=== PATIENT | male | born 1950 | race African-American/Black ===

== ENCOUNTER 2018-08-22 11:28 | Inpatient (IN) ==
[2018-08-22] MEDS ORDERED: ZOFRAN IV PRN (14:59)
--- NOTE | 2018-08-22 15:43 | HISTORY AND PHYSICAL ---
PRIMARY CARE PHYSICIAN: Dr. Johnson. CHIEF COMPLAINT: Left foot swelling and increased shortness of breath despite home O2 at 3 L via nasal cannula. HISTORY OF PRESENTING ILLNESS: This is a 68-year-old male who presents as a direct admit from his primary care physician's office with complaints of increased swelling to his left foot to the point that he can no longer stand on the foot due to the swelling and pain he states and also shortness of breath despite his home O2 at 3 L via nasal cannula. He has a history of nonischemic cardiomyopathy, congestive heart failure, hypertension, hyperlipidemia, PE. His last echocardiogram on 01/13/2018 showed an ejection fraction of 25% with severely reduced systolic function. He is noted to have 1+ pitting edema to his lower extremities, so he is being admitted for further evaluation and treatment. PAST MEDICAL HISTORY: CHF, hypertension, hyperlipidemia, sleep apnea, pulmonary emboli, nonischemic cardiomyopathy. PAST SURGICAL HISTORY: AICD. FAMILY HISTORY: Reviewed and noncontributory. SOCIAL HISTORY: Currently lives with family. Denies any tobacco, alcohol, or illicit drug use. ALLERGIES: He has no known drug allergies. HOME MEDICATIONS: A current list will need to be obtained and we will restart as appropriate after review. We will place an order for nursing to update and confirm home medications. LABORATORY DATA: We are obtaining a 2-view chest x-ray, CBC, BMP, cardiac profile with troponin, and a 2-view chest x-ray now. We will review those results. We will also get a proBNP. REVIEW OF SYSTEMS: He denied any fever, chills, blurred vision, dizziness. Denied any chest pain, coughing. He was positive for shortness of breath. Positive for pain to his left lower extremity, worse when he puts pressure on it to try to walk, with swelling noted. He denied any abdominal pain, constipation, diarrhea, burning or hurting with urination. PHYSICAL EXAMINATION: VITAL SIGNS: On arrival he had a temperature of 97.6 degrees, pulse 50, respirations 24, blood pressure 116/74, saturating 99% on room air. GENERAL: This is a 68-year-old male who is lying in the bed and answers questions appropriately. HENT: Normocephalic, atraumatic. Normal ENT inspection. Oropharynx and nares are clear. EYES: Pupils are equal, round, reactive to light and accommodation. Extraocular movements are intact. NECK: Normal inspection. Normal range of motion. LUNGS: Clear to auscultation bilaterally with equal lung expansion and chest wall movement. HEART: Regular rate and rhythm. No murmurs, rubs, or gallops. ABDOMEN: Soft, nontender, nondistended. Bowel sounds are present x4 quadrants. MUSCULOSKELETAL: He has 5/5 strength x4 extremities. NEUROLOGICAL: The cranial nerves 2-12 appear grossly intact. ASSESSMENT: 1. Acute chronic obstructive pulmonary disease exacerbation. 2. Dyspnea. 3. Hypertension. 4. History of nonischemic cardiomyopathy. PLAN: He will be admitted to the medical unit at [place], placed on telemetry, healthy heart diet. We will check a CBC, BMP, CK profile, troponin, chest x-ray two-view now. Place on Lasix 40 mg IV q.12. Check an echocardiogram in the morning. We need to update and confirm home medications and restart as appropriate. Further orders after being seen by attending. Dictated by ANAMIKA Christianson for Kei Stanley MD cc: ANAMIKA Christianson MD Moses Awoniyi, MD I have seen and examined Mr Vázquez today, was at the bedside. I have reviewed his labs and imaging studies. Mr Vázquez presents with systolic Heart failure exacerbation. He has severe dilated non ischemic cardiomyopathy and follows up with Dr. Dillard. Will continue with iv diuretic therapy and restart his other home meds and consult cardiology. I agree with the above HPI. Plan has been discussed with the patient and his . GREG
--- NOTE | 2018-08-22 15:47 | Diag Imaging Result Doc PS360 ---
CHEST-2 VIEWS - 08/22/2018 INDICATION: CHF COMPARISON: 03/24/2018 FINDINGS: There is a biventricular pacemaker in good position. There is severe cardiomegaly and pulmonary vascular congestion. There are hazy central infiltrates bilaterally compatible with pulmonary edema. No significant pleural effusion. IMPRESSION: Severe cardiomegaly. Interstitial pulmonary edema. Electronically signed by Joseph Jonas 08/22/2018 3:45 PM
[2018-08-22] MEDS: LASIX IV SCH (16:20)
[2018-08-22 18:10] LABS: BASO# 0.01 X1000 (0.0-0.2); BASO% 0.1 % (0.0-0.8); EOS# 0.04 X1000 (0.0-0.7); EOS% 0.4 % (0.0-10.0); HEMATOCRIT 42.9 % (42.0-52.0); HEMOGLOBIN 13.8 g/dL (14.0-18.0); IMM GRAN# 0.02 X1000 (0.0-0.04); IMM GRAN% 0.2 % (0.0-0.5); LYMPH# 1.25 X1000 (1.2-3.4); LYMPH% 12.5 % (20.5-51.1); MCH 23.8 PG (27-31); MCHC 32.2 g/dL (33-37); MONO# 0.55 X1000 (0.11-0.59); MONO% 5.5 % (1.7-9.3); MPV 12.6 FL (7.4-10.4); NEUT% 81.3 % (42.2-75.2); PLT 151 X1000 (130-400); RDW 15.3 % (11.5-14.5); WBC 9.97 X1000 (4.8-10.8)
[2018-08-22 18:16] LABS: CALCIUM 9.5 mg/dL (8.8-10.2); CREATININE 1.2 mg/dL (0.7-1.2); POTASSIUM 3.7 mmol/L (3.5-5.1)
[2018-08-22 18:48] LABS: ANISOCYTOSIS OCCASIONAL; HYPOCHROM 1+; LYMPHS 22 % (21-51); MONO 3 % (1-9); POIKILOCYTOSIS OCCASIONAL; SEGS 75 % (42-75)
[2018-08-22 18:49] LABS: MICROCYTOSIS OCCASIONAL; OVALOCYTES OCCASIONAL; TARGET CELLS OCCASIONAL
[2018-08-22] MEDS: ENTRESTO 24 MG-26 MG TABLET PO SCH (22:22)
[2018-08-22] MEDS: ZOCOR PO SCH (22:22)
[2018-08-22] MEDS: XANAX PO SCH (22:22)
[2018-08-23] MEDS: LASIX IV SCH ×2 (04:44→16:49)
[2018-08-23] MEDS: PRILOSEC PO SCH (06:18)
[2018-08-23 07:20] LABS: BASO# 0.03 X1000 (0.0-0.2); BASO% 0.3 % (0.0-0.8); EOS# 0.09 X1000 (0.0-0.7); EOS% 0.9 % (0.0-10.0); HEMATOCRIT 42.7 % (42.0-52.0); HEMOGLOBIN 13.6 g/dL (14.0-18.0); IMM GRAN# 0.01 X1000 (0.0-0.04); IMM GRAN% 0.1 % (0.0-0.5); LYMPH# 1.88 X1000 (1.2-3.4); LYMPH% 19.8 % (20.5-51.1); MCH 23.6 PG (27-31); MCHC 31.9 g/dL (33-37); MONO# 1.15 X1000 (0.11-0.59); MONO% 12.1 % (1.7-9.3); MPV 12.9 FL (7.4-10.4); NEUT# 6.33 X1000 (1.4-6.5); NEUT% 66.8 % (42.2-75.2); PLT 167 X1000 (130-400); RBC 5.77 XMIL (4.7-6.1); RDW 15.2 % (11.5-14.5); WBC 9.49 X1000 (4.8-10.8)
[2018-08-23 08:04] LABS: CALCIUM 9.5 mg/dL (8.8-10.2); CREATININE 1.3 mg/dL (0.7-1.2); POTASSIUM 3.8 mmol/L (3.5-5.1)
--- NOTE | 2018-08-23 08:34 | PROGRESS NOTE ---
DATE: 08/23/2018 SUBJECTIVE: Patient denies having any acute complaints and feels better as compared to yesterday. He states that he is breathing better this morning. OBJECTIVE: Vital Signs: Temperature 97.7 degrees, pulse 51 per minute, respiratory rate 20 per minute, blood pressure 111/61, and pulse ox 97% on 2 L of oxygen via nasal cannula. General: Patient is alert and oriented x3. He does not appear to be in any acute distress. Cardiovascular: First and second heart sounds are audible without any murmurs or gallops. Respiratory: Bilateral lung air entry is moderately decreased, but there are no rales or rhonchi present on auscultation. Abdomen: Patient is morbidly obese. Abdomen is soft and nontender. Normal bowel sounds are present. Musculoskeletal: No deformities are present. There is minimal bilateral pedal edema. IMPRESSION: 1. Acute systolic congestive heart failure secondary to nonischemic cardiomyopathy. 2. Dyslipidemia. PLAN: I am going to continue with furosemide 40 mg IV q.12 hours since patient has responded well to diuretic therapy. We are going to get another set of cardiac enzymes to rule out acute myocardial ischemic event. I am also going to get labs including BMP and magnesium levels repeated in the morning. We will also repeat chest x-ray in the morning to document improvement of his pulmonary edema that was present at admission. Furthermore, we are going to continue with simvastatin 40 mg daily for his dyslipidemia. Further recommendation will be given as per hospital course. cc: Carolin Velarde MD
[2018-08-23 10:46] LABS: EOS 3 % (1-10); LYMPHS 19 % (21-51); MONO 13 % (1-9); SEGS 65 % (42-75)
[2018-08-23] MEDS: KLOR-CON PO SCH (10:56)
[2018-08-23] MEDS: ASPIRIN EC PO SCH (10:56)
[2018-08-23] MEDS: XARELTO PO SCH (10:56)
[2018-08-23] MEDS: VITAMIN B-12 PO SCH (10:57)
[2018-08-23] MEDS: LANOXIN PO SCH (11:00)
[2018-08-23] MEDS: ALDACTONE PO SCH (11:00)
[2018-08-23] MEDS: ENTRESTO 24 MG-26 MG TABLET PO SCH ×3 (11:00→21:02)
[2018-08-23 12:29] LABS: FERRITIN 151 ng/mL (30-400)
--- NOTE | 2018-08-23 14:37 | ECHO REPORT ---
ORDER DATE: 08/23/2018 ECHOCARDIOGRAPHIC MEASUREMENTS: 1. Interventricular septum 1.2. 2. Left ventricular posterior wall 1.1. 3. Diastolic diameter 7. 4. Left atrium 5.1. 5. Aorta 3.7. SUMMARY: 1. Dilated left ventricle with severely reduced systolic function. Estimated ejection fraction of 20% to 25%. There is severe global hypokinesis. There is diastolic dysfunction. 2. Aortic valve leaflets are trileaflet. 3. Mitral valve was normal. 4. Tricuspid valve was normal. 5. Pulmonic valve was normal. 6. There is no aortic stenosis. There is mild aortic regurgitation. 7. There is left atrial enlargement. 8. There is moderate eccentric mitral regurgitation. 9. There is moderate tricuspid regurgitation. Peak velocity across the tricuspid valve was 3.1 m/sec. 10. Pulmonary artery systolic pressure of 55 mmHg. 11. There is no aortic stenosis. There is mild aortic regurgitation. 12. Pacing leads are noted in the right chamber. 13. There is no pericardial effusion or obvious intracardiac mass or thrombus. cc: MD Sharon Junior CRNP
--- NOTE | 2018-08-23 20:16 | CONSULTATION ---
DATE OF CONSULTATION: 08/23/2018 IMPRESSION: 1. Acute on chronic systolic heart failure. 2. Left calf discomfort and asymmetric edema, more so on the left lower extremity. 3. Hypertension. 4. Hyperlipidemia. 5. History of pulmonary embolus in the past. 6. Obstructive sleep apnea. RECOMMENDATIONS: 1. Agree with diuresis with IV Lasix. 2. Check venous Doppler study, left lower extremity. HISTORY: This 68-year-old male with past history of severe nonischemic cardiomyopathy, hypertension, hyperlipidemia, remote pulmonary embolus, sleep apnea and previous implantable defibrillator was admitted with some increased shortness of breath as well as bilateral lower extremity swelling, more so in the distal left lower extremity. He also relates some left calf discomfort. He was found to have signs of congestive heart failure. He has been started on IV Lasix for diuresis and is clinically improving. There has been no chest pain. PAST MEDICAL HISTORY: 1. Severe nonischemic cardiomyopathy with left ventricular ejection fraction of 25%. 2. Hypertension. 3. Hyperlipidemia. 4. Obstructive sleep apnea. 5. Previous pulmonary embolus in the past. 6. Status post implantable defibrillator. ALLERGIES: He has no known drug allergies. MEDICATIONS PRIOR TO ADMISSION: As listed. SOCIAL HISTORY: He currently lives with family. He does not smoke or use alcohol. FAMILY HISTORY: Negative for premature coronary disease. REVIEW OF SYSTEMS: Pulmonary: Noteworthy for dyspnea but negative for cough. Gastrointestinal: Negative. Constitutional: Negative. Remainder of review of systems negative/noncontributory with 14 total systems reviewed. PHYSICAL EXAMINATION: General: This is an obese, older -Luxembourger male in no distress, on supplemental oxygen per nasal cannula. Vital signs: Blood pressure 100/50, heart rate 56, oxygen saturation 99% on nasal cannula oxygen. HEENT: Extraocular movements appear intact. Mucous membranes are moist. Neck: Supple without discernible jugular venous distention. There are no carotid bruits. Chest: Clear to auscultation bilaterally. Cardiac Exam: Reveals a regular rate and rhythm without appreciable murmur or gallop. Abdomen: Soft, nontender. Bowel sounds audible. Extremities: Demonstrate mild bilateral ankle edema, more so on the left lower extremity. There is some mild left calf tenderness to palpation. DIAGNOSTIC DATA: Echocardiography reports left ventricular ejection fraction is 20% to 25% in the setting of severe global hypokinesis. Moderate mitral regurgitation reported. Moderate tricuspid regurgitation also reported with estimated systolic PA pressure of 55 mmHg. LABORATORY DATA: Includes a white blood cell count of 9.49, hematocrit 42.7, hemoglobin 13.6, platelet count 167. Sodium 135, potassium 3.8, chloride 90, carbon dioxide 29, BUN 32, creatinine 1.3. Glucose 83. Initial troponin 0.02. Follow-up troponin 0.032. ProB natriuretic peptide level on admission 4957. cc: Abelardo Groves MD
[2018-08-23] MEDS: XANAX PO SCH (21:01)
[2018-08-23] MEDS: ZOCOR PO SCH (21:01)
[2018-08-24] MEDS: LASIX IV SCH ×2 (04:22→16:36)
[2018-08-24] MEDS: TYLENOL PO PRN (04:28)
[2018-08-24] MEDS: PRILOSEC PO SCH (06:12)
[2018-08-24 06:30] LABS: AGAP 13; BUN 38 mg/dL (8-22); CALCIUM 9.8 mg/dL (8.8-10.2); CHLORIDE 88 mmol/L (98-107); COSMO 282; CREATININE 1.4 mg/dL (0.7-1.2); ESTIMATED GFR > 60; GLUCOSE 143 mg/dL (70-104); POTASSIUM 3.7 mmol/L (3.5-5.1); SODIUM 135 mmol/L (136-145); TCO2 34 mmol/L (25-35)
--- NOTE | 2018-08-24 07:06 | Diag Imaging Result Doc PS360 ---
EXAM: CHEST-PORTABLE HISTORY: CHF Exacerbation TECHNIQUE: Portable chest single view COMPARISON: 04/27/2019 FINDINGS: The heart remains enlarged. Pulmonary edema persists. Poor inspiratory effort compared to the prior exam. Possible underlying pneumonia in the left lung base. There is a left-sided pacemaker. IMPRESSION: Mild interval worsening. Electronically signed by Tal Smith 08/24/2018 7:03 AM
[2018-08-24] MEDS: ALDACTONE PO SCH (09:52)
[2018-08-24] MEDS: ENTRESTO 24 MG-26 MG TABLET PO SCH ×3 (09:52→21:42)
[2018-08-24] MEDS: LANOXIN PO SCH (09:53)
[2018-08-24] MEDS: KLOR-CON PO SCH (09:54)
[2018-08-24] MEDS: XARELTO PO SCH (09:55)
[2018-08-24] MEDS: ASPIRIN EC PO SCH (09:55)
[2018-08-24] MEDS: VITAMIN B-12 PO SCH (09:56)
--- NOTE | 2018-08-24 11:45 | PROGRESS NOTE ---
DATE: 08/24/2018 SUBJECTIVE: Patient denies having any acute complaints this morning. OBJECTIVE: Vital Signs: Temperature 97.5 degrees, pulse 90 per minute, respiratory rate 20 per minute, blood pressure 94/49, and pulse oximetry 98% on 2 L of oxygen via nasal cannula. General: Patient is alert and oriented x3. He does not appear to be in any acute distress. Cardiovascular: First and second heart sounds are audible without any murmurs or gallops. Respiratory: Bilateral lung air entry is moderately decreased, but there are no rales or rhonchi present on auscultation. Gastroenterology: Patient is morbidly obese. Abdomen is soft and nontender. Normal bowel sounds are present. Musculoskeletal: No deformities are present. There is minimal bilateral pedal edema. DIAGNOSTIC DATA: Basic metabolic panel done this morning showed BUN of 38 and creatinine 1.4 with glucose levels at 143. IMPRESSION: 1. Acute on chronic systolic congestive heart failure secondary to nonischemic cardiomyopathy. 2. Dyslipidemia. PLAN: We are going to continue with IV furosemide, and also continue giving him his routine home medications along with thromboembolism prophylaxis with Xarelto. The patient has been having borderline blood pressure, and we will continue to monitor that. Cardiology are following the case with us as well. Further recommendations will be given as per hospital course. cc: Carolin Velarde MD
[2018-08-24] MEDS: XANAX PO SCH (21:42)
[2018-08-24] MEDS: ZOCOR PO SCH (21:42)
[2018-08-25] MEDS: LASIX IV SCH ×2 (02:14→18:28)
[2018-08-25] MEDS: PRILOSEC PO SCH (06:10)
--- NOTE | 2018-08-25 06:54 | EKG Report ---
Test Performed on : 08/25/2018 02:06:09 AM Test Reason : Frequent PVCs, run of v-tach Blood Pressure : / mmHG Vent. Rate : 103 BPM Atrial Rate : 103 BPM P-R Int : 152 ms QRS Dur : 166 ms QT Int : 416 ms P-R-T Axes : 049 -82 093 degrees QTc Int : 544 ms Sinus tachycardia. with premature atrial complexes. with aberrant conduction. Left atrial enlargement Left axis deviation Right bundle branch block Left ventricular hypertrophy with repolarization abnormality Inferior infarct (cited on or before 25-AUG-2018) Anterior infarct (cited on or before 25-AUG-2018) Abnormal ECG When compared with ECG of 25-AUG-2018 02:05, (Unconfirmed) Previous ECG has undetermined rhythm, needs review Right bundle branch block is now present Unconfirmed Result
[2018-08-25 07:13] LABS: BASO# 0.04 X1000 (0.0-0.2); BASO% 0.4 % (0.0-0.8); EOS# 0.12 X1000 (0.0-0.7); EOS% 1.2 % (0.0-10.0); IMM GRAN# 0.01 X1000 (0.0-0.04); IMM GRAN% 0.1 % (0.0-0.5); LYMPH# 1.73 X1000 (1.2-3.4); LYMPH% 17.3 % (20.5-51.1); MCH 24.1 PG (27-31); MCHC 31.8 g/dL (33-37); MCV 75.7 FL (81-99); MPV 12.6 FL (7.4-10.4); NEUT# 6.78 X1000 (1.4-6.5); PLT 193 X1000 (130-400); RBC 5.81 XMIL (4.7-6.1); RDW 15.3 % (11.5-14.5); WBC 9.98 X1000 (4.8-10.8)
[2018-08-25 07:42] LABS: ESTIMATED GFR > 60
[2018-08-25 07:48] LABS: AGAP 12; ALBUMIN 3.8 g/dL (3.5-5.0); ALKALINE PHOSPHATASE 68 U/L (32-122); BUN 39 mg/dL (8-22); CALCIUM 9.8 mg/dL (8.8-10.2); CHLORIDE 89 mmol/L (98-107); COSMO 282; CREATININE 1.2 mg/dL (0.7-1.2); GLUCOSE 109 mg/dL (70-104); GOT 18 U/L (10-34); GPT 15 U/L (10-44); MAGNESIUM 2.2 mg/dL (1.5-2.7); POTASSIUM 3.7 mmol/L (3.5-5.1); SODIUM 136 mmol/L (136-145); TCO2 35 mmol/L (25-35); TOTAL PROTEIN 7.1 g/dL (6.3-8.3)
[2018-08-25] MEDS: ASPIRIN EC PO SCH (08:56)
[2018-08-25] MEDS: VITAMIN B-12 PO SCH (08:56)
[2018-08-25] MEDS: KLOR-CON PO SCH (08:57)
[2018-08-25] MEDS: XARELTO PO SCH (08:57)
[2018-08-25] MEDS: ALDACTONE PO SCH (10:54)
[2018-08-25] MEDS: LANOXIN PO SCH (10:54)
[2018-08-25] MEDS: ENTRESTO 24 MG-26 MG TABLET PO SCH ×2 (10:54→22:16)
--- NOTE | 2018-08-25 11:25 | PROGRESS NOTE ---
DATE: 08/25/2018 SUBJECTIVE: The patient denies having any acute complaints this morning but feels weak. OBJECTIVE: Vital Signs: Temperature 98.5 degrees, pulse 60 per minute, respiratory rate 20 per minute, blood pressure 112/70, pulse oximetry 100% on 2 L of oxygen via nasal cannula. General: Patient is alert and oriented x3. He does not appear to be in any acute distress. Cardiovascular System: First and second heart sounds are audible without any murmurs or gallops. Respiratory System: Bilateral lung air entry is moderately decreased but there are no rales or rhonchi present on auscultation. Gastrointestinal System: Patient is morbidly obese. Abdomen is soft and nontender. Normal bowel sounds are present. Diagnostic Data: CBC is nondiagnostic. Comprehensive metabolic panel done this morning was also noted to be nondiagnostic. ECG done this morning showed sinus tachycardia with a ventricular rate of 103 beats per minute. That was read by the computer but I believe I can see the pacemaker activity and this seems to be a pacemaker rhythm. IMPRESSION: 1. Acute on chronic systolic congestive heart failure secondary to nonischemic cardiomyopathy, status post automatic implantable cardioverter defibrillator placement. 2. Dyslipidemia. PLAN: We are going to continue with IV furosemide along with other routine medications. He will also continue with Xarelto for thromboembolism prophylaxis. Cardiology is also following the case with us. I am going to order some physical therapy for him since the patient appears to be having generalized deconditioning. cc: Carolin Velarde MD
--- NOTE | 2018-08-25 14:11 | Diag Imaging Result Doc PS360 ---
EXAM: CT HEAD W/O CONTRAST - 08/25/2018 HISTORY: Left sided weakness TECHNIQUE: CT head without contrast COMPARISON: 08/02/2017 FINDINGS: There are mild atrophic changes. There are chronic microvascular ischemic changes. There is an old small infarct at the right parietal lobe, similar to prior. There is no indication of recent infarct, although acute infarcts may not be immediately visible. There is no evidence of intracranial hemorrhage, mass effect, midline shift, or hydrocephalus. There is no evidence of skull fracture. IMPRESSION: Chronic microvascular ischemic changes. 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 No visible acute intracranial abnormality. No hemorrhage or mass effect. This exam was performed using automated exposure control, adjustment of mA or kV according to patient size, and/or use of iterative reconstruction technique. Electronically signed by Dave Steiner 08/25/2018 2:08 PM
[2018-08-25] MEDS: XANAX PO SCH (22:16)
[2018-08-25] MEDS: ZOCOR PO SCH (22:17)
[2018-08-26] MEDS: LASIX IV SCH ×2 (04:13→20:01)
[2018-08-26] MEDS: PRILOSEC PO SCH ×2 (05:48→12:09)
[2018-08-26 07:36] LABS: BASO# 0.04 X1000 (0.0-0.2); BASO% 0.4 % (0.0-0.8); EOS# 0.09 X1000 (0.0-0.7); EOS% 0.9 % (0.0-10.0); HEMATOCRIT 43.1 % (42.0-52.0); HEMOGLOBIN 13.7 g/dL (14.0-18.0); IMM GRAN# 0.03 X1000 (0.0-0.04); IMM GRAN% 0.3 % (0.0-0.5); LYMPH# 1.75 X1000 (1.2-3.4); LYMPH% 17.4 % (20.5-51.1); MCH 24.1 PG (27-31); MCHC 31.8 g/dL (33-37); MCV 75.9 FL (81-99); MONO# 1.05 X1000 (0.11-0.59); MONO% 10.4 % (1.7-9.3); MPV 12.2 FL (7.4-10.4); NEUT# 7.12 X1000 (1.4-6.5); NEUT% 70.6 % (42.2-75.2); PLT 193 X1000 (130-400); RBC 5.68 XMIL (4.7-6.1); RDW 15.1 % (11.5-14.5); WBC 10.08 X1000 (4.8-10.8)
--- NOTE | 2018-08-26 07:43 | Diag Imaging Result Doc PS360 ---
EXAM: CHEST-PORTABLE HISTORY: CHF Exacerbation TECHNIQUE: Chest single view COMPARISON: 08/24/2018 FINDINGS: The lungs are well expanded. The heart is enlarged. There is a left-sided pacemaker. There is vascular distention. Atelectasis versus infiltrates in the left lung base with a small left pleural effusion. IMPRESSION: No improvement in the findings of congestive failure. Electronically signed by Tal Smith 08/26/2018 7:40 AM
[2018-08-26 08:09] LABS: ESTIMATED GFR > 60
[2018-08-26 08:15] LABS: AGAP 12; BUN 37 mg/dL (8-22); CALCIUM 9.7 mg/dL (8.8-10.2); CHLORIDE 89 mmol/L (98-107); COSMO 282; CREATININE 1.1 mg/dL (0.7-1.2); GLUCOSE 98 mg/dL (70-104); POTASSIUM 3.7 mmol/L (3.5-5.1); SODIUM 137 mmol/L (136-145); TCO2 37 mmol/L (25-35)
--- NOTE | 2018-08-26 09:00 | Extremity Venous Study ---
EXAM: Venous U/S Bilateral Legs HISTORY: rule out DVT, left calf pain swelling left ankle TECHNIQUE: Bilateral lower extremity venous Doppler ultrasound COMPARISON: None. FINDINGS: Right: There is good flow and compressibility of the veins of the right lower extremity. No thrombus. Left: There is good flow and compressibility of the veins of the left lower extremity. No thrombus. IMPRESSION: No evidence of deep venous thrombosis within either lower extremity. Electronically signed by Tal Smith 08/26/2018 8:58 AM
[2018-08-26] MEDS: XARELTO PO SCH (09:50)
[2018-08-26] MEDS: ALDACTONE PO SCH (09:50)
[2018-08-26] MEDS: ASPIRIN EC PO SCH (09:50)
[2018-08-26] MEDS: KLOR-CON PO SCH (09:50)
[2018-08-26] MEDS: ENTRESTO 24 MG-26 MG TABLET PO SCH ×2 (09:58→21:59)
[2018-08-26] MEDS: VITAMIN B-12 PO SCH (09:58)
[2018-08-26] MEDS: LANOXIN PO SCH (10:49)
[2018-08-26] MEDS: ZOCOR PO SCH (21:57)
[2018-08-26] MEDS: TYLENOL PO PRN (21:58)
[2018-08-26] MEDS: XANAX PO SCH (21:58)
--- NOTE | 2018-08-26 22:54 | PROGRESS NOTE ---
DATE: 08/26/2018 SUBJECTIVE: The patient notes he is feeling better. Still generally weak, fatigued. Still having some cough, congestion, shortness of breath. PHYSICAL EXAMINATION: Vital Signs: Temperature 97.8, pulse 108, respiratory rate 20, blood pressure 130/79. General: Patient is awake, alert, currently in no distress. Very pleasant to talk with. HEENT: Normocephalic. Neck: Supple. Cardiovascular: Regular rate. Chest: Decreased breath sounds bilaterally, but no current crackles, rhonchi, or wheezes. Abdomen: Soft, nondistended, obese. Extremities: Moves all extremities. He has 1+ edema. Skin: Warm, dry. No rashes. ASSESSMENT: 1. [id number] systolic congestive heart failure with nonischemic cardiomyopathy, status post automatic implantable cardioverter defibrillator. 2. Dyslipidemia. PLAN: We will continue patient in the hospital, continue IV Lasix today at 40 IV q.12. Will attempt to get out of bed. Further orders as needed. cc: Vazquez Alvarado MD
[2018-08-27] MEDS: LASIX IV SCH ×2 (04:00→16:51)
[2018-08-27] MEDS: PRILOSEC PO SCH (06:57)
[2018-08-27] MEDS: VITAMIN B-12 PO SCH (08:37)
[2018-08-27] MEDS: ASPIRIN EC PO SCH (08:38)
[2018-08-27] MEDS: KLOR-CON PO SCH (08:38)
[2018-08-27] MEDS: ENTRESTO 24 MG-26 MG TABLET PO SCH ×2 (08:38→23:40)
[2018-08-27] MEDS: XARELTO PO SCH (08:38)
[2018-08-27] MEDS: ALDACTONE PO SCH (08:38)
[2018-08-27] MEDS: LANOXIN PO SCH (09:32)
--- NOTE | 2018-08-27 23:25 | PROGRESS NOTE ---
DATE: 08/27/2018 SUBJECTIVE: Patient notes he still does not feel well, still having shortness of breath, still has not really been out of bed. Denies any fevers or chills. Denies any chest pain. OBJECTIVE/PHYSICAL EXAMINATION: Temperature 98.9, pulse 89, respiratory 20, BP 101/60.General: Patient is awake, alert. He is in no current respiratory distress. He is lying flatly in the bed. HEENT: Normocephalic. Neck: Supple. CARDIOVASCULAR: Regular rate. Chest: Clear. Abdomen: Soft, nontender. Extremities: Moves all extremities. Neurologic: No changes. ASSESSMENT: 1. Acute on chronic congestive heart failure, systolic. 2. Nonischemic cardiomyopathy. 3. Dyslipidemia. PLAN: He is currently on Lasix IV 40 mg q.12 hours. We will continue to follow. If this does not improve we will have to increase his Lasix. Further orders as needed. cc: Vazquez Alvarado MD
[2018-08-28] MEDS: XANAX PO SCH ×2 (00:05→23:07)
[2018-08-28] MEDS: ZOCOR PO SCH ×2 (00:05→23:08)
[2018-08-28] MEDS: ENTRESTO 24 MG-26 MG TABLET PO SCH ×3 (00:05→23:12)
[2018-08-28] MEDS: TYLENOL PO PRN ×3 (00:44→23:07)
[2018-08-28] MEDS: LASIX IV SCH ×2 (03:30→15:25)
[2018-08-28] MEDS: PRILOSEC PO SCH ×2 (06:42→06:50)
[2018-08-28 08:43] LABS: BASO# 0.03 X1000 (0.0-0.2); BASO% 0.4 % (0.0-0.8); EOS# 0.12 X1000 (0.0-0.7); EOS% 1.4 % (0.0-10.0); HEMOGLOBIN 13.3 g/dL (14.0-18.0); IMM GRAN# 0.02 X1000 (0.0-0.04); IMM GRAN% 0.2 % (0.0-0.5); LYMPH# 1.98 X1000 (1.2-3.4); LYMPH% 23.3 % (20.5-51.1); MCH 24.1 PG (27-31); MCHC 31.7 g/dL (33-37); MCV 76.1 FL (81-99); MONO# 0.87 X1000 (0.11-0.59); MONO% 10.3 % (1.7-9.3); MPV 11.8 FL (7.4-10.4); NEUT# 5.46 X1000 (1.4-6.5); NEUT% 64.4 % (42.2-75.2); PLT 231 X1000 (130-400); RBC 5.52 XMIL (4.7-6.1); RDW 14.9 % (11.5-14.5); WBC 8.48 X1000 (4.8-10.8)
[2018-08-28 08:57] LABS: ESTIMATED GFR > 60
[2018-08-28 09:02] LABS: AGAP 8; ALBUMIN 3.3 g/dL (3.5-5.0); ALKALINE PHOSPHATASE 56 U/L (32-122); BUN 33 mg/dL (8-22); CHLORIDE 90 mmol/L (98-107); COSMO 279; CREATININE 1.1 mg/dL (0.7-1.2); GLUCOSE 101 mg/dL (70-104); GOT 15 U/L (10-34); GPT 15 U/L (10-44); POTASSIUM 3.9 mmol/L (3.5-5.1); SODIUM 136 mmol/L (136-145); TCO2 39 mmol/L (25-35); TOTAL PROTEIN 6.4 g/dL (6.3-8.3)
[2018-08-28] MEDS: XARELTO PO SCH (09:21)
[2018-08-28] MEDS: LANOXIN PO SCH (09:21)
[2018-08-28] MEDS: KLOR-CON PO SCH (09:21)
[2018-08-28] MEDS: ASPIRIN EC PO SCH (09:22)
[2018-08-28] MEDS: ALDACTONE PO SCH (09:22)
[2018-08-28] MEDS: VITAMIN B-12 PO SCH (09:23)
[2018-08-28] MEDS: ULORIC PO SCH ×2 (09:33→10:33)
[2018-08-28 09:57] LABS: EOS 2 % (1-10); LYMPHS 25 % (21-51); MONO 8 % (1-9); SEGS 65 % (42-75)
--- NOTE | 2018-08-28 22:11 | PROGRESS NOTE ---
DATE: 08/28/2018 SUBJECTIVE: Patient notes that he is not feeling much better. Still having shortness of breath. He has not really been out of bed. Notes that he is having foot pain. Denies any real swelling. Does have a strong family history of gout. PHYSICAL EXAM: Vital Signs: Temperature 99, pulse 79, respiratory rate 20, BP 110/93. General: Patient is awake, very pleasant to talk with. He is in no current distress. HEENT: Normocephalic. Neck: Supple. CARDIOVASCULAR: Regular rate. Chest: Decreased breath sounds, but equal bilaterally. No crackles. No wheezing. Abdomen: Soft, obese, nondistended. Extremities: Moves all extremities. There are no focal changes. No edema. ASSESSMENT: 1. Acute on chronic congestive heart failure. 2. Nonischemic cardiomyopathy. 3. Status post automatic implantable cardioverter defibrillator. 4. Dyslipidemia. 5. Gout with uric acid at 12.7. PLAN: We will add Uloric for his gout. Patient is still mildly positive total I's and O's. We will increase his Lasix to 80 IV q.12. Blood pressures are stable. Labs are stable. Recheck in the a.m. Hopefully, he will continue to improve and be transferred to rehab soon. cc: Vazquez Alvarado MD
[2018-08-29] MEDS: LASIX IV SCH (04:30)
[2018-08-29] MEDS: PRILOSEC PO SCH (06:02)
[2018-08-29 06:40] LABS: HEMATOCRIT 43.1 % (42.0-52.0); HEMOGLOBIN 13.9 g/dL (14.0-18.0); MCH 24.6 PG (27-31); MCHC 32.3 g/dL (33-37); MCV 76.1 FL (81-99); MPV 11.2 FL (7.4-10.4); RBC 5.66 XMIL (4.7-6.1); RDW 15.1 % (11.5-14.5); WBC 7.21 X1000 (4.8-10.8)
[2018-08-29 06:46] LABS: AGAP 10; BUN 38 mg/dL (8-22); CHLORIDE 92 mmol/L (98-107); COSMO 284; CREATININE 1.1 mg/dL (0.7-1.2); ESTIMATED GFR > 60; GLUCOSE 149 mg/dL (70-104); POTASSIUM 3.9 mmol/L (3.5-5.1); SODIUM 136 mmol/L (136-145); TCO2 34 mmol/L (25-35)
[2018-08-29] MEDS: KLOR-CON PO SCH (08:47)
[2018-08-29] MEDS: LANOXIN PO SCH (08:47)
[2018-08-29] MEDS: ASPIRIN EC PO SCH (08:47)
[2018-08-29] MEDS: ALDACTONE PO SCH (08:47)
[2018-08-29] MEDS: LASIX PO SCH ×2 (08:47→20:23)
[2018-08-29] MEDS: ULORIC PO SCH (08:48)
[2018-08-29] MEDS: ENTRESTO 24 MG-26 MG TABLET PO SCH ×2 (08:48→20:23)
[2018-08-29] MEDS: TYLENOL PO PRN (08:48)
[2018-08-29] MEDS: VITAMIN B-12 PO SCH (08:48)
[2018-08-29] MEDS: XARELTO PO SCH (08:48)
[2018-08-29] MEDS: ZOCOR PO SCH (20:23)
[2018-08-29] MEDS: XANAX PO SCH (20:23)
--- NOTE | 2018-08-30 00:09 | PROGRESS NOTE ---
DATE: 08/29/2018 SUBJECTIVE: Patient notes that his scalp, right foot pain is still significant. He is, however, starting to walk a little bit better, is able to get back and forth to the restroom. Denies any chest pain. Denies palpitation. Denies any fevers. PHYSICAL EXAMINATION: Vital Signs: Temperature 98.3 degrees, pulse 95, respiratory 20, BP 105/78. General: Patient is awake, alert. He is currently in no respiratory distress. HEENT: Normocephalic. Neck: Supple. Cardiovascular: Regular rate. Chest: Clear, nonlabored. Abdomen: Soft, nondistended. Extremities: Moves all extremities. Neurologic: No changes. ASSESSMENT: 1. Acute on chronic systolic congestive heart failure. 2. Nonischemic cardiomyopathy. 3. Gout with uric acid at 12.7. 4. Dyslipidemia. PLAN: Overall, patient has improved. We will decrease his Lasix. Continue Uloric. Continue physical therapy. Hopefully home soon. cc: Vazquez Alvarado MD
[2018-08-30] MEDS: PRILOSEC PO SCH (06:05)
[2018-08-30 06:12] LABS: HEMATOCRIT 42.8 % (42.0-52.0); HEMOGLOBIN 13.6 g/dL (14.0-18.0); MCH 24.1 PG (27-31); MCHC 31.8 g/dL (33-37); MCV 75.9 FL (81-99); MPV 11.3 FL (7.4-10.4); RBC 5.64 XMIL (4.7-6.1); WBC 8.72 X1000 (4.8-10.8)
[2018-08-30 06:48] LABS: AGAP 10; BUN 32 mg/dL (8-22); CHLORIDE 91 mmol/L (98-107); COSMO 282; ESTIMATED GFR > 60; GLUCOSE 97 mg/dL (70-104); SODIUM 138 mmol/L (136-145); TCO2 36 mmol/L (25-35)
[2018-08-30 07:48] VITALS: BP 87/72
[2018-08-30] MEDS: LANOXIN PO SCH (09:38)
[2018-08-30] MEDS: XARELTO PO SCH (09:39)
[2018-08-30] MEDS: ALDACTONE PO SCH (09:39)
[2018-08-30] MEDS: VITAMIN B-12 PO SCH (09:40)
[2018-08-30] MEDS: KLOR-CON PO SCH (09:40)
[2018-08-30] MEDS: LASIX PO SCH (09:40)
[2018-08-30] MEDS: ULORIC PO SCH (09:41)
[2018-08-30] MEDS: ENTRESTO 24 MG-26 MG TABLET PO SCH (09:41)
[2018-08-30] MEDS: ASPIRIN EC PO SCH (09:50)
--- NOTE | 2018-08-31 16:25 | DISCHARGE SUMMARY ---
ADMISSION DATE: 08/22/2018 DISCHARGE DATE: 08/30/2018 DIAGNOSES: 1. Acute chronic obstructive pulmonary disease exacerbation. 2. Acute on chronic systolic congestive heart failure. 3. Nonischemic cardiomyopathy. 4. Gout with uric acid at 12.7. CONSULTATION: Dr. Abelardo Groves in Cardiology. DIAGNOSTICS: 1. Chest x-ray revealed severe cardiomegaly with interstitial pulmonary edema. 2. Echocardiogram revealed severely reduced systolic function with EF of 20 to 25 percent, global hypokinesis with diastolic dysfunction. There is no pericardial effusion or obvious intracardiac mass or thrombus. 3. CT of the head revealed chronic microvascular ischemic changes with old small infarct at the right parietal lobe. 4. Bilateral lower extremity Doppler reveals no evidence of DVT within either lower extremity. HOSPITAL COURSE: Mr. Vázquez presented to the hospital as direct admit with increased swelling and pain to his left foot to the point that he is unable to stand or walk, as well as shortness of breath despite his home O2 at 3 L. He was diuresed with IV Lasix. He slowly improved walking with a walker approximately 90 feet with minimal assistance. He and his opted not to have the patient go to inpatient rehab. The patient did agree to [facility] continuing services on discharge. He was noted to have a uric acid of 12.7, for which we restarted his Uloric. DISCHARGE VITAL SIGNS: Vital Signs: Blood pressure is 95/60 with a heart rate of 60, respirations are 20, temperature is 97.4 degrees with O2 saturations 100% on 2 L nasal cannula. Cardiovascular: Regular rate and rhythm. S1 and S2 are appreciated without any murmurs or gallops. Pulmonary: Breath sounds are decreased throughout. Chest rises and falls symmetric with respiration. Chest wall is nontender to palpation. Gastrointestinal: Abdomen is soft, nontender, nondistended with bowel sounds in all 4 quadrants. Neurologic: He is alert and oriented x3. DISCHARGE MEDICATIONS: 1. Zocor 40 mg p.o. at bedtime 2. Alprazolam 1 mg p.o. at bedtime. 3. Vitamin B 12 50 mcg p.o. daily. 4. Digoxin 125 mcg p.o. daily. 5. Metolazone 2.5 mg p.o. daily. 6. Entresto 24/26 1 p.o. b.i.d. 7. Spironolactone 25 mg p.o. daily. 8. 81 mg enteric-coated aspirin daily. 9. Uloric 40 mg p.o. daily. 10. Lasix 80 mg p.o. b.i.d. 11. Omeprazole 40 mg p.o. daily. 12. K-Tab 20 mEq p.o. daily. 13. Xarelto 20 mg p.o. daily. FOLLOW-UP: 1. He is to follow up his primary care physician, Dr. Jose F Johnson, in the next 1 to 2 weeks. He has been instructed to call the office on Sunday to schedule an appointment. 2. He has been instructed to call to be seen sooner or return to the ER for any syncope or dizziness, any increasing chest pain, shortness of breath, productive cough, temperature greater than 101.5, any nausea, vomiting, diarrhea, constipation, any black or bloody vomitus or stools, or for any questions or concerns that he may have. He is being discharged home in stable condition with family members. TIME SPENT: This is a greater than 30 minute discharge. Dictated by ANAMIKA Figueroa for Vazquez Alvarado MD This chart was documented by, ANAMIKA Figueroa and accurately reflects the services performed, treatment plan and medical decisions as attested by the providers signature Vazquez Alvarado MD. cc: ANAMIKA Figueroa MD
--- NOTE | 2018-08-31 19:01 | DISCHARGE SUMMARY ---
ADMISSION DATE: 08/22/2018 DISCHARGE DATE: 08/30/2018 DISCHARGE ADDENDUM: Patient seen and examined by myself. Full note dictated and discussed with nurse practitioner. Patient is much more alert, oriented. He is able to ambulate with minimal assistance. We did start him on Uloric for his gout as his uric acid was elevated at 12.7. We will discharge him home. He will follow up outpatient with his primary care. Please see full note. cc: Vazquez Alvarado MD
== END 2018-08-30 10:15 | disposition home health service (06) | DRG 292 ==
LOC: P.DIRADM → SUATTDRO 11:28 → OBSVTOIN 11:28 → P.MEDSURG 12:13
PROVIDERS: ATTEND Family Medicine
CPT/HCPCS: 36415; 70450; 71010; 71020; 71045; 71046; 80048; 80053; 80162; 82550; 82607; 82728; 82746; 83540; 83550; 83735; 83880; 84484; 84550; 85025; 85027; 93005; 93306; 93970; 94761; 97161; 97530; A9270; J1940

== ENCOUNTER 2018-11-21 11:12 | Inpatient (IN) ==
--- NOTE | 2018-11-21 13:42 | EKG Report ---
Test Performed on : 11/21/2018 1:09:36 PM Test Reason : chf Blood Pressure : / mmHG Vent. Rate : 097 BPM Atrial Rate : 097 BPM P-R Int : 182 ms QRS Dur : 128 ms QT Int : 396 ms P-R-T Axes : -12 -79 096 degrees QTc Int : 502 ms Normal sinus rhythm. with sinus arrhythmia. Left axis deviation Nonspecific intraventricular block Inferior infarct , age undetermined Anterolateral infarct , age undetermined Abnormal ECG When compared with ECG of 25-AUG-2018 02:06, Sinus rhythm. has replaced Electronic ventricular pacemaker Confirmed by Stef MCDUFFIE, Geovanny Carlisle ([id number]) on 11/22/2018 10:54:32 AM
--- NOTE | 2018-11-21 13:50 | CARDIOLOGY CONSULTATION ---
DATE: 11/21/2018 SUBJECTIVE: The patient was admitted from our office. I saw him in the office. Patient complains of increasing shortness of breath, pedal edema, abdominal distention, and is orthopneic. He denies chest pain. I recommended that he be admitted. Patient is going to be admitted to the hospital. He has a long history of chronic congestive heart failure and he is also taking anticoagulation medications. There is no bleeding diathesis. REVIEW OF SYSTEM: A 14-point review of systems was done. GI System: There is loss of appetite. No nausea, vomiting, or diarrhea. There is no history of hematemesis or melena. Central Nervous System: No focal weakness to suggest a CVA or TIA. Genitourinary System: There is no dysuria or hematuria. Respiratory System: There is no history of cough, expectoration, or hemoptysis. There is no history of fevers or chills. PAST MEDICAL HISTORY: 1. Nonischemic cardiomyopathy, severe LV dysfunction, ejection fraction of 15-20% in the past and last ejection fraction 20-25%. 2. Recurrent severe systolic heart failure. 3. History of pulmonary edema embolism in the past. 4. Anticoagulation therapy. 5. Home oxygen. 6. History of ventricular tachycardia,status post AICD placement in the past. Has a [employer] device implanted 11/05/2015. 7. Hypertension. 8. Chronic renal insufficiency. 9. Last ejection fraction by echocardiogram 08/23/2018, ejection fraction of 20-25%. HOME MEDICATIONS: Include torsemide 100 mg a day, simvastatin 40, spironolactone 25, Entresto 24/26 one tablet twice a day, Xarelto 15 mg once daily, potassium supplements, omeprazole 40, metolazone 2.5 every other day, digoxin 0.125 mg a day, aspirin 81 mg a day, Coreg 3.125 mg daily, allopurinol 100 mg a day. PHYSICAL EXAMINATION: Vital Signs: Blood pressure was 102/70. Jugular venous pressure was elevated. First and second heart sounds were heard. There is a faint systolic murmur. No S3 gallop. Respiratory System: Scattered bibasilar inspiratory crepitations. Abdomen was obese. Ascites was present. Examination of his extremities revealed pitting 3+ pedal edema bilaterally up to his knees. DIAGNOSTIC DATA: Electrocardiogram revealed a paced rhythm. ASSESSMENT: Mr. Vázquez is a 68-year-old, -[place] gentleman with a history of nonischemic cardiomyopathy, recurrent severe systolic heart failure. 1. Pulmonary embolism in the past. 2. Chronic renal insufficiency. 3. Status post automatic implantable cardioverter defibrillator placement. PLAN: Comes in with complaints of increasing shortness of breath. He is orthopneic. We will admit the patient. 1. We will get a chest x-ray, CBC, BMP, and his lab work with thyroid profile as well. 2. We will put him on Lasix 80 mg IV twice daily. We will check his renal function. [facility] had [facility] as well as at the [facility]. Concern was worsening renal function. We will consult nephrology if required. 3. For his LV dysfunction, he is on a combination of Entresto, Coreg, and digoxin. We will get a digoxin level checked in the morning and continue his medications at the present time. 4. Hyperlipidemia. Continue with simvastatin. 5. He has had a pulmonary embolism in the past. Has severe LV dysfunction. He is on Xarelto. We will check a CBC as well and continue with Xarelto. 6. Gastroesophageal reflux disease. Continue with omeprazole. Thank you for the consult. We will follow hospital course. cc: Andi Dillard MD
--- NOTE | 2018-11-21 13:52 | Diag Imaging Result Doc PS360 ---
EXAM: CHEST-PORTABLE INDICATION: chf TECHNIQUE: One view COMPARISON: 11/11/2018 FINDINGS: Inspiration is suboptimal. The central vasculature appears prominent suggesting pulmonary venous congestion. No well-defined consolidation is identified. The loculated effusion versus chronic pleural scarring at the left lung base is unchanged. There is stable cardiomegaly. IMPRESSION: Cardiomegaly and pulmonary venous congestion as described. Electronically signed by Chinmay Lott 11/21/2018 1:50 PM
[2018-11-21 14:40] LABS: BASO# 0.04 X1000 (0.0-0.2); BASO% 0.5 % (0.0-0.8); EOS# 0.05 X1000 (0.0-0.7); EOS% 0.6 % (0.0-10.0); HEMATOCRIT 37.7 % (42.0-52.0); HEMOGLOBIN 12.1 g/dL (14.0-18.0); IMM GRAN# 0.02 X1000 (0.0-0.04); IMM GRAN% 0.2 % (0.0-0.5); LYMPH# 1.63 X1000 (1.2-3.4); LYMPH% 18.7 % (20.5-51.1); MCH 24.5 PG (27-31); MCHC 32.1 g/dL (33-37); MCV 76.3 FL (81-99); MPV 11.9 FL (7.4-10.4); NEUT# 6.27 X1000 (1.4-6.5); PLT 193 X1000 (130-400); RBC 4.94 XMIL (4.7-6.1); RDW 19.2 % (11.5-14.5); WBC 8.71 X1000 (4.8-10.8)
[2018-11-21 15:01] LABS: INR 1.12; PROTIME 15.3 Seconds (11.0-16.0)
[2018-11-21 15:08] LABS: AGAP 13; ALB/GLOB RATIO 1.4; ALKALINE PHOSPHATASE 60 U/L (32-122); BUN 35 mg/dL (8-22); CALCIUM 9.8 mg/dL (8.8-10.2); CHLORIDE 99 mmol/L (98-107); CK PROFILE 75 U/L (24-204); COSMO 291; CREATININE 1.2 mg/dL (0.7-1.2); ESTIMATED GFR > 60; GLUCOSE 95 mg/dL (70-104); GOT 16 U/L (10-34); GPT 14 U/L (10-44); PHOSPHORUS 3.5 mg/dL (2.7-4.5); POTASSIUM 4.6 mmol/L (3.5-5.1); SODIUM 142 mmol/L (136-145); TCO2 30 mmol/L (25-35); TOTAL BILIRUBIN 0.75 mg/dL (0.20-1.00); TOTAL PROTEIN 6.9 g/dL (6.3-8.3)
[2018-11-21 15:27] LABS: FREE T4 1.15 ng/dL (0.93-1.70); TSH 2.51 uIUmL (0.27-4.20)
--- NOTE | 2018-11-21 16:31 | HISTORY AND PHYSICAL ---
SHOT GRINDER OPERATOR: Dr. Andi Dillard. PRIMARY CARE PHYSICIAN: Dr. Jose F Johnson. CHIEF COMPLAINT: Swelling and dyspnea. HISTORY OF PRESENT ILLNESS: Mr. Vázquez is a 68-year-old -[place] male well known to our service with nonischemic cardiomyopathy, congestive heart failure, morbid obesity and others who presents directly from Dr. Dillard's office with multiple days of lower extremity edema, orthopnea, dyspnea, abdominal distention. He reports being compliant with his medications. He denies excessive H2O or salt intake. He denies any chest pain; however, he does have 2+ pitting edema bilaterally, and he is fairly dyspneic. He was directly admitted to the 4th floor at which time we ordered stat labs. They have come back showing a microcytic anemia and proBNP of 10,965, otherwise unremarkable. We have started IV diuresis and will admit him for further treatment and evaluation. PAST MEDICAL HISTORY: 1. Nonischemic cardiomyopathy. 2. Systolic heart failure, EF 20-25%. 3. History of pulmonary embolism on anticoagulation therapy. 4. History of ventricular tachycardia, status post AICD. 5. CKD, exact stage unknown. 6. Hypertension. 7. Morbid obesity. 8. Gout. 9. Hyperlipidemia. 10.Anxiety. 11.EUGENE. SURGICAL HISTORY: He has had a pacemaker AICD placement. SOCIAL HISTORY: He lives with his family. He denies tobacco, alcohol or drug use. REVIEW OF SYSTEMS: a 14-point review of systems was obtained and found to be negative with the exception of the HPI. ALLERGIES: No known drug allergies. HOME MEDICATIONS: To be compiled by the nursing staff and will update appropriately. PHYSICAL EXAMINATION: VITAL SIGNS: Blood pressure 128/84; heart rate 75; respiratory rate 20; O2 sat 95% on room air; temperature 97.9. GENERAL: This is a morbidly obese -[place] male lying in the hospital bed in no acute distress. NEUROLOGICAL: He is awake, alert, and oriented. Follows commands without focal deficits. HEENT: Head is atraumatic and normocephalic. His pupils are equal, round and reactive to light. Oral mucosa is moist. Trachea is midline. CHEST: Decreased with bibasilar crackles. CARDIOVASCULAR: Regular rate and rhythm. S1 and S2 are noted. A 1/6 systolic murmur noted. GASTROINTESTINAL: Soft, obese but nontender. Bowel sounds are hypoactive. EXTREMITIES: 2+ pitting edema bilaterally. Pulses diminished but palpable at 1+. DIAGNOSTIC DATA: Chest x-ray shows pulmonary edema and cardiomegaly. EKG ventricular paced rhythm. WBC 8.71, hemoglobin 12.1, hematocrit 37.7, platelet count 193,000, INR 1.12. Chemistry reviewed and only abnormalities include BUN of 35, proBNP of 10,965, digoxin level 0.8. ASSESSMENT AND PLAN: 1. Acute on chronic systolic heart failure: Will start the patient on Lasix b.i.d. intravenously per Dr. Dillard's recommendation. Will trend cardiac enzymes and also continue his home medications. Will follow strict I Os and daily weights. Will also follow telemetry. 2. Hypertension: Continue home meds once reconciled. 3. Microcytic anemia. Will make sure that he has iron studies updated and will treat appropriately. 4. History of DVT and PE: Continue Xarelto. 5. Morbid obesity: Will continue to encourage weight loss via diet and exercise. 6. DVT prophylaxis with home Xarelto. Further recommendations to follow. Dictated by ANAMIKA Llanos for Kei Stanley MD cc: ANAMIKA Llanos MD I have seen and examined Mr Vázquez today. Mr Vázquez comes directly from Dr Dillard's office due to fluid overload from systolic heart failure. He is on oral diuretics yet he is symptomatic. He will be admitted for inpatient CHF management. I have reviewed his labs and imagine studies. I agree with the above HPI and the plan reflects my opinion discussed with the [employer] SALES REPRESENTATIVE. GREG
[2018-11-21] MEDS: COREG PO SCH (17:17)
[2018-11-21] MEDS: LASIX IV SCH (17:17)
[2018-11-21] MEDS ORDERED: ENTRESTO 24 MG-26 MG TABLET PO SCH (21:00)
[2018-11-22] MEDS: LASIX IV SCH ×2 (03:13→16:44)
[2018-11-22 07:07] LABS: HEMATOCRIT 37.5 % (42.0-52.0); MCH 24.8 PG (27-31); MCV 77.6 FL (81-99); MPV 12.4 FL (7.4-10.4); RBC 4.83 XMIL (4.7-6.1); RDW 19.3 % (11.5-14.5); WBC 8.51 X1000 (4.8-10.8)
[2018-11-22 07:28] LABS: AGAP 9; BUN 30 mg/dL (8-22); CALCIUM 9.4 mg/dL (8.8-10.2); CHLORIDE 96 mmol/L (98-107); COSMO 285; CREATININE 1.2 mg/dL (0.7-1.2); ESTIMATED GFR > 60; GLUCOSE 116 mg/dL (70-104); MAGNESIUM 1.9 mg/dL (1.5-2.7); POTASSIUM 3.9 mmol/L (3.5-5.1); SODIUM 139 mmol/L (136-145); TCO2 34 mmol/L (25-35)
[2018-11-22] MEDS: LANOXIN PO SCH (08:58)
[2018-11-22] MEDS: XARELTO PO SCH (08:58)
[2018-11-22] MEDS: COREG PO SCH (08:58)
[2018-11-22] MEDS: ASPIRIN EC PO SCH (08:58)
[2018-11-22] MEDS ORDERED: ENTRESTO 24 MG-26 MG TABLET PO SCH (09:00)
[2018-11-22] MEDS ORDERED: ZAROXOLYN PO SCH (12:00)
[2018-11-22] MEDS: ALDACTONE PO SCH (12:45)
--- NOTE | 2018-11-22 14:00 | PROGRESS NOTE ---
DATE: 11/22/2018 SUBJECTIVE: This morning Mr. Vázquez refers to be feeling a little better. He said his shortness of breath is getting better, and his swelling is also going down. OBJECTIVE: Vital Signs: Blood pressure is 100/73, pulse of 88, respiration is 17, temperature is 97.6 degrees. The patient was saturating 99% on 2 L. General: Mr. Vázquez is a 68-year-old gentleman, he is in bed. No seemingly distress. HEENT: Mucosa is pink and moist. Anicteric. Acyanotic. Neck: Supple. There is positive JVD. Chest: Air entry is bilaterally reduced. There is still crackles in the posterior lung alonso. Cardiovascular: Regular rate and rhythm. Abdomen: Soft, distended. Extremities: About 2+ pedal edema. AUTOMATIC PROFILE SHAPER OPERATOR: The patient is awake, alert and oriented. LABORATORY DATA: CBC is reviewed. There is microcytosis. Chemistry reviewed is unremarkable. The patient's I's and O's, urine output was 3700. He is currently a negative balance of 2230. IMAGING: No imaging studies done today. ASSESSMENT: 1. Acute on chronic systolic heart failure. 2. Severe nonischemic dilated cardiomyopathy. 3. Status post automatic implantable cardioverter-defibrillator. 4. Hypertension, controlled. 5. History of deep venous thrombosis and pulmonary embolisms in the past. The patient is on Xarelto. 6. Morbid obesity. 7. Microcytosis with normal iron studies. PLAN: For now we are going to continue with the current IV diuretic therapy. We will also start the patient back on his home medications. Cardiology is on board. We will follow up with further recommendations from them. cc: Kei Stanley MD
[2018-11-22] MEDS: XANAX PO SCH (22:12)
[2018-11-22] MEDS: ENTRESTO 24 MG-26 MG TABLET PO SCH (22:12)
[2018-11-22] MEDS: ZOCOR PO SCH (22:12)
[2018-11-23] MEDS: LASIX IV SCH (04:54)
[2018-11-23] MEDS: PRILOSEC PO SCH (06:39)
[2018-11-23 06:55] LABS: HEMATOCRIT 38.7 % (42.0-52.0); HEMOGLOBIN 12.4 g/dL (14.0-18.0); MCH 24.6 PG (27-31); MCV 76.8 FL (81-99); MPV 12.3 FL (7.4-10.4); RBC 5.04 XMIL (4.7-6.1); WBC 9.12 X1000 (4.8-10.8)
[2018-11-23 07:19] LABS: AGAP 10; BUN 30 mg/dL (8-22); CALCIUM 9.4 mg/dL (8.8-10.2); CHLORIDE 96 mmol/L (98-107); COSMO 287; CREATININE 1.4 mg/dL (0.7-1.2); ESTIMATED GFR > 60; GLUCOSE 98 mg/dL (70-104); POTASSIUM 3.9 mmol/L (3.5-5.1); SODIUM 141 mmol/L (136-145); TCO2 35 mmol/L (25-35)
--- NOTE | 2018-11-23 08:53 | Diag Imaging Result Doc PS360 ---
EXAM: CHEST-2 VIEWS 11/23/2018 HISTORY: dyspnea, chf TECHNIQUE: PA and lateral chest COMMENT: There is cardiomegaly. The lungs are better expanded than on the previous study of 11/21/2018. Otherwise considering differences in technique there has been no significant change. IMPRESSION: Cardiomegaly. Electronically signed by Doyle Miner 11/23/2018 8:51 AM
[2018-11-23] MEDS: ASPIRIN EC PO SCH (09:39)
[2018-11-23] MEDS: ULORIC PO SCH (09:39)
[2018-11-23] MEDS: ENTRESTO 24 MG-26 MG TABLET PO SCH ×2 (09:39→20:23)
[2018-11-23] MEDS: XARELTO PO SCH (09:39)
[2018-11-23] MEDS: LANOXIN PO SCH (09:40)
[2018-11-23] MEDS: COREG PO SCH (09:40)
[2018-11-23] MEDS: ALDACTONE PO SCH (09:40)
--- NOTE | 2018-11-23 18:52 | PROGRESS NOTE ---
DATE: 11/23/2018 SUBJECTIVE: This morning Mr. Vázquez refers to be doing a lot better. He said he had an episode yesterday where he came out of his room, walked to the nursing station, sat up in a chair, but did not really know why he did it, he seems to have been confused. Nurses attended to him, put him in his bed and he felt better. This morning, he was sitting up in a chair. He was eating his breakfast. was at the bedside at the time of the encounter. OBJECTIVELY: Vitals: Blood pressure is 83/55, pulse is 72, respirations 22, temperature 97.8. General: Mr. Vázquez is a 68-year-old, gentleman. He was sitting up in a chair. No distress. Mucosa is pink and moist. Anicteric. Acyanotic. Neck: Supple. Still positive JVD. Chest: Air entry is bilaterally reduced. A few crackles posteriorly. Cardiovascular: Regular rate and rhythm. There is a pacemaker generator pocket on the left anterior chest wall. GI: Abdomen soft, distended. Extremities: About 1+ pedal edema. CHIEF RISK OFFICER: Patient is awake, alert and oriented. LABORATORY DATA: WBC is 9.12, hemoglobin is 12.4, platelet count of 198. Chemistry is also reviewed. Creatinine went up to 1.4. Pro-B is down to 4939. The patient I's and O's, urine output is 2725. He is currently a total negative balance of 4165. The patient's current weight is 289. Admission weight is 295. This is a net 6 pounds weight loss during this hospital course. ASSESSMENT: 1. Acute on chronic systolic heart failure secondary to severe non ischemic dilated cardiomyopathy with ejection fraction of 20%. We will continue with home medication. Patient is also on diuretic therapy. We have discontinued the IV diuresis and put him back on p.o. because of bump in his creatinine and the fact that his blood pressures have been on the lower end. 2. Status post AICD. 3. Hypertension is controlled. The patient is currently actually on the lower end of borderline low normal blood pressures, so will keep an eye on this and adjust his medications accordingly. 4. Microcytic anemia secondary to chronic disease. Iron studies normal. 5. Morbid obesity. 6. History of deep vein thrombosis and pulmonary embolism. Patient is on Xarelto anticoagulation. So this morning, Mr. Vázquez refers to be doing fairly better. Creatinine bumped up slightly to 1.4, so we are going to back off a little bit on the diuretic therapy. He does not look overly congested as before. We will repeat his numbers and trend his blood pressure today. cc: Kei Stanley MD
[2018-11-23] MEDS: ZOCOR PO SCH (20:23)
[2018-11-23] MEDS: XANAX PO SCH (20:25)
[2018-11-24] MEDS: PRILOSEC PO SCH (06:03)
[2018-11-24 06:17] LABS: HEMATOCRIT 40.5 % (42.0-52.0); HEMOGLOBIN 12.7 g/dL (14.0-18.0); MCH 24.8 PG (27-31); MCHC 31.4 g/dL (33-37); MCV 78.9 FL (81-99); MPV 12.1 FL (7.4-10.4); RBC 5.13 XMIL (4.7-6.1); RDW 19.7 % (11.5-14.5); WBC 9.42 X1000 (4.8-10.8)
[2018-11-24 06:51] LABS: AGAP 12; BUN 29 mg/dL (8-22); CHLORIDE 97 mmol/L (98-107); COSMO 289; CREATININE 1.2 mg/dL (0.7-1.2); ESTIMATED GFR > 60; GLUCOSE 95 mg/dL (70-104); MAGNESIUM 2.2 mg/dL (1.5-2.7); POTASSIUM 4.3 mmol/L (3.5-5.1); SODIUM 142 mmol/L (136-145); TCO2 33 mmol/L (25-35)
--- NOTE | 2018-11-24 08:06 | CARDIOLOGY PROGRESS NOTE ---
DATE: 11/24/2018 SUBJECTIVE: Mr. Vázquez was asleep when I walked in the room. He woke up readily. He has no complaints. PHYSICAL EXAMINATION: Vitals: Afebrile. Heart rate 80, blood pressure 95/68. Generally: No acute distress. Chest: Exam sounds relatively clear. No increased work of breathing. Cardiovascular: He sounds to be in a regular rate and rhythm. I do not hear any obvious murmurs in him. Extremities: He has trace bilateral lower extremity edema and warm and well perfused lower extremities. INPUT AND OUTPUT: Negative over the course of the hospitalization with a net negative output of 4.2 L. PERTINENT DATA: Sodium 141, potassium 3.9, BUN 30, creatinine 1.4, which is slightly up from yesterday. His proBNP is down to 4039 from 10,000 on presentation. ASSESSMENT: Mr. Vázquez is a 68-year-old black male with a history of a nonischemic cardiomyopathy. PLAN: He has diuresed significantly. Hospital service has already transitioned him over to oral Lasix, which I agree with. I would continue him on current medications, including Entresto, 3 day a week metolazone and Coreg. cc: Chay Avendaño MD
[2018-11-24] MEDS: LANOXIN PO SCH (09:25)
[2018-11-24] MEDS: ENTRESTO 24 MG-26 MG TABLET PO SCH ×2 (09:25→20:47)
[2018-11-24] MEDS: ULORIC PO SCH (09:25)
[2018-11-24] MEDS: ALDACTONE PO SCH (09:26)
[2018-11-24] MEDS: COREG PO SCH (09:26)
[2018-11-24] MEDS: LASIX LIQUID PO SCH (09:26)
[2018-11-24] MEDS: ASPIRIN EC PO SCH (09:26)
[2018-11-24] MEDS: XARELTO PO SCH (09:26)
--- NOTE | 2018-11-24 15:21 | PROGRESS NOTE ---
DATE: 11/24/2018 This morning Mr. Vázquez refers to be doing fairly the same, no new complaints. He is however seen slightly tachypneic. OBJECTIVE: Vitals: Blood pressure is 99/64, pulse of 67, respiration is 16, temperature 98 degrees, patient is saturating 94% on room air, goes up to about 100 on nasal cannula. General: Mr. Vázquez is a 68-year-old obese gentleman BMI of 39.9 he is in bed. He seems to be mildly tachypneic but he said he is feeling fine. Chest: Good air entry bilateral. There are still a few crackles in the posterior lung alonso. Cardiovascular: Regular rate and rhythm. No murmurs, no rubs, no gallops. There is a pacemaker generator pocket on the left anterior chest wall. Abdomen: Soft, distended but nontender. Extremities: About trace pedal edema. SUPERINTENDENT GREENS: Patient is awake, alert and oriented. LABORATORY DATA: Hemoglobin is 12.9, platelet count of 206,000. Chemistry is also reviewed creatinine is down to 1.2. CURRENT MEDICATIONS: Have all been reviewed. ASSESSMENT: 1. Acute on chronic systolic heart failure. 2. Severe nonischemic dilated cardiomyopathy with ejection fraction of 20%. 3. Status post automated implantable cardioverter defibrillator. 4. Hypertension. 5. Microcytic anemia due to anemia of chronic disease. 6. Obesity. 7. History of deep vein thrombosis and pulmonary embolism on Xarelto anticoagulation. 8. Morbid obesity with body mass index of 39.9. In general I think Mr. Vázquez is doing fairly okay, he continues to be diuresing well. He is currently negative balance of 4600. We are going to continue with the current management and wait for further Cardiology recommendations. cc: Kei Stanley MD [facility]
[2018-11-24] MEDS: XANAX PO SCH (20:46)
[2018-11-24] MEDS: ZOCOR PO SCH (20:47)
[2018-11-25] MEDS: PRILOSEC PO SCH (06:47)
[2018-11-25] MEDS: ALDACTONE PO SCH (10:41)
[2018-11-25] MEDS: XARELTO PO SCH (10:42)
[2018-11-25] MEDS: LASIX LIQUID PO SCH (10:42)
[2018-11-25] MEDS: ASPIRIN EC PO SCH (10:42)
[2018-11-25] MEDS: ULORIC PO SCH (10:42)
[2018-11-25] MEDS: ENTRESTO 24 MG-26 MG TABLET PO SCH ×2 (10:42→20:29)
[2018-11-25] MEDS: LANOXIN PO SCH (10:43)
[2018-11-25] MEDS: COREG PO SCH (10:43)
--- NOTE | 2018-11-25 12:12 | PROGRESS NOTE ---
DATE: 11/25/2018 SUBJECTIVE: This morning, Mr. Vázquez refers to be feeling slightly better but just talking, he gets extremely winded. OBJECTIVE: Vital Signs: Blood pressure is 118/75, pulse is 45 documented but when I listened, it was about 62, respiratory rate is 18, temperature is 97.7 degrees, the patient was saturating 97%. General Examination: Mr. Vázquez is a 68-year-old, gentleman. He was sitting at the edge of the bed. He seems to be in mild respiratory distress. HEENT: Mucosa is pink and moist. Anicteric. Acyanotic. Neck: Supple. There is positive JVD. Chest: Air entry is bilaterally reduced. There are crackles in both posterior lung alonso. Cardiovascular: Regular rate and rhythm. No murmurs, no rubs, no gallops. There is a pacemaker generator pocket on the left anterior chest wall. GI: Abdomen is soft and distended but nontender. Bowel sounds present. Extremities: About 1+ pedal edema. COMMUNICATIONS ENGINEER: The patient is awake, alert, and oriented. Is and Os: Urine output was 11,100. The patient has a total negative balance of -4819. Laboratory Studies show a BUN of 19 and creatinine is 1.2. No imaging studies today. Medications have all been reviewed. ASSESSMENT: 1. Acute on chronic systolic heart failure on presentation. 2. Severe nonischemic dilated cardiomyopathy with ejection fraction of 20%. 3. Status post automatic implantable cardioverter defibrillator. 4. Hypertension, improved. 5. Microcytic anemia, presumably due to anemia of chronic disease. We will repeat the iron studies to see his iron reserve. If ferritin and the iron parameters are low, I think it would be reasonable to transfuse him iron. 6. Obesity. 7. History of multiple deep venous thromboses and pulmonary embolism. Patient is on Xarelto anticoagulation. PLAN: In general, Mr. Vázquez seems to be doing fairly okay. However, he is remarkably short of breath and it looks like it is worse this morning. Just sitting up and talking, he is winded. I have changed his p.o. Lasix to IV to enhance more diuresis and get most of the fluid off. We will re-evaluate him tomorrow and make a decision if he can be discharged. The patient is also being seen by cardiology and we will follow up with their further recommendations. cc: Kei Stanley MD
[2018-11-25] MEDS: LASIX IV SCH ×2 (12:35→20:28)
[2018-11-25 12:57] LABS: IRON SATURATION 18 %; TIBC 318 ug/dL; TOTAL IRON 57 ug/dL (53-167); UNBOUND IRON 261 ug/dL (112-346)
--- NOTE | 2018-11-25 13:26 | EKG Report ---
Test Performed on : 11/25/2018 12:32:12 PM Test Reason : bradycardia. r/o AV blocks Blood Pressure : / mmHG Vent. Rate : 075 BPM Atrial Rate : 075 BPM P-R Int : 190 ms QRS Dur : 136 ms QT Int : 440 ms P-R-T Axes : 055 -80 101 degrees QTc Int : 491 ms Sinus rhythm. with blocked premature atrial complexes. with occasional atrial-paced complexes and pre mature supraventricular complexes. and with occasional premature ventricular complexes. Possible Left atrial enlargement Left axis deviation Nonspecific intraventricular block Inferior infarct (cited on or before 25-AUG-2018) Anterolateral infarct (cited on or before 25-AUG-2018) Abnormal ECG When compared with ECG of 21-NOV-2018 13:09, Electronic atrial pacemaker has replaced Sinus rhythm. Confirmed by Stef MCDUFFIE, Geovanny Carlisle ([id number]) on 11/26/2018 9:18:51 AM
[2018-11-25] MEDS ORDERED: VENOFER 200 MG in NS 100 ML IV SCH (13:45)
[2018-11-25] MEDS: ZOCOR PO SCH (20:29)
[2018-11-26] MEDS: XANAX PO SCH (02:03)
[2018-11-26] MEDS: PRILOSEC PO SCH (06:11)
[2018-11-26 06:35] LABS: BASO# 0.04 X1000 (0.0-0.2); BASO% 0.5 % (0.0-0.8); EOS# 0.12 X1000 (0.0-0.7); EOS% 1.5 % (0.0-10.0); HEMATOCRIT 38.2 % (42.0-52.0); HEMOGLOBIN 12.1 g/dL (14.0-18.0); IMM GRAN# 0.02 X1000 (0.0-0.04); IMM GRAN% 0.3 % (0.0-0.5); LYMPH# 2.03 X1000 (1.2-3.4); LYMPH% 25.5 % (20.5-51.1); MCH 24.6 PG (27-31); MCHC 31.7 g/dL (33-37); MCV 77.8 FL (81-99); MONO# 0.64 X1000 (0.11-0.59); MPV 12.4 FL (7.4-10.4); NEUT# 5.12 X1000 (1.4-6.5); NEUT% 64.2 % (42.2-75.2); PLT 204 X1000 (130-400); RBC 4.91 XMIL (4.7-6.1); RDW 18.9 % (11.5-14.5); WBC 7.97 X1000 (4.8-10.8)
[2018-11-26 07:08] LABS: AGAP 11; ALBUMIN 3.4 g/dL (3.5-5.0); ALKALINE PHOSPHATASE 55 U/L (32-122); BUN 35 mg/dL (8-22); CALCIUM 9.1 mg/dL (8.8-10.2); CHLORIDE 97 mmol/L (98-107); COSMO 289; CREATININE 1.4 mg/dL (0.7-1.2); ESTIMATED GFR > 60; GLUCOSE 98 mg/dL (70-104); GOT 14 U/L (10-34); GPT 13 U/L (10-44); POTASSIUM 4.4 mmol/L (3.5-5.1); SODIUM 141 mmol/L (136-145); TCO2 33 mmol/L (25-35); TOTAL BILIRUBIN 0.62 mg/dL (0.20-1.00); TOTAL PROTEIN 6.9 g/dL (6.3-8.3)
[2018-11-26] MEDS: XARELTO PO SCH (08:47)
[2018-11-26] MEDS: LANOXIN PO SCH (08:47)
[2018-11-26] MEDS: ULORIC PO SCH (08:47)
[2018-11-26] MEDS: ENTRESTO 24 MG-26 MG TABLET PO SCH ×2 (08:47→21:14)
[2018-11-26] MEDS: ALDACTONE PO SCH (08:47)
[2018-11-26] MEDS: ASPIRIN EC PO SCH (08:47)
[2018-11-26] MEDS: VENOFER 200 MG in NS 150 ML IV SCH (08:48)
[2018-11-26] MEDS: LASIX IV SCH ×2 (08:49→21:14)
--- NOTE | 2018-11-26 09:39 | Diag Imaging Result Doc PS360 ---
CHEST-2 VIEWS - 11/26/2018 INDICATION: hypoxia COMPARISON: 11/23/2018 FINDINGS: Stable biventricular pacemaker. Stable significant cardiomegaly and pulmonary vascular congestion. No infiltrates or edema. No pneumothorax or pleural effusion. IMPRESSION: Cardiomegaly and pulmonary vascular congestion. No change from prior. Electronically signed by Joseph Jonas 11/26/2018 9:37 AM
--- NOTE | 2018-11-26 09:59 | PROGRESS NOTE ---
DATE: 11/26/2018 SUBJECTIVE: Mr. Vázquez was sleeping, and did not arouse during the exam. He appears to be breathing comfortably. He remains afebrile. Pulse was 90, respirations 26, and blood pressure had been ranging between 90 and 115/68 to 83. OBJECTIVE: Pupils I did not examine. He was sleeping. CVP less than 6 cm on the neck.Lungs: Clear anterolateral. Cardiovascular: Regular rhythm and rate without murmur or S3. Abdomen: Soft. He had trace pitting edema at the ankles. ASSESSMENT AND PLAN: 1. Acute on chronic systolic heart failure on presentation. 2. Severe nonischemic dilated cardiomyopathy with ejection fraction of 20%. 3. Status post automatic implantable cardiac defibrillator. 4. Hypertension. 5. Microcytic anemia, presumed due to anemia of chronic disease, and he did get some iron studies and he got some IV iron. 6. Obesity. 7. History of multiple deep venous thrombosis and pulmonary embolism so is on Xarelto. He seems to be improving. He was short of breath yesterday, and this seems to be better today. Sleeping soundly. We changed his p.o. Lasix to IV to enhance the diuresis so hopefully we are heading in the right direction. cc: Rick Price MD
[2018-11-26] MEDS: COREG PO SCH (11:11)
[2018-11-26] MEDS: ZOCOR PO SCH (21:14)
[2018-11-27 06:28] LABS: BASO# 0.03 X1000 (0.0-0.2); BASO% 0.3 % (0.0-0.8); EOS# 0.08 X1000 (0.0-0.7); EOS% 0.9 % (0.0-10.0); HEMATOCRIT 37.1 % (42.0-52.0); HEMOGLOBIN 11.8 g/dL (14.0-18.0); IMM GRAN# 0.02 X1000 (0.0-0.04); IMM GRAN% 0.2 % (0.0-0.5); LYMPH# 1.44 X1000 (1.2-3.4); LYMPH% 15.6 % (20.5-51.1); MCH 24.7 PG (27-31); MCHC 31.8 g/dL (33-37); MCV 77.6 FL (81-99); MONO# 0.92 X1000 (0.11-0.59); MONO% 9.9 % (1.7-9.3); MPV 12.6 FL (7.4-10.4); NEUT# 6.77 X1000 (1.4-6.5); NEUT% 73.1 % (42.2-75.2); PLT 188 X1000 (130-400); RBC 4.78 XMIL (4.7-6.1); RDW 18.7 % (11.5-14.5); WBC 9.26 X1000 (4.8-10.8)
[2018-11-27] MEDS: PRILOSEC PO SCH (06:31)
[2018-11-27] MEDS: XANAX PO SCH ×2 (06:32→22:46)
[2018-11-27 07:03] LABS: AGAP 8; BUN 29 mg/dL (8-22); CHLORIDE 96 mmol/L (98-107); COSMO 283; CREATININE 1.3 mg/dL (0.7-1.2); ESTIMATED GFR > 60; GLUCOSE 91 mg/dL (70-104); MAGNESIUM 2.1 mg/dL (1.5-2.7); POTASSIUM 3.9 mmol/L (3.5-5.1); SODIUM 139 mmol/L (136-145); TCO2 35 mmol/L (25-35)
[2018-11-27] MEDS: LASIX IV SCH ×2 (08:54→22:49)
[2018-11-27] MEDS: ULORIC PO SCH (08:54)
[2018-11-27] MEDS: VENOFER 200 MG in NS 150 ML IV SCH (08:54)
[2018-11-27] MEDS: XARELTO PO SCH (08:55)
[2018-11-27] MEDS: ASPIRIN EC PO SCH (08:55)
[2018-11-27] MEDS: ALDACTONE PO SCH (08:55)
[2018-11-27] MEDS: ENTRESTO 24 MG-26 MG TABLET PO SCH ×2 (08:55→22:46)
[2018-11-27] MEDS: LANOXIN PO SCH (08:55)
[2018-11-27] MEDS: COREG PO SCH (08:56)
--- NOTE | 2018-11-27 10:14 | PROGRESS NOTE ---
DATE: 11/27/2018 SUBJECTIVE: Mr. Vázquez was admitted on 11/21/2018. He has a history of nonischemic cardiomyopathy, systolic heart failure with ejection fraction between 20% and 25%, history of pulmonary embolism on anticoagulation therapy, history of ventricular tachycardia status post AICD placement, history of chronic kidney disease, hypertension, morbid obesity, gout, hyperlipidemia, anxiety, and obstructive sleep apnea. He was pretty sleepy this morning. He talked about maybe trying to want to go home in the morning. He wants to go home with home health and get outpatient physical therapy. OBJECTIVE: Vital Signs: He is afebrile, temperature is 98.3 degrees, pulse 80, respirations 20, blood pressure 95/64. Urine output was 2800 mL. HEENT: Pupils are equal and round. Lungs: Clear in all lung alonso. Cardiovascular: Regular rhythm and rate without murmur or S2. LABORATORY DATA: Today, hematocrit 37, hemoglobin 11. Electrolytes: Sodium 139, potassium 3.9, chloride 96, BUN 29, creatinine 1.3. ProBNP was 4594. ASSESSMENT AND PLAN: 1. Acute on chronic systolic heart failure. Seems to be a little better as far as compensation. 2. Severe nonischemic dilated cardiomyopathy, ejection fraction about 20%. 3. Status post automatic implantable cardiac defibrillator. Aware. 4. Hypertension. 5. Microcytic anemia, presumed to be anemia of chronic disease. He did get some intravenous iron. 6. Obesity. 7. History of multiple deep venous thromboses and pulmonary embolisms. He is on Xarelto. cc: Rick Price MD
[2018-11-27] MEDS: ZOCOR PO SCH (22:46)
[2018-11-28] MEDS: PRILOSEC PO SCH (06:19)
[2018-11-28] MEDS: COREG PO SCH (09:35)
[2018-11-28] MEDS: XARELTO PO SCH (09:35)
[2018-11-28] MEDS: ULORIC PO SCH (09:35)
[2018-11-28] MEDS: ALDACTONE PO SCH (09:35)
[2018-11-28] MEDS: ENTRESTO 24 MG-26 MG TABLET PO SCH ×2 (09:35→22:36)
[2018-11-28] MEDS: ASPIRIN EC PO SCH (09:36)
[2018-11-28] MEDS: LANOXIN PO SCH ×3 (09:36→09:57)
[2018-11-28] MEDS: VENOFER 200 MG in NS 150 ML IV SCH (09:38)
[2018-11-28] MEDS: LASIX IV SCH ×2 (09:43→22:36)
[2018-11-28] MEDS ORDERED: ULORIC PO SCH (14:00)
[2018-11-28] MEDS ORDERED: COLBENEMID PO SCH (14:00)
--- NOTE | 2018-11-28 14:01 | PROGRESS NOTE ---
DATE: 11/28/2018 SUBJECTIVE: Mr. Vázquez is sitting up. He does feel like he is breathing a little better. He is having trouble with his left leg and he thinks he has gout in his ankle. OBJECTIVE: Temperature 98.6 degrees, pulse 98 respirations 22, blood pressure 110/70. HEENT: Pupils are equal and round. Lungs: Clear in all lung alonso. Cardiovascular: Regular rhythm and rate without murmur or S3. Abdomen: Soft. Skin: Warm and dry. Genitourinary: Urine output is 2200 mL. ASSESSMENT AND PLAN: 1. Acute on chronic systolic heart failure. He has improved with diuresis, better compensation. Hopefully, can go home tomorrow. 2. Severe nonischemic dilated cardiomyopathy, ejection fraction 20%. 3. Status post automatic implantable cardiac defibrillator. Aware. 4. Hypertension. 5. Microcytic anemia, anemia of chronic disease. 6. Obesity. 7. Multiple events of deep venous thrombosis, pulmonary embolism. 8. Gouty arthritis. We will put him back on some allopurinol and give I will him some colchicine to see if it will help. cc: Rick Price MD
[2018-11-28] MEDS ORDERED: COLCRYS PO ONE (21:00)
[2018-11-28] MEDS: ZOCOR PO SCH (22:36)
[2018-11-28] MEDS: XANAX PO SCH (22:36)
[2018-11-29] MEDS: PRILOSEC PO SCH (06:55)
[2018-11-29] MEDS: ASPIRIN EC PO SCH (09:32)
[2018-11-29] MEDS: XARELTO PO SCH (09:32)
[2018-11-29] MEDS: ALDACTONE PO SCH (09:32)
[2018-11-29] MEDS: ULORIC PO SCH (09:32)
[2018-11-29] MEDS: COREG PO SCH (09:38)
[2018-11-29] MEDS: LASIX IV SCH ×2 (09:40→22:22)
[2018-11-29] MEDS: LANOXIN PO SCH (09:40)
--- NOTE | 2018-11-29 10:53 | Diag Imaging Result Doc PS360 ---
EXAM: CHEST-2 VIEWS 11/29/2018 HISTORY: dyspnea TECHNIQUE: PA and lateral chest COMMENT: There is cardiomegaly. There is apparent atelectasis in the lingula. Overall the appearance of the chest has not changed significantly since the previous study of 11/26/2018. IMPRESSION: Cardiomegaly. Left upper lobe atelectasis. Electronically signed by Doyle Miner 11/29/2018 10:50 AM
[2018-11-29] MEDS: ENTRESTO 24 MG-26 MG TABLET PO SCH ×2 (10:56→22:21)
[2018-11-29] MEDS: COLBENEMID PO SCH ×2 (11:12→22:21)
--- NOTE | 2018-11-29 14:13 | PROGRESS NOTE ---
DATE: 11/29/2018 SUBJECTIVE: Mr. Vázquez is breathing better. His left foot does feel better. Round O like he had some gouty arthralgia in that left foot and he feels like he is improving. I think the plan is to look at a CT scan, and just see how much pulmonary venous hypertension is improved. He has not had any chest pain. He is eating pretty well, ambulating better with his foot feeling better. OBJECTIVE: Temperature 98.4 degrees, pulse 55, respirations 26, blood pressure 89/63. Pupils are equal and round. Lungs are clear in all lung alonso. Cardiovascular exam regular rhythm and rate without murmur or S3. Abdomen is soft. Skin is warm and dry. Urine output was 2300 mL. Chest x-ray from today with left upper lobe atelectasis appreciated. ASSESSMENT AND PLAN: 1. Acute on chronic systolic heart failure which is improved with diuresis better compensation. Hopefully, he can go home in the morning. 2. Severe nonischemic dilated cardiomyopathy, ejection fraction 20%. 3. Status post automatic implantable cardiac defibrillator. Aware. 4. Hypertension. 5. Microcytic anemia of chronic disease. Blood count has been stable. 6. Obesity. 7. Multiple events of deep venous thrombosis and pulmonary embolism. 8. Gouty arthritis. We will put him back on his allopurinol and colchicine. Hopefully, he can be discharged tomorrow. LABORATORY DATA: Review of his lab from the , creatinine is down to 1.3. Sodium 139, potassium 3.9, and BUN 29. We will check electrolytes again tomorrow including magnesium. Hematocrit and hemoglobin are stable. He does have a microcytic picture, and might benefit from iron. cc: Rick Price MD
[2018-11-29] MEDS: ZOCOR PO SCH (22:21)
[2018-11-29] MEDS: XANAX PO SCH (22:22)
[2018-11-30] MEDS: PRILOSEC PO SCH (06:24)
[2018-11-30 07:37] LABS: AGAP 10; BUN 25 mg/dL (8-22); CALCIUM 9.8 mg/dL (8.8-10.2); CHLORIDE 93 mmol/L (98-107); COSMO 278; CREATININE 1.2 mg/dL (0.7-1.2); ESTIMATED GFR > 60; GLUCOSE 89 mg/dL (70-104); MAGNESIUM 1.9 mg/dL (1.5-2.7); POTASSIUM 4.3 mmol/L (3.5-5.1); SODIUM 137 mmol/L (136-145); TCO2 34 mmol/L (25-35)
[2018-11-30] MEDS ORDERED: DEMADEX PO SCH (09:00)
[2018-11-30] MEDS: COLBENEMID PO SCH (09:46)
--- NOTE | 2018-11-30 09:46 | DISCHARGE SUMMARY ---
ADMISSION DATE: 11/21/2018 DISCHARGE DATE: 11/30/2018 PRIMARY CARE PHYSICIAN: Dr. Jose F Johnson. HOGSHEAD HAND: Dr. Dillard. HISTORY OF PRESENT ILLNESS: This is a 68-year-old male, well known to our service with nonischemic cardiomyopathy, congestive heart failure, morbid obesity, presented from Dr. Dillard's office with a several day history of lower extremity edema, orthopnea, dyspnea, abdominal distention. Reports being compliant with his medication. He denies excessive water or salt intake. He denies any chest pain. However, has noted his legs are swelling, he has greater than 2+ pitting edema bilaterally and increased dyspnea at rest and exertion. So, admitted up on the 4th floor once again. PAST MEDICAL HISTORY: 1. Nonischemic cardiomyopathy. 2. Congestive heart failure with decreased ejection fraction, ejection fraction 20 to 25 percent. 3. History of pulmonary embolism and anticoagulation therapy. 4. History of ventricular tachycardia status post AICD. 5. Chronic kidney disease, exact stage unknown. 6. Hypertension. 7. Morbid obesity. 8. Gout. 9. Hyperlipidemia. 10. Anxiety. 11. Obstructive sleep apnea. 12. The patient has a pacemaker and AICD combination. ADMISSION DIAGNOSES: 1. Acute on chronic systolic heart failure. The patient was given IV Lasix and followed his cardiac enzymes, adjusted medication for his afterload. 2. Hypertension. Medicines were adjusted, trying to maximize his afterload and his preload to help with compensation. 3. Microcytic anemia, aware. Blood counts remain stable. 4. History of deep venous thrombosis and pulmonary embolus, so continues Xarelto. 5. Morbid obesity. 6. Continue his deep venous thrombosis prophylaxis. HOSPITAL COURSE: His chest x-ray on arrival, cardiomegaly, pulmonary venous congestion, pulmonary venous hypertension. Chest x-ray repeated on 11/23/2018, cardiomegaly, not much change. Continued to diurese and felt like he was making slow improvement. He complained of pain in his left foot, felt like his gout was coming back, so I put him back on colchicine and some allopurinol. His chest x-ray on 11/29/2018 had some left upper lobe atelectasis. Overall, pulmonary venous hypertension had improved. The patient felt better, wanted to go home. DISCHARGE MEDICATIONS: 1. Xanax 1 mg at bedtime. 2. Aspirin 81 mg daily. 3. Coreg 3.125 mg daily. 4. Lanoxin 125 mcg daily. 5. Uloric 40 mg daily. 6. Zaroxolyn 2.5 mg every 3 days. 7. Prilosec 40 mg a day. 8. 9. Colchicine was given to him twice a day to help with his gout and left foot pain. 10. Xarelto 20 mg a day. 11. Entresto 24-26 one b.i.d. 12. Zocor 40 mg at bedtime. 13. Spironolactone 25 mg a day. 14. Torsemide he is taking p.o. 100 mg daily. FOLLOWUP: 1. He will follow up with Dr. Dillard in a couple weeks. 2. Follow up with Dr. Jose F Johnson as well in the next 4 weeks. DISPOSITION: I think he has oxygen already at home, so we will discharge him home. cc: Rick Price MD MTDD
[2018-11-30 09:47] VITALS: BP 110/80
[2018-11-30] MEDS: LANOXIN PO SCH (09:47)
[2018-11-30] MEDS: COREG PO SCH (09:48)
[2018-11-30] MEDS: XARELTO PO SCH (09:48)
[2018-11-30] MEDS: ULORIC PO SCH (09:48)
[2018-11-30] MEDS: ENTRESTO 24 MG-26 MG TABLET PO SCH (09:48)
[2018-11-30] MEDS: ASPIRIN EC PO SCH (09:48)
[2018-11-30] MEDS: ALDACTONE PO SCH (09:48)
== END 2018-11-30 12:57 | disposition home or self-care (01) | DRG 291 ==
LOC: DIRADM 11:12 → SUATTDRO 11:12 → 4N 11:31
PROVIDERS: ATTEND Emergency Medicine
CPT/HCPCS: 71010; 71020; 71045; 71046; 80048; 80053; 80162; 82550; 82728; 82948; 83540; 83550; 83735; 83880; 84100; 84439; 84443; 84484; 85025; 85027; 85610; 93005; 93010; 94761; 97162; 97530; A9270; J1756; J1940; XXXXX

== ENCOUNTER 2019-02-14 07:37 | Inpatient (IN) ==
[2019-02-14] MEDS ORDERED: ASPIRIN PO ONE (07:38)
[2019-02-14] MEDS ORDERED: LASIX IV ONE (07:43)
[2019-02-14] MEDS ORDERED: NITROGLYCERIN TOP ONE (07:43)
--- NOTE | 2019-02-14 07:44 | PROVIDER DOCUMENTATION ---
HPI-Cardiac General - General Chief Complaint: Shortness of Breath Stated Complaint: CP-HEART PT Time Seen by Provider: 02/14/19 07:40 Source: patient, family Allergies/Adverse Reactions: Patient Allergies Allergy/AdvReac Type Severity Reaction Status Date / Time No Known Allergies Allergy Verified 02/14/19 08:12 Home Medications: Home Medication List Medication Instructions Recorded Confirmed Last Taken Type SIMVAstatin [Zocor] 40 mg PO QHS 01/11/15 11/21/18 11/20/18 History Potassium Chloride [K-Tab ER] 20 meq PO DAILY #30 tablet.er 01/12/15 11/21/18 11/21/18 Rx Digoxin 125 mcg PO DAILY 03/24/16 11/21/18 11/21/18 History Spironolactone 25 mg PO DAILY 03/24/16 11/21/18 11/21/18 History Aspirin [Cuming Aspirin EC] 81 mg PO DAILY #30 tablet. 03/27/16 11/21/18 11/21/18 Rx Rivaroxaban [Xarelto] 20 mg PO DAILY #30 tablet 03/27/16 11/21/18 11/21/18 Rx Omeprazole 40 mg PO DAILY #90 capsule. 08/04/17 11/21/18 11/21/18 Rx Alprazolam 1 mg PO HS 08/22/18 11/21/18 11/20/18 History Metolazone 2.5 mg PO .3DAYS A WK 08/22/18 11/21/18 11/20/18 History Sacubitril/Valsartan [Entresto 24 0.5 tab PO BID 08/22/18 11/22/18 11/21/18 His tory mg-26 mg Tablet] Acetaminophen [Tylenol] 650 mg PO Q6H PRN PRN tablet 08/30/18 11/21/18 11/21/18 Rx Febuxostat [Uloric] 40 mg PO DAILY #30 tab 08/30/18 11/21/18 11/21/18 Rx Carvedilol [Coreg] 3.125 mg PO DAILY 30 Days #30 tab 11/30/18 Unknown Rx Torsemide [Demadex] 100 mg PO DAILY 30 Days #30 tab 11/30/18 Unknown Rx - History of Present Illness-Cardiac Nature of Presenting Problem: CHEST TIGHTNESS AND SOB ALL NIGHT. NO CHANGE WITH EXERTION . HAS NOTED INCREASE LE EDEMA. NO FEVER. DENIES PRODUCTIVE COUGH. NO VOMITING Location: reports: substernal Quality of Pain: reports: tightness Severity in ED: moderate Onset/Duration: last night Timing: still present Context/Activities at Onset: reports: none Modifying Factors: improves with: nothing Nitro Today/Relief: reports: no nitro taken today Associated Symptoms: reports: edema. denies: fever/chills Review of Systems - Adult - REVIEW OF SYSTEMS - ADULT Constitutional: reports: no symptoms reported Cardiovascular: reports: see HPI Respiratory: denies: hemoptysis, wheezing Gastrointestinal: reports: no symptoms reported Neurological: reports: no symptoms reported All Other Systems: Reviewed and Negative Past History - Adult - PAST MEDICAL HISTORY-ADULT Review of Records: reports: Nursing Assessment Review, Medications Reviewed, Social history reviewed & non-contributory. Major Childhood Illnesses: reports: denies history Cardiovascular: reports: CAD, CHF, HTN, hyperlipidemia, MA, pacemaker, other Respiratory: reports: sleep apnea Gastrointestinal: reports: denies history Obstetrical/Gynecological: reports: denies history Genitourinary: reports: denies history Musculoskeletal: reports: denies history Neurological: reports: denies history Psychiatric: reports: denies history Endocrine/Immune: reports: denies history Other Conditions: reports: denies history - PRIOR SURGERIES/PROCEDURES Surgical/Procedure History: reports: none, pacemaker - IMMUNIZATION STATUS Childhood Immunizations: See Nurse Assessment Flu Vaccine: See Nurse Assessment - FAMILY HISTORY Family History: reviewed, not pertinent - SOCIAL HISTORY Substance Use: denies Physical Exam-General - PHYSICAL EXAM-ADULT Initial Vital Signs Reviewed: Yes - CONSTITUTIONAL General Appearance: alert - EYES Eyes: PERRL/EOMI - HEAD, EARS, NOSE, MOUTH & THROAT HENMT: normocephalic/atraumatic, moist mucous membranes, normal ENT inspection - NECK Neck: non-tender, full range of motion, supple - RESPIRATORY Respiratory: chest non-tender, no accessory muscle use, decreased breath sounds (BASES) - CARDIOVASCULAR Cardiovascular: normal peripheral pulses, regular rate, rhythm, no murmur, other (2+ BILAT LE EDEMA) - GASTROINTESTINAL (ABDOMEN) Abdominal Exam: normal bowel sounds, non tender, soft - MUSCULOSKELETAL Extremity: pedal edema (2+ BILAT). negative: calf tenderness - SKIN Integumentary: normal turgor, warm/dry - NEUROLOGIC Neurologic: no motor/sensory deficits - PSYCHIATRIC Psych/Mental Status: normal mood/affect, oriented x 3 Progress - PLAN OF CARE/RESULTS Progress/Plan/Lab Results: Vital Signs - 8 hr 02/14/19 07:41 Temperature 97.6 F Pulse Rate 86 Respiratory Rate 26 H Blood Pressure 113/69 O2 Sat by Pulse Oximetry 92 L Laboratory Results - last 24 hr 02/14/19 02/14/19 02/14/19 08:00 08:00 08:00 WBC 7.87 RBC 4.93 Hgb 12.1 L Hct 38.3 L MCV 77.7 L MCH 24.5 L MCHC 31.6 L RDW Std Deviation 16.8 H Plt Count 221 MPV 11.6 H Immature Gran % (Auto) 0.0 Neut % (Auto) 75.4 H Lymph % (Auto) 16.6 L Wise % (Auto) 6.2 Eos % (Auto) 1.4 Baso % (Auto) 0.4 Immature Gran # (Auto) 0.00 Neut # (Auto) 5.93 Lymph # (Auto) 1.31 Wise # (Auto) 0.49 Eos # (Auto) 0.11 Baso # (Auto) 0.03 PT INR PTT (Actin FS) Sodium 138 Potassium 4.4 Chloride 96 L Carbon Dioxide 30 Anion Gap 12 BUN 33 H Creatinine 1.6 H Estimated GFR/1.73 m2 52 BUN/Creatinine Ratio 21 Glucose 116 H Calculated Osmolality 284 Calcium 9.5 Total Bilirubin 0.54 AST 22 ALT 14 Alkaline Phosphatase 58 Creatine Kinase 73 Troponin T Unv-C-Cakgoilglfd Pept 7584 H Total Protein 6.7 Albumin 3.9 Globulin 2.8 Albumin/Globulin Ratio 1.4 Urine Source Urine Color Urine Turbidity Urine pH Ur Specific [place] Urine Protein Ur Glucose (Stick) Ur Ketones (Stick) Urine Blood Urine Nitrite Urine Bilirubin Urobilinogen Dipstick Urine Leukocytes Urine WBC (Auto) Urine RBC (Auto) U Epithel Cells (Auto) Urine Bacteria (Auto) Digoxin 0.6 L 02/14/19 02/14/19 02/14/19 08:00 08:00 08:20 WBC RBC Hgb Hct MCV MCH MCHC RDW Std Deviation Plt Count MPV Immature Gran % (Auto) Neut % (Auto) Lymph % (Auto) Wise % (Auto) Eos % (Auto) Baso % (Auto) Immature Gran # (Auto) Neut # (Auto) Lymph # (Auto) Wise # (Auto) Eos # (Auto) Baso # (Auto) PT 32.2 H INR 3.02 PTT (Actin FS) 42.9 H Sodium Potassium Chloride Carbon Dioxide Anion Gap BUN Creatinine Estimated GFR/1.73 m2 BUN/Creatinine Ratio Glucose Calculated Osmolality Calcium Total Bilirubin AST ALT Alkaline Phosphatase Creatine Kinase Troponin T < 0.010 Jjh-[id number]-Jinoucnipnp Pept Total Protein Albumin Globulin Albumin/Globulin Ratio Urine Source CLEAN CATCH Urine Color YELLOW Urine Turbidity CLEAR Urine pH 5.5 Ur Specific [place] 1.011 Urine Protein 50 A Ur Glucose (Stick) NEGATIVE Ur Ketones (Stick) NEGATIVE Urine Blood SMALL A Urine Nitrite NEGATIVE Urine Bilirubin NEGATIVE Urobilinogen Dipstick NORMAL Urine Leukocytes NEGATIVE Urine WBC (Auto) <10 Urine RBC (Auto) <10 U Epithel Cells (Auto) <10 Urine Bacteria (Auto) NEGATIVE Digoxin Orders Category Date Time Status Cardiac Monitoring DIRECTED Care 02/14/19 07:39 Active Oxygen Therapy- ED Nursing DIRECTED Care 02/14/19 07:39 Active Saline Loc NOW Care 02/14/19 07:39 Active CHEST-1 VIEW [RAD] Stat Exams 02/14/19 07:39 Completed CBC WITH ELECTRONIC DIFF [HEME] Stat Lab 02/14/19 08:00 Completed CK PROFILE [SP CHEM] Stat Lab 02/14/19 08:00 Completed COMPREHENSIVE METABOLIC PANEL [CHEM] Stat Lab 02/14/19 08:00 Completed DIGOXIN [TDM] Stat Lab 02/14/19 08:00 Completed PRO B-NATRIURETIC PEPTIDE Stat Lab 02/14/19 08:00 Completed PROTIME WITH INR [COAG] Stat Lab 02/14/19 08:00 Completed PTT [COAG] Stat Lab 02/14/19 08:00 Completed TROPONIN T Stat Lab 02/14/19 08:00 Completed UA NIMS W/REFLEX CULT [URINALYSIS] Stat Lab 02/14/19 08:20 Completed Aspirin Med 02/14/19 07:38 Discontinued 325 mg PO NOW ONE Furosemide [Lasix] Med 02/14/19 07:43 Discontinued 60 mg IV NOW ONE Nitroglycerin Med 02/14/19 07:43 Discontinued 1 inch TOP NOW ONE CP/SOB/Palp >45 yrs of Age Stat Oth 02/14/19 07:38 Ordered EKG [EKG] Stat Ther 02/14/19 07:39 Draft Result Diagrams: 02/14/19 08:00 02/14/19 08:00 - REASSESSMENT Reassessment #1 Time Reassessed: 09:01 Status: improving (SYMPTOMS IMPROVING. NO CHEST PAIN. SPEAKING IN FULL SENTENCES) - EKG 1 Time of EKG reading by physician:: 08:17 EKG Read and Signed by:: Franco Hinds Rate: 91 Rhythm: PACED [place]: left QRS: NSIVCD MT Interval: normal ST Wave: non-specific ST changes - XRAY 1 XRAY Study: Chest Impression: See EMR Report ( EXAM: CHEST-1 VIEW HISTORY: SOB TECHNIQUE: Chest single view COMPARISON: 12/04/2018 FINDINGS: Poor inspiratory effort. The heart remains enlarged. There is pulmonary edema. No change in the left pacemaker. There may be a small left pleural effusion. IMPRESSION: Cardiomegaly with pulmonary edema Electronically signed by Tal Smith 02/14/2019 8:14 AM 02/14/19813 Interpreting Physician: Tal Smith MD Dictated Date/Time: 02/14/19813 cc: Franco Hinds MD; Jose F Johnson MD) Departure - Departure Date of Disposition Decision: 02/14/19 Time of Disposition Decision: 09:01 DIAGNOSIS: CHF (congestive heart failure) Qualifiers: Heart failure type: unspecified Heart failure chronicity: acute on chronic Qualified Code(s): I50.9 - Heart failure, unspecified Disposition: ADMITTED INPATIENT 09 Certified Medical Emergency: Emergent Condition: Fair Referrals and Follow-Ups: Jose F Johnson MD [Primary Care Provider] - - Critical Care Note This patient required my direct & personal management of CC.: No Attestation - Physician/ DAMIEN Attestation Patient care was provided by Advanced Practice Provider:: No The physician spent face to face time with patient:: Yes Advanced Practice Provider documentation review:: Supervising physician onsite and consulted in the evaluation and care of this patient. The physician did have a face to face encounter with the patient.
--- NOTE | 2019-02-14 07:47 | EKG Report ---
Test Performed on : 02/14/2019 07:42:41 AM Test Reason : CP Blood Pressure : / mmHG Vent. Rate : 091 BPM Atrial Rate : 091 BPM P-R Int : 144 ms QRS Dur : 176 ms QT Int : 474 ms P-R-T Axes : 052 -82 089 degrees QTc Int : 583 ms Sinus rhythm. with frequent and consecutive premature ventricular complexes. Possible Left atrial enlargement Left axis deviation Nonspecific intraventricular block Abnormal ECG When compared with ECG of 25-NOV-2018 12:32, Significant changes have occurred Unconfirmed Result
--- NOTE | 2019-02-14 08:17 | Diag Imaging Result Doc PS360 ---
EXAM: CHEST-1 VIEW HISTORY: SOB TECHNIQUE: Chest single view COMPARISON: 12/04/2018 FINDINGS: Poor inspiratory effort. The heart remains enlarged. There is pulmonary edema. No change in the left pacemaker. There may be a small left pleural effusion. IMPRESSION: Cardiomegaly with pulmonary edema Electronically signed by Tal Smith 02/14/2019 8:14 AM
[2019-02-14 08:22] LABS: BASO# 0.03 X1000 (0.0-0.2); BASO% 0.4 % (0.0-0.8); EOS# 0.11 X1000 (0.0-0.7); EOS% 1.4 % (0.0-10.0); HEMATOCRIT 38.3 % (42.0-52.0); HEMOGLOBIN 12.1 g/dL (14.0-18.0); LYMPH# 1.31 X1000 (1.2-3.4); LYMPH% 16.6 % (20.5-51.1); MCH 24.5 PG (27-31); MCHC 31.6 g/dL (33-37); MCV 77.7 FL (81-99); MONO# 0.49 X1000 (0.11-0.59); MONO% 6.2 % (1.7-9.3); MPV 11.6 FL (7.4-10.4); NEUT# 5.93 X1000 (1.4-6.5); NEUT% 75.4 % (42.2-75.2); PLT 221 X1000 (130-400); RBC 4.93 XMIL (4.7-6.1); RDW 16.8 % (11.5-14.5); WBC 7.87 X1000 (4.8-10.8)
[2019-02-14 08:27] LABS: INR 3.02; PROTIME 32.2 Seconds (11.0-16.0); PTT 42.9 Seconds (22.3-41.8)
[2019-02-14 08:39] LABS: URINE SOURCE CLEAN CATCH
[2019-02-14 08:45] LABS: ALB/GLOB RATIO 1.4; ALBUMIN 3.9 g/dL (3.5-5.0); CALCIUM 9.5 mg/dL (8.8-10.2); CREATININE 1.6 mg/dL (0.7-1.2); DIGOXIN 0.6 ng/mL (0.9-2.0); POTASSIUM 4.4 mmol/L (3.5-5.1); TOTAL BILIRUBIN 0.54 mg/dL (0.20-1.00); TOTAL PROTEIN 6.7 g/dL (6.3-8.3)
[2019-02-14 08:47] LABS: BILIRUBIN URINE NEGATIVE (NEGATIVE); BLOOD URINE SMALL (NEGATIVE); COLOR YELLOW; GLUCOSE URINE NEGATIVE (NEGATIVE); KETONE URINE NEGATIVE (NEGATIVE); LEUKOCYTES URINE NEGATIVE (NEGATIVE); NITRITE URINE NEGATIVE (NEGATIVE); PH URINE 5.5; PROTEIN URINE 50 mg/dL (NEGATIVE); SP GRAVITY URINE 1.011; TURBIDITY URINE CLEAR (CLEAR); UROBILINOGEN URINE NORMAL (NORMAL)
[2019-02-14 08:48] LABS: UR EPITHELIAL CELLS <10 /HPF (<10); URINE BACTERIA NEGATIVE /HPF; URINE RBC <10 /HPF (<10); URINE WBC <10 /HPF (<10)
[2019-02-14 10:57] LABS: BLOOD TYPE ARTERIAL; SAMPLE BLOOD
[2019-02-14 10:58] LABS: ALLEN TEST YES; HCO3-(ACT) 31.9 mmoll (20.0-26.0); O2(CT) 17.1 mL/dL (15.0-23.0); O2HB 96.3 % (95.0-99.0); PO2(98.6) 109 mmHg (60-100); SAO2 99.1 % (95.0-100.0); THB 12.5 g/dL (11.5-17.4); pH(98.6) 7.36 (7.35-7.45)
[2019-02-14 11:00] LABS: MODALITY CANNULA; PCO2(98.6) 65 mmHg (35-45)
[2019-02-14] MEDS ORDERED: DUONEB (A & A) INH PRN (11:24)
[2019-02-14] MEDS ORDERED: LEVOPHED 8 MG in D5 1/2 NS 250 ML IV SCH (11:45)
[2019-02-14] MEDS ORDERED: MILRINONE IV ONE (13:42)
--- NOTE | 2019-02-14 13:50 | HISTORY AND PHYSICAL ---
CHIEF COMPLAINT: Shortness of breath, lower extremity edema and abdominal distention. HISTORY OF PRESENT ILLNESS: This is a 69-year-old gentleman with a history of nonischemic cardiomyopathy, severe LV dysfunction, systolic heart failure, history of ventricular tachycardia status post automated implantable cardioverter-defibrillator placement and chronic renal insufficiency. He presents to the emergency room with family members complaining of shortness of breath that has been increasing over the last 24 hours as well as increasing abdominal distention and lower extremity edema. The patient was in [facility] just discharged last week. Family member stated that they he diuresed "a lot of liters" and was feeling better when he was discharged. She does state he is taking his medications as prescribed and he has stayed on a diet with low salt. At the time of my exam the patient was lethargic with respirations that were 10 to 12 and a systolic blood pressure of 84. The patient would rouse to his name being called and mumble a few words. Blood gases were obtained. He was found to have a pCO2 of 65 and a PO2 of 109. BiPAP was ordered. PAST MEDICAL HISTORY: 1. Nonischemic cardiomyopathy. 2. History of systolic heart failure with ejection fraction of 20 to 25 percent. 3. History of pulmonary embolism on anticoagulation therapy. 4. History of ventricular tachycardia status post automated implantable cardioverter defibrillator placement. 5. Chronic kidney disease. 6. Hypertension. 7. Morbid obesity. 8. Gout. 9. Hyperlipidemia. 10. Anxiety. 11. Obstructive sleep apnea. He does have a CPAP. PAST SURGICAL HISTORY: 1. Pacemaker. 2. AICD placement. SOCIAL HISTORY: He lives with family members. Denies alcohol, tobacco, or illicit drug use. ALLERGIES: No known drug allergies. HOME MEDICATIONS: A list will be obtained by the nursing staff and once verified we will review and restart as appropriate. REVIEW OF SYSTEMS: The patient is not able to discuss at this time. PHYSICAL EXAMINATION: GENERAL: This is a 69-year-old gentleman who is lying in the hospital bed. HEENT: Head is normocephalic, atraumatic. Mucous membranes are moist. NECK: Supple with trachea midline. CARDIOVASCULAR: Regular rate and rhythm. S1 and S2 are appreciated are noted. He does have 1 1- 2/6 systolic murmur. He has bilateral lower extremity edema from just above the knees down. PULMONARY: Breath sounds with bibasilar crackles with some scattered expiratory wheezing. Chest rises and falls symmetric with respiration. GASTROINTESTINAL: Abdomen is distended, soft with bowel sounds in all 4 quadrants. SKIN: Warm and dry. NEUROLOGIC: He is lethargic. LABS: WBC is 7.8 with hemoglobin 12.1, hematocrit 38.3, platelets of 221,000. Sodium is 138, potassium 4.4, BUN 33, creatinine 1.6 with a glucose of 116. Troponin is negative. Urinalysis is essentially negative. Digoxin level 0.6. ABGs pH is 7.36 with pCO2 65, PO2 109, and bicarb of 31.9. Chest x-ray revealed cardiomegaly with pulmonary edema. ASSESSMENT AND PLAN: 1. Acute hypercapnic respiratory failure. We will place patient on BiPAP. He will be admitted to ICU. We will monitor. 2. Nonischemic cardiomyopathy with an ejection fraction of 20 to 25 percent he has. 3. Systolic congestive heart failure, acute on chronic. We will continue with 40 mg of Lasix IV b.i.d. We will consult Cardiology. Strict I Os with daily weights. 4. Hypotension. The patient's systolic pressure stayed 88 to 92. We will monitor. We will order Levophed. 5. History of deep venous thrombosis and pulmonary embolism. We will continue Xarelto. 6. Obstructive sleep apnea. At present, he will be on will use BiPAP. We have asked the family to bring his machine in so once he is off BiPAP, he can use this at night. 7. History of ventricular tachycardia status post automated implantable cardioverter defibrillator placement. 8. Gastrointestinal prophylaxis proton pump inhibitor. 9. This was discussed with Dr. Amado. 10. Further treatments pending hospital course. Dictated by ANAMIKA Figueroa for Max Chacon MD Addendum: Patine seen and examined by myself. Agree with ANAMIKA note. It reflects my assessment and plan. Patient is being admitted to hospital for congestive heart failure secondary to severe non ischemic cardiomyopathy. Will admit him to ICU, start Lasix, check an echo and consult Cardiology. Will monitor patient closely. cc: ANAMIKA Figueroa MD [facility]
[2019-02-14] MEDS ORDERED: LANOXIN IV ONE (14:28)
[2019-02-14] MEDS: PRIMACOR 20 MG/D5W 100 ML 20 MG/100 ML IVPB IV SCH ×2 (14:46→20:04)
[2019-02-14] MEDS: TOPROL XL PO SCH (14:46)
--- NOTE | 2019-02-14 16:08 | CONSULTATION ---
DATE OF CONSULTATION: 02/14/2019 IMPRESSION: 1. Acute on chronic systolic heart failure. 2. Hypercapnic respiratory failure probably related to obstructive sleep apnea. 3. Severe nonischemic cardiomyopathy with left ventricular ejection fraction of 20% to 25%. 4. Probable cardiorenal syndrome with creatinine elevated to 1.6 from baseline of 1.2. 5. Previous pulmonary embolism. The patient continues on anticoagulation. 6. Status post implantable defibrillator. 7. Hypertension. 8. Morbid obesity. 9. Hyperlipidemia. 10. Obstructive sleep apnea. The patient has CPAP but does not consistently utilize it due to poor tolerance. RECOMMENDATIONS: 1. Diurese with intravenous Lasix. 2. Utilize CPAP as tolerated. 3. Initiate Primacor for ionotropic support. HISTORY: This 69-year-old male with past history of severe nonischemic cardiomyopathy, chronic systolic heart failure, multiple admissions for congestive heart failure, ventricular arrhythmias, previous implantable defibrillator, hypertension, obesity, hyperlipidemia, and obstructive sleep apnea was admitted for further management of congestive heart failure after he presented to the emergency room with several days of progressive shortness of breath. The patient was just recently hospitalized in [facility] a week or so ago. He was diuresed vigorously for congestive heart failure. Over the last few days, he relates he started having more shortness of breath. He reports marked exertional shortness of breath. He has had some orthopnea as well. He was found to have evidence of acute systolic heart failure as well as hypercapnia. He has history of sleep apnea but has limited tolerance of CPAP. PAST MEDICAL HISTORY: 1. Severe nonischemic cardiomyopathy with a left ventricular ejection fraction of 20% to 25%. 2. Chronic systolic heart failure. 3. Status post implantable defibrillator for ventricular arrhythmias. 4. Previous pulmonary embolism. The patient continues on long-term anticoagulation. 5. Hypertension. 6. Morbid obesity. 7. Gout. 8. Hyperlipidemia. 9. Obstructive sleep apnea. PAST SURGICAL HISTORY: Includes, pacemaker implant and defibrillator implant. SOCIAL HISTORY: He lives with family members. He does not use alcohol or smoke. He reports compliance with dietary sodium restriction and almost never eats out at restaurants. FAMILY HISTORY: Negative for premature coronary disease. REVIEW OF SYSTEMS: Pulmonary: Noteworthy for exertional dyspnea. There has been no cough. Gastrointestinal: Noteworthy for variable appetite. Gastrointestinal review of systems otherwise negative. Constitutional: Noteworthy for modest recent weight gain. Remainder of Review of Systems negative/noncontributory. A total of 14 systems reviewed. PHYSICAL EXAMINATION: General: This is an overweight older male in no distress, on supplemental oxygen per nasal cannula. Vital signs: Blood pressure 97/67, heart rate 80, oxygen saturation 99% on nasal cannula oxygen at 3 L per minute. HEENT: Extraocular muscles appear intact. Mucous membranes are moist. Neck: Supple. Jugular venous distention is demonstrated, suggesting some elevation of central venous pressure. Chest: Auscultation of chest reveals some diminished breath sounds at the bases bilaterally. Cardiac: Reveals a regular rate and rhythm without appreciable murmur or gallop. Abdomen: Soft. Bowel sounds are normal. Extremities: Demonstrate mild edema in pretibial area bilaterally. Neurologic: Reveals him to be alert and fully oriented. Speech is fluent. He moves all four extremities equally well. Skin: Warm and dry. Psychiatric: Reveals mood to be appropriate. DIAGNOSTIC DATA: 12 lead EKG demonstrates sinus rhythm with occasional premature ventricular complex; atrial sensed ventricular paced rhythm and left atrial abnormality. LABORATORY DATA: Includes a white blood cell count of 7.87, hematocrit 38.3, hemoglobin 12.1, platelet count 221,000. Arterial blood gas: pH 7.36, pCO2 65, pO2 109, on nasal cannula oxygen at 3 L per minute. Sodium 138, potassium 4.4, chloride 96, carbon dioxide 30, BUN 33, creatinine 1.6. Glucose 116. CPK 73. Troponin T less than 0.01. ProBNP level 7584. Digoxin level 0.6. IMAGING: Chest x-ray demonstrates prominent cardiomegaly and pulmonary edema. cc: Abelardo Groves MD
[2019-02-14] MEDS: LASIX IV SCH (20:04)
[2019-02-14] MEDS: ENTRESTO 24 MG-26 MG TABLET PO SCH (21:01)
[2019-02-14 22:44] LABS: URINE SOURCE CATH
[2019-02-14 22:45] LABS: BILIRUBIN URINE NEGATIVE (NEGATIVE); BLOOD URINE NEGATIVE (NEGATIVE); COLOR YELLOW; GLUCOSE URINE NEGATIVE (NEGATIVE); KETONE URINE NEGATIVE (NEGATIVE); LEUKOCYTES URINE NEGATIVE (NEGATIVE); NITRITE URINE NEGATIVE (NEGATIVE); PH URINE 5.5; PROTEIN URINE NEGATIVE (NEGATIVE); SP GRAVITY URINE 1.011; TURBIDITY URINE CLEAR (CLEAR); UROBILINOGEN URINE NORMAL (NORMAL)
[2019-02-14 23:11] LABS: URINE RBC <10 /HPF (<10); URINE WBC <10 /HPF (<10)
[2019-02-14 23:12] LABS: UR EPITHELIAL CELLS <10 /HPF (<10); URINE BACTERIA NEGATIVE /HPF
[2019-02-15] MEDS: PRIMACOR 20 MG/D5W 100 ML 20 MG/100 ML IVPB IV SCH ×4 (03:58→23:34)
[2019-02-15 06:44] LABS: BASO# 0.02 X1000 (0.0-0.2); BASO% 0.2 % (0.0-0.8); EOS# 0.11 X1000 (0.0-0.7); EOS% 1.3 % (0.0-10.0); HEMATOCRIT 37.7 % (42.0-52.0); HEMOGLOBIN 11.9 g/dL (14.0-18.0); IMM GRAN# 0.02 X1000 (0.0-0.04); IMM GRAN% 0.2 % (0.0-0.5); LYMPH# 1.02 X1000 (1.2-3.4); LYMPH% 11.7 % (20.5-51.1); MCH 24.6 PG (27-31); MCHC 31.6 g/dL (33-37); MCV 78.1 FL (81-99); MONO# 0.59 X1000 (0.11-0.59); MONO% 6.8 % (1.7-9.3); MPV 12.5 FL (7.4-10.4); NEUT# 6.95 X1000 (1.4-6.5); NEUT% 79.8 % (42.2-75.2); PLT 203 X1000 (130-400); RBC 4.83 XMIL (4.7-6.1); RDW 16.6 % (11.5-14.5); WBC 8.71 X1000 (4.8-10.8)
[2019-02-15 07:14] LABS: CALCIUM 9.4 mg/dL (8.8-10.2); CREATININE 1.5 mg/dL (0.7-1.2); POTASSIUM 3.7 mmol/L (3.5-5.1)
[2019-02-15] MEDS: LASIX IV SCH ×2 (08:18→20:06)
[2019-02-15] MEDS: LANOXIN IV SCH (08:19)
[2019-02-15] MEDS: TOPROL XL PO SCH (08:22)
[2019-02-15] MEDS: ENTRESTO 24 MG-26 MG TABLET PO SCH ×2 (08:23→20:08)
[2019-02-15] MEDS ORDERED: VITAMIN E PO SCH (09:00)
[2019-02-15] MEDS ORDERED: MULTI-VITAMIN PO SCH (09:00)
[2019-02-15] MEDS: ASPIRIN EC PO SCH (09:33)
[2019-02-15] MEDS: ALDACTONE PO SCH (09:34)
[2019-02-15] MEDS: ZYLOPRIM PO SCH (09:34)
[2019-02-15] MEDS: KLOR-CON PO SCH ×2 (09:34→20:07)
[2019-02-15] MEDS: PRILOSEC PO SCH (09:34)
--- NOTE | 2019-02-15 09:49 | PROGRESS NOTE ---
DATE: 02/15/2019 SUBJECTIVE: Patient reports breathing better. His blood pressure has been stable in the last 12 hours. Denies any chest pain or shortness of breath. OBJECTIVE: VITAL SIGNS: Temperature 98.2 degrees, heart rate 96, respiratory rate 28, blood pressure 104/47, O2 saturation 93% on 3 liters nasal cannula. GENERAL: This is a chronically ill- appearing 69-year-old -[place] male in no acute distress. HEENT: Head is normocephalic, atraumatic. Mucous membranes moist. NECK: Supple. JVD noted. No thyromegaly. No lymphadenopathy. CARDIOVASCULAR: S1, S2 heard. No murmurs, gallops, rubs. Regular rate and rhythm. RESPIRATORY: Diminished breath sounds globally mostly noted in both bases. Minimal crackles noted as well. Patient not using any accessory muscles and no work of breathing. ABDOMEN: Soft. Nontender to palpation. Bowel sounds present. No organomegaly. EXTREMITIES: Mild edema on both lower extremities mostly in pretibial area. Peripheral pulses present. NEUROLOGICAL: Patient alert and oriented x3. Moves 4 extremities. LABORATORY DATA: White cell count 8.71, hemoglobin 8.9, hematocrit 37.7, platelets 203,000. BMP reveals creatinine 1.5, glucose 115, BUN 31. ASSESSMENT AND PLAN: 1. Acute on chronic systolic heart failure. Patient has been started on Lasix. Also, he has been start on Primacor as per Cardiology recommendations. Clinically, this patient is not complaining of any shortness of breath any more. At this point, we will continue with recommendations from Cardiology. 2. Nonischemic cardiomyopathy with an ejection fraction of 25%. We have an ordered an echocardiogram yesterday but it has not resulted yet. We will adjust medical treatment according to results of that exam. 3. Acute hypercapnic respiratory failure. Patient has been placed on BiPAP yesterday now. He has required 3 liters of oxygen by nasal cannula. He is not complaining of shortness of breath at rest. We will continue to monitor. 4. Hypotension. Blood pressure is much better. We ordered Levophed just in case blood pressure drops to 70 or below but we did not start it. We will continue to monitor this patient during in the intensive care unit. 5. History of DVT and PE. Patient has been restarted on Xarelto. Patient advised to continue using that CPAP mask here in the hospital at night. 6. History of ventricular tachycardia status post AICD, aware. 7. GI prophylaxis with Protonix. 8. Disposition: We will continue with Lasix and Primacor in the intensive care unit and we will move this patient once he is more stable. cc: Max Chacon MD MTDD
--- NOTE | 2019-02-15 09:57 | ECHO REPORT ---
ORDER DATE: 02/14/2019 INTERPRETING PHYSICIAN: Barry Jeff MD INDICATION: CHF. M-MODE MEASUREMENTS: Left ventricle end diastole: 8.4 cm. Left ventricle end systole: 8.0 cm. Posterior wall: 1.2 cm. Interventricular septum: 1.2 cm. Left atrium: 3.5 cm. Aortic diameter : 3.3 cm. SUMMARY OF 2-DIMENSIONAL IMAGIN. The left ventricular chamber is markedly dilated. Left ventricular systolic function is globally impaired estimated at 15% to 20%. The impairment is global. 2. A pacemaker lead appears to be within the right-sided chamber. 3. The mitral valve shows a mild degree of regurgitation. 4. Pulse wave Doppler of mitral inflow shows a pseudonormal pattern with a tall E wave and a short A wave. 5. Tissue Doppler of mitral annulus, septal and lateral, is less than 5 cm indicating impaired left ventricular relaxation. 6. The E/e' ratio is elevated and the deceleration time of the A wave is short indicating significant diastolic dysfunction. 7. The right-sided chambers are significantly dilated. 8. The pulmonary pressure is on the order of 42 mmHg. 9. The aortic valve is grossly unremarkable. 10.The pulmonic valve also is grossly unremarkable. 11.There is no pericardial effusion. 12.No masses or thrombi. 13.The inferior vena cava is markedly dilated. This study is consistent with decompensated dilated cardiomyopathy. Clinical correlation is recommended. cc: MD Abelardo Ricketts MD
--- NOTE | 2019-02-15 13:44 | CARDIOLOGY PROGRESS NOTE ---
DATE: 02/15/2019 CHIEF COMPLAINT: Shortness of breath and swelling. SUBJECTIVE: Mr. Vázquez had a better night last night. He has slept with a CPAP machine. He is making good urine. He is not in any pain. He seems to be in good spirits. OBJECTIVE: Blood pressure is 90/49, temperature 98 degrees, pulse 85, respirations vary from 20 to 30. He is on a Primacor drip. Telemetry shows at times frequent ventricular bigeminy. HEENT unremarkable. Chest: Slightly diminished breath sounds at bases. Heart sounds are regular and rhythmic with extrasystole. Abdomen is obese. Extremities showed trace edema. Neurologic: Follows commands. Moves all 4 extremities. DIAGNOSTIC DATA: Hemoglobin is 11.9, hematocrit 37.7. Sodium is 142, potassium 3.7, BUN is 31, creatinine 1.5. IMPRESSION: 1. The patient presented with decompensated systolic and diastolic heart failure. This is acute on chronic. 2. Nonischemic dilated cardiomyopathy, low ejection fraction. 3. Status post ICD. 4. History of hypertension. 5. Morbid obesity. 6. Obstructive sleep apnea syndrome. 7. Chronic kidney disease. RECOMMENDATIONS: At this time, we will continue with supportive therapy. The patient in general is in very serious condition. Prognosis is not very good. We will continue to follow. cc: Barry Jeff MD
[2019-02-15] MEDS: XARELTO PO SCH (20:07)
[2019-02-15] MEDS: ZOCOR PO SCH (20:07)
[2019-02-16] MEDS: PRIMACOR 20 MG/D5W 100 ML 20 MG/100 ML IVPB IV SCH ×3 (06:19→19:09)
[2019-02-16] MEDS: PRILOSEC PO SCH (06:19)
[2019-02-16] MEDS: TOPROL XL PO SCH (08:02)
[2019-02-16] MEDS: THERA M PLUS PO SCH (08:03)
[2019-02-16] MEDS: KLOR-CON PO SCH ×2 (08:03→20:46)
[2019-02-16] MEDS: ALDACTONE PO SCH (08:03)
[2019-02-16] MEDS: ENTRESTO 24 MG-26 MG TABLET PO SCH ×2 (08:03→20:46)
[2019-02-16] MEDS: ZYLOPRIM PO SCH (08:04)
[2019-02-16] MEDS: ASPIRIN EC PO SCH (08:04)
[2019-02-16] MEDS: LANOXIN IV SCH (08:05)
[2019-02-16] MEDS: LASIX IV SCH ×2 (08:05→19:08)
--- NOTE | 2019-02-16 08:30 | PROGRESS NOTE ---
DATE: 02/16/2019 SUBJECTIVE: The patient reports breathing definitely better in comparing with the last couple days. A little bit less edema in both lower extremities, according to him. OBJECTIVE: Vital Signs: Temperature 97.3 degrees, heart rate 101, respiratory rate 23, blood pressure 109/83, O2 saturation 98% on 3 L nasal cannula. General: This is a chronically ill- appearing and obese, 69-year-old, male, lying in bed in no acute distress. HEENT: Head is normocephalic, atraumatic. Mucous membranes moist. Neck: JVD noted. No thyromegaly. No lymphadenopathy. Cardiovascular: S1, S2 heard. No murmurs, gallops, or rubs. Regular rate and rhythm. Respiratory: Diminished breath sounds globally, and minimal crackles in both pulmonary bases. The patient is not using any accessory muscles or having work of breathing. Abdomen: Soft. Nontender to palpation. Bowel sounds present. No organomegaly. Extremities: Mild edema in both lower extremities, mostly in the pretibial area. Peripheral pulses present. Neurological: The patient is alert and oriented x3. Moves all 4 extremities. LABORATORY DATA: No labs from today. ASSESSMENT AND PLAN: 1. Acute on chronic systolic congestive heart failure. The patient continues to be on Lasix 40 mg intravenously every 12 hours. Also, he has been started on Primacor drip as per Cardiology recommendations. He is having good urine output. He is not complaining of any shortness of breath, so at this point, Cardiology recommends to continue with current treatment. 2. Nonischemic cardiomyopathy. We have ordered an echocardiogram, which basically showed an ejection fraction very low of 15% to 20%. The patient has automatic implantable cardioverter- defibrillator placed. Will continue to monitor. 3. Acute hypercapnic respiratory failure, most likely related to sleep apnea. The patient has not been compliant with using his continuous positive airway pressure machine. Last night, he used it all night long. He said that he feels much better. Will continue with the same management. 4. Hypotension, resolved. 5. History of deep venous thrombosis and pulmonary embolism. The patient continues to be on Xarelto. 6. History of ventricular tachycardia, status post automatic implantable cardioverter- defibrillator. Aware. 7. Gastrointestinal prophylaxis with Protonix. 8. Disposition. At this point, will continue with the current medications. We are following the lead from Cardiology. cc: Max Chacon MD
--- NOTE | 2019-02-16 11:04 | CARDIOLOGY PROGRESS NOTE ---
DATE: 02/16/2019 CHIEF COMPLAINT: Swelling, shortness of breath. SUBJECTIVE: Mr. Vázquez is somewhat sleepy. He is in no pain. His telemetry shows episodes of ventricular bigeminy. Otherwise, no definite serious arrhythmia. OBJECTIVE: Blood pressure is 122/52, temperature 97.3, pulse 90, respirations 28. The patient is awake, alert. Again, somewhat sleepy. HEENT is unremarkable. Chest: Diminished breath sounds at the bases. Heart sounds are regular and rhythmic with intermittent extrasystole. Abdomen: Obese. Extremities showed trace edema. Neurologic: Follows commands. DIAGNOSTIC DATA: Blood work from yesterday shows sodium 142, potassium 3.7, BUN is 31, creatinine 1.5. His most recent chest x-ray was from admission on 02/14/2019 that showed cardiomegaly with pulmonary edema. IMPRESSION: 1. The patient has decompensated congestive heart failure, both systolic and diastolic, functional class 3 to 4 [place] [employer]. 2. Dilated nonischemic cardiomyopathy. 3. History of hypertension. 4. Morbid obesity. 5. Chronic kidney disease. 6. Obstructive sleep apnea syndrome. 7. History of ICD. 8. Ventricular bigeminy. RECOMMENDATIONS: At this time, we will continue present course of therapy as recommended by Dr. Groves. We will see how he does over the course of the next few days. His prognosis is really quite guarded. Clinical correlation is recommended. cc: Barry Jeff MD
[2019-02-16] MEDS: ZOCOR PO SCH (20:46)
[2019-02-16] MEDS: XARELTO PO SCH (20:46)
[2019-02-17] MEDS: PRIMACOR 20 MG/D5W 100 ML 20 MG/100 ML IVPB IV SCH ×4 (03:23→23:44)
[2019-02-17] MEDS: PRILOSEC PO SCH (06:15)
[2019-02-17 06:36] LABS: HEMOGLOBIN 11.6 g/dL (14.0-18.0); MCH 24.7 PG (27-31); MCHC 31.4 g/dL (33-37); MCV 78.9 FL (81-99); MPV 11.8 FL (7.4-10.4); RBC 4.69 XMIL (4.7-6.1); RDW 16.5 % (11.5-14.5); WBC 8.39 X1000 (4.8-10.8)
[2019-02-17 06:38] LABS: AGAP 8; BUN 18 mg/dL (8-22); CALCIUM 9.5 mg/dL (8.8-10.2); CHLORIDE 96 mmol/L (98-107); COSMO 279; ESTIMATED GFR > 60; GLUCOSE 99 mg/dL (70-104); POTASSIUM 3.7 mmol/L (3.5-5.1); SODIUM 139 mmol/L (136-145); TCO2 35 mmol/L (25-35)
--- NOTE | 2019-02-17 07:15 | PROGRESS NOTE ---
DATE: 02/17/2019 SUBJECTIVE: The patient reports breathing better. Denies any fever, chills, or chest pain. OBJECTIVE: Vital Signs: Temperature 97.7 degrees, heart rate 88, respiratory rate 12, blood pressure 112/90, O2 saturation 98% on 3 L nasal cannula. General Examination: This is a chronically ill-appearing and obese, 69-year-old, male, lying in bed, in no acute distress. Currently using his CPAP mask. HEENT: Head is normocephalic and atraumatic. Mucous membranes moist. Neck: JVD is still noted but no thyromegaly or lymphadenopathy noted. Cardiovascular Examination: S1 and S2 heard. No murmurs, gallops, or rubs. Regular rate and rhythm. Respiratory Examination: Diminished breath sounds globally. Minimal crackles in both pulmonary bases. Patient is not using any accessory muscles or having work of breathing. Abdomen: Soft. Nontender to palpation. Bowel sounds present. No organomegaly. Extremities: Mild edema in both lower extremities, mostly in the pretibial area, a little better in comparing with admission. Peripheral pulses present in both legs. Neurological Examination: The patient is alert and oriented x3. Moves 4 extremities. Laboratory Data: Ins and outs indicate 2500 mL of urine in the last 24 hours. Hemoglobin is 11.6, hematocrit 37.0, and platelets 194,000. Normal BMP with renal function back to normal. ASSESSMENT AND PLAN: 1. Acute on chronic congestive systolic heart failure. Patient continues to be on Lasix 40 mg intravenous every 12 hours and is having good urine output. He is not complaining of any shortness of breath at this point. The patient is also on a Primacor drip as per cardiology recommendations. At this point, we will continue with the current management directed by patient care provider. 2. Severe nonischemic cardiomyopathy. Last echocardiogram showed a low ejection fraction of 15 to 20 percent. The patient also has an automatic implantable cardioverter defibrillator. The patient is having some episodes of ventricular tachycardia versus bigeminy. At this point, we will continue to monitor. 3. Hypotension, resolved. 4. History of deep venous thrombosis and pulmonary embolism. Patient continues to be on Xarelto. 5. Acute hypercapnic respiratory failure, most likely related to sleep apnea. The patient is using his CPAP here in the hospital. He used it last night all night long. 6. Gastrointestinal prophylaxis with Protonix. 7. Disposition. At this point, we will continue to monitor this patient closely in the intensive care unit, following the lead from cardiology. We are going to also add a fluid restriction of 2 L to his current treatment. cc: Max Chacon MD
[2019-02-17] MEDS: LASIX IV SCH ×2 (08:12→20:08)
[2019-02-17] MEDS: LANOXIN IV SCH (08:13)
[2019-02-17] MEDS: ENTRESTO 24 MG-26 MG TABLET PO SCH ×2 (08:16→20:08)
[2019-02-17] MEDS: ASPIRIN EC PO SCH (08:16)
[2019-02-17] MEDS: TOPROL XL PO SCH (08:17)
[2019-02-17] MEDS: THERA M PLUS PO SCH (08:17)
[2019-02-17] MEDS: ZYLOPRIM PO SCH (08:17)
[2019-02-17] MEDS: ALDACTONE PO SCH (08:17)
[2019-02-17] MEDS: KLOR-CON PO SCH ×2 (08:18→20:08)
[2019-02-17] MEDS: ZOCOR PO SCH (20:08)
[2019-02-17] MEDS: XARELTO PO SCH (20:08)
[2019-02-18 06:08] LABS: HEMATOCRIT 37.6 % (42.0-52.0); HEMOGLOBIN 11.8 g/dL (14.0-18.0); MCH 24.7 PG (27-31); MCHC 31.4 g/dL (33-37); MCV 78.7 FL (81-99); MPV 11.7 FL (7.4-10.4); RBC 4.78 XMIL (4.7-6.1); RDW 16.5 % (11.5-14.5); WBC 8.68 X1000 (4.8-10.8)
[2019-02-18] MEDS: PRIMACOR 20 MG/D5W 100 ML 20 MG/100 ML IVPB IV SCH ×3 (06:21→18:46)
[2019-02-18] MEDS: PRILOSEC PO SCH (06:21)
[2019-02-18 06:22] LABS: AGAP 7; BUN 18 mg/dL (8-22); CALCIUM 9.8 mg/dL (8.8-10.2); CHLORIDE 94 mmol/L (98-107); COSMO 276; CREATININE 0.8 mg/dL (0.7-1.2); ESTIMATED GFR > 60; GLUCOSE 103 mg/dL (70-104); POTASSIUM 4.2 mmol/L (3.5-5.1); SODIUM 137 mmol/L (136-145); TCO2 36 mmol/L (25-35)
[2019-02-18] MEDS: LASIX IV SCH ×2 (08:13→20:03)
[2019-02-18] MEDS: ENTRESTO 24 MG-26 MG TABLET PO SCH ×2 (08:13→20:03)
[2019-02-18] MEDS: ASPIRIN EC PO SCH (08:13)
[2019-02-18] MEDS: ZYLOPRIM PO SCH (08:13)
[2019-02-18] MEDS: LANOXIN IV SCH (08:13)
[2019-02-18] MEDS: THERA M PLUS PO SCH (08:14)
[2019-02-18] MEDS: KLOR-CON PO SCH ×2 (08:14→20:03)
[2019-02-18] MEDS: TOPROL XL PO SCH (08:14)
[2019-02-18] MEDS: ALDACTONE PO SCH (08:14)
--- NOTE | 2019-02-18 09:29 | PROGRESS NOTE ---
DATE: 02/18/2019 SUBJECTIVE: The patient reports feeling fine. Denies any fever, chills, or shortness of breath. As per nursing staff, he continues to have good urine output. OBJECTIVE: Vital Signs: Temperature 98.6, heart rate 92, respiratory rate 12, blood pressure 132/60, O2 saturation 95% on 3 L. General: This is a chronically ill-appearing and obese, 69- year-old, male, lying in bed in no acute distress. HEENT: Head is normocephalic, atraumatic. Neck: No JVD noted. No carotid bruits. No lymphadenopathy. No thyromegaly. Cardiovascular: S1, S2 heard. No murmurs, gallops, or rubs. Regular rate and rhythm. Respiratory: Diminished breath sounds globally with minimal crackles still present in both pulmonary bases. The patient is not using any accessory muscles or having work of breathing. Abdomen: Soft, nontender to palpation. Bowel sounds present. No organomegaly. Extremities: Mild edema in both lower extremities, mostly in the pretibial area. Definitely improved in comparing with admission. Peripheral pulses present in both legs. Neurological: Patient alert and oriented x3. Moves all 4 extremities. LABORATORY DATA: White cell count 8.68, hemoglobin 11.8, hematocrit 37.7, platelets 192,000. Normal BMP. ASSESSMENT AND PLAN: 1. Acute on chronic congestive systolic heart failure. The patient is on Lasix 40 mg intravenously every 12 hours. So far, his urine output over the last 24 hours has been 1.3 liters. The patient is also on Primacor drip as per Cardiology recommendations. Will see for how long Cardiology is planning to keep that medication going. 2. Nonischemic cardiomyopathy. Last ejection fraction documented on an echocardiogram done a few days ago was 15% to 20%. The patient also has automatic implantable cardioverter- defibrillator. No heart rhythm abnormalities noted as per nursing staff overnight. Will continue to monitor. 3. Hypotension, resolved. 4. History of deep venous thrombosis and pulmonary embolism. The patient will continue taking Xarelto. 5. Acute hypercapnic respiratory failure, most likely related to sleep apnea. The patient has not been compliant with his continuous positive airway pressure at home, but here in the hospital, he uses it every single night. At this point, will continue with the same management. 6. Gastrointestinal prophylaxis with Protonix. 7. Disposition. At this point, we are following the lead from Cardiology. Will see for how long he is going to stay in the hospital in the intensive care unit with Primacor. cc: Max Chacon MD
--- NOTE | 2019-02-18 10:37 | Diag Imaging Result Doc PS360 ---
EXAM: CHEST-PORTABLE 02/18/2019 HISTORY: chf TECHNIQUE: AP portable at 1023 COMMENT: There is cardiomegaly. There is increased pulmonary vascularity. The pulmonary edema which was evident on the previous study of 02/14/2019 and appears to have improved. The lungs are also somewhat better expanded. The possibility of atelectasis or pneumonia in the left lower lobe, which is not completely included on the image, cannot be excluded. IMPRESSION: Improved pulmonary edema. Atelectasis versus pneumonia left lower lobe. Electronically signed by Doyle Miner 02/18/2019 10:35 AM
[2019-02-18] MEDS: ZOCOR PO SCH (20:02)
[2019-02-18] MEDS: XARELTO PO SCH (20:03)
[2019-02-19] MEDS: PRIMACOR 20 MG/D5W 100 ML 20 MG/100 ML IVPB IV SCH ×4 (02:00→23:21)
[2019-02-19] MEDS: PRILOSEC PO SCH (06:07)
--- NOTE | 2019-02-19 07:10 | EKG Report ---
Test Performed on : 02/19/2019 06:47:38 AM Test Reason : dyspnea, chf Blood Pressure : / mmHG Vent. Rate : 096 BPM Atrial Rate : 096 BPM P-R Int : 164 ms QRS Dur : 148 ms QT Int : 452 ms P-R-T Axes : 067 -84 089 degrees QTc Int : 571 ms Sinus rhythm. with occasional premature ventricular complexes. and fusion complexes Ventricular pre-excitation, WPW pattern type A Abnormal ECG When compared with ECG of 14-FEB-2019 07:42, (Unconfirmed) fusion complexes are now present [id number] is now present Confirmed by Humberto Juarez MD ([id number]) on 02/20/2019 12:59:11 PM
[2019-02-19 07:40] LABS: HEMOGLOBIN 12.4 g/dL (14.0-18.0); MCH 24.4 PG (27-31); MCV 76.8 FL (81-99); RBC 5.08 XMIL (4.7-6.1); WBC 8.58 X1000 (4.8-10.8)
[2019-02-19 07:41] LABS: MCHC 31.8 g/dL (33-37); MPV 10.9 FL (7.4-10.4); RDW 16.4 % (11.5-14.5)
[2019-02-19 07:58] LABS: AGAP 9; BUN 19 mg/dL (8-22); CALCIUM 9.8 mg/dL (8.8-10.2); CHLORIDE 91 mmol/L (98-107); COSMO 274; CREATININE 0.9 mg/dL (0.7-1.2); ESTIMATED GFR > 60; GLUCOSE 101 mg/dL (70-104); POTASSIUM 4.3 mmol/L (3.5-5.1); SODIUM 136 mmol/L (136-145); TCO2 36 mmol/L (25-35)
--- NOTE | 2019-02-19 09:14 | PROGRESS NOTE ---
DATE: 02/19/2019 SUBJECTIVE: Patient reports feeling fine. So far, he has made 4.2 L of urine today. As per nursing staff, the patient reports feeling okay. No acute issues noted. OBJECTIVE: Vital Signs: Temperature 98.0 degrees, heart rate 85, respiratory rate 22, blood pressure 108/66, O2 saturation 97% on CPAP mask. General Examination: This is a chronically ill- appearing and obese, 69-year-old, male, lying in bed, in no acute distress. HEENT: Head is normocephalic and atraumatic. Neck: No JVD noted. No carotid bruits. No lymphadenopathy. No thyromegaly. Cardiovascular Examination: S1 and S2 heard. No murmurs, gallops, or rubs. Regular rate and rhythm. Respiratory Examination: Diminished breath sounds globally. There are almost no crackles noted in both pulmonary bases. The patient is not using any accessory muscles or having work of breathing. Abdomen: Soft, nontender to palpation. Bowel sounds present. No organomegaly. Extremities: Mild edema in the lower extremities, mostly in the pretibial area but definitely much better in comparing with admission. Peripheral pulses present in both legs. Neurological Examination: The patient is alert and oriented x3. Moves 4 extremities. Laboratory Data: Reviewed. CBC is within normal limits. BMP revealed normal renal function, normal potassium. ASSESSMENT AND PLAN: 1. Acute on chronic systolic congestive heart failure. The patient has been on Lasix since admission; in this case, 40 mg intravenous every 12 hours. So far, during the last 24 hours, the patient has made 13 L of urine. The patient is on a Primacor drip as per cardiology recommendation. I think we will hear from them today. I think we can stop a Primacor drip today and send him to a regular floor with intravenous Lasix. 2. Severe nonischemic cardiomyopathy. Last echocardiogram done here revealed an ejection fracture of 15-20%. The patient also has an automatic implantable cardioverter defibrillator. Apparently, there are not heart rhythm abnormalities noted. At this point, we will continue to monitor. 3. Hypotension, resolved. 4. History of deep venous thrombosis and pulmonary embolism. We will continue with Xarelto. 5. Acute hypercapnic respiratory failure, most likely related to sleep apnea. Patient is using his CPAP machine here. 6. Gastrointestinal prophylaxis with Protonix. 7. Disposition. I think, at this point, we will see what cardiology has to say and will follow recommendations. cc: Max Chacon MD MTDD
[2019-02-19] MEDS: ALDACTONE PO SCH (09:28)
[2019-02-19] MEDS: TOPROL XL PO SCH (09:28)
[2019-02-19] MEDS: KLOR-CON PO SCH ×2 (09:28→21:37)
[2019-02-19] MEDS: THERA M PLUS PO SCH (09:28)
[2019-02-19] MEDS: LANOXIN IV SCH (09:29)
[2019-02-19] MEDS: ZYLOPRIM PO SCH (09:29)
[2019-02-19] MEDS: ASPIRIN EC PO SCH (09:29)
[2019-02-19] MEDS: LASIX IV SCH ×2 (09:30→21:37)
[2019-02-19] MEDS: ENTRESTO 24 MG-26 MG TABLET PO SCH ×2 (09:31→21:36)
[2019-02-19 10:21] LABS: INR 2.24; PROTIME 25.3 Seconds (11.0-16.0)
[2019-02-19] MEDS: XARELTO PO SCH (21:36)
[2019-02-19] MEDS: ZOCOR PO SCH (21:37)
[2019-02-20] MEDS: PRILOSEC PO SCH (07:04)
[2019-02-20] MEDS: PRIMACOR 20 MG/D5W 100 ML 20 MG/100 ML IVPB IV SCH (07:04)
[2019-02-20 07:23] LABS: AGAP 8; BUN 23 mg/dL (8-22); CHLORIDE 91 mmol/L (98-107); GLUCOSE 93 mg/dL (70-104); POTASSIUM 4.4 mmol/L (3.5-5.1); SODIUM 133 mmol/L (136-145); TCO2 34 mmol/L (25-35)
[2019-02-20 07:24] LABS: CALCIUM 9.9 mg/dL (8.8-10.2); COSMO 270; CREATININE 1.1 mg/dL (0.7-1.2); ESTIMATED GFR > 60; MAGNESIUM 2.1 mg/dL (1.5-2.7)
[2019-02-20] MEDS: LASIX IV SCH (10:14)
[2019-02-20] MEDS: TOPROL XL PO SCH (10:14)
[2019-02-20] MEDS: KLOR-CON PO SCH ×2 (10:14→20:38)
[2019-02-20] MEDS: LANOXIN IV SCH (10:14)
[2019-02-20] MEDS: THERA M PLUS PO SCH (10:15)
[2019-02-20] MEDS: ENTRESTO 24 MG-26 MG TABLET PO SCH ×2 (10:15→20:38)
[2019-02-20] MEDS: ALDACTONE PO SCH (10:15)
[2019-02-20] MEDS: ZYLOPRIM PO SCH (10:15)
[2019-02-20] MEDS: ASPIRIN EC PO SCH (10:15)
--- NOTE | 2019-02-20 10:36 | PROGRESS NOTE ---
DATE: 02/20/2019 SUBJECTIVE: Patient reports feeling fine. Continues to make good amount of urine. The last 24 hours he made 4 L. No acute issues noted as per nursing staff overnight. OBJECTIVE: Vital Signs: Temperature 98.5 degrees, heart rate 103, respiratory rate 14, blood pressure 109/71, O2 saturation 98% on 4 L nasal cannula. PHYSICAL EXAMINATION: General: This is a chronically ill-appearing, 69-year-old male, lying in bed, in no acute distress. HEENT: Head is normocephalic, atraumatic. Neck: No JVD noted. No carotid bruits. No lymphadenopathy. No thyromegaly. Cardiovascular: S1, S2 heard. No murmurs, gallops, or rubs. Regular rate and rhythm. Respiratory: Diminished breath sounds globally. Minimal crackles noted in both pulmonary bases. Patient not using any accessory muscles or having work of breathing. Abdomen: Soft, nontender to palpation. Bowel sounds present. No organomegaly. Extremities: Very minimal edema in both lower extremities mostly the pretibial area but definitely much better in comparing with admission. Peripheral pulses present in both legs. Neurological: Patient is alert and oriented x3. Moves 4 extremities. LABORATORY DATA: Reviewed. ASSESSMENT AND PLAN: 1. Acute on chronic systolic congestive heart failure. We will continue with Lasix 40 mg IV q.12 hours. Since admission patient has been started on Primacor drip as per cardiology recommendations. I don't know for how long they are planning to continue with this medication. In any case, so far he has made 21 L of urine according to what nursing staff has charted. At this point, we will continue with the same management. 2. Severe nonischemic cardiomyopathy. Last ejection fraction that we documented was 15 to 20 percent in an echo from this hospitalization. Also, patient has automatic implantable cardioverter-defibrillator. No heart rhythm abnormalities noted as per telemetry team. At this point we will continue to monitor. 3. Hypotension resolved. 4. History of deep venous thrombosis and pulmonary embolism. We will continue with Xarelto. 5. Acute hypercapnic respiratory failure secondary to sleep apnea. We will continue encouraging patient to use his CPAP machine here. He was not being compliant using at home. 6. Gastrointestinal prophylaxis with Protonix. DISPOSITION: At this point we will see for how long this patient will be on Primacor and then we can switch to oral medication and let this patient go. In the meantime, we will consult physical therapy because the patient has been almost all his hospitalization in this case, 6 days on the bed, so physical therapy occupational therapy will be consulted. cc: Max Chacon MD
[2019-02-20] MEDS ORDERED: TOPROL XL PO ONE (13:46)
--- NOTE | 2019-02-20 14:11 | PROGRESS NOTE ---
DATE: 02/20/2019 SUBJECTIVE: Patient continues without chest discomfort or dyspnea, on supplemental oxygen per nasal cannula. OBJECTIVE: Blood pressure 137/78 heart rate, 105 and regular, with ECG monitor showing sinus rhythm, oxygen saturation 99%. HEENT Examination: Mucous membranes are moist. Neck: Supple. Jugular distention is difficult to discern. Chest: Clear to auscultation bilaterally. Cardiac Examination: Reveals a regular rate and rhythm without appreciable murmur or gallop. There is no evidence of peripheral edema. Laboratory Data: Includes a sodium of 133, potassium 4.4, chloride 91, carbon dioxide 24, BUN 23, creatinine 1.1, glucose 93. Recent echocardiography indicates left ventricular ejection fraction of approximately 15 to 20 percent with severe left ventricular enlargement. IMPRESSION: 1. Acute on chronic systolic heart failure. 2. Severe nonischemic cardiomyopathy with left ventricular ejection fraction of 15 to 20 percent. 3. Recent cardiorenal syndrome, improved with diuresis. 4. History of previous pulmonary embolism. Patient continues on anticoagulation. 5. Status post implantable defibrillator. 6. Hypertension. 7. Morbid obesity. 8. Hyperlipidemia. 9. Obstructive sleep apnea. RECOMMENDATIONS: 1. Congestive heart failure appears to improve with diuresis. We will discontinue milrinone and stop intravenous Lasix. 2. Start oral torsemide 100 mg daily tomorrow. 3. Increase metoprolol succinate as tolerated to 25 mg p.o. daily. cc: Abelardo Groves MD
[2019-02-20] MEDS: XARELTO PO SCH (20:38)
[2019-02-20] MEDS: ZOCOR PO SCH (20:38)
[2019-02-21] MEDS: PRILOSEC PO SCH (06:00)
[2019-02-21] MEDS: TOPROL XL PO SCH (08:37)
[2019-02-21] MEDS: ALDACTONE PO SCH (08:37)
[2019-02-21] MEDS: DEMADEX PO SCH (08:37)
[2019-02-21] MEDS: KLOR-CON PO SCH ×2 (08:37→20:30)
[2019-02-21] MEDS: ZYLOPRIM PO SCH (08:38)
[2019-02-21] MEDS: ASPIRIN EC PO SCH (08:38)
[2019-02-21] MEDS: ENTRESTO 24 MG-26 MG TABLET PO SCH ×2 (08:38→20:30)
[2019-02-21] MEDS: LANOXIN IV SCH (08:38)
[2019-02-21] MEDS: THERA M PLUS PO SCH (08:38)
[2019-02-21 09:01] LABS: AGAP 9; BUN 22 mg/dL (8-22); CALCIUM 9.9 mg/dL (8.8-10.2); CHLORIDE 97 mmol/L (98-107); COSMO 281; ESTIMATED GFR > 60; GLUCOSE 137 mg/dL (70-104); POTASSIUM 4.5 mmol/L (3.5-5.1); SODIUM 138 mmol/L (136-145); TCO2 32 mmol/L (25-35)
--- NOTE | 2019-02-21 10:13 | PROGRESS NOTE ---
DATE: 02/21/2019 SUBJECTIVE: Patient reports feeling fine. Denies any fever, chills, or chest pain. The last 24 hours he has made so far 3 L of urine and he has moved so far since admission 24.5 L of urine. OBJECTIVE: Vital Signs: Temperature 98 degrees, heart rate 100, respiratory rate 18, blood pressure 132/93, O2 saturation 100% 2 L. General: This is a chronically ill-appearing, 69-year- old male, lying in bed, in no acute distress. Cardiovascular: S1, S2 heard. No murmurs, gallops, or rubs. Regular rate and rhythm. Respiratory: Clear bilaterally to auscultation. No work of breathing or using accessory muscles. Abdomen: Soft. Nontender to palpation. Bowel sounds present. No organomegaly. Extremities: No clubbing, cyanosis, or edema. Peripheral pulses present in both legs. Neurological: Patient is alert and oriented x3. Moves 4 extremities. LABORATORY DATA: Reviewed. ASSESSMENT AND PLAN: 1. Acute on chronic systolic congestive heart failure. The patient has been on Lasix 40 mg IV q.12 hours and Primacor drip for almost a week. Cardiology has decided to stop both medications. Start this patient on torsemide 100 mg p.o. daily and increase the dose of metoprolol to 25 mg p.o. daily. I think at this point, patient is getting better. As we mentioned before, so far, we have moved 24 L of urine during this period of time. At this point, we will continue with current medication. 2. Severe nonischemic cardiomyopathy with ejection fraction of 15 to 20 percent. Aware. We will continue to monitor. The patient also has automatic implantable cardioverter-defibrillator. No heart rhythm abnormalities noted as per telemetry team. 3. Hypotension. Resolved. 4. History of deep venous thrombosis and pulmonary embolism. We will continue with Xarelto. 5. Acute hypercapnic respiratory failure secondary to sleep apnea. We will continue encouraging the patient to use CPAP machine here. He has been using it here in the hospital but apparently he has not at home. 6. Gastrointestinal prophylaxis with Protonix. 7. Physical deconditioning. Patient has become very weak because he has been on the bed all this whole weak. Physical Therapy has been consulted. I have talked with the patient about going home with home health or rehab facility and even though he is reluctant to go to rehab, he said if he needs to go, he will. cc: Max Chacon MD
--- NOTE | 2019-02-21 15:39 | PROGRESS NOTE ---
DATE: 02/21/2019 SUBJECTIVE: Patient continues without shortness of breath or chest discomfort. OBJECTIVE: Vital Signs: Blood pressure 116/71, heart rate 106, oxygen saturation 100%. There is no significant jugular venous distention. Chest: Clear to auscultation. Cardiac: Exam reveals a regular rate and rhythm without appreciable murmur or gallop. There is no evidence of peripheral edema. LABORATORY DATA: Includes a sodium 138, potassium 4.5, chloride 97, carbon dioxide 32, BUN 22 and creatinine 1.0. Glucose 137. IMPRESSION: 1. Acute on chronic systolic heart failure improving with diuresis. 2. Severe nonischemic cardiomyopathy with left ventricular ejection fraction of 15 to 20 percent. 3. Recent cardiorenal syndrome, improved. 4. Previous pulmonary embolism. Patient continues on anticoagulation. 5. Status post implantable defibrillator. 6. Hypertension. 7. Obesity. 8. Hyperlipidemia. 9. Obstructive sleep apnea. RECOMMENDATIONS: 1. Continue current cardiovascular regimen unchanged. 2. Mobilize patient. He may be sufficiently improved for discharge in the next 24 hours. cc: Abelardo Groves MD
[2019-02-21] MEDS: ZOCOR PO SCH (20:30)
[2019-02-21] MEDS: XARELTO PO SCH (20:30)
[2019-02-22] MEDS: PRILOSEC PO SCH ×2 (05:48→08:18)
[2019-02-22 07:24] LABS: AGAP 9; BUN 31 mg/dL (8-22); CALCIUM 9.4 mg/dL (8.8-10.2); CHLORIDE 92 mmol/L (98-107); COSMO 283; CREATININE 1.2 mg/dL (0.7-1.2); ESTIMATED GFR > 60; GLUCOSE 115 mg/dL (70-104); POTASSIUM 4.2 mmol/L (3.5-5.1); SODIUM 138 mmol/L (136-145); TCO2 37 mmol/L (25-35)
[2019-02-22] MEDS: THERA M PLUS PO SCH (08:19)
[2019-02-22] MEDS: KLOR-CON PO SCH ×2 (08:19→20:28)
[2019-02-22] MEDS: DEMADEX PO SCH (08:19)
[2019-02-22] MEDS: ENTRESTO 24 MG-26 MG TABLET PO SCH ×2 (08:19→20:28)
[2019-02-22] MEDS: ALDACTONE PO SCH (08:19)
[2019-02-22] MEDS: ASPIRIN EC PO SCH (08:19)
[2019-02-22] MEDS: TOPROL XL PO SCH (08:19)
[2019-02-22] MEDS: LANOXIN IV SCH (08:19)
[2019-02-22] MEDS: ZYLOPRIM PO SCH (08:19)
--- NOTE | 2019-02-22 09:36 | PROGRESS NOTE ---
DATE: 02/22/2019 SUBJECTIVE: Patient reports feeling fine, no shortness of breath. He reports working with physical therapy and he is sat in the chair for 3 hours, not really feeling dizzy. OBJECTIVE: Vital Signs: Temperature 97.7 degrees, heart rate 79, respiratory rate 18, blood pressure 107/73, O2 saturation 100% 2 L nasal cannula. General: This is a chronically ill- appearing, 69-year-old male, lying in bed, in no acute distress. Cardiovascular: S1, S2 heard. No murmurs, gallops, or rubs. Regular rate and rhythm. Respiratory: Clear bilaterally to auscultation. No work of breathing or using accessory muscles. Abdomen: Soft, nontender to palpation. Bowel sounds present. No organomegaly. Extremities: No clubbing, cyanosis, or edema. Peripheral pulses present in both legs. Neurological: Patient alert and oriented x3. Moves 4 extremities. LABORATORY DATA: Reviewed. ASSESSMENT AND PLAN: 1. Acute on chronic systolic congestive heart failure. Patient now is not on any IV medications for that condition. He is on torsemide 100 mg 1 tablet p.o. daily. Metoprolol 25 mg p.o. daily as well. Blood pressure is under control and all the time greater than 100. So far, he has moved 24 L of urine during next his whole hospitalization. Cardiology is also following this patient. We will follow recommendations. 2. Severe nonischemic cardiomyopathy with ejection fraction of 15 to 20 percent. Aware. We will continue with current medications. It is important to remark that this patient has AICD as well. 3. Hypotension, resolved. 4. History of deep venous thrombosis and pulmonary embolism. We will continue with Xarelto. 5. Acute hypercapnic respiratory failure secondary to sleep apnea, systolic congestive heart failure. Patient requiring 2 L of oxygen at this point. The patient is using his CPAP machine here at night. We will continue to monitor. 6. Gastrointestinal prophylaxis with Protonix. 7. Physical deconditioning. The has patient started working with Physical Therapy. I have not seen any reports. We will like to know if this patient will be able to go back home or he will need to go to rehab facility. We will talk with Physical Therapy team and we will go from there. In the meantime, we will plan to keep this patient at least until next Sunday. cc: Max Chacon MD
--- NOTE | 2019-02-22 15:33 | PROGRESS NOTE ---
DATE: 02/22/2019 SUBJECTIVE: Patient denies shortness of breath on supplemental oxygen per nasal cannula. OBJECTIVE: Vital Signs: Blood pressure 127/65, heart rate 87, oxygen saturation 99% on nasal cannula oxygen. Mild jugular distention is suggested. Chest: Clear to auscultation. Cardiac: Reveals a regular rate and rhythm without appreciable murmur or gallop. Extremities are without edema. LABORATORY DATA: Includes a sodium 138, potassium 4.2, chloride 92, carbon dioxide 37, BUN 31, creatinine 1.2, glucose 115. IMPRESSION: 1. Acute on chronic systolic heart failure improved with diuresis. 2. Severe nonischemic cardiomyopathy with left ventricular ejection fraction 15 to 20 percent. 3. Recent cardiorenal syndrome improved with diuresis. 4. Previous pulmonary embolism. Patient continues on anticoagulation with Xarelto. 5. Status post implantable defibrillator. 6. Hypertension. 7. Obesity. 8. Hyperlipidemia. 9. Obstructive sleep apnea. RECOMMENDATIONS: 1. Given labs evidence suggesting emerging prerenal azotemia, will adjust torsemide to 60 mg p.o. daily. 2. Change beta-ricardo to Coreg 6.25 mg p.o. b.i.d. 3. Continue to mobilize the patient. If he maintains clinical improvement it would be reasonable for him to be discharged tomorrow or Sunday. cc: Abelardo Groves MD
[2019-02-22] MEDS: ZOCOR PO SCH (20:28)
[2019-02-22] MEDS: XARELTO PO SCH (20:28)
[2019-02-22] MEDS: COREG PO SCH (20:28)
[2019-02-23] MEDS: PRILOSEC PO SCH (06:15)
[2019-02-23 07:28] LABS: AGAP 7; BUN 40 mg/dL (8-22); CALCIUM 9.6 mg/dL (8.8-10.2); CHLORIDE 90 mmol/L (98-107); COSMO 278; CREATININE 1.4 mg/dL (0.7-1.2); ESTIMATED GFR > 60; GLUCOSE 102 mg/dL (70-104); POTASSIUM 4.6 mmol/L (3.5-5.1); SODIUM 134 mmol/L (136-145); TCO2 37 mmol/L (25-35)
[2019-02-23] MEDS: COREG PO SCH ×2 (09:00→20:46)
[2019-02-23] MEDS: ASPIRIN EC PO SCH (09:00)
[2019-02-23] MEDS: ALDACTONE PO SCH (09:00)
[2019-02-23] MEDS: THERA M PLUS PO SCH (09:00)
[2019-02-23] MEDS ORDERED: DEMADEX PO SCH (09:00)
[2019-02-23] MEDS: ZYLOPRIM PO SCH (09:00)
[2019-02-23] MEDS: LANOXIN IV SCH (09:01)
[2019-02-23] MEDS: ENTRESTO 24 MG-26 MG TABLET PO SCH ×2 (09:01→20:46)
[2019-02-23] MEDS: KLOR-CON PO SCH ×2 (09:01→20:46)
--- NOTE | 2019-02-23 09:48 | PROGRESS NOTE ---
DATE: 02/23/2019 SUBJECTIVE: The patient reports feeling okay. No shortness of breath. Not feeling dizzy. He was walking with Physical Therapy just requiring a walker. No other issues noted. OBJECTIVE: Vital Signs: Temperature 97.8 degrees, heart rate 75, respiratory rate 18, blood pressure 94/88, O2 saturation 100% on 2 L nasal cannula. General: This is a chronically ill- appearing, 69-year-old male, lying in bed, in no acute distress. Cardiovascular: S1, S2 heard. No murmurs, gallops, or rubs. Regular rate and rhythm. Respiratory: Clear bilaterally to auscultation. No work of breathing or using accessory muscles. Abdomen: Soft, nontender to palpation. Bowel sounds present. No organomegaly. Extremities: No clubbing, cyanosis, or edema. Peripheral pulses present in both legs. Neurological: Patient is alert and oriented x3. Moves all 4 extremities. LABORATORY DATA: Reviewed. ASSESSMENT AND PLAN: 1. Acute on chronic systolic congestive heart failure. The patient has been on torsemide 100 mg 1 tablet p.o. daily. Because of his worsening kidney function, Cardiology has adjusted the doses to 60 mg p.o. daily. Also, patient is on metoprolol 25 mg p.o. daily. At this point, I think we will continue to monitor blood pressure carefully, but we will continue with the same medication. 2. Severe nonischemic cardiomyopathy with ejection fraction of 15-20%. Aware. Will continue with current medications. 3. Hypotension. He has relatively low blood pressure secondary to medications and also his severe nonischemic cardiomyopathy. At this point, I think we will continue to monitor blood pressure closely, but we will continue with current medications now. 4. History of deep venous thrombosis and pulmonary embolism. We will continue with Xarelto. 5. Acute hypercapnic respiratory failure secondary to sleep apnea. The patient continues to require 2 L of oxygen by nasal cannula. We will continue with CPAP machine at night. 6. Gastrointestinal prophylaxis with Protonix. 7. Physical deconditioning. We will continue with physical therapy. The patient most likely will need home health. cc: Max Chacon MD [facility]
[2019-02-23] MEDS ORDERED: NS 500 ML IV ONE (15:39)
--- NOTE | 2019-02-23 16:15 | PROGRESS NOTE ---
DATE: 02/23/2019 SUBJECTIVE: Patient denies shortness of breath or chest discomfort. He has felt somewhat weak, particularly when he gets up. OBJECTIVE: Vital signs: Blood pressure 109/69, heart rate 94, oxygen saturation 99%. Neck: There is no significant jugular distention. Chest: Clear to auscultation. Cardiac Exam: Reveals a regular rate and rhythm without appreciable murmur or gallop. There is no evidence of peripheral edema. LABORATORY DATA: Includes sodium 134, potassium 4.6, chloride 90, carbon dioxide 37, BUN 40, creatinine 1.4, glucose 102. CONCLUSION: 1. Acute on chronic systolic heart failure, improved with diuresis. Actually patient appears to manifest some evidence of prerenal azotemia due to excessive diuresis. 2. Severe nonischemic cardiomyopathy. Left ventricular ejection fraction of 15 to 20 percent. 3. Recent cardiorenal syndrome, improved with diuresis. 4. Previous pulmonary embolism. Patient continues on anticoagulation with Xarelto. 5. Status post implantable defibrillator. 6. Hypertension. 7. Obesity. 8. Hyperlipidemia. 9. Obstructive sleep apnea. RECOMMENDATIONS: 1. Give gentle fluid bolus. 2. Reduce torsemide to 50 mg daily. cc: Abelardo Groves MD
[2019-02-23] MEDS: XARELTO PO SCH (20:46)
[2019-02-23] MEDS: ZOCOR PO SCH (20:46)
[2019-02-24] MEDS: PRILOSEC PO SCH (06:08)
[2019-02-24 07:48] VITALS: BP 133/115
[2019-02-24 07:52] LABS: AGAP 11; ALBUMIN 3.4 g/dL (3.5-5.0); BUN 40 mg/dL (8-22); CALCIUM 9.8 mg/dL (8.8-10.2); CHLORIDE 91 mmol/L (98-107); COSMO 285; CREATININE 1.1 mg/dL (0.7-1.2); ESTIMATED GFR > 60; GLUCOSE 118 mg/dL (70-104); PHOSPHORUS 3.9 mg/dL (2.7-4.5); POTASSIUM 4.3 mmol/L (3.5-5.1); SODIUM 137 mmol/L (136-145); TCO2 35 mmol/L (25-35)
[2019-02-24] MEDS: ENTRESTO 24 MG-26 MG TABLET PO SCH (08:30)
[2019-02-24] MEDS: ASPIRIN EC PO SCH (08:30)
[2019-02-24] MEDS: COREG PO SCH (08:30)
[2019-02-24] MEDS: ZYLOPRIM PO SCH (08:30)
[2019-02-24] MEDS: ALDACTONE PO SCH (08:30)
[2019-02-24] MEDS: THERA M PLUS PO SCH (08:30)
[2019-02-24] MEDS: KLOR-CON PO SCH (08:31)
[2019-02-24] MEDS: LANOXIN IV SCH (08:31)
--- NOTE | 2019-02-24 08:59 | Diag Imaging Result Doc PS360 ---
EXAM: CHEST-2 VIEWS 02/24/2019 HISTORY: pulmonary edema TECHNIQUE: PA and lateral chest COMMENT: There is cardiomegaly. There is increased pulmonary vascularity. The left lower lobe is somewhat obscured on the PA view. There is no apparent pleural fluid. Compared to the previous portable AP chest of 02/18/2019 there has been no appreciable change. IMPRESSION: Cardiomegaly. Electronically signed by Doyle Miner 02/24/2019 8:57 AM
[2019-02-24] MEDS ORDERED: DEMADEX PO SCH (09:00)
--- NOTE | 2019-02-24 15:12 | DISCHARGE SUMMARY ---
ADMISSION DATE: 02/14/2019 DISCHARGE DATE: 02/24/2019 ADMISSION DIAGNOSES: 1. Acute hypercapnic respiratory failure. 2. Nonischemic cardiomyopathy with ejection fraction of 20 to 25 percent. 3. Systolic congestive heart failure acute on chronic. 4. Hypotension. 5. History of deep venous thrombosis and pulmonary embolism. 6. Obstructive sleep apnea on BiPAP. 7. History of ventricular tachycardia status post AICD. DISCHARGE DIAGNOSES: 1. Acute on chronic systolic congestive heart failure on torsemide, metoprolol. 2. Severe nonischemic cardiomyopathy with ejection fraction of 15 to 25 percent. 3. Hypotension. 4. History of deep venous thrombosis and pulmonary embolism on Xarelto. 5. Acute hypercapnic respiratory failure secondary to sleep apnea, will be on CPAP machine at night along with 2 L of oxygen. 6. Physical deconditioning. Work with physical therapy. Will need Home Health. 7. Significant diastolic dysfunction and pulmonary artery hypertension with systolic of 42 mm of Hg. CONSULTATIONS: Dr. Groves. SURGERIES AND PROCEDURES: None. HOSPITAL COURSE: Mr. Dandy Vázquez is a 69-year-old male with a history of nonischemic cardiomyopathy with severe LV dysfunction, systolic heart failure, ventricular tachycardia history with AICD and chronic kidney disease. He presented to the emergency department with family members complaining of shortness of breath, had been increasing for the 24 hours prior to presentation along with increase in abdominal distention, lower extremity edema. Apparently he was recently discharged from [facility] the week prior to being admitted here and apparently he had been diuresed several liters and was feeling better when he was discharged. He admits to being consistently accurate taking his medications and being on a low-sodium diet. The patient was lethargic with slow respiratory rate. Systolic pressure of 84 with some respiratory acidosis requiring BiPAP. He was transferred to the ICU. Cardiology was consulted. He was given Lasix for fluid volume overload. He was ordered Levophed for his hypotension. Continued on Xarelto for his history of DVT and PE. Echocardiogram revealed that he had a 15 to 20 percent ejection fraction and he has significant diastolic dysfunction and pulmonary artery hypertension with a systolic of 42 mmHg. He also has pulmonary hypertension. Cardiology recommended diuresis, continuing CPAP and wanted to initiate Primacor or milrinone for inotropics support. So, he was on milrinone and Levophed drip. It was felt that his prognosis was not very good per cardiology's notes but he did continue to improve enough to be able to go home with maintenance medications and physical therapy with home health. He will also go home CPAP and oxygen. X-ray on the showed improved pulmonary edema but it also showed atelectasis versus pneumonia in left lower lobe but was never required to be initiated on antibiotic therapy, never had any microbiology cultures obtained. He stabilized out now is going to be discharged home. Orthostatic vital signs were obtained which were not very abnormal. There is report of a heart rate of 181 but it is have been an accident. He remained stable. DISCHARGE VITAL SIGNS: Temperature 98.1 degrees, heart rate 89, respiratory rate 21, blood pressure 133/115 also had a 131/68 and 103/59. 98 to 100 percent on 3 L nasal cannula. LABORATORY DATA: Most recent we have INR of 2.24, that was on the . Today: Sodium 138, potassium 4.5, BUN 22, creatinine is 1.0, glucose 137, calcium 9.9. PERTINENT IMAGIN/9 chest x-ray: Cardiomegaly and pulmonary edema. 02/18 chest x-ray: Improved pulmonary edema. Atelectasis versus pneumonia. Left lower lobe. 02/24 chest x-ray: Just showed cardiomegaly. On 02/14/2019 echocardiogram ejection fraction 15 to 20 percent. Severe diastolic dysfunction with some pulmonary hypertension. Systolic pressure of 42 mmHg. EKG on the : Sinus rhythm with PVCs. Rate 91, QTc was very high at 583. Another EKG on the sinus rhythm with PVCs. Rate 96, and continues to have an elevated QTc of 571, but it could be that this was a paced rhythm. These are paced rhythm on the EKGs. DISCHARGE MEDICATIONS: 1. Zocor 40 mg p.o. nightly. 2. Allopurinol 200 mg p.o. daily. 3. Coreg 3.125 mg p.o. twice daily. 4. Digoxin 125 mg mcg p.o. daily. 5. Entresto 24-26 mg tablet p.o. twice a day. 6. Potassium chloride 20 mEq p.o. twice daily. 7. Multivitamin 1 tablet p.o. daily. 8. Spironolactone 25 mg p.o. daily. 9. Vitamin E 100 units p.o. daily. 10. Xarelto 15 mg p.o. nightly. 11. Torsemide 50 mg p.o. daily. 12. Omeprazole 40 mg p.o. daily. 13. Aspirin enteric-coated 81 mg p.o. daily. ACTIVITY: As tolerated with physical therapy at home. DIET: Heart healthy. Fluid restriction of 2000 mL a day. PHYSICIAN FOLLOWUP: Physician follow up with Dr. Johnson and Dr. Elizondo. DISCHARGE INSTRUCTIONS: Weigh yourself daily. With fluid build up please contact physician. Shortness of breath, severely worsening edema or any signs of dizziness or passing out please contact your physician or return to the emergency room for further care. DISCHARGE DISPOSITION: Home with home health. Dictated by ANAMIKA Richardson for Max Chacon MD Addendum: Patient seen and examined by myself. Agree with ANAMIKA note. It reflects my assessment and plan. Patient is being discharged in stable condition to rehab facility. cc: ANAMIKA Richardson MD [facility]
== END 2019-02-24 10:43 | disposition home health service (06) | DRG 291 ==
LOC: ED 07:37 → ICU 11:44 → 2N 02-19 15:12
PROVIDERS: ATTEND Internal Medicine

== ENCOUNTER 2019-03-07 15:32 | Inpatient (IN) ==
--- NOTE | 2019-03-07 16:04 | PROVIDER DOCUMENTATION ---
HPI-General Adult - General Chief Complaint: Eye Complaint Stated Complaint: RIGHT EYE COMPLAINT AND SWELLING Time Seen by Provider: 03/07/19 15:40 Source: patient, family Allergies/Adverse Reactions: Patient Allergies Allergy/AdvReac Type Severity Reaction Status Date / Time No Known Allergies Allergy Verified 02/14/19 08:12 Home Medications: Home Medication List Medication Instructions Recorded Confirmed Last Taken Type SIMVAstatin [Zocor] 40 mg PO QHS 01/11/15 02/14/19 11/20/18 History Digoxin 125 mcg PO DAILY 03/24/16 02/14/19 11/21/18 History Spironolactone 25 mg PO DAILY 03/24/16 02/14/19 11/21/18 History Aspirin [[place] Aspirin EC] 81 mg PO DAILY #30 tablet. 03/27/16 02/14/19 11/21/18 Rx Omeprazole 40 mg PO DAILY #90 capsule. 08/04/17 02/14/19 11/21/18 Rx Allopurinol 2 tab PO DAILY 02/14/19 02/14/19 Unknown History Carvedilol [Coreg] 3.125 mg PO BID 02/14/19 02/14/19 Unknown History Multivitamin [Multi-Vitamin Daily] 1 tab PO DAILY 02/14/19 02/14/19 Unknown History Potassium Chloride [K-Tab ER] 20 meq PO BID 02/14/19 02/14/19 Unknown History Rivaroxaban [Xarelto] 15 mg PO QPM 02/14/19 02/14/19 Unknown History Sacubitril/Valsartan [Entresto 24 0.5 tab PO BID 02/14/19 02/14/19 Unknown History mg-26 mg Tablet] Spironolactone 25 mg PO DAILY 02/14/19 02/14/19 Unknown History Vitamin E 100 intl.units PO DAILY 02/14/19 02/14/19 Unknown History Sacubitril/Valsartan [Entresto 24 1 tab PO BID #60 tab 02/24/19 Unknown Rx mg-26 mg Tablet] Torsemide [Demadex] 0.5 tab PO DAILY #90 tab 02/24/19 Unknown Rx Brimonidine 0.15% Ophth Soln 1 drp BOTH EYES BID 10 Days #1 03/07/19 Unknown Rx [Alphagan P 0.15% Ophth Soln] bottle Dorzolamide/Timolol Ophth Soln 1 drp BOTH EYES BID 10 Days #1 03/07/19 Unknown Rx [Cosopt Ophth Soln] bottle - History of Present Illness -Gen Adult Nature of Presenting Problems: 69yo male with PMH of CHF and COPD presents with CC of right eye issue and increase leg swelling and shortness of breath. The patient reports that over the last 2 days he has noted redness and intermitent pain in his right eye and the front of his ear. The patient also reports increased swelling in his legs and progressively worsening shortness of breath. The patient reports that he is on 3L at home and is followed by a ballistician. Location of Pain/Injury: reports: other (eye) Pain Radiation: reports: other (ear) Onset/Duration: reports: 2 days ago Timing: reports: still present Modifying Factors: improves with: movement Associated Symptoms: reports: shortness of breath, swelling/mass in abdomen, other (Lower extremity swelling) Review of Systems - Adult - REVIEW OF SYSTEMS - ADULT Constitutional: denies: fever Eyes: reports: blurred vision, eye pain. denies: discharge, decreased vision Ears, Nose, Mouth & Throat: reports: ear pain Cardiovascular: reports: edema. denies: chest pain Respiratory: reports: shortness of breath Gastrointestinal: reports: other (abdominal swelling) Genitourinary: denies: dysuria Musculoskeletal: denies: back pain Past History - Adult - PAST MEDICAL HISTORY-ADULT Review of Records: reports: Old Records Reviewed Major Childhood Illnesses: reports: denies history Cardiovascular: reports: CAD, CHF, HTN, hyperlipidemia, LA, pacemaker, other Respiratory: reports: COPD, sleep apnea Gastrointestinal: reports: denies history Obstetrical/Gynecological: reports: denies history Genitourinary: reports: denies history Musculoskeletal: reports: denies history Neurological: reports: denies history Psychiatric: reports: denies history Endocrine/Immune: reports: denies history. denies: Diabetes Other Conditions: reports: denies history - PRIOR SURGERIES/PROCEDURES Surgical/Procedure History: reports: pacemaker - IMMUNIZATION STATUS Childhood Immunizations: See Nurse Assessment Flu Vaccine: See Nurse Assessment - FAMILY HISTORY Family History: reviewed, not pertinent - SOCIAL HISTORY Smoking: denies Substance Use: none/never Alcohol Use Frequency: never Physical Exam-General - CONSTITUTIONAL General Appearance: appears well, alert - EYES Eyes: PERRL/EOMI, other (mild pain with right eye movement, no photophobia, conjuctivitus without purulence noted in the right eye.). negative: photophobia - HEAD, EARS, NOSE, MOUTH & THROAT HENMT: normocephalic/atraumatic, moist mucous membranes, other (Right TM with out erythema or exudate, good cone of light noted) - RESPIRATORY Respiratory: crackles, other (increased work of breathing, bilateral crackles noted.) - CARDIOVASCULAR Cardiovascular: regular rate, rhythm, other (2+ LE edema noted bilaterally) - GASTROINTESTINAL (ABDOMEN) Abdominal Exam: distended - SKIN Integumentary: normal color - NEUROLOGIC Neurologic: grossly normal - PSYCHIATRIC Psych/Mental Status: normal mood/affect Progress - PLAN OF CARE/RESULTS Progress/Plan/Lab Results: Vital Signs - 8 hr 03/07/19 15:34 03/07/19 15:41 03/07/19 15:42 Temperature 97.3 F L Pulse Rate 84 90 Respiratory Rate 18 20 Blood Pressure 101/71 109/71 O2 Sat by Pulse Oximetry 95 95 03/07/19 15:45 Temperature Pulse Rate Respiratory Rate Blood Pressure O2 Sat by Pulse Oximetry 96 Orders Category Date Time Status cxr [CHEST-2 VIEWS] [RAD] Stat Exams 03/07/19 16:00 Ordered CBC WITH ELECTRONIC DIFF [HEME] Stat Lab 03/07/19 16:00 Uncollected COMPREHENSIVE METABOLIC PANEL [CHEM] Stat Lab 03/07/19 16:00 Uncollected PRO B-NATRIURETIC PEPTIDE Stat Lab 03/07/19 16:00 Uncollected 69 male with PMH of CHF and COPD presents with right eye pain and redness and increase abdominal and LE swelling DDx eye: viral conjunctivitis, glaucoma, hemorrhage, abrasion DDx swelling and dypsnea: CHFE, COPDE, PE, URI - Will check eye pressure as well as labs CBC, CMP, troponin, BNP Result Diagrams: 03/07/19 16:32 03/07/19 16:32 - REASSESSMENT Reassessment #1 Status: unchanged (Evaluated patient eyes with tonometer and noted 38 pressure in left (unaffected eye) and 44 in right (effected eye). Hx not consistent with acute glaucoma. Will call [facility] for further treatement recomendations reguarding the eye.) Reassessment #2 Status: improving (Eye pain improved. Pressures improved (18-Left and 22-right). Discussed with [facility] and will d/c home on cosopt and brimonidine 1 drop each eye BID, with follow up with optho in [place] on Sunday. Patient reports that his breathing feels improved after lasix dose. He will follow up with PCP early next week.) Reassessment #3 Status: unchanged (Blood pressure remain 90s systolic. Patient reports he is usually in the 100s. Given low BP after 1 dose of lasix will plan for admission. Discussed case with the hospitalist who will accept the patient.) Procedures - EYE PROCEDURES Alcaine Drops Administered: Yes Eye Exam: Ocular Tonometry, Other (Evaluated patient eyes with tonometer and noted 38 pressure in left (unaffected eye) and 44 in right (effected eye). Hx not consistent with acute glaucoma. Will call [facility] for further treatement recomendations reguarding the eye. This was recomendation from Dr. Traci Forbes at [facility] [place]) Antibiotic Oinment/Drops Admininstered: Both Eyes - ADDITIONAL PROCEDURES Additional Procedure: OTHER (Tonometry repeated approximatly 1 hour post eye drops and diamox, showing improvement with unaffected eye (left) at 18 and affected eye (right) at 22. Procedure done with Dr. Ryan) Departure - Departure Date of Disposition Decision: 03/07/19 Time of Disposition Decision: 21:00 DIAGNOSIS: CHF (congestive heart failure) Qualifiers: Heart failure type: unspecified Heart failure chronicity: unspecified Qualified Code(s): I50.9 - Heart failure, unspecified Intraocular pressure increase Qualifiers: Laterality: right Qualified Code(s): H40.051 - Ocular hypertension, right eye Disposition: ADMITTED INPATIENT 09 Certified Medical Emergency: Emergent Condition: Good Additional Freetext Instructions: Please follow up with opthomology on Sunday of next week (March 11, 2019) Please follow up with PCP in 1-3 days Please return to the ED for any worsening symptoms. ED Follow Up Instructions: You have been treated by a care provider in the Emergency Department. These instructions are being provided to you so you can have an understanding of how to care for yourself upon discharge. Upon discharge from the Emergency D epartment, you are responsible for making arrangements for follow-up care by a physician of your choice. Take all prescribed medications as directed. Return to the Emergency Department immediately for any new or worsening symptoms. You may call the Physician Referral phone number at [phone] to obtain a list of Physicians who are taking new patients. Prescriptions: Brimonidine 0.15% Ophth Soln [Alphagan P 0.15% Ophth Soln] 1 drp BOTH EYES BID 10 Days #1 bottle Dorzolamide/Timolol Ophth Soln [Cosopt Ophth Soln] 1 drp BOTH EYES BID 10 Days #1 bottle Referrals and Follow-Ups: Jose F Johnson MD [Primary Care Provider] - [facility] [Outside] - Call for Appoint. 1-2days (Please call the [place] [facility] office for an appointment on Sunday next week. ) Discharge Education: Glaucoma, [place], Living With Heart Failure - Critical Care Note This patient required my direct & personal management of CC.: No Attestation - Physician/ DAMIEN Attestation Patient care was provided by Advanced Practice Provider:: No The physician spent face to face time with patient:: Yes Advanced Practice Provider documentation review:: Supervising physician onsite and consulted in the evaluation and care of this patient. The physician did have a face to face encounter with the patient.
[2019-03-07] MEDS ORDERED: ALCAINE 0.5% OPHTH SOLN RIGHT EYE ONE (16:06)
[2019-03-07 16:44] LABS: BASO# 0.02 X1000 (0.0-0.2); BASO% 0.2 % (0.0-0.8); EOS% 1.2 % (0.0-10.0); HEMATOCRIT 37.8 % (42.0-52.0); HEMOGLOBIN 12.2 g/dL (14.0-18.0); IMM GRAN# 0.02 X1000 (0.0-0.04); IMM GRAN% 0.2 % (0.0-0.5); LYMPH# 1.93 X1000 (1.2-3.4); LYMPH% 23.6 % (20.5-51.1); MCH 24.3 PG (27-31); MCHC 32.3 g/dL (33-37); MCV 75.1 FL (81-99); MONO# 0.55 X1000 (0.11-0.59); MONO% 6.7 % (1.7-9.3); MPV 12.2 FL (7.4-10.4); NEUT# 5.57 X1000 (1.4-6.5); NEUT% 68.1 % (42.2-75.2); PLT 207 X1000 (130-400); RBC 5.03 XMIL (4.7-6.1); RDW 16.7 % (11.5-14.5); WBC 8.19 X1000 (4.8-10.8)
[2019-03-07 17:09] LABS: ALB/GLOB RATIO 1.3; ALBUMIN 3.9 g/dL (3.5-5.0); CALCIUM 9.8 mg/dL (8.8-10.2); CREATININE 1.5 mg/dL (0.7-1.2); POTASSIUM 4.3 mmol/L (3.5-5.1); TOTAL BILIRUBIN 0.54 mg/dL (0.20-1.00); TOTAL PROTEIN 6.8 g/dL (6.3-8.3)
[2019-03-07] MEDS ORDERED: DIAMOX PO ONE (17:14)
[2019-03-07] MEDS ORDERED: ALPHAGAN P 0.15% OPHTH SOLN BOTH EYES ONE (17:23)
[2019-03-07] MEDS ORDERED: LASIX IV ONE (17:25)
[2019-03-07] MEDS ORDERED: COSOPT OPHTH SOLN BOTH EYES STA (17:27)
--- NOTE | 2019-03-07 17:27 | Diag Imaging Result Doc PS360 ---
EXAM: CHEST-2 VIEWS INDICATION: shortness of breath TECHNIQUE: 2 views COMPARISON: 02/24/2019 FINDINGS: The central vasculature is prominent similar to the previous study suggesting pulmonary venous congestion. The lungs are grossly clear, otherwise. There is no discrete pleural fluid collection or pneumothorax. There is stable marked cardiomegaly. The pacemaker is in stable position. IMPRESSION: Stable cardiomegaly and suggestion of pulmonary venous congestion. Electronically signed by Chinmay Lott 03/07/2019 5:25 PM
[2019-03-07 21:24] LABS: URINE SOURCE CLEAN CATCH
[2019-03-07 21:27] LABS: BILIRUBIN URINE NEGATIVE (NEGATIVE); BLOOD URINE NEGATIVE (NEGATIVE); COLOR YELLOW; GLUCOSE URINE NEGATIVE (NEGATIVE); KETONE URINE NEGATIVE (NEGATIVE); LEUKOCYTES URINE NEGATIVE (NEGATIVE); NITRITE URINE NEGATIVE (NEGATIVE); PH URINE 6.5; PROTEIN URINE TRACE mg/dL (NEGATIVE); TURBIDITY URINE CLEAR (CLEAR); UROBILINOGEN URINE NORMAL (NORMAL)
[2019-03-07 21:28] LABS: UR EPITHELIAL CELLS <10 /HPF (<10); URINE BACTERIA NEGATIVE /HPF; URINE RBC <10 /HPF (<10); URINE WBC <10 /HPF (<10)
[2019-03-07] MEDS ORDERED: ZOFRAN IV PRN (22:19)
--- NOTE | 2019-03-07 22:39 | HISTORY AND PHYSICAL ---
PRIMARY CARE PHYSICIAN: Jose F Gonzalez CHIEF COMPLAINT: Right eye pain and edema and shortness of breath and lower extremity edema. HISTORY OF PRESENTING ILLNESS: This is a 69-year-old male with a history of chronic heart failure, pulmonary embolism, hypertension and obstructive sleep apnea who presented to the emergency department complaining of right eye pain for the past several days. He was also having shortness of breath, edema over the eye, and also lower extremity edema. He was evaluated in the emergency department. His case was discussed with the eye clinic, who recommended the patient be put on Alphagan, and the patient was about to be sent home; however he was having worsening shortness of breath. He was given IV Lasix, and he became hypotensive. Due to his presenting symptoms, he will require admission for further management. At the time of my examination, the patient stated he felt better. He denied any fever, chills, chest pain or hemoptysis, but complained of shortness of breath, eye pain and not feeling well. PAST MEDICAL HISTORY: Includes chronic systolic heart failure, pulmonary embolism, hypertension, obesity, gout, obstructive sleep apnea on CPAP. PAST SURGICAL HISTORY: ICD and pacemaker placement. ALLERGIES: No known drug allergies. CURRENT MEDICATIONS: Allopurinol 100 mg 2 tabs p.o. daily, aspirin 81 mg p.o. daily, carvedilol 3.125 mg p.o. b.i.d., digoxin 125 mcg p.o. daily omeprazole 40 mg p.o. daily, Xarelto 50 mg p.o. every evening, Entresto 24/ one-half tablet p.o. b.i.d., simvastatin 40 mg p.o. at bedtime, spironolactone 25 mg p.o. daily, Demadex 100 mg one-half tablet p.o. daily. SOCIAL HISTORY: No history of smoking, alcohol or illicit drug use. FAMILY HISTORY: No history of coronary disease. REVIEW OF SYSTEMS: Fourteen-point review of systems is as in HPI. Other systems negative. PHYSICAL EXAMINATION: GENERAL: Cooperative, friendly male. He is resting more comfortably now. VITAL SIGNS: Temperature 97.3 degrees, pulse 84, respirations 18, blood pressure 101/71. Repeat was 94/72. HEENT: Atraumatic, normocephalic. Right eye: There is some edema and erythema. NECK: No masses. CHEST: Bibasilar rales. CARDIOVASCULAR: Regular rate and rhythm. ABDOMEN: Soft. Positive bowel sounds. EXTREMITIES: With +1 edema. NEUROLOGIC: He is awake, alert, oriented x3. : No bladder distention. SKIN: Warm. LABORATORIES AND STUDIES: WBCs 8.19, hemoglobin 12.2, hematocrit 37.8, platelets 207,000. ProBNP is 8215. Sodium 138, potassium 4.3, chloride 98. CO2 is 28, BUN is 34, creatinine is 1.5 glucose is 110. Chest x-ray shows pulmonary vascular congestion. ASSESSMENT: 69-year-old male with a history of chronic congestive heart failure, systolic dysfunction, pulmonary embolism, hypertension, gout and sleep apnea who presented to emergency department with a several-day history of having right eye pain. The patient was also having shortness of breath and lower extremity edema. He was evaluated in the emergency department. The case was discussed with the eye clinic, who recommended the patient be started on Alphagan drops, and the patient was about to be sent home; however, he became more short of breath. He was given IV Lasix, and his shortness of breath improved; however, he became somewhat hypotensive. Due to his presenting symptoms, he will require admission for further management. 1. Acute on chronic congestive heart failure, systolic dysfunction. 2. Elevated intraocular pressure, right eye. 3. Pulmonary embolism on anticoagulation. 4. Hypotension 5. Obstructive sleep apnea. PLAN: 1. We will admit patient to medical floor with telemetry. 2. Continue with gentle diuresis with Lasix. 3. We will consult wheel fitter. 4. We will continue patient's Alphagan eyedrops. 5. Restart his anticoagulation and other home medications. 6. We will monitor blood pressure closely and will consider pressors if he becomes more hypotensive. 7. We will obtain a CPAP machine for patient. 8. Patient is on Xarelto, and this will suffice for DVT prophylaxis. 9. We will continue to follow and reassess and make further recommendations based on patient's clinical course. cc: José Miguel Fox MD MTDD
[2019-03-08] MEDS: LASIX IV SCH ×2 (05:26→17:01)
[2019-03-08 07:25] LABS: BASO# 0.03 X1000 (0.0-0.2); BASO% 0.4 % (0.0-0.8); EOS# 0.11 X1000 (0.0-0.7); EOS% 1.6 % (0.0-10.0); HEMATOCRIT 38.6 % (42.0-52.0); HEMOGLOBIN 12.2 g/dL (14.0-18.0); LYMPH# 1.92 X1000 (1.2-3.4); LYMPH% 28.4 % (20.5-51.1); MCHC 31.6 g/dL (33-37); MCV 75.8 FL (81-99); MONO# 0.59 X1000 (0.11-0.59); MONO% 8.7 % (1.7-9.3); MPV 11.5 FL (7.4-10.4); NEUT% 60.9 % (42.2-75.2); PLT 194 X1000 (130-400); RBC 5.09 XMIL (4.7-6.1); RDW 16.8 % (11.5-14.5); WBC 6.75 X1000 (4.8-10.8)
[2019-03-08 07:40] LABS: CALCIUM 9.4 mg/dL (8.8-10.2); CREATININE 1.6 mg/dL (0.7-1.2); POTASSIUM 4.4 mmol/L (3.5-5.1)
--- NOTE | 2019-03-08 11:57 | PROGRESS NOTE ---
DATE: 03/08/2019 SUBJECTIVE: This morning Mr. Vázquez refers to be doing a little better. According to him, the red eye is getting less painful. I understand Mr. Vázquez was seen yesterday in the ER because of this right eye pain. The ER consulted an eye clinic and indication was given to start the patient on Alphagan eyedrops, which were started, and he felt a little better. He was going to be sent home, but then he became more short of breath, so he was admitted for congestive heart failure exacerbation. This morning he continues to be slightly short of breath, but feeling a little better. OBJECTIVE: Vital signs: Blood pressure 93/77, pulse of 70, respiration is 18, temperature 97.5 degrees. The patient is saturating 100% on 3 L. General: On general exam, Mr. Vázquez is a 69- year-old gentleman. He is in bed in no distress. HEENT: Mucosa is pink and moist. Anicteric. Acyanotic. Neck: Supple. Positive JVD. Chest: Air entry is bilaterally reduced. There are crackles in the posterior lung alonso. Cardiovascular: Irregularly irregular, but rate controlled. Abdomen: Soft, distended, but nontender. Extremities: About 1+ pedal edema. RN SANE: Patient is awake, alert, and oriented. LABORATORY DATA: CBC has been reviewed. There is microcytosis with borderline anemia. Pro-B is up to 8250; it was 2000 the last time before he got discharged from the hospital. X-RAYS: A chest x-ray showed stable cardiomegaly and pulmonary venous congestion. ASSESSMENT: 1. Right eye pain with some redness, concerning for glaucoma. The patient was started on Alphagan eyedrops. He was feeling better. We are going to continue with this and let him follow up with eye clinic. 2. Acute on chronic congestive heart failure. We will restart the patient's home medications. He was also started on intravenous Lasix. 3. Recurrent acute kidney injury, most likely due to cardiorenal syndrome. We are going to continue addressing the underlying heart problem. 4. Morbid obesity with obesity hypoventilation syndrome and obstructive sleep apnea. 5. History of pulmonary embolism on anticoagulation. 6. History of severe nonischemic cardiomyopathy with ejection fraction of about 20 to 25 percent. 7. Status post implantable defibrillator. cc: Kei Stanley MD
[2019-03-08] MEDS: ERYTHROMYCIN OPH OINTMENT OPH SCH ×3 (13:05→20:13)
--- NOTE | 2019-03-08 13:42 | CARDIOLOGY CONSULTATION ---
DATE: 03/08/2019 CHIEF COMPLAINT ON PRESENTATION: Apparently right eye pain, as well shortness of breath. HISTORY OF PRESENT ILLNESS: Mr. Vázquez is a 69-year-old black male with a history of heart failure, well known to the Cardiology Service. He presented with apparently eye issues and was seen in the emergency department to discuss with the eye clinic, who recommended the patient be put on Alphagan. The patient was noted to have more shortness of breath. He was ultimately given some IV Lasix and subsequently admitted. The patient denies any orthopnea at home. He reports compliance with his medications. However, he has had a repetitive issue with compliance. He has no chest pain complaints. PAST MEDICAL HISTORY: 1. Significant for a nonischemic cardiomyopathy with previous ejection fractions in the 20 to 25 percent range. 2. History of ICD implant for ventricular arrhythmias. 3. History of pulmonary embolism. 4. Hypertension. 5. Morbid obesity. 6. Gout. 7. Hyperlipidemia. 8. Obstructive sleep apnea. 9. Long history of noncompliance with medical therapy. SOCIAL HISTORY: No history of smoking or alcohol recently. FAMILY HISTORY: No early history of coronary disease. REVIEW OF SYSTEMS: A 10 system review of systems is negative, except for those mentioned in the HPI. PHYSICAL EXAM: Vital Signs: Afebrile, heart rate 88, blood pressure 106/91. His I's and O's have limited data; as of now generally no acute distress. HEENT: Oropharynx is moist. Poor dentition. Eye examination is pink conjunctivae, white sclerae. Neck: Examination shows no obvious thyromegaly or thyroid tenderness. Cardiovascular: He sounds to be in a regular rate and rhythm. He has no obvious murmurs. He has 1+ bilateral lower extremity edema. Warm and well- perfused extremities. He has an elevated JVP. Chest: Exam has mild basilar rales. No increased work of breathing. Abdomen: Soft, nontender, nondistended. No obvious organomegaly. Skin: Exam is warm and dry throughout without any rashes. Neurological: He is moving all extremities well. He has no lateralizing deficits. PERTINENT DATA: His chest x-ray shows suggestion of stable cardiomegaly and pulmonary venous congestion. His white count is 6.7, his hematocrit is 38, platelet count is 194. Sodium 139, potassium 4.4, BUN 36, creatinine 1.6. His proBNP yesterday was 8250 with a negative troponin. ASSESSMENT: Mr. Vázquez is a 69-year-old gentleman, who presented with eye pain and shortness of breath. PLAN: We will defer management of his ocular issues to the primary team. There was some discussion with an internet architect, and the patient was placed on Alphagan. It does not appear that it is presently on his list of medications. I would agree with continued diuresis. The patient's blood pressures seem to be well controlled. He has a long history of noncompliance and has had many visits to the hospital most recently. He was apparently discharged on the , had multiple visits in November, October, September, August and July. He has had infectious issues, which he has not followed up for in the past as well. It would be reasonable to consider this patient for some sort of palliative approach as well considering his compliance issues and frequent hospitalizations. cc: Chay Avendaño MD
[2019-03-08] MEDS: COREG PO SCH (20:07)
[2019-03-08] MEDS: XARELTO PO SCH (20:07)
[2019-03-08] MEDS: KLOR-CON PO SCH (20:07)
[2019-03-08] MEDS: COMBIGAN OPHTH SOLN BOTH EYES SCH (20:07)
[2019-03-08] MEDS: ENTRESTO 24 MG-26 MG TABLET PO SCH (20:07)
[2019-03-08] MEDS ORDERED: ZOCOR PO SCH (21:00)
[2019-03-09] MEDS: LASIX IV SCH ×3 (05:35→17:00)
[2019-03-09] MEDS: PRILOSEC PO SCH ×2 (05:35→06:01)
[2019-03-09 08:00] LABS: CALCIUM 9.6 mg/dL (8.8-10.2); CREATININE 1.5 mg/dL (0.7-1.2); MAGNESIUM 2.1 mg/dL (1.5-2.7); POTASSIUM 4.5 mmol/L (3.5-5.1)
[2019-03-09] MEDS: ERYTHROMYCIN OPH OINTMENT OPH SCH ×4 (08:04→20:42)
[2019-03-09] MEDS: ENTRESTO 24 MG-26 MG TABLET PO SCH ×2 (08:05→20:43)
[2019-03-09] MEDS: COREG PO SCH ×2 (08:05→20:42)
[2019-03-09] MEDS: KLOR-CON PO SCH ×2 (08:05→20:43)
[2019-03-09] MEDS: COMBIGAN OPHTH SOLN BOTH EYES SCH ×2 (08:05→20:42)
[2019-03-09] MEDS: ALDACTONE PO SCH (08:05)
[2019-03-09] MEDS ORDERED: LANOXIN PO SCH (09:00)
--- NOTE | 2019-03-09 11:29 | PROGRESS NOTE ---
DATE: 03/09/2019 SUBJECTIVE: This morning, Mr. Vázquez refers to be doing a lot better. He said the right eye pain is getting better. Early on this morning, I understand Mr. Vázquez went into ventricular tachycardia that sustained for more than 30 seconds, but it has gone back to normal. Currently, his pacemaker is in charge of every single beat. OBJECTIVE: Vital signs: Blood pressure is 100/76, pulse of 85, respirations 17, temperature 97.3 degrees. General: Mr. Vázquez is a 69-year-old gentleman. He is in bed, no distress. HEENT: Mucosa is pink and moist. Anicteric. Acyanotic. The right eye continues to be minimally erythematous on the sclera. Neck: Supple. Lungs: Still has some crackles in the posterior lung alonso. Cardiovascular: Regular rate. No murmurs. Abdomen: Soft. Extremities: Trace pedal edema. SECURITY INTERN: The patient is awake, alert, and oriented. LABORATORY DATA: Chemistry is reviewed. Creatinine is 1.5, which is the same as yesterday. ProBNP is down to 6958. The patient's urine output was about 1425. No imaging studies for this morning. CURRENT MEDICATIONS: Have all been reviewed. ASSESSMENT: 1. Acute right eye pain with some redness concerning for glaucoma. The patient is currently on Alphagan eyedrops. This was recommendation from an crew lead per the ER documentation. He seems to be doing a lot better. 2. Acute on chronic congestive heart failure. The patient's home medications have been restarted. He is making adequate urine output. His ProBNP is trending down. He is on IV diuretic therapy. 3. Recurrent acute kidney injury, most likely due to cardiorenal syndrome. 4. Nonsustained ventricular tachycardia. The patient's magnesium is fine. He is status post AICD and pacemaker. I think he probably will benefit from amiodarone as long-term treatment. We will, however, defer that recommendation to Cardiology. 5. History of pulmonary embolism. The patient is on Xarelto anticoagulation. 6. Severe nonischemic dilated cardiomyopathy with ejection fraction of 20% to 25% noted. PLAN: In general, I think Mr. Vázquez is fairly stable, continues to be diuresing well, and the eye pain is getting better controlled. We are still pending Cardiology final recommendations. Hopefully, Mr. Vázquez can be discharged either today or tomorrow. cc: Kei Stanley MD
--- NOTE | 2019-03-09 14:58 | CARDIOLOGY PROGRESS NOTE ---
DATE: 03/09/2019 SUBJECTIVE: Mr. Vázquez gas not had any complaints overnight. He is not having any chest pain. No palpitations. OBJECTIVE: Vital signs: The patient is afebrile. His heart rates are in the mid 80s, blood pressure 106/78. His I's and O's have been negative over the course of the hospitalization on the order of around 500 mL. General: He is in no acute distress. Cardiovascular: He sounds to be in a regular rate and rhythm. He has no obvious murmurs. He has minimal bilateral lower extremity edema with warm and well-perfused extremities. Chest: Clear bilaterally. He has no increased work of breathing. Abdomen: His abdomen is soft, nontender. PERTINENT DATA: Sodium is 137, potassium 4.5, BUN is 36, creatinine is 1.5 which is stable. Magnesium level is 2.1. ProBNP is 6958 which is down from 8250. ASSESSMENT: Mr. Vázquez is a 69-year-old gentleman with a history of congestive heart failure and nonischemic cardiomyopathy. PLAN: We will place him on amiodarone. He is having some fairly long runs of nonsustained ventricular tachycardia during the hospitalization. His electrolytes look okay. We will continue him on the current medication regimen with the exception of discontinuing the digoxin. I will continue to try to diurese the patient. cc: Chay Avendaño MD
[2019-03-09] MEDS: LIPITOR PO SCH (20:42)
[2019-03-09] MEDS: XARELTO PO SCH (20:42)
[2019-03-09] MEDS: CORDARONE PO SCH (20:43)
--- NOTE | 2019-03-10 02:05 | EKG Report ---
Test Performed on : 03/09/2019 7:45:13 PM Test Reason : Rhythm Change Blood Pressure : / mmHG Vent. Rate : 082 BPM Atrial Rate : 082 BPM P-R Int : 000 ms QRS Dur : 144 ms QT Int : 444 ms P-R-T Axes : 059 -76 102 degrees QTc Int : 518 ms Suspect unspecified pacemaker failure Ventricular-paced rhythm Abnormal ECG When compared with ECG of 19-FEB-2019 06:47, Electronic ventricular pacemaker has replaced Sinus rhythm. Last QRS has superimposed pacemaker spike, consider failure to sense Confirmed by Indira MCDUFFIE, Jay Rios ([id number]) on 03/12/2019 8:09:20 AM
[2019-03-10] MEDS: LASIX IV SCH ×2 (05:16→12:28)
[2019-03-10] MEDS: PRILOSEC PO SCH ×2 (05:16→06:16)
[2019-03-10 07:16] LABS: BASO# 0.02 X1000 (0.0-0.2); BASO% 0.3 % (0.0-0.8); EOS# 0.13 X1000 (0.0-0.7); EOS% 1.8 % (0.0-10.0); HEMATOCRIT 36.8 % (42.0-52.0); HEMOGLOBIN 11.9 g/dL (14.0-18.0); IMM GRAN# 0.02 X1000 (0.0-0.04); IMM GRAN% 0.3 % (0.0-0.5); LYMPH# 1.32 X1000 (1.2-3.4); LYMPH% 18.6 % (20.5-51.1); MCH 24.7 PG (27-31); MCHC 32.3 g/dL (33-37); MCV 76.3 FL (81-99); MONO# 0.72 X1000 (0.11-0.59); MONO% 10.2 % (1.7-9.3); MPV 12.2 FL (7.4-10.4); NEUT# 4.88 X1000 (1.4-6.5); NEUT% 68.8 % (42.2-75.2); PLT 175 X1000 (130-400); RBC 4.82 XMIL (4.7-6.1); RDW 16.7 % (11.5-14.5); WBC 7.09 X1000 (4.8-10.8)
[2019-03-10 07:47] LABS: ALBUMIN 3.7 g/dL (3.5-5.0); CALCIUM 9.3 mg/dL (8.8-10.2); CREATININE 1.5 mg/dL (0.7-1.2); MAGNESIUM 2.2 mg/dL (1.5-2.7); PHOSPHORUS 4.1 mg/dL (2.7-4.5); POTASSIUM 4.4 mmol/L (3.5-5.1)
[2019-03-10] MEDS: CORDARONE PO SCH ×2 (08:25→21:00)
[2019-03-10] MEDS: KLOR-CON PO SCH ×2 (08:25→21:00)
[2019-03-10] MEDS: COREG PO SCH ×2 (08:25→21:00)
[2019-03-10] MEDS: ENTRESTO 24 MG-26 MG TABLET PO SCH ×2 (08:25→21:00)
[2019-03-10] MEDS: ALDACTONE PO SCH (08:25)
[2019-03-10] MEDS: ASPIRIN EC PO SCH (08:25)
[2019-03-10] MEDS: ERYTHROMYCIN OPH OINTMENT OPH SCH ×4 (08:26→21:00)
[2019-03-10] MEDS: COMBIGAN OPHTH SOLN BOTH EYES SCH ×2 (08:26→21:00)
[2019-03-10] MEDS: ZAROXOLYN PO SCH (12:28)
--- NOTE | 2019-03-10 12:32 | PROGRESS NOTE ---
DATE: 03/10/2019 SUBJECTIVE: This morning Mr. Vázquez refers to be doing a little better, but he is still having some shortness of breath. OBJECTIVE: Vital Signs: Blood pressure 98/71, pulse of 62, respirations 20, and temperature 97.8 degrees. The patient is saturating 100% on nasal cannula. His I's and O's, urine output was about 2200. He has negative balance of 18:45 in the morning. Unfortunately we do not see a lot of weight changes. General: Mr. Vázquez is a 69-year-old gentleman. He is in bed, and seems slightly tachypneic. Chest: Air entry is bilaterally reduced and some crackles posteriorly. Cardiovascular: Regular rate and rhythm. No murmurs. Abdomen: Soft. Extremities: About 1+ pedal edema. SPINE NURSE: Patient is awake, alert, and oriented. LABORATORY DATA: Reviewed. CBC is unremarkable except for microcytic anemia. Chemistry is reviewed. Creatinine is 1.5. ASSESSMENT: 1. Acute right eye pain with redness concerning for glaucoma. Patient is currently on eyedrops that was recommended by an director enterprise systems through the ER consultation. He refers to be feeling a lot better. 2. Acute on chronic congestive heart failure. We will continue with the IV diuretic therapy. The patient is having a little bit more tachypnea this morning. He seems to be more fluid overloaded than yesterday so we will up titrate his IV diuretic therapy. 3. Acute kidney injury presumably cardiorenal. We will continue addressing the underlying cardiac disease. 4. Nonsustained ventricular tachycardia. Patient has been started on amiodarone. He has AICD and pacemaker. 5. History of pulmonary embolism. Patient is on Xarelto. 6. Severe nonischemic dilated cardiomyopathy with ejection fraction of 20% to 25% noted. 7. Questionable medication noncompliance. In general, I think Mr. Vázquez is fairly stable. He has not had any more of the ventricular tachycardia ventricular anymore. This morning he however seems slightly more fluid overloaded than yesterday so we are going to up titrate his diuretic therapy. cc: Kei Stanley MD [facility]
--- NOTE | 2019-03-10 12:56 | CARDIOLOGY PROGRESS NOTE ---
DATE: 03/10/2019 SUBJECTIVE: Mr. Vázquez reports his edema continues to improve. He continues to have decent urine output per him. The patient's I's and O's are negative over the course of the hospitalization. His total output is -1 0.4 L with 4 voids not measured. PHYSICAL EXAMINATION: Vital Signs: Afebrile. Heart rate 76. Blood pressure 95/70. Most systolics appear to be in the 90s. General: No acute distress. Cardiovascular: He sounds to be in a regular rate and rhythm. He has no murmurs. He has no S3. His JVP continues to be elevated. No lower extremity edema. Chest: Exam sounds relatively clear. No increased work of breathing. Abdomen: Soft, nontender. PERTINENT DATA: His white count is 7, hematocrit 24. His BUN and creatinine are 34 and 1.5 with a potassium of 4.4. His magnesium level is 2.2. ASSESSMENT: Mr. Vázquez is a 69-year-old male with a history of nonischemic cardiomyopathy. PLAN: Aldactone was added yesterday, which I agree with. I would continue him on the Entresto, Coreg and IV Lasix. I will recheck laboratories in the morning. May consider escalating his Aldactone to b.i.d. dosing. cc: Chay Avendaño MD
[2019-03-10] MEDS: LIPITOR PO SCH (21:00)
[2019-03-10] MEDS: XARELTO PO SCH (21:00)
[2019-03-11] MEDS: LASIX IV SCH ×2 (00:14→13:15)
[2019-03-11] MEDS: PRILOSEC PO SCH (06:16)
--- NOTE | 2019-03-11 07:12 | Diag Imaging Result Doc PS360 ---
EXAM: CHEST-PORTABLE 03/11/2019 HISTORY: dyspnea TECHNIQUE: AP portable at 0558 COMMENT: There is cardiomegaly and increased pulmonary vascularity. There is obscuration of the left lower lobe. This is slightly worse than on 03/07/2019. The chest is somewhat underexposed and the inspiration is less optimal than on the previous study. IMPRESSION: Questionable atelectasis or pneumonia left lower lobe. Cardiomegaly and increased pulmonary vascularity. Electronically signed by Doyle Miner 03/11/2019 7:10 AM
[2019-03-11 07:44] LABS: CALCIUM 9.5 mg/dL (8.8-10.2); CREATININE 1.5 mg/dL (0.7-1.2); MAGNESIUM 2.2 mg/dL (1.5-2.7); POTASSIUM 4.1 mmol/L (3.5-5.1)
[2019-03-11] MEDS: ALDACTONE PO SCH (08:54)
[2019-03-11] MEDS: KLOR-CON PO SCH (08:54)
[2019-03-11] MEDS: ZAROXOLYN PO SCH (08:54)
[2019-03-11] MEDS: COREG PO SCH (08:54)
[2019-03-11] MEDS: ENTRESTO 24 MG-26 MG TABLET PO SCH (08:54)
[2019-03-11] MEDS: CORDARONE PO SCH (08:54)
[2019-03-11] MEDS: ASPIRIN EC PO SCH (08:54)
[2019-03-11] MEDS: ERYTHROMYCIN OPH OINTMENT OPH SCH ×2 (08:55→13:15)
[2019-03-11] MEDS: COMBIGAN OPHTH SOLN BOTH EYES SCH (08:55)
[2019-03-11] MEDS ORDERED: SAMSCA PO ONE (10:40)
[2019-03-11 11:58] VITALS: BP 94/65
--- NOTE | 2019-03-11 14:19 | CARDIOLOGY PROGRESS NOTE ---
DATE: 03/11/2019 SUBJECTIVE: Mr. Vázquez reports he feels better today. He has no complaints. His breathing has improved. He also notes eye discomfort and vision is improved since admission. PHYSICAL: He is afebrile. His heart rate is 60, blood pressure 94/65. His I's and O's have been a total negative of 3.4 L with 4 voids not measured.General: He is in no acute distress. Cardiovascular: He sounds to be in a regular rate and rhythm. He has no murmurs, no S3. He has no lower extremity edema. His chest is clear bilaterally. No increased work of breathing. His abdomen is soft, nontender. PERTINENT DATA: Lab ramey, his sodium is 134, potassium 4.1, BUN 38, creatinine is 1.5 which is stable. His proBNP is 3322 which is reduced by more than half of his baseline. ASSESSMENT: Mr. Vázquez is a 69-year-old gentleman with a nonischemic cardiomyopathy. PLAN: His medications have been advanced. Per review of his home medications, it does not seem like he was getting his carvedilol filled. We have ensured that is in place. He continues on spironolactone, Entresto as well as torsemide. I believe a significant reason for his admissions are his high sodium intake and I have discussed this with him at length and the strict avoidance of fast food. He has an appointment set up in the near future with Dr. Dillard as an outpatient. This has been arranged for April 15 at 11:30 a.m. cc: Chay Avendaño MD
--- NOTE | 2019-03-11 20:08 | DISCHARGE SUMMARY ---
ADMISSION DATE: 03/07/2019 DISCHARGE DATE: 03/11/2019 DISPOSITION: Home. FOLLOWUP: 1. Dr. Johnson. 2. Dr. Dillard. 3. Eye clinic at [facility]. CONSULTATION DURING THIS ADMISSION: Cardiology was consulted. Patient was seen by Dr. Chay Avendaño. A phone consult was placed with Ophthalmology in [facility] through the ER. INVASIVE PROCEDURES DONE DURING THIS ADMISSION: None. IMAGING STUDIES OF SIGNIFICANCE: A chest x-ray did show stable cardiomegaly and suggestion of pulmonary venous congestion. A repeat x-ray did show questionable atelectasis or left lower lobe pneumonia. ADMISSION DIAGNOSES: 1. Acute on chronic congestive heart failure. 2. Elevated intra-ocular pressure. 3. Pulmonary embolism on anticoagulation. 4. Hypotension. 5. Obstructive sleep apnea. DIAGNOSES AT THE TIME OF DISCHARGE: 1. Acute right eye pain with redness concerning for glaucoma, improved. 2. Acute on chronic congestive heart failure. 3. Severe nonischemic dilated cardiomyopathy with ejection fraction of 20% to 25%. 4. Acute kidney injury, presumably cardiorenal. 5. Nonsustained ventricular tachycardia during the hospital course. 6. History of pulmonary embolism on Xarelto anticoagulation. 7. Status post automatic implantable cardioverter defibrillator/pacemaker. 8. Question medication compliance. DISCHARGE MEDICATIONS: 1. Spironolactone 25 mg p.o. daily. 2. Aspirin 81 mg p.o. daily. 3. Omeprazole 40 mg p.o. daily. 4. Entresto 24/ one tablet b.i.d. 5. Rivaroxaban 50 mg p.o. daily. 6. Allopurinol. 7. Carvedilol 3.125 b.i.d. 8. Dorzolamide and timolol eye drops. 9. Atorvastatin 40 mg p.o. at bedtime. 10. Amiodarone 40 mg p.o. daily. 11. Metolazone 5 mg p.o. daily. PRESENTING COMPLAINT: Right eye pain and some shortness of breath. HISTORY OF PRESENT COMPLAINT: Mr. Vzáquez is a 69-year-old gentleman who is known to have severe nonischemic dilated cardiomyopathy status post AICD and pacemaker who follows up with Dr. Dillard. He has been very questionably compliant with his salt intake at home. He came to the emergency department because of right eye pain which was thought to be increased intra-ocular pressure. There was a direct consultation in the ER with an street contractor in [facility]. Some eye drops were recommended, and the patient was actually ready for discharge. However, he also complained of shortness of breath, so he was admitted for congestive heart failure. During the hospital course Mr. Vázquez was started on IV diuretic therapy. He continues to diurese very adequately. He was -3470 negative balance by the time he was discharged. He was also seen during the hospital course by Cardiology who made some changes to his medications. Mr. Vázquez's pro B dropped from 8350 on admission to 3325, more than half, by the time he was discharged. During the hospital course Mr. Vázquez was found to have a nonsustained ventricular tachycardia and he was started also on amiodarone. He seems to be tolerating this. He is going to follow up with Dr. Dillard on outpatient basis. Mr. Vázquez has been advised on very low salt intake and compliance with medications and dietary. At the time of discharge he was fairly asymptomatic. His vital signs showed blood pressure was 94/65, pulse of 60, respirations 20, temperature 97.7 degrees, and the patient was saturating 100% on 3 L. He is on home 2 oxygen. His labs have all been reviewed today. His physical exam is positive for just mild and inspiratory crackles in the posterior lung alonso, but no JVD. Pedal edema is for most part resolved. We think Mr. Vázquez is in stable condition for discharge. His right eye redness has also significantly improved. He is going to be discharged to follow up with Dr. Johnson and with Dr. Dillard. All the discharge instructions have been discussed with Mr. Vázquez and he voiced understanding. cc: MD Andi Bhat MD Moses Awoniyi, MD MTDD
[2019-03-12] MEDS ORDERED: CORDARONE PO SCH (09:00)
== END 2019-03-11 15:11 | disposition home health service (06) | DRG 292 ==
LOC: ED 15:32 → SUATTDRO 21:51 → 2N 21:51
PROVIDERS: ATTEND Internal Medicine

== ENCOUNTER 2019-05-05 15:48 | Inpatient (IN) ==
--- NOTE | 2019-05-05 16:30 | PROVIDER DOCUMENTATION ---
HPI-General Adult - General Chief Complaint: Abdominal Pain Stated Complaint: STOMACH PAIN, HOT, Time Seen by Provider: 05/05/19 16:27 Source: patient, family Allergies/Adverse Reactions: Patient Allergies Allergy/AdvReac Type Severity Reaction Status Date / Time No Known Allergies Allergy Verified 04/30/19 10:03 Home Medications: Home Medication List Medication Instructions Recorded Confirmed Last Taken Type Spironolactone 25 mg PO DAILY 03/24/16 05/05/19 05/05/19 History Aspirin [Schley Aspirin EC] 81 mg PO DAILY #30 tablet. 03/27/16 05/05/19 05/05/19 Rx Omeprazole 40 mg PO DAILY #90 capsule. 08/04/17 05/05/19 05/05/19 Rx Allopurinol 1 tab PO DAILY 02/14/19 05/05/19 05/05/19 History Multivitamin [Multi-Vitamin Daily] 1 tab PO DAILY 02/14/19 05/05/19 05/05/19 History Rivaroxaban [Xarelto] 15 mg PO QPM 02/14/19 05/05/19 05/05/19 History Carvedilol [Coreg] 1 tab PO DAILY 04/30/19 05/05/19 05/05/19 History Digoxin [Digox] 1 tab PO DAILY 04/30/19 05/05/19 05/05/19 History Potassium Chloride [Klor-Con M20] 2 tab PO BID 04/30/19 05/05/19 05/05/19 History Sacubitril/Valsartan [Entresto 24 1 tab PO BID 04/30/19 05/05/19 05/05/19 History mg-26 mg Tablet] Torsemide [Demadex] 10 mg PO DAILY 04/30/19 05/05/19 05/05/19 History Vitamin E 1 cap PO DAILY 04/30/19 05/05/19 05/05/19 History - History of Present Illness -Gen Adult Nature of Presenting Problems: This is a 69yo male who presents with CC of abdominal pain. The patient reports that he has been having stomach pain and cough with sweats starting sunday. The patient reports that the pain is on both sides of his abdomen. He reports that he has been coughing and having some shortness of breath. He denies nausea or vomiting. He does reports some swelling of his abdomen. Location of Pain/Injury: reports: abdomen Pain Radiation: reports: other (bilateral accross abdomen) Onset/Duration: reports: 2 days ago Timing: reports: still present Review of Systems - Adult - REVIEW OF SYSTEMS - ADULT Constitutional: denies: fever Eyes: reports: no symptoms reported. denies: eye pain Ears, Nose, Mouth & Throat: reports: no symptoms reported. denies: throat pain Cardiovascular: reports: no symptoms reported. denies: chest pain Respiratory: reports: cough, shortness of breath Gastrointestinal: reports: abdominal pain, other (abdominal swelling) Genitourinary: reports: no symptoms reported Musculoskeletal: reports: no symptoms reported Integumentary: reports: no symptoms reported Neurological: reports: no symptoms reported Psychiatric: reports: no symptoms reported Endocrine: reports: no symptoms reported Hematologic/Lymphatic: reports: no symptoms reported, other (no bleeding) Past History - Adult - PAST MEDICAL HISTORY-ADULT Review of Records: reports: Old Records Reviewed Major Childhood Illnesses: reports: denies history Cardiovascular: reports: CAD, CHF, HTN, hyperlipidemia, [place], pacemaker, other Respiratory: reports: COPD, sleep apnea Gastrointestinal: reports: denies history Obstetrical/Gynecological: reports: denies history Genitourinary: reports: denies history Musculoskeletal: reports: denies history Neurological: reports: denies history Psychiatric: reports: denies history Endocrine/Immune: reports: denies history. denies: Diabetes Other Conditions: reports: denies history - PRIOR SURGERIES/PROCEDURES Surgical/Procedure History: reports: pacemaker - IMMUNIZATION STATUS Childhood Immunizations: See Nurse Assessment Flu Vaccine: See Nurse Assessment - FAMILY HISTORY Family History: reviewed, not pertinent Physical Exam-General - PHYSICAL EXAM-ADULT Initial Vital Signs Reviewed: Yes - CONSTITUTIONAL General Appearance: alert, no apparent distress - EYES Eyes: negative: conjuctival exudate - HEAD, EARS, NOSE, MOUTH & THROAT HENMT: normocephalic/atraumatic, moist mucous membranes - NECK Neck: other (no JVD noted) - RESPIRATORY Respiratory: decreased breath sounds, rales (RLL) - CARDIOVASCULAR Cardiovascular: regular rate, rhythm, no edema, no JVD - GASTROINTESTINAL (ABDOMEN) Abdominal Exam: distended, tenderness (Diffuse) - MUSCULOSKELETAL Extremity: non-tender - SKIN Integumentary: normal color, warm/dry - NEUROLOGIC Neurologic: grossly normal - PSYCHIATRIC Psych/Mental Status: normal mood/affect, normal thought content, normal thought process (LE) Progress - PLAN OF CARE/RESULTS Progress/Plan/Lab Results: Vital Signs - 8 hr 05/05/19 15:55 Temperature 97.5 F L Pulse Rate 93 H Respiratory Rate 18 Blood Pressure 97/68 O2 Sat by Pulse Oximetry 96 Orders Category Date Time Status Saline Loc DIRECTED Care 05/05/19 16:29 Ordered NPO Diet 05/05/19 16:29 Ordered AMYLASE [CHEM] Stat Lab 05/05/19 16:29 Uncollected CBC WITH ELECTRONIC DIFF [HEME] Stat Lab 05/05/19 16:29 Uncollected COMPREHENSIVE METABOLIC PANEL [CHEM] Stat Lab 05/05/19 16:29 Uncollected CRP HIGH SENSITIVITY Stat Lab 05/05/19 16:29 Ordered LACTATE, PLASMA [CHEM] Stat Lab 05/05/19 16:29 Uncollected LIPASE [CHEM] Stat Lab 05/05/19 16:29 Uncollected SED RATE [HEME] Stat Lab 05/05/19 16:29 Uncollected URINALYSIS W/POSS RFLX CULT [URINALYSIS] Stat Lab 05/05/19 16:29 Uncollected Result Diagrams: 05/05/19 16:45 05/05/19 16:45 - REASSESSMENT Reassessment #1 Status: other (Given elevated BNP, complaints of dypsnea, noted hypotension, and congestion on xray will admit with patient for CHFE. Patient discussed with the hospitalist team who have accepted the patient.) Departure - Departure Date of Disposition Decision: 05/05/19 Time of Disposition Decision: 19:59 DIAGNOSIS: Shortness of breath Dyspnea Qualifiers: Dyspnea type: unspecified Qualified Code(s): R06.00 - Dyspnea, unspecified CHF (congestive heart failure) Qualifiers: Heart failure type: other Qualified Code(s): I50.9 - Heart failure, unspecified Disposition: ADMITTED INPATIENT 09 Certified Medical Emergency: Emergent Condition: Fair Referrals and Follow-Ups: Jose F Johnson MD [Primary Care Provider] - - Critical Care Note This patient required my direct & personal management of CC.: No Attestation - Physician/ DAMIEN Attestation Patient care was provided by Advanced Practice Provider:: No The physician spent face to face time with patient:: Yes Advanced Practice Provider documentation review:: Supervising physician onsite and consulted in the evaluation and care of this patient. The physician did have a face to face encounter with the patient.
[2019-05-05 17:37] LABS: BASO# 0.03 X1000 (0.0-0.2); BASO% 0.4 % (0.0-0.8); EOS# 0.02 X1000 (0.0-0.7); EOS% 0.2 % (0.0-10.0); HEMATOCRIT 36.9 % (42.0-52.0); HEMOGLOBIN 11.8 g/dL (14.0-18.0); LYMPH# 1.59 X1000 (1.2-3.4); LYMPH% 18.7 % (20.5-51.1); MCH 23.7 PG (27-31); MCV 74.1 FL (81-99); MONO# 1.27 X1000 (0.11-0.59); MONO% 14.9 % (1.7-9.3); MPV 11.9 FL (7.4-10.4); NEUT# 5.59 X1000 (1.4-6.5); NEUT% 65.8 % (42.2-75.2); PLT 150 X1000 (130-400); RBC 4.98 XMIL (4.7-6.1); RDW 17.5 % (11.5-14.5)
[2019-05-05 17:43] LABS: ALB/GLOB RATIO 1.1; ALBUMIN 4.1 g/dL (3.5-5.0); CALCIUM 8.5 mg/dL (8.8-10.2); CREATININE 2.4 mg/dL (0.7-1.2); POTASSIUM 4.4 mmol/L (3.5-5.1); TOTAL BILIRUBIN 0.6 mg/dL (0.20-1.00); TOTAL PROTEIN 7.7 g/dL (6.3-8.3)
[2019-05-05] MEDS ORDERED: ZOFRAN IV ONE (17:57)
[2019-05-05] MEDS ORDERED: MORPHINE IV ONE (17:57)
--- NOTE | 2019-05-05 18:43 | Diag Imaging Result Doc PS360 ---
EXAM: CT ABDOMEN/PELVIS W/O CONTRAST INDICATION: Abdominal pain and nausea and vomiting TECHNIQUE: This exam was performed using automated exposure control, adjustment of mA or kV according to patient size, and/or use of iterative reconstruction technique. COMPARISON: None. FINDINGS: There is prominent cardiomegaly. There is subsegmental atelectasis and air trapping at the lung bases. The spleen has a lobulated contour, likely congenital or due to an old trauma. The spleen is not enlarged. There is a small cystic appearing focus at the periphery of the left hepatic lobe. The liver is grossly unremarkable, otherwise. The gallbladder, pancreas, and adrenal glands are grossly unremarkable. There are several low dense renal lesions bilaterally that are slightly higher density than that of simple fluid. These probably represent cysts containing blood products or proteinaceous debris but are technically nonspecific on unenhanced CT. Consider nonemergent follow-up with IV contrast enhanced CT or ultrasound. The kidneys are unremarkable, otherwise. There is no evidence of hydronephrosis. The urinary bladder is largely nondistended and is grossly unremarkable. There is no evidence of appendicitis. No focal bowel wall thickening or bowel obstruction is identified. There are a few small bowel air-fluid levels without significant distention. Consider mild ileus, possibly from mild enteritis. No focal inflammatory changes, free abdominal gas, or free fluid is appreciated. There is no evidence of acute osseous abnormality. IMPRESSION: 1.A few small bowel air-fluid levels without significant distention. Consider mild ileus, possibly related to enteritis. No bowel wall thickening is appreciated, however. 2.Multiple low dense renal lesions that probably represent blood or protein filled cysts. Please see above discussion. 3.Cardiomegaly. 4.No definite acute pathology by unenhanced CT. Electronically signed by Chinmya Lott 05/05/2019 6:41 PM
[2019-05-05 18:45] LABS: SED RATE 24 mm/hr (0-15)
--- NOTE | 2019-05-05 18:48 | EKG Report ---
Test Performed on : 05/05/2019 3:55:08 PM Test Reason : nausea and vomiting and abdominal pain Blood Pressure : / mmHG Vent. Rate : 094 BPM Atrial Rate : 094 BPM P-R Int : 146 ms QRS Dur : 186 ms QT Int : 478 ms P-R-T Axes : 056 -87 089 degrees QTc Int : 597 ms Normal sinus rhythm. Possible Left atrial enlargement Left axis deviation Right bundle branch block Possible Lateral infarct , age undetermined Abnormal ECG When compared with ECG of 09-MAR-2019 19:45, Sinus rhythm. has replaced Electronic ventricular pacemaker Unconfirmed Result
--- NOTE | 2019-05-05 18:50 | Diag Imaging Result Doc PS360 ---
EXAM: CHEST-2 VIEWS INDICATION: shortness of breath and cough TECHNIQUE: 2 views COMPARISON: 03/11/2019 FINDINGS: There is stable cardiomegaly. The central vasculature is prominent suggesting pulmonary venous congestion. There is subsegmental atelectasis at the left lung base. There is no discrete pleural fluid collection or pneumothorax. IMPRESSION: Cardiomegaly and suggestion of pulmonary venous congestion. Electronically signed by Chinmay Lott 05/05/2019 6:48 PM
[2019-05-05 19:17] LABS: URINE SOURCE CLEAN CATCH
[2019-05-05 19:22] LABS: BILIRUBIN URINE NEGATIVE (NEGATIVE); BLOOD URINE TRACE (NEGATIVE); COLOR YELLOW; GLUCOSE URINE NEGATIVE (NEGATIVE); KETONE URINE NEGATIVE (NEGATIVE); LEUKOCYTES URINE NEGATIVE (NEGATIVE); NITRITE URINE NEGATIVE (NEGATIVE); PROTEIN URINE TRACE mg/dL (NEGATIVE); TURBIDITY URINE CLEAR (CLEAR); UROBILINOGEN URINE NORMAL (NORMAL)
[2019-05-05 19:36] LABS: UR EPITHELIAL CELLS <10 /HPF (<10); URINE BACTERIA NEGATIVE /HPF; URINE RBC <10 /HPF (<10); URINE WBC <10 /HPF (<10)
[2019-05-06] MEDS ORDERED: ZOFRAN IV PRN (00:51)
[2019-05-06] MEDS ORDERED: LASIX IV SCH (05:00)
--- NOTE | 2019-05-06 05:44 | HISTORY AND PHYSICAL ---
PRIMARY CARE PHYSICIAN: Dr. Johnson. CHIEF COMPLAINT: Shortness of breath and abdominal pain x3 days. HISTORY OF PRESENTING ILLNESS: A 69-year-old male with a history of hypertension, CHF, systolic dysfunction, hyperlipidemia and COPD on home oxygen, sleep apnea, and pulmonary embolism who had presented to emergency department with 3 days history of having worsening shortness of breath. The patient states he was having difficulty breathing despite being on home O2. He states that during this time he was also having some abdominal distention and cramping. He states that he has been constipated for several days. However, he did have a bowel movement somewhat small yesterday. The patient was evaluated in the emergency department where I suspect he was in heart failure. Due to his presenting symptoms, he will require admission for further management. At the time of my examination, he denied any headache, fever, chills, or hemoptysis, but complained of weight gain, shortness of breath and abdominal discomfort. PAST MEDICAL HISTORY: Includes hypertension, CHF, systolic dysfunction, hyperlipidemia, COPD on home oxygen, sleep apnea, and pulmonary embolism. PAST SURGICAL HISTORY: ICD pacemaker. ALLERGIES: No known drug allergies. CURRENT MEDICATIONS: 1. Allopurinol 100 mg p.o. daily. 2. Aspirin 81 mg p.o. daily. 3. Carvedilol 3.125 mg p.o. daily. 4. Digoxin 125 mcg p.o. daily. 5. Omeprazole 40 mg p.o. daily. 6. Xarelto 50 mg p.o. every evening. 7. Spironolactone 25 mg p.o. daily. 8. Torsemide 10 mg p.o. daily. SOCIAL HISTORY: No history of smoking, alcohol or illicit drug use. FAMILY HISTORY: No history of coronary disease. REVIEW OF SYSTEMS: Fourteen point review of system as listed in HPI. Other systems negative. PHYSICAL EXAMINATION: GENERAL: Cooperative friendly male. He is resting more comfortably now. VITAL SIGNS: Temperature 97.5 degrees, pulse 92, respiration 18, and blood pressure 97/68. HEENT: Atraumatic, normocephalic. Extraocular movements intact. PERRLA. NECK: No masses. CHEST: Bibasilar rales. CARDIOVASCULAR: Regular rate and rhythm. ABDOMEN: Soft. Some mild tenderness. EXTREMITIES: No edema. EXTREMITIES: Trace edema. NEUROLOGIC: He is awake, alert, and oriented x3. : No bladder distention. SKIN: Warm. LABORATORIES AND STUDIES: WBCs 8.50, hemoglobin 11.8, hematocrit 36.9 and platelets 150,000. Sodium 135, potassium 4.4, chloride 93, CO2 27, BUN is 29, and creatinine is 2.4. [place] [address]. Troponin 0.018. Chest x-ray shows cardiomegaly and suggestion of pulmonary vascular congestion. CT of the abdomen and pelvis shows mild ileus related to possible enteritis. ASSESSMENT: This is a 69-year-old male with a history of hypertension, CHF, COPD, sleep apnea, and pulmonary embolism who had presented to emergency department with 3 days history of progressive worsening shortness of breath. He was evaluated in the emergency department. He is found to be in heart failure. He will require admission for further management. 1. Acute congestive heart failure exacerbation and systolic dysfunction. 2. Abdominal pain. Possible mild ileus and constipation. 3. Hypertension. 4. History of PE. 5. Chronic obstructive pulmonary disease. PLAN: 1. We will admit patient to medical floor with telemetry. 2. We will continue with gentle diuresis with Lasix. 3. Consult Cardiology. 4. We will keep patient on clear liquid diet and advance as tolerated. 5. We will give him adequate bowel regimen. 6. Monitor blood pressure closely and resume antihypertensive agents. 7. We will continue patient on his anticoagulation. 8. This will also suffice for DVT prophylaxis. 9. We will continue to follow and reassess. Make further recommendations based on patient's clinical course. cc: José Miguel Fox MD MTDD
[2019-05-06 06:23] LABS: CALCIUM 9.2 mg/dL (8.8-10.2); CREATININE 2.8 mg/dL (0.7-1.2); POTASSIUM 4.8 mmol/L (3.5-5.1)
[2019-05-06 06:44] LABS: BASO# 0.03 X1000 (0.0-0.2); BASO% 0.4 % (0.0-0.8); EOS# 0.04 X1000 (0.0-0.7); EOS% 0.5 % (0.0-10.0); HEMATOCRIT 36.2 % (42.0-52.0); HEMOGLOBIN 11.6 g/dL (14.0-18.0); IMM GRAN# 0.03 X1000 (0.0-0.04); IMM GRAN% 0.4 % (0.0-0.5); LYMPH# 2.49 X1000 (1.2-3.4); MCV 74.9 FL (81-99); MONO# 1.03 X1000 (0.11-0.59); MONO% 12.4 % (1.7-9.3); MPV 11.2 FL (7.4-10.4); NEUT# 4.69 X1000 (1.4-6.5); NEUT% 56.3 % (42.2-75.2); PLT 153 X1000 (130-400); RBC 4.83 XMIL (4.7-6.1); RDW 17.6 % (11.5-14.5); WBC 8.31 X1000 (4.8-10.8)
[2019-05-06 07:09] LABS: BANDS 2 % (0-1); LYMPHS 16 % (21-51); MONO 8 % (1-9); SEGS 74 % (42-75)
[2019-05-06 07:10] LABS: ANISOCYTOSIS 1+; HYPOCHROM 1+; MICROCYTOSIS 1+; POIKILOCYTOSIS 1+
[2019-05-06 08:54] LABS: UR CREAT RANDOM 66.3 mg/dL (14-26); UR PROT RANDOM 9.3 mg/dL
[2019-05-06] MEDS ORDERED: ENTRESTO 24 MG-26 MG TABLET PO SCH (09:00)
[2019-05-06] MEDS ORDERED: LANOXIN PO SCH (09:00)
[2019-05-06] MEDS: VITAMIN E PO SCH (09:14)
[2019-05-06] MEDS: ASPIRIN EC PO SCH (09:14)
[2019-05-06] MEDS: ALDACTONE PO SCH (09:15)
[2019-05-06] MEDS: CENTRUM SILVER PO SCH (09:15)
[2019-05-06] MEDS: PRILOSEC PO SCH (09:16)
[2019-05-06] MEDS: ZYLOPRIM PO SCH (09:17)
[2019-05-06] MEDS ORDERED: LASIX IV ONE (10:21)
[2019-05-06] MEDS ORDERED: DOBUTAMINE 250 MG/D5W 250 MG/250 ML IV.SOLN IV SCH (11:15)
[2019-05-06] MEDS ORDERED: DOPAMINE 400 MG/D5W 400 MG/500 ML IV.SOLN IV SCH (11:15)
[2019-05-06] MEDS ORDERED: NS 250 ML ONE (11:28)
[2019-05-06 11:55] LABS: URINE SOURCE CATH
[2019-05-06 12:01] LABS: BILIRUBIN URINE NEGATIVE (NEGATIVE); BLOOD URINE SMALL (NEGATIVE); COLOR YELLOW; GLUCOSE URINE NEGATIVE (NEGATIVE); KETONE URINE NEGATIVE (NEGATIVE); LEUKOCYTES URINE NEGATIVE (NEGATIVE); NITRITE URINE NEGATIVE (NEGATIVE); PH URINE 5.5; PROTEIN URINE NEGATIVE (NEGATIVE); TURBIDITY URINE CLEAR (CLEAR); UR EPITHELIAL CELLS <10 /HPF (<10); URINE BACTERIA NEGATIVE /HPF; URINE RBC <10 /HPF (<10); URINE WBC <10 /HPF (<10); UROBILINOGEN URINE NORMAL (NORMAL)
[2019-05-06 12:04] LABS: INR 2.23; PROTIME 25.2 Seconds (11.0-16.0)
--- NOTE | 2019-05-06 12:22 | CARDIOLOGY CONSULTATION ---
DATE: 05/06/2019 REQUESTING PHYSICIAN: This is a consultation requested by the hospitalist service. REASON FOR CONSULTATION: Dyspnea, abdomen swelling, weight gain. HISTORY: Mr. Vázquez is a 69-year-old, black gentleman who is known to our service. He presented to the emergency room on May 05 complaining of increasing dyspnea, worsening dyspnea, as well as abdominal swelling for at least 3 days with weight gain. The patient said that he may have gained about 5 to 7 pounds and he decided to come to the ER because he was feeling more short of breath. His initial testing showed cardiomegaly with suggestion of pulmonary venous congestion. His CT of the abdomen shows a few small bowel air-fluid levels without significant distention, possible mild ileus, multiple low-dense renal lesions that may represent blood or protein-filled cysts, cardiomegaly. Blood work showed a proBNP of 24,703. Troponin checked twice, 0.015 and 0.018. Admitted for further evaluation. PAST HISTORY: 1. Dilated nonischemic cardiomyopathy. 2. O prior diagnosis of coronary heart disease. 3. History of pulmonary embolism. 4. History of ventricular tachycardia. 5. COPD. 6. Hypertension. 7. Hyperlipidemia. 8. Chronic kidney disease. 9. Anemia. 10. Morbidly obese. 11. Obstructive sleep apnea. SURGICAL HISTORY: Positive for AICD implantation, prophylactic. SOCIAL HISTORY: He is , disabled, lives at home. He has been a smoker in the past. He has quit. He is on home oxygen. Not a drinker. FAMILY HISTORY: Sister had coronary heart disease. ALLERGIES: Negative. HOME MEDICATIONS: Included the following: Allopurinol 1 tablet daily, aspirin 81 daily, carvedilol 1 tablet daily, digoxin 1 tablet daily, multivitamin 1 tablet daily, omeprazole 40 mg daily, potassium chloride 2 tablets twice a day, Xarelto 50 mg at bedtime, Entresto 24/ twice a day, spironolactone 25 daily, torsemide 10 mg daily, vitamin E daily. REVIEW OF SYSTEMS: He is generally short of breath all the time, with swelling, abdominal distention. He has had documented ascites before. His current CT shows, on the other hand, no significant ascites. PHYSICAL EXAMINATION: Vital Signs: Blood pressure is 78/52, pulse is 78, respirations 16, temperature is 97.3 degrees. Awake, alert, in no distress. HEENT: Some jugular venous distention. Chest: Breath sounds appear to be equal, symmetrical. I do not hear rales. Heart sounds are distant, regular, question of gallop. Abdomen: Obese, distended. I cannot feel any hepatomegaly. Extremities showed trace edema. Pulses diminished. Neurological: Exam nonfocal. Moves 4 extremities. BLOOD WORK: BUN is 37, creatinine 2.8, sodium 132, potassium 4.8, chloride 90, carbon dioxide 26. Hemoglobin 11.6, hematocrit 36.2. IMPRESSION: 1. Patient who presents with decompensated systolic heart failure, acute on chronic. This is a case of dilated cardiomyopathy, ejection fraction 15 to 20 percent. 2. History of pulmonary embolism. 3. History of chronic kidney disease. 4. Obese. 5. History of sleep apnea. RECOMMENDATIONS: At this time, because of his low blood pressure, I am going to put him on dobutamine plus dopamine low doses just to try to improve his cardiac output. We will see how things go. The patient, unfortunately, has carried this condition for many years and he may be approaching the end of the line. We will see how he responds to this combination of pressors. We will keep him on Lasix at a dose of 100 mg twice a day for the time being to ensure adequate diuresis. cc: Barry Jeff MD
--- NOTE | 2019-05-06 13:29 | NEPHROLOGY CONSULTATION ---
DATE: 05/06/2019 Chief complaint: I couldnt breath and felt dizzy like I was going to pass out. HPI: Mr. Vázquez is a 69-year-old black male with a past medical history of hypertension, systolic heart failure, COPD requiring home oxygen, sleep apnea, and hyperlipidemia. He voices having shortness of breath, hot flashes with diaphoresis, and abdominal cramps with constipation for the past three days. He has not been able to eat and has only tolerated sips of water since Sunday. He does report one small stool Sunday. He has been propping himself up at night to sleep and increasing his home oxygen. Yesterday his shortness of breath had gotten worse and he started feeling like he was going to pass out so he came in to the ED. He has received Lasix IV, Spironolactone, and morphine. He voices his shortness of breath being better but not resolved. He still has abdominal cramping in all 4 quadrants that is dull and achy. We were consulted for suspected acute kidney injury because his Creatinine has risen from 2.4 to 2.8. His Creatinine in February was 1.1 this year. Past medical history: hypertension, systolic heart failure followed by Dr. Dillard, hyperlipidemia, COPD on home oxygen, sleep apnea, pulmonary embolism. Past surgical history: ICD pacemaker. Social history: retired, patient lives at home with his . He denies any tobacco, alcohol, or illicit drug use. Family history: positive for gout and hypertension. Allergies: no known drug allergies Home medications: allopurinol, aspirin, Coreg, digoxin, omeprazole, Xarelto, Spironolactone, torsemide, vitamin E, potassium chloride, multivitamin, Entresto. Review of systems: neurological: denies any altered mental status or confusion. Eyes: denies blurriness, dryness, or change in visual acuity. ENT: denies tinnitus or change in hearing. Integumentary: denies color change, rash or itch. Respiratory: admits to shortness of breath and orthopnea. Admits to non- productive cough. Cardiovascular: denies palpitations or chest pain. GI: admits to nausea and decreased appetite but no vomiting. Admits to abdominal distention. : denies any color change amount or odor in urine. Endocrine: denies excessive thirst or hunger. Musculoskeletal: denies any new extremity pain or weakness. Labs: WBC 8.31, hemoglobin 11.6, hematocrit 36.2, platelet count 153, SR 24, D dimer <0.27, sodium 132, potassium 4.8, chloride 90, carbon dioxide 26, anion gap 16, BUN 37, creatinine 2.8, calcium 9.2, pro BNP 59762, plasma lactate 1.9. Intake 0, output 200 Urine studies: trace protein, trace blood, osmolality 312, random creatinine 66.3, random total protein 9.3, random sodium 47, random urea nitrogen 321. Imaging: chest X-ray: cardiomegaly and suggestion of pulmonary venous congestion, subsegmental atelectasis at the left lung base. CT abdomen and pelvis without contrast impression: a few small bowel air/fluid levels without significant distention, consider mild ileus, possibly related to enteritis. No bowel wall thickening is appreciated. Multiple low density renal lesions that probably represent blood or protein filled cyst. Cardiomegaly. Physical Exam: vitals. Temperature 97.3, pulse 78, respirations 16, blood pressure 78/52, 02 sat 99% on 3 L nasal cannula. General: Obese male lying in bed in no acute distress HEENT: Normocephalic, atraumatic. Trachea midline. Pupils equal and reactive to light. Skin: warm, dry and intact. Neck: Supple, 10 cm JVD with HJR. Cardiovascular: S1, S2. With mechanical heart tones, no murmurs or gallops. Respiratory: lungs clear anteriorly with diminished lung sounds to the left base posteriorly. Abdomen: soft, obese, mild tenderness, non distended : non-inspected Extremities: trace edema to bilateral hips Neurological: alert and oriented to person, place, and time. Assessment and plan: Acute kidney injury. Suggestive prerenal azotemia from systolic dysfunction, hypotension, Entresto. Fractional excretion of urea score 36.64%. We will stop the Entresto. Agree with dobutamine and dopamine. Continue lasix for now. No further imaging required. Anemia. Hgb stable. Electrolytes and acid base balance. stable. cc: MD GREG Arshad
[2019-05-06] MEDS ORDERED: MISC. PHARMACY COMMUNICATION SCH (13:30)
[2019-05-06] MEDS: COREG PO SCH (13:33)
[2019-05-06] MEDS: DOBUTAMINE 250 MG/D5W 250 MG/250 ML IV.SOLN IV SCH ×2 (13:45→20:35)
--- NOTE | 2019-05-06 20:40 | PROGRESS NOTE ---
DATE: 05/06/2019 SUBJECTIVE: The patient states that he feels a lot better today. He states that his abdomen is less distended than it was on admission. OBJECTIVE: Vital Signs: Temperature 98.2, blood pressure 112/72, heart rate 91, respirations 24, O2 saturation 100% on 3 L nasal cannula. Intake 600, output 3 L. General: This is a morbidly obese male lying in bed in no acute distress. Head: Normocephalic, atraumatic. Heart: S1, S2 normal. Tachycardic. Lungs: Equal air entry bilaterally. No wheezing. No rales. Abdomen: Positive bowel sounds. Soft. Distended. Extremities: No edema, no cyanosis, no calf tenderness. Neurologic: The patient is alert and oriented x4. LABS: White blood cell count 8.3, hemoglobin 11, hematocrit 36, platelets 153. INR 2.2. Sodium 132, potassium 4.8, chloride 90, CO2 26, BUN 37, creatinine 2.0, glucose 105. ASSESSMENT AND PLAN: 1. Acute on chronic systolic congestive heart failure exacerbation. The patient has been started on dopamine and dobutamine drips by the ingot caster plus high-dose diuretic therapy. Will monitor the patient's response closely. 2. Chronic hypoxemic respiratory failure. Continue with supplemental oxygen and treatment of the patient's heart failure. 3. Acute kidney injury on chronic kidney disease, multifactorial. We will monitor the patient's response closely. Nephrology is following. 4. History of pulmonary embolism. The patient is on Xarelto. 5. Dilated nonischemic cardiomyopathy status post AICD. Aware. 6. Ileus. We will start the patient on laxative therapy. 7. Anemia. Will check iron studies. 8. Chronic obstructive pulmonary disease. Continue with supplemental oxygen. 9. Morbid obesity. Aware. 10. Sleep apnea. Aware. cc: Agatha Jean Baptiste MD [facility]
[2019-05-06] MEDS: LASIX IV SCH (20:42)
[2019-05-06] MEDS: COLACE PO SCH (20:43)
[2019-05-06] MEDS ORDERED: XARELTO PO SCH (21:00)
[2019-05-07] MEDS: DOPAMINE 400 MG/D5W 400 MG/500 ML IV.SOLN IV SCH ×2 (03:12→11:51)
[2019-05-07] MEDS: DOBUTAMINE 250 MG/D5W 250 MG/250 ML IV.SOLN IV SCH ×3 (03:20→16:56)
[2019-05-07 05:42] LABS: HEMATOCRIT 34.1 % (42.0-52.0); HEMOGLOBIN 11.1 g/dL (14.0-18.0); MCH 24.5 PG (27-31); MCHC 32.6 g/dL (33-37); MCV 75.3 FL (81-99); MPV 10.9 FL (7.4-10.4); RBC 4.53 XMIL (4.7-6.1); RDW 17.9 % (11.5-14.5); WBC 6.68 X1000 (4.8-10.8)
[2019-05-07 05:59] LABS: HEMOGLOBIN A1C 6.3 % (4.8-6.0)
[2019-05-07 06:17] LABS: RETIC% 1.96 % (0.8-2.1); RETIC-HE 27.5 PG (28.2-36.6)
[2019-05-07] MEDS: HUMULIN R SUBQ SCH ×4 (06:28→20:54)
[2019-05-07 06:40] LABS: FERRITIN 264 ng/mL (30-400)
[2019-05-07 06:44] LABS: ALBUMIN 3.5 g/dL (3.5-5.0); CALCIUM 8.1 mg/dL (8.8-10.2); CREATININE 2.4 mg/dL (0.7-1.2); PHOSPHORUS 4.3 mg/dL (2.7-4.5); POTASSIUM 3.8 mmol/L (3.5-5.1)
[2019-05-07 06:52] LABS: IRON SATURATION 20 %; TIBC 256 ug/dL; TOTAL IRON 51 ug/dL (53-167); UNBOUND IRON 205 ug/dL (112-346)
--- NOTE | 2019-05-07 07:37 | Diag Imaging Result Doc PS360 ---
EXAM: CHEST-1 VIEW HISTORY: pulmonary edema TECHNIQUE: Single view COMPARISON: 05/05/2019 FINDINGS: The heart remains enlarged and there is persistence of the pulmonary edema. Moderate-sized left pleural effusion with basilar atelectasis. There is a left-sided pacemaker. IMPRESSION: No interval improvement. Electronically signed by Tal Smith 05/07/2019 7:34 AM
[2019-05-07] MEDS: ALDACTONE PO SCH (08:40)
[2019-05-07] MEDS: COREG PO SCH (08:40)
[2019-05-07] MEDS: ZYLOPRIM PO SCH (08:40)
[2019-05-07] MEDS: PRILOSEC PO SCH (08:40)
[2019-05-07] MEDS: COLACE PO SCH ×2 (08:40→21:10)
[2019-05-07] MEDS: ASPIRIN EC PO SCH (08:40)
[2019-05-07] MEDS: CENTRUM SILVER PO SCH (08:40)
[2019-05-07] MEDS: MIRALAX PO SCH (08:40)
[2019-05-07] MEDS: VITAMIN E PO SCH (08:41)
--- NOTE | 2019-05-07 09:31 | NEPHROLOGY PROGRESS NOTE ---
DATE: 05/07/2019 Subjective: pt lying in bed watching television, Mary Ann any uremic complaints. Voices only having exertional shortness of breath rather than at rest. Objective: vitals. Temperature 98.1, pulse 88, respirations 22, blood pressure 103/68, 02 sat 99% on 3 L nasal cannula. General: Obese male lying in bed in no acute distress HEENT: Normocephalic, atraumatic. Trachea midline. Pupils equal and reactive to light. Skin: warm, dry and intact. Neck: Supple, 6 cm JVD with hepatojugular reflux Cardiovascular: S1, S2. With mechanical heart tones, no murmurs or gallops. Respiratory: lungs clear anteriorly with diminished lung sounds to the left base posteriorly. Abdomen: soft, obese, mild tenderness, non distended : non-inspected, Corcoran in place Extremities: trace edema to bilateral hips Neurological: alert and oriented to person, place, and time Labs: WBC 6.68, RBC 4.53, hemoglobin 11.1, hematocrit 34.1, platelet count 138, sodium 131, potassium 3.8, chloride 90, carbon dioxide 31, anion gap 10, BUN 36, creatinine 2.4, hemoglobin A-1C 6.3, calcium 8.1, intake 1181, output 4425. Impression: Acute kidney injury likely cardiorenal. He has responded well to diuretics with a 4L output. Dobutamine and dopamine maintaining systolic blood pressure above 100. Creatinine slightly improved at 2.4. Continue current treatment. Anemia. Hgb stable. Electrolytes and acid base balance. stable. cc: Camilo Chopra MD [facility]
[2019-05-07 09:45] LABS: INR 1.54; PROTIME 18.8 Seconds (11.0-16.0)
[2019-05-07] MEDS: LASIX IV SCH ×2 (10:23→21:10)
--- NOTE | 2019-05-07 11:28 | Diag Imaging Result Doc PS360 ---
EXAM: CHEST-PORTABLE HISTORY: PICC line placement confirmation TECHNIQUE: Single view COMPARISON: 05/07/2019 FINDINGS: Cardiomegaly and pulmonary edema remain. There is a [id number] sized left pleural effusion. No change in the left pacemaker. There is no right-sided PICC line. The tip overlies the mid to distal superior vena cava. IMPRESSION: No interval improvement. Right-sided PICC line in good position. Electronically signed by Tal Smith 05/07/2019 11:26 AM
--- NOTE | 2019-05-07 16:11 | PROGRESS NOTE ---
DATE: 05/07/2019 SUBJECTIVE: The patient is resting comfortably in bed. He has no complaints. He is currently on dopamine and dobutamine drips. OBJECTIVE: Vital Signs: Temperature 98.6 degrees, blood pressure 144/77, heart rate 77, respirations 18, O2 saturation 97% on 3 L nasal cannula. Intake 1.1 L. Output 4.4 L. General: This is a morbidly obese male lying in bed in no acute distress. Heart: S1, S2 normal. Regular rate and rhythm. Lungs: Equal air entry bilaterally. No wheezing. No rales. Abdomen: Positive bowel sounds. Soft. Extremities: No edema no cyanosis no calf tenderness. Neurologic: The patient is alert and oriented x4. LABS: White blood cell count 6.6, hemoglobin 11, hematocrit 34, platelets 138,000. Sodium 131, potassium 3.8, chloride 90, CO2 31, BUN 36, creatinine 2.4, glucose 103. Hemoglobin A1c 6.3. DIAGNOSTIC DATA: Chest x-ray shows a small to moderate size left pleural effusion. Pulmonary edema is present. ASSESSMENT AND PLAN: 1. Acute on chronic systolic congestive heart failure exacerbation. Continue on dopamine and dobutamine drips as directed by the alley tender. The patient appears to be responding well to the treatment regimen. He remains on high dose Lasix. 2. Constipation. We will add a Dulcolax suppository. 3. History of gout. Continue on allopurinol. 4. Acute kidney injury on chronic kidney disease. Stable. Continue to monitor closely. Nephrology is following. 5. Prediabetes. We will consult the dietitian to provide the patient with dietary recommendations. The patient has been advised to change his diet and lose weight. 6. Dilated nonischemic cardiomyopathy status post automatic implantable cardioverter- defibrillator. Aware. 7. History of pulmonary embolism. Continue on Xarelto. 8. Chronic obstructive pulmonary disease. Continue with supplemental oxygen. 9. Chronic hypoxemic respiratory failure. Continue with supplemental oxygen. 10. Morbid obesity. Aware. 11. Obstructive sleep apnea. Aware. cc: Agatha Jean Baptiste MD [facility]
[2019-05-07] MEDS: XARELTO PO SCH (16:56)
[2019-05-07] MEDS: DULCOLAX PR SCH (21:10)
[2019-05-08] MEDS ORDERED: DOBUTAMINE 500/D5W 500 MG/250 ML IV.SOLN IV SCH
[2019-05-08] MEDS: DOPAMINE 400 MG/D5W 400 MG/500 ML IV.SOLN IV SCH ×2 (05:11→22:45)
[2019-05-08 06:12] LABS: HEMATOCRIT 38.1 % (42.0-52.0); HEMOGLOBIN 12.4 g/dL (14.0-18.0); MCH 24.3 PG (27-31); MCHC 32.5 g/dL (33-37); MCV 74.6 FL (81-99); MPV 11.4 FL (7.4-10.4); RBC 5.11 XMIL (4.7-6.1); RDW 18.4 % (11.5-14.5); WBC 7.03 X1000 (4.8-10.8)
[2019-05-08] MEDS: HUMULIN R SUBQ SCH ×4 (06:25→20:28)
[2019-05-08 06:29] LABS: ALBUMIN 3.8 g/dL (3.5-5.0); CALCIUM 9.5 mg/dL (8.8-10.2); CREATININE 1.8 mg/dL (0.7-1.2); PHOSPHORUS 3.8 mg/dL (2.7-4.5); POTASSIUM 3.9 mmol/L (3.5-5.1)
--- NOTE | 2019-05-08 07:37 | Diag Imaging Result Doc PS360 ---
EXAM: ABDOMEN FLAT/UPRIGHT INDICATION: constipation TECHNIQUE: 2 views COMPARISON: None. FINDINGS: There is a fair amount of stool in the ascending and transverse colon. This may indicate mild constipation. The stool burden is fairly low. There is mild gastric distention. There is no obstructive bowel pattern. There is no evidence of large volume free abdominal gas. IMPRESSION: Possible mild constipation. Electronically signed by Chinmay Lott 05/08/2019 7:35 AM
--- NOTE | 2019-05-08 08:19 | NEPHROLOGY PROGRESS NOTE ---
DATE: 05/08/2019 Subjective: pt lying in bed resting, Mary Ann any uremic complaints. Denies any shortness of breath. Objective: vitals. Temperature 98.0, pulse 108, respirations 21, blood pressure 105/60, 02 sat 99% on 3 L nasal cannula. General: Obese male lying in bed in no acute distress HEENT: Normocephalic, atraumatic. Trachea midline. Pupils equal and reactive to light. Skin: warm, dry and intact. Neck: Supple, 6 cm JVD. Cardiovascular: S1, S2. With mechanical heart tones, no murmurs or gallops. Respiratory: lungs clear anteriorly with diminished lung sounds to the left base posteriorly. Abdomen: soft, obese, mild tenderness, non distended : non-inspected, Corcoran in place Extremities: no clubbing, cyanosis, or edema noted. New PICC line noted to right upper arm. Neurological: alert and oriented to person, place, and time Labs: WBC 7.03, hemoglobin 12.4, hematocrit 38.1, platelet count 167, sodium 133, potassium 3.9, chloride 90, carbon dioxide 29, anion gap 14, BUN 28, creatinine 1.8, calcium 9.5, phosphorus 3.8. Intake 1554, output 2450. Impression: Decompensated systolic heart failure with cardiorenal syndrome. Maintaining adequate blood pressure and urine output. Creatinine improved. We will remove Corcoran catheter, but no other changes. Anemia. Hgb stable. Electrolytes and acid base balance. stable. Medication review. No changes required from the nephrology perspective. cc: Camilo Chopra MD [facility]
[2019-05-08] MEDS: COLACE PO SCH ×2 (08:42→20:28)
[2019-05-08] MEDS: CENTRUM SILVER PO SCH (08:42)
[2019-05-08] MEDS: MIRALAX PO SCH (08:42)
[2019-05-08] MEDS: PRILOSEC PO SCH (08:42)
[2019-05-08] MEDS: LACTULOSE PO SCH ×2 (08:42→20:28)
[2019-05-08] MEDS: COREG PO SCH (08:42)
[2019-05-08] MEDS: LASIX IV SCH ×2 (08:42→20:28)
[2019-05-08] MEDS: ASPIRIN EC PO SCH (08:42)
[2019-05-08] MEDS: ZYLOPRIM PO SCH (08:42)
[2019-05-08] MEDS: VITAMIN E PO SCH (08:42)
[2019-05-08] MEDS: ALDACTONE PO SCH (08:42)
--- NOTE | 2019-05-08 10:06 | CARDIOLOGY PROGRESS NOTE ---
DATE: 05/08/2019 CHIEF COMPLAINT: Weakness, swelling, shortness of breath. SUBJECTIVE: Mr. Vázquez seems to be doing better on the infusion of dobutamine plus dopamine. He tells me that he has been passing a lot of urine. His stomach feels less distended. He is breathing more comfortably. OBJECTIVE: Vital signs: Blood pressure today is 120/89, temperature 98 degrees, pulse 82, respirations 18. General: He is awake, alert, follows commands, in no distress. HEENT: Unremarkable. Chest: Sounds much clearer to auscultation and percussion. Heart: Sounds are regular and rhythmic. I do not hear a gallop or murmur. Abdomen: Distended, nontender. Extremities: Show less edema. Neurologic exam: Follows commands, moves all 4 extremities. BLOOD WORK: Today, sodium is 133, potassium is 3.9, BUN 28, creatinine 1.8. Interestingly, both BUN and creatinine are coming down. Hemoglobin 12.4. IMPRESSION: 1. Patient who presented with decompensation of chronic congestive heart failure systolic. He has a dilated cardiomyopathy nonischemic. 2. History of morbid obesity. 3. History of sleep apnea syndrome. 4. Chronic kidney disease. RECOMMENDATIONS: At this time, we will continue dopamine and dobutamine as we stated low-dose both, dopamine 3 mcg/kg/minute and dobutamine 5 mcg/kg/minute for the time being. We will see how he does. The PICC line was inserted yesterday and is working fine. I would probably like to keep this patient on this infusion until he is really euvolemic and then we will figure out what combination of medicines may be appropriate for him. We will continue to follow along. cc: Barry Jeff MD
[2019-05-08] MEDS: DOBUTAMINE 500/D5W 500 MG/250 ML IV.SOLN IV SCH (13:26)
--- NOTE | 2019-05-08 14:52 | PROGRESS NOTE ---
DATE: 05/08/2019 SUBJECTIVE: The patient is resting comfortably in bed. He has no complaints at this time. He is currently on a dobutamine drip. OBJECTIVE: Vital Signs: Temperature 97.5 degrees, blood pressure 110/79, heart rate 74, respirations 18, O2 saturation 100% on 3 L nasal cannula. Intake 440, output 1.4 L. General: This is a chronically ill-appearing, elderly male, sitting up in bed in no acute distress. Heart: S1, S2 normal. Regular rate and rhythm. Lungs: Clear to auscultation bilaterally. No wheezing. No rales. No rhonchi. Abdomen: Positive bowel sounds. Soft, nontender, nondistended. Extremities: No edema. No cyanosis. No calf tenderness. Neurologic: The patient is alert and oriented x4. LABORATORY DATA: White blood cell count 7, hemoglobin 12, hematocrit 38, platelets 167,000. Sodium 133, potassium 3.9, chloride 90, CO2 of 29, BUN 28, creatinine 1.8, glucose 107. ASSESSMENT AND PLAN: 1. Acute on chronic systolic congestive heart failure exacerbation. Continue on dopamine and dobutamine drips, as well as diuretic therapy as directed by the latex spooler. 2. Acute kidney injury on chronic kidney disease. Improved. Nephrology is following. 3. Morbid obesity. Aware. The patient has been counseled about weight loss and proper diet. 4. Prediabetes. Will switch the patient to a diabetic diet. 5. History of pulmonary embolism. Continue on Xarelto. 6. Obstructive sleep apnea. Aware. 7. Constipation. Will add lactulose to the patient's laxative regimen. 8. History of gout. Continue allopurinol. 9. Dilated nonischemic cardiomyopathy s/p AICD. Aware. 10. Chronic hypoxemic respiratory failure. Stable. Continue on supplemental oxygen. cc: Agatha Jean Baptiste MD [facility]
[2019-05-08] MEDS: XARELTO PO SCH (16:42)
[2019-05-08] MEDS: DULCOLAX PR SCH (20:28)
[2019-05-09] MEDS: DOBUTAMINE 500/D5W 500 MG/250 ML IV.SOLN IV SCH ×2 (03:09→15:28)
[2019-05-09 06:08] LABS: HEMATOCRIT 38.6 % (42.0-52.0); HEMOGLOBIN 12.5 g/dL (14.0-18.0); MCH 24.3 PG (27-31); MCHC 32.4 g/dL (33-37); MPV 11.7 FL (7.4-10.4); RBC 5.15 XMIL (4.7-6.1); RDW 18.2 % (11.5-14.5); WBC 6.39 X1000 (4.8-10.8)
[2019-05-09] MEDS: HUMULIN R SUBQ SCH ×4 (06:11→20:18)
[2019-05-09 06:27] LABS: ALBUMIN 3.8 g/dL (3.5-5.0); CALCIUM 9.9 mg/dL (8.8-10.2); CREATININE 1.7 mg/dL (0.7-1.2); PHOSPHORUS 3.8 mg/dL (2.7-4.5); POTASSIUM 4.3 mmol/L (3.5-5.1)
[2019-05-09] MEDS: MIRALAX PO SCH (08:40)
[2019-05-09] MEDS: ZYLOPRIM PO SCH (08:40)
[2019-05-09] MEDS: ALDACTONE PO SCH (08:40)
[2019-05-09] MEDS: LASIX IV SCH ×2 (08:40→20:19)
[2019-05-09] MEDS: PRILOSEC PO SCH (08:40)
[2019-05-09] MEDS: ASPIRIN EC PO SCH (08:40)
[2019-05-09] MEDS: CENTRUM SILVER PO SCH (08:40)
[2019-05-09] MEDS: COLACE PO SCH ×2 (08:40→20:19)
[2019-05-09] MEDS: COREG PO SCH (08:40)
[2019-05-09] MEDS: LACTULOSE PO SCH ×2 (08:40→20:19)
[2019-05-09] MEDS: VITAMIN E PO SCH (08:40)
--- NOTE | 2019-05-09 14:03 | NEPHROLOGY PROGRESS NOTE ---
DATE: 05/09/2019 SUBJECTIVE: He is sitting up in the chair. He is still fixated on a spot on his face but no shortness of breath, nausea, or vomiting. He ate his breakfast without difficulty. OBJECTIVE: Vital Signs: Blood pressure 117/76, respiration 15, heart rate 81, afebrile. Intake 2 L, output 3.4 L. Physical Examination: No acute distress. Skin: Warm and dry. Neck: Neck veins are not distended in the erect position. Heart: Regular with gallop and murmur. Lungs: Equal. No crackles. Abdomen: Soft, nontender. Bowel sounds present. Extremities: No obvious edema, no clubbing or cyanosis. IMPRESSION: Cardiorenal syndrome. Creatinine is 1.7 today. Baseline creatinine 1.1 as of February 24. Continue current care. Nothing further to add. cc: Camilo Chopra MD
[2019-05-09] MEDS: DOPAMINE 400 MG/D5W 400 MG/500 ML IV.SOLN IV SCH (15:28)
[2019-05-09] MEDS: XARELTO PO SCH (16:59)
--- NOTE | 2019-05-09 17:47 | PROGRESS NOTE ---
DATE: 05/09/2019 SUBJECTIVE: The patient is sitting up in a chair. He just finished eating his breakfast. He states that he feels better today. He has less swelling in his abdominal region, and he had a bowel movement. OBJECTIVE: Vital Signs: Temperature 97.9 degrees, blood pressure 91/71, heart rate 75, respirations 16, and O2 saturation is 96% on 3 liters nasal cannula. General: This is a chronically ill-appearing elderly male, lying in bed, in no acute distress. Heart: S1, S2 normal. Regular rate and rhythm. Lungs: Clear to auscultation bilaterally. Abdomen: Positive bowel sounds. Soft, nontender, nondistended. Extremities: No edema, no cyanosis. Neurologic: The patient is alert and oriented x3. LABORATORY DATA: White blood cell count 6.3, hemoglobin 12, hematocrit 38, platelets 186,000. Sodium 136, potassium 4.3, chloride 93, CO2 of 31, BUN 22, creatinine 1.7, glucose 125. ASSESSMENT AND PLAN: 1. Acute on chronic systolic congestive heart failure exacerbation. Management as per the beef splitter. The patient is responding well to the therapy. 2. Acute kidney injury on chronic kidney disease. Stable. 3. Morbid obesity. Aware. 4. Prediabetes. The patient was counseled about weight loss and proper diet. 5. History of pulmonary embolism. Continue on Xarelto. 6. Obstructive sleep apnea. Aware. 7. Dilated nonischemic cardiomyopathy status post AICD. Aware. 8. History of gout. Continue on allopurinol. 9. Constipation. The patient had a bowel movement. We will continue with the current laxative regimen. 10. Chronic hypoxemic respiratory failure. Stable. cc: Agatha Jean Baptiste MD [facility]
[2019-05-09] MEDS: DULCOLAX PR SCH (20:19)
[2019-05-10] MEDS: DOBUTAMINE 500/D5W 500 MG/250 ML IV.SOLN IV SCH ×2 (04:34→16:40)
[2019-05-10] MEDS: HUMULIN R SUBQ SCH ×4 (06:25→21:12)
[2019-05-10 06:41] LABS: HEMATOCRIT 38.1 % (42.0-52.0); HEMOGLOBIN 12.3 g/dL (14.0-18.0); MCH 24.3 PG (27-31); MCHC 32.3 g/dL (33-37); MCV 75.1 FL (81-99); MPV 10.7 FL (7.4-10.4); RBC 5.07 XMIL (4.7-6.1); RDW 18.7 % (11.5-14.5); WBC 6.34 X1000 (4.8-10.8)
[2019-05-10 07:03] LABS: ESTIMATED GFR > 60
[2019-05-10 07:08] LABS: AGAP 14; ALBUMIN 3.9 g/dL (3.5-5.0); BUN 24 mg/dL (8-22); CALCIUM 9.4 mg/dL (8.8-10.2); CHLORIDE 89 mmol/L (98-107); COSMO 271; CREATININE 1.4 mg/dL (0.7-1.2); GLUCOSE 110 mg/dL (70-104); POTASSIUM 4.4 mmol/L (3.5-5.1); SODIUM 133 mmol/L (136-145); TCO2 30 mmol/L (25-35)
--- NOTE | 2019-05-10 07:28 | Diag Imaging Result Doc PS360 ---
EXAM: CHEST-1 VIEW - 05/10/2019 HISTORY: pleural effusion TECHNIQUE: Portable chest one view COMPARISON: 05/07/2019 FINDINGS: There are cardiomegaly and vascular congestion similar to prior. There is ill-defined left basilar opacity which appears of decreased mildly. There is no pneumothorax identified. PICC remains in place. IMPRESSION: Stable cardiomegaly and central vascular congestion. Apparent mild decrease in left basilar opacity. Electronically signed by Dave Steiner 05/10/2019 7:26 AM
[2019-05-10] MEDS: ALDACTONE PO SCH (08:45)
[2019-05-10] MEDS: VITAMIN E PO SCH (08:45)
[2019-05-10] MEDS: ASPIRIN EC PO SCH (08:45)
[2019-05-10] MEDS: PRILOSEC PO SCH (08:45)
[2019-05-10] MEDS: LASIX IV SCH ×2 (08:45→21:11)
[2019-05-10] MEDS: COLACE PO SCH ×2 (08:45→21:11)
[2019-05-10] MEDS: ZYLOPRIM PO SCH (08:45)
[2019-05-10] MEDS: CENTRUM SILVER PO SCH (08:45)
[2019-05-10] MEDS: COREG PO SCH (08:45)
[2019-05-10] MEDS: LACTULOSE PO SCH ×2 (08:46→21:12)
[2019-05-10] MEDS: MIRALAX PO SCH (08:46)
[2019-05-10] MEDS: DOPAMINE 400 MG/D5W 400 MG/500 ML IV.SOLN IV SCH (08:59)
[2019-05-10] MEDS: LANOXIN PO SCH ×4 (10:54→21:37)
--- NOTE | 2019-05-10 12:04 | CARDIOLOGY PROGRESS NOTE ---
DATE: 05/10/2019 CHIEF COMPLAINT: Swelling and dyspnea. SUBJECTIVE: Mr. Vázquez generally feels better. His creatinine has gradually come down. His blood pressure now is creeping up. He seems to be approaching euvolemia. OBJECTIVE: Vital signs: Blood pressure 150/107, temperature 98.5, respirations 23, pulse 86. General: The patient is awake, alert, in no distress. HEENT: Unremarkable. Chest: Sounds clear to auscultation and percussion. Heart: Sounds are regular, rhythmic. I do not hear a gallop or murmur. Abdomen: His abdomen is nontender, distended. Extremities: Showed trace edema. Neurologic exam: Follows commands, moves all 4 extremities. BLOOD WORK: His sodium is 133, potassium 4.4, BUN 24, creatinine 1.4. IMPRESSION: 1. Patient with dilated nonischemic cardiomyopathy. 2. Status post biventricular pacemaker, defibrillator. 3. Chronic kidney disease. 4. Obesity. 5. Sleep apnea syndrome. RECOMMENDATIONS: At this time, I am going to put him back on digoxin. We will give him a loading dose, we will initiate MELISSA inhibitors low-dose Captopril and see how he does. We will continue to monitor electrolytes. Hopefully, will be able to wean off of the pressors in the next couple of days. We will see how he does. cc: Barry Jeff MD
[2019-05-10] MEDS: CAPOTEN PO SCH ×2 (14:05→21:11)
[2019-05-10] MEDS: XARELTO PO SCH (16:40)
--- NOTE | 2019-05-10 17:35 | PROGRESS NOTE ---
DATE: 05/10/2019 SUBJECTIVE: The patient is sitting up in bed. He ate all of his breakfast and he is now having regular bowel movements. He denies having any shortness of breath. OBJECTIVE: Vital Signs: Temperature 97.8 degrees blood pressure 109/60, heart rate 76, respirations 22, O2 saturation is 97% on 2 L nasal cannula. General: This is a chronically ill- appearing, elderly male, sitting up in bed in no acute distress. Heart: S1, S2 normal. Regular rate and rhythm. Lungs: Clear to auscultation bilaterally. No wheezing. No rales. No rhonchi. Abdomen: Positive bowel sounds. Soft, nontender, nondistended. Extremities: No edema. No cyanosis. Neurologic: The patient is alert and oriented x3. LABORATORY DATA: Hemoglobin 12, hematocrit 38, platelets 180,000. Sodium 133, potassium 4.4, chloride 89, CO2 of 30, BUN 24, creatinine 1.4, glucose 110. ASSESSMENT AND PLAN: 1. Acute on chronic systolic congestive heart failure exacerbation. Management as per the university extension specialist. The patient remains on dobutamine and dopamine drips, as well as high-dose Lasix. 2. Chronic kidney disease. Stable. 3. Morbid obesity. Aware. 4. Prediabetes. The patient is on a diabetic diet and he has been counseled about weight loss and proper diet. 5. History of pulmonary embolism. Continue on Xarelto. 6. Dilated nonischemic cardiomyopathy, status post AICD. Aware. 7. Chronic hypoxemic respiratory failure. Stable. 8. History of gout. Continue on allopurinol. cc: Agatha Jean Baptiste MD [facility]
[2019-05-10] MEDS: DULCOLAX PR SCH (21:12)
[2019-05-11] MEDS: DOPAMINE 400 MG/D5W 400 MG/500 ML IV.SOLN IV SCH ×2 (02:46→20:18)
[2019-05-11] MEDS: DOBUTAMINE 500/D5W 500 MG/250 ML IV.SOLN IV SCH ×3 (05:46→20:13)
[2019-05-11] MEDS: CAPOTEN PO SCH ×3 (05:46→20:25)
[2019-05-11] MEDS: HUMULIN R SUBQ SCH ×4 (06:30→21:59)
[2019-05-11 06:44] LABS: HEMATOCRIT 38.1 % (42.0-52.0); HEMOGLOBIN 12.2 g/dL (14.0-18.0); MCH 24.2 PG (27-31); MCV 75.6 FL (81-99); MPV 11.2 FL (7.4-10.4); RBC 5.04 XMIL (4.7-6.1); RDW 17.8 % (11.5-14.5); WBC 7.38 X1000 (4.8-10.8)
[2019-05-11 06:50] LABS: AGAP 14; ALBUMIN 3.7 g/dL (3.5-5.0); BUN 24 mg/dL (8-22); CALCIUM 9.8 mg/dL (8.8-10.2); CHLORIDE 90 mmol/L (98-107); COSMO 270; CREATININE 1.3 mg/dL (0.7-1.2); ESTIMATED GFR > 60; GLUCOSE 92 mg/dL (70-104); PHOSPHORUS 3.8 mg/dL (2.7-4.5); POTASSIUM 4.2 mmol/L (3.5-5.1); SODIUM 133 mmol/L (136-145); TCO2 29 mmol/L (25-35)
[2019-05-11] MEDS: ASPIRIN EC PO SCH (08:35)
[2019-05-11] MEDS: PRILOSEC PO SCH (08:35)
[2019-05-11] MEDS: LANOXIN PO SCH (08:35)
[2019-05-11] MEDS: ALDACTONE PO SCH (08:35)
[2019-05-11] MEDS: CENTRUM SILVER PO SCH (08:35)
[2019-05-11] MEDS: LASIX IV SCH ×2 (08:35→20:22)
[2019-05-11] MEDS: VITAMIN E PO SCH (08:36)
[2019-05-11] MEDS: COLACE PO SCH ×2 (08:36→20:22)
[2019-05-11] MEDS: COREG PO SCH (08:36)
[2019-05-11] MEDS: ZYLOPRIM PO SCH (08:36)
[2019-05-11] MEDS: MIRALAX PO SCH (08:36)
[2019-05-11] MEDS: LACTULOSE PO SCH ×2 (08:37→20:21)
--- NOTE | 2019-05-11 11:08 | CARDIOLOGY PROGRESS NOTE ---
DATE: 05/11/2019 CHIEF COMPLAINT: Dyspnea, swelling. SUBJECTIVE: Mr. Vázquez is sitting up today. He is feeling better. He is not in any distress. He keeps on making good urine. OBJECTIVE: Blood pressure is 143/89, temperature 97.7, pulse 85, respirations 17. Awake, alert, in no distress. HEENT is unremarkable. Chest: Clear to auscultation and percussion. Heart sounds are regular and rhythmic. No gallop or murmur. His abdomen is obese, nontender. Extremities showed fairly good pulses. No edema. Neurologic: Follows commands. Moves all 4 extremities. DIAGNOSTIC DATA: His blood work today shows sodium 133, potassium 4.2, BUN is 24, creatinine 1.3. White cell count is 7380, hemoglobin 12.2, hematocrit 38.1. IMPRESSION: 1. The patient is with dilated cardiomyopathy, congestive heart failure, functional class 4 [place] [employer].stage D heart failure on pressors. 2. Status post Biventricular pacemaker defibrillator. 3. Chronic kidney disease. 4. Sleep apnea syndrome. 5. Morbid obesity. RECOMMENDATIONS: At this time, we will increase Capoten to 12.5 every 8 hours. We will continue digoxin and Lasix. By tomorrow, I may stop the pressors depending on his overall response. Further advice will be forthcoming. cc: Barry Jeff MD [facility]
[2019-05-11] MEDS: XARELTO PO SCH (18:00)
--- NOTE | 2019-05-11 18:07 | PROGRESS NOTE ---
DATE: 05/11/2019 SUBJECTIVE: The patient is sitting up in bed resting. He states that he is having regular bowel movements. He remains on dobutamine and dopamine drips. OBJECTIVE: Vital Signs: Temperature 97.5 degrees, blood pressure 115/78, heart rate 68, respirations 22, O2 saturations 100% on 2 L nasal cannula. General: This is a chronically ill- appearing male lying in bed in no acute distress. Heart: S1, S2 normal. Regular rate and rhythm. Lungs: Clear to auscultation bilaterally. No wheezing. No rales. No rhonchi. Abdomen: Positive bowel sounds. Soft, nontender, nondistended. Extremities: No edema. No cyanosis. Neurologic: The patient is alert and oriented x4. LABS: White blood cell count 7.3, hemoglobin 12, hematocrit 38, platelets 201,000. Sodium 133, potassium 4.2, chloride 90, CO2 29, BUN 24, creatinine 1.3, glucose 92, phosphorus 3.8. ASSESSMENT AND PLAN: 1. Acute on chronic systolic congestive heart failure exacerbation. Management as per the head greenskeeper. 2. Acute kidney injury on chronic kidney disease. The creatinine continues to improve daily. Also, the patient's urine output has been adequate. 3. Prediabetes. The patient has been counseled about weight loss and proper diet. 4. History of pulmonary embolism. Continue on Xarelto. 5. Nonischemic cardiomyopathy status post automatic implantable cardioverter-defibrillator. Aware. 6. History of gout. Continue on allopurinol. 7. Disposition. Once the patient is taken off of the vasopressors, we will consult with physical therapy to ambulate the patient. cc: Agatha Jean Baptiste MD
[2019-05-11] MEDS: DULCOLAX PR SCH (20:22)
[2019-05-12] MEDS: CAPOTEN PO SCH (05:33)
[2019-05-12] MEDS: DOBUTAMINE 500/D5W 500 MG/250 ML IV.SOLN IV SCH ×2 (05:53→19:17)
[2019-05-12] MEDS: HUMULIN R SUBQ SCH ×4 (06:08→21:38)
[2019-05-12 06:29] LABS: ESTIMATED GFR > 60
[2019-05-12 06:44] LABS: AGAP 13; ALBUMIN 3.8 g/dL (3.5-5.0); BUN 25 mg/dL (8-22); CALCIUM 9.9 mg/dL (8.8-10.2); CHLORIDE 89 mmol/L (98-107); COSMO 269; CREATININE 1.3 mg/dL (0.7-1.2); GLUCOSE 92 mg/dL (70-104); PHOSPHORUS 4.2 mg/dL (2.7-4.5); POTASSIUM 4.5 mmol/L (3.5-5.1); SODIUM 132 mmol/L (136-145); TCO2 30 mmol/L (25-35)
[2019-05-12] MEDS: COLACE PO SCH ×2 (08:41→21:39)
[2019-05-12] MEDS: ASPIRIN EC PO SCH (08:41)
[2019-05-12] MEDS: LANOXIN PO SCH (08:47)
[2019-05-12] MEDS: ALDACTONE PO SCH (08:47)
[2019-05-12] MEDS: PRILOSEC PO SCH (08:47)
[2019-05-12] MEDS: CENTRUM SILVER PO SCH (08:47)
[2019-05-12] MEDS: ZYLOPRIM PO SCH (08:47)
[2019-05-12] MEDS: COREG PO SCH (08:48)
[2019-05-12] MEDS: VITAMIN E PO SCH (08:49)
[2019-05-12] MEDS: LASIX IV SCH ×2 (08:49→21:40)
[2019-05-12] MEDS: LACTULOSE PO SCH ×2 (08:49→21:39)
[2019-05-12] MEDS: MIRALAX PO SCH (08:49)
[2019-05-12] MEDS: VASOTEC PO SCH ×2 (08:49→21:43)
--- NOTE | 2019-05-12 11:00 | CARDIOLOGY PROGRESS NOTE ---
DATE: 05/12/2019 CHIEF COMPLAINT: The patient is with swelling and shortness of breath. SUBJECTIVE: Mr. Vázquez continues to progress well. He denies having any significant dyspnea. His swelling is going down. He has been diuresing quite well. He feels quite comfortable. OBJECTIVE: Blood pressure is 144/70, temperature 98 degrees, pulse 68, respirations 20. The patient is awake, alert, no distress. HEENT: Unremarkable. Chest sounds fairly clear to auscultation and percussion. Heart sounds are regular and rhythmic. I do not hear any gallop or murmur. DIAGNOSTIC DATA: His chest x-ray from 05/10/2019 showed cardiomegaly with some congestion. His blood work today showed sodium 132, potassium 4.5, BUN is 25, creatinine 1.3. IMPRESSION: 1. The patient is with dilated ischemic cardiomyopathy. 2. Congestive heart failure, functional class 3 to 4, stage D of heart failure. He has been put on pressors to improve his hemodynamic status. His blood pressure has responded well. 3. Chronic kidney disease. 4. Obesity. 5. Sleep apnea syndrome. 6. The telemetry shows frequent PVCs, sometimes in a bigeminy pattern. RECOMMENDATIONS: At this time, we will switch him over to enalapril 10 mg twice a day, continue the digoxin, and continue IV Lasix. I will probably keep him on dobutamine until tonight and then will discontinue it. Then the dopamine will probably be stopped in the morning. We will watch him one more day off of pressors, and he may get to go home by 05/14/2019, if everything is stable. Further advice will be forthcoming. cc: Barry Jeff MD
--- NOTE | 2019-05-12 12:56 | NEPHROLOGY PROGRESS NOTE ---
DATE: 05/12/2019 Subjective: pt lying in bed resting, voices exertional shortness of breath. No other uremic complaints noted. Objective: vitals. Temperature 98.0, pulse 68, respirations 20, blood pressure 144/70, 02 sat 98% on 3 L nasal cannula. General: Obese male lying in bed in no acute distress HEENT: Normocephalic, atraumatic. Trachea midline. Pupils equal and reactive to light. Skin: warm, dry and intact. Neck: Supple, 6 cm JVD. Cardiovascular: S1, S2. With mechanical heart tones, no murmurs or gallops. Respiratory: lungs clear anteriorly with diminished lung sounds to the left base posteriorly. Abdomen: soft, obese, non tender, non distended : non-inspected. Extremities: no clubbing, cyanosis, or edema noted. PICC line noted to right upper arm. Neurological: alert and oriented to person, place, and time Labs: sodium 132, potassium 4.5, chloride 89, carbon dioxide 30, anion gap 13, BUN 25, creatinine 1.3, calcium 9.9, phosphorus 4.2, albumin 3.8. Intake 2274, output 3725. Impression Cardiorenal syndrome. Maintaining adequate blood pressure and urine output. Creatinine stable today at 1.3 with a baseline of 1.1 in February. We will sign off today. Electrolytes and acid base balance. stable. Medication review. No changes. cc: Camilo Chopra MD [facility]
[2019-05-12] MEDS: DOPAMINE 400 MG/D5W 400 MG/500 ML IV.SOLN IV SCH (14:25)
[2019-05-12] MEDS: XARELTO PO SCH (16:51)
--- NOTE | 2019-05-12 17:10 | PROGRESS NOTE ---
DATE: 05/12/2019 SUBJECTIVE: The patient states that he feels good today. He reports that he has not had a bowel movement in 2 days. He remains on dobutamine and dopamine drip. OBJECTIVE: Vital Signs: Temperature 97.9 degrees, blood pressure 98/60, heart rate 72, respirations 21, O2 saturation is 96% on 2 L nasal cannula. Intake/Output: Intake 2.2 L. Output 3.7 L. General: This is a chronically ill-appearing elderly male, sitting up in bed in no acute distress. Heart: S1, S2 normal. Regular rate and rhythm. Lungs: Clear to auscultation bilaterally. Abdomen: Positive bowel sounds. Soft, nontender, nondistended. Extremities: No edema, no cyanosis. No calf tenderness. Neurologic: The patient is alert and oriented x4. DIAGNOSTIC STUDIES: Sodium 132, potassium 4.5, chloride 89, CO2 of 30, BUN 25, creatinine 1.3, glucose 124. ASSESSMENT AND PLAN: 1. Acute on chronic systolic congestive heart failure exacerbation. The patient remains on vasopressors at the discretion of the entry engineer. We will continue to monitor. 2. Acute kidney injury. Improved. Stable. 3. Prediabetes. Continue with dietary modification and weight loss discussion. 4. Ischemic cardiomyopathy status post automatic implantable cardioverter-defibrillator. Aware. 5. History of pulmonary embolism. Continue on Xarelto. 6. Hypertension. Continue on the current antihypertensive regimen. 7. History of gout. Continue on allopurinol. 8. Constipation. Continue with scheduled laxative therapy. cc: Agatha Jean Bapitste MD
[2019-05-12] MEDS: DULCOLAX PR SCH (21:40)
[2019-05-13] MEDS: DOBUTAMINE 500/D5W 500 MG/250 ML IV.SOLN IV SCH (00:16)
[2019-05-13 06:11] LABS: ALBUMIN 3.7 g/dL (3.5-5.0); CALCIUM 9.6 mg/dL (8.8-10.2); CREATININE 1.7 mg/dL (0.7-1.2); PHOSPHORUS 4.3 mg/dL (2.7-4.5); POTASSIUM 4.1 mmol/L (3.5-5.1)
[2019-05-13 06:15] LABS: HEMATOCRIT 38.9 % (42.0-52.0); HEMOGLOBIN 12.6 g/dL (14.0-18.0); MCH 24.2 PG (27-31); MCHC 32.4 g/dL (33-37); MCV 74.7 FL (81-99); MPV 10.8 FL (7.4-10.4); RBC 5.21 XMIL (4.7-6.1); WBC 6.7 X1000 (4.8-10.8)
[2019-05-13] MEDS: HUMULIN R SUBQ SCH ×4 (06:37→20:45)
[2019-05-13] MEDS: DOPAMINE 400 MG/D5W 400 MG/500 ML IV.SOLN IV SCH (06:57)
[2019-05-13] MEDS ORDERED: SAMSCA PO ONE (07:11)
--- NOTE | 2019-05-13 09:56 | CARDIOLOGY PROGRESS NOTE ---
DATE: 05/13/2019 CHIEF COMPLAINT: Shortness of breath, swelling. SUBJECTIVE: Mr. Vázquez is doing better. He denies having any chest pain. Swelling is going down. His standing scale weight today is 277 pounds and 9 ounces. That is the best weight that we have since admission. OBJECTIVE: Vital signs: His blood pressure is 132/82, temperature 98.1, pulse 68, respirations 20. General: He is awake, alert, no distress. HEENT: Some jugular vein distention. Chest: Clear to auscultation and percussion. Heart: Sounds regular and rhythmic. I do not hear a gallop or murmur. Abdomen: Obese. Extremities: Showed no edema. Neurologic exam: Follows commands, moves all 4 extremities. IMPRESSION: 1. Dilated nonischemic cardiomyopathy with congestive heart failure stage D, functional class III- IV of the [place] [employer]. 2. Chronic kidney disease. 3. Morbid obesity. 4. Sleep apnea syndrome. RECOMMENDATIONS: At this time, we are going to discontinue dobutamine and dopamine, which he has been on for the past 6-7 days. We are going to keep him on enalapril. Because of his hyponatremia, I am going to go ahead and give him a dose of tolvaptan. We will monitor him overnight. The Lasix will be switched over to oral Lasix 80 mg twice a day. He will stay on digoxin and a tiny dose of beta-riacrdo. We will see how he does. His overall prognosis is really very poor given the fact that he has had this condition for many years. We will arrange for a followup upon discharge. cc: Barry Jeff MD
[2019-05-13] MEDS: PRILOSEC PO SCH (10:24)
[2019-05-13] MEDS: VASOTEC PO SCH ×2 (10:24→20:58)
[2019-05-13] MEDS: ALDACTONE PO SCH (10:24)
[2019-05-13] MEDS: ZYLOPRIM PO SCH (10:24)
[2019-05-13] MEDS: COREG PO SCH (10:24)
[2019-05-13] MEDS: LANOXIN PO SCH (10:24)
[2019-05-13] MEDS: LACTULOSE PO SCH ×2 (10:25→20:58)
[2019-05-13] MEDS: CENTRUM SILVER PO SCH (10:25)
[2019-05-13] MEDS: ASPIRIN EC PO SCH (10:25)
[2019-05-13] MEDS: VITAMIN E PO SCH (10:25)
[2019-05-13] MEDS: MIRALAX PO SCH (10:25)
[2019-05-13] MEDS: COLACE PO SCH ×2 (10:25→20:58)
[2019-05-13] MEDS: LASIX PO SCH ×2 (10:52→17:18)
--- NOTE | 2019-05-13 13:30 | PROGRESS NOTE ---
DATE: 05/13/2019 SUBJECTIVE: He says he is doing better and breathing is better, definitely better than when he came in. He feels like he might be ready to go home tomorrow. OBJECTIVE: Temperature 97.8 degrees, pulse 70, respirations 22, and blood pressure 105/65. Pupils are equal and round. Lungs are clear in all lung alonso. Cardiovascular exam regular rhythm and rate without murmur or S3. Abdomen is soft. Skin is warm and dry. Urine output is 1400 mL. Blood sugar 99, 124, and 198. ASSESSMENT AND PLAN: 1. Dilated nonischemic cardiomyopathy and congestive heart failure stage D, functional status 3 to 4. The [place] [employer] diuresing afterload appears well controlled and making good progress. Hopefully, home tomorrow. 2. Chronic kidney disease, stable. 3. Morbid obesity. 4. Sleep apnea syndrome. They discontinued the dobutamine and dopamine, which he had been on for 6 to 7 days, and kept him on enalapril because of the hyponatremia. I gave him a dose of tolvaptan and the Lasix was switched over to oral 80 mg twice a day. He is to stay on digoxin at a tiny dose, and a tiny dose of beta ricardo. 5. Hyponatremia with sodium of 127, it was 132 yesterday, and then 133 the day before. 6. Acute kidney injury which is improved. 7. Prediabetes. Continue his diet and pursue weight loss with low carb diet. 8. Nonischemic dilated cardiomyopathy. 9. History of hypertension. 10. History of gout. 11. History of constipation. MEDICATIONS: 1. History of gout so he is on allopurinol 100 mg a day. 2. Aspirin 81 mg a day. 3. Carvedilol 3.125 mg p.o. daily. 4. Digoxin 250 mcg p.o. daily. 5. Colace 100 mg b.i.d. 6. Vasotec 10 mg b.i.d. 7. Lasix 80 mg p.o. b.i.d. 8. Lactulose 30 mL p.o. b.i.d. 9. Multivitamin 1 a day. 10. Prilosec 40 mg a day. 11. MiraLAX 17 g p.o. daily. 12. Xarelto 15 mg p.o. daily. 13. Aldactone 25 mg a day. 14. Vitamin E 1000 units p.o. daily. 15. He got 1 dose of Tolvaptan today so we will see what his sodium is in the morning. cc: Rick Price MD
[2019-05-13] MEDS: XARELTO PO SCH (17:19)
[2019-05-13] MEDS: DULCOLAX PR SCH (20:59)
[2019-05-14] MEDS: HUMULIN R SUBQ SCH ×4 (06:22→21:00)
[2019-05-14 06:47] LABS: CALCIUM 10.2 mg/dL (8.8-10.2); CREATININE 1.8 mg/dL (0.7-1.2); MAGNESIUM 2.5 mg/dL (1.5-2.7); POTASSIUM 4.7 mmol/L (3.5-5.1)
[2019-05-14 06:52] LABS: FREE T4 1.66 ng/dL (0.93-1.70); TSH 4.11 uIUmL (0.27-4.20)
[2019-05-14] MEDS ORDERED: SAMSCA PO ONE (07:25)
[2019-05-14] MEDS: LACTULOSE PO SCH ×2 (08:56→20:13)
[2019-05-14] MEDS: PRILOSEC PO SCH (08:57)
[2019-05-14] MEDS: ZYLOPRIM PO SCH (08:58)
[2019-05-14] MEDS: COLACE PO SCH ×2 (08:58→20:12)
[2019-05-14] MEDS: CENTRUM SILVER PO SCH (08:58)
[2019-05-14] MEDS: VASOTEC PO SCH ×2 (08:58→20:12)
[2019-05-14] MEDS: ALDACTONE PO SCH (08:58)
[2019-05-14] MEDS: ASPIRIN EC PO SCH (08:59)
[2019-05-14] MEDS: LANOXIN PO SCH (08:59)
[2019-05-14] MEDS: COREG PO SCH (08:59)
[2019-05-14] MEDS: MIRALAX PO SCH (09:01)
[2019-05-14] MEDS: VITAMIN E PO SCH (09:04)
--- NOTE | 2019-05-14 09:32 | CARDIOLOGY PROGRESS NOTE ---
DATE: 05/14/2019 CHIEF COMPLAINT: Weakness, shortness of breath, swelling. SUBJECTIVE: Mr. Vázquez is feeling weak this morning. Yesterday, we discontinued Dopamine and Dobutamine. His blood pressure initially dropped abruptly and then subsequently stabilized. He is not having any pain. He just feels generally tired. OBJECTIVE: VITAL SIGNS: Blood pressure is 124/80, temperature 98.1 degrees, respirations 24, pulse 76. GENERAL: He is awake, in no distress. HEENT: Some jugular vein distention. CHEST: Diminished breath sounds at bases with generally better excursion of the lungs. HEART: Sounds regular and rhythmic. I do not hear a gallop or murmur. ABDOMEN: Obese. EXTREMITIES: Showed no edema. NEUROLOGICAL: Follows commands. Moves 4 extremities. BLOOD WORK: Sodium is 128, potassium 4.7, BUN 44, creatinine 1.8. His ProBNP is 1950 picograms per mL. On admission, it was 24,000, so it has decreased tenfold or more. IMPRESSION: 1. Patient who presented with decompensated congestive heart failure functional Class 3-4 [place] Heart Association Stage D on IV pressors, Dopamine and Dobutamine for almost a week. 2. Chronic kidney disease. 3. Dilated nonischemic cardiomyopathy. 4. Status post biventricular ICD. 5. Morbid obesity. 6. Sleep apnea syndrome. RECOMMENDATIONS: At this time, I will add an extra dose of tolvaptan. I will check a digoxin level. I think it would be ramey to keep him in the hospital one more day. The rationale is that if his BUN and creatinine climb up further and he shows signs of hypotension, then we may have to reinstate Dopamine and Dobutamine at the previously administered doses which seemed to help him and then consider a consultation with [facility] for left ventricular assist device since this patient may be at the point where that type of therapy may be indicated. We will discuss this with the rest of the Cardiology team. Tomorrow Dr. Chay Avendaño will be covering for me and we will continue to follow the patient in the hospital. cc: MD GREG Ricketts
--- NOTE | 2019-05-14 12:39 | PROGRESS NOTE ---
DATE: 05/14/2019 SUBJECTIVE: Mr. Vázquez is doing better, breathing better. Cardiology would like to keep him another day. Continue diuresis. OBJECTIVE: Vital Signs: Temperature 98 degrees, pulse 82, respirations 20, blood pressure 135/84. HEENT: Pupils are equal and round. Lungs: Clear in all lung alonso. Cardiovascular: Regular rhythm and rate without murmur or S3. Abdomen: Soft. Skin: Warm and dry. Urine output is 3200 mL. ASSESSMENT AND PLAN: 1. Patient with decompensated congestive heart failure, class 3 to 4 [place] Heart [employer] Stage D. He was on intravenous pressors, dopamine and dobutamine, for about a week. Continues to diurese. 2. Chronic kidney disease. Renal function is stable. 3. Dilated nonischemic cardiomyopathy. 4. Status post biventricular implantable cardioverter defibrillator. 5. Morbid obesity. 6. Sleep apnea. REVIEW OF CURRENT ORDERS: Patient on Zyloprim 100 mg a day, aspirin 81 mg a day, Coreg 3.125 mg a day, digoxin 125 mcg a day, Colace 100 mg b.i.d., Vasotec 10 mg b.i.d., lactulose 30 mL b.i.d., multivitamin 1 a day, omeprazole 40 mg a day, MiraLAX 17 grams daily, Xarelto 15 mg p.o. daily, Aldactone 25 mg a day, vitamin E 1000 units daily. He received a dose of Samsca 30 mg yesterday for hyponatremia. His sodium is 128. His creatinine has gone up to 1.8. cc: Rick Price MD
[2019-05-14] MEDS: XARELTO PO SCH (17:55)
[2019-05-14] MEDS: DULCOLAX PR SCH (20:13)
[2019-05-15] MEDS: HUMULIN R SUBQ SCH ×3 (05:59→17:13)
[2019-05-15 08:28] VITALS: BP 119/85
[2019-05-15] MEDS: LANOXIN PO SCH (09:26)
[2019-05-15] MEDS: ALDACTONE PO SCH (09:26)
[2019-05-15] MEDS: LACTULOSE PO SCH (09:26)
[2019-05-15] MEDS: PRILOSEC PO SCH (09:26)
[2019-05-15] MEDS: ASPIRIN EC PO SCH (09:27)
[2019-05-15] MEDS: ZYLOPRIM PO SCH (09:27)
[2019-05-15] MEDS: CENTRUM SILVER PO SCH (09:27)
[2019-05-15] MEDS: COREG PO SCH (09:27)
[2019-05-15] MEDS: LASIX PO SCH (09:28)
[2019-05-15] MEDS: VITAMIN E PO SCH (09:28)
[2019-05-15] MEDS: MIRALAX PO SCH (09:28)
[2019-05-15] MEDS: COLACE PO SCH (09:28)
[2019-05-15] MEDS: VASOTEC PO SCH (09:28)
--- NOTE | 2019-05-15 10:24 | DISCHARGE SUMMARY ---
ADMISSION DATE: 05/05/2019 DISCHARGE DATE: 05/15/2019 This is a 69-year-old patient of Dr. Jose F Johnson, a 69-year-old with history of hypertension, congestive heart failure, systolic dysfunction, hyperlipidemia, COPD on home oxygen, sleep apnea, pulmonary embolism, who presented to the emergency department with a 3-day history of worsening shortness of breath. Patient states he is having difficulty breathing despite being on O2 I think at 2 L per nasal cannula. States that during this time he is having some abdominal distention and cramping. States that he had been constipated for a couple days, however, did have a bowel movement and a small 1 the day before. Evaluated in the emergency department. Suspected symptoms due to increased pulmonary venous hypertension, admitted to the hospital. ADMISSION DIAGNOSES: 1. Congestive heart failure exacerbation and underlying systolic dysfunction, has a nonischemic cardiomyopathy. 2. Abdominal pain, suspect constipation. 3. Hypertension. 4. History of pulmonary emboli. 5. History of chronic obstructive pulmonary disease. Nephrology was asked to see. Dr. Chopra evaluated. He had acute kidney injury, suggestive of prerenal azotemia from systolic dysfunction, hypotension, and he is on a Entresto. A fractional excretion score was 36.64% fractional excretion of urea so stopped the Entresto and he was put on dobutamine and dopamine. We tried to diurese him when able. Cardiology was asked to see, Dr. Jeff. His BUN was 37, creatinine 2.8, sodium 132. He had decompensated systolic heart failure acute on chronic, dilated cardiomyopathy, ejection fraction 15 to 20 percent, history of pulmonary embolism, history of underlying chronic kidney disease. He showed some steady improvement able to get him off the dopamine and dobutamine, switched him to enalapril 10 mg twice a day. Continue the digoxin. Stopped the dobutamine I guess on 05/06/2019 and felt he was ready go home on 05/15/2019 date. We did give him some tolvaptan for hyponatremia and his urine sodium I think is pending at this time. Hopefully go home today, we will try and get him ready. DISCHARGE MEDICATION: Allopurinol 100 mg p.o. daily, aspirin 81 mg a day, Coreg 3.125 mg daily, Lanoxin 125 mcg p.o. daily, Colace 100 mg b.i.d., Vasotec 10 mg p.o. b.i.d., Lasix 80 mg p.o. twice a day, lactulose 30 mL p.o. b.i.d., Prilosec 40 mg a day, Centrum Silver once a day, MiraLAX 17 g daily, Xarelto 15 mg a day, Aldactone 25 mg daily, and vitamin E 1000 units p.o. daily. He will continue supplementary O2 at home. cc: Rick Price MD
[2019-05-15 10:52] LABS: CALCIUM 10.3 mg/dL (8.8-10.2); CREATININE 1.6 mg/dL (0.7-1.2)
[2019-05-15] MEDS: XARELTO PO SCH (16:59)
== END 2019-05-15 17:07 | disposition home health service (06) | DRG 291 ==
LOC: ED 15:48 → SUATTDRO 23:56 → 2N 23:56
PROVIDERS: ATTEND Emergency Medicine

== ENCOUNTER 2019-07-14 12:19 | Inpatient (IN) ==
[2019-07-14 13:20] LABS: BASO# 0.03 X1000 (0.0-0.2); BASO% 0.3 % (0.0-0.8); EOS# 0.02 X1000 (0.0-0.7); EOS% 0.2 % (0.0-10.0); HEMATOCRIT 37.2 % (42.0-52.0); HEMOGLOBIN 11.8 g/dL (14.0-18.0); IMM GRAN# 0.03 X1000 (0.0-0.04); IMM GRAN% 0.3 % (0.0-0.5); LYMPH# 1.14 X1000 (1.2-3.4); LYMPH% 12.9 % (20.5-51.1); MCH 24.1 PG (27-31); MCHC 31.7 g/dL (33-37); MCV 76.1 FL (81-99); MONO# 0.67 X1000 (0.11-0.59); MONO% 7.6 % (1.7-9.3); MPV 11.5 FL (7.4-10.4); NEUT# 6.98 X1000 (1.4-6.5); NEUT% 78.7 % (42.2-75.2); PLT 149 X1000 (130-400); RBC 4.89 XMIL (4.7-6.1); RDW 16.6 % (11.5-14.5); WBC 8.87 X1000 (4.8-10.8)
--- NOTE | 2019-07-14 13:20 | EKG Report ---
Test Performed on : 07/14/2019 12:34:47 PM Test Reason : sob Blood Pressure : / mmHG Vent. Rate : 107 BPM Atrial Rate : 107 BPM P-R Int : 148 ms QRS Dur : 166 ms QT Int : 482 ms P-R-T Axes : 050 -83 097 degrees QTc Int : 643 ms Undetermined rhythm Left axis deviation Left ventricular hypertrophy with QRS widening and repolarization abnormality Inferior infarct , age undetermined Anterolateral infarct (cited on or before 05-MAY-2019) Abnormal ECG When compared with ECG of 05-MAY-2019 15:55, (Unconfirmed) Current undetermined rhythm precludes rhythm comparison, needs review Right bundle branch block is no longer present Inferior infarct is now present Questionable change in initial forces of Anterolateral leads Unconfirmed Result
[2019-07-14] MEDS ORDERED: LASIX IV ONE (13:23)
--- NOTE | 2019-07-14 13:24 | Diag Imaging Result Doc PS360 ---
EXAM: CHEST-1 VIEW HISTORY: sob TECHNIQUE: Single view COMPARISON: 05/10/2019 FINDINGS: The heart remains enlarged. There is pulmonary edema. There may be a small left pleural effusion. Increased density in the left base similar to the prior exam. There is a left pacemaker. No right-sided PICC line on the current exam. IMPRESSION: Cardiomegaly with pulmonary edema. Electronically signed by Tal Smith 07/14/2019 1:22 PM
[2019-07-14 13:26] LABS: INR 3.14; PROTIME 33.2 Seconds (11.0-16.0)
[2019-07-14 13:27] LABS: PTT 43.7 Seconds (22.3-41.8)
[2019-07-14 13:48] LABS: ALB/GLOB RATIO 1.5; ALBUMIN 4.1 g/dL (3.5-5.0); CALCIUM 9.1 mg/dL (8.8-10.2); CREATININE 1.8 mg/dL (0.7-1.2); POTASSIUM 3.8 mmol/L (3.5-5.1); TOTAL BILIRUBIN 1.09 mg/dL (0.20-1.00); TOTAL PROTEIN 6.8 g/dL (6.3-8.3)
--- NOTE | 2019-07-14 15:35 | PROVIDER DOCUMENTATION ---
This chart was entered by Nyasia Chopra Scribe, acting as scribe for Travon Wellington MD. HPI-Respiratory General - General Chief Complaint: Shortness of Breath Stated Complaint: SOB Time Seen by Provider: 07/14/19 12:50 Source: patient Allergies/Adverse Reactions: Patient Allergies Allergy/AdvReac Type Severity Reaction Status Date / Time No Known Allergies Allergy Verified 07/14/19 13:21 Home Medications: Home Medication List Medication Instructions Recorded Confirmed Last Taken Type Aspirin [Armstrong Aspirin EC] 81 mg PO DAILY #30 tablet. 03/27/16 07/14/19 05/05/19 Rx Omeprazole 40 mg PO DAILY #90 capsule. 08/04/17 07/14/19 05/05/19 Rx Allopurinol 100 mg PO DAILY 02/14/19 07/14/19 05/05/19 History Multivitamin [Multi-Vitamin Daily] 1 tab PO DAILY 02/14/19 07/14/19 05/05/19 History Rivaroxaban [Xarelto] 15 mg PO QPM 02/14/19 07/14/19 05/05/19 History Carvedilol [Coreg] 3.125 mg PO DAILY 04/30/19 07/14/19 05/05/19 History Potassium Chloride [Klor-Con M20] 2 tab PO BID 04/30/19 07/14/19 05/05/19 History Vitamin E 1 cap PO DAILY 04/30/19 07/14/19 05/05/19 History Digoxin [Lanoxin] 125 microgm PO DAILY 30 Days #30 05/15/19 07/14/19 Unknown Rx tab Docusate Sodium [Colace] 100 mg PO BID 30 Days #60 cap 05/15/19 07/14/19 Unknown Rx ENALApril [Vasotec] 10 mg PO BID 30 Days #60 tab 05/15/19 07/14/19 Unknown Rx Lactulose 30 ml PO BID 30 Days #1 udc 05/15/19 07/14/19 Unknown Rx Polyethylene Glycol 3350 [Miralax] 17 gm PO DAILY 30 Days #1 powder, 05/15/19 07/14/19 Unknown Rx packet Spironolactone [Aldactone] 25 mg PO DAILY tab 05/15/19 07/14/19 Unknown Rx Codeine Phosphate/Guaifenesin 120 ml PO Q6-8H PRN PRN 07/14/19 07/14/19 Unknown History [Codeine-Guaifen 10-100 mg/5 ml] Furosemide [Lasix] 40 mg PO DAILY 07/14/19 07/14/19 Unknown History SIMVAstatin [Zocor] 40 mg PO QHS 07/14/19 07/14/19 Unknown History Torsemide 50 mg PO DAILY 07/14/19 07/14/19 Unknown History Valsartan [Diovan] 80 mg PO DAILY 07/14/19 07/14/19 Unknown History Valsartan [Diovan] 80 mg PO DAILY 07/14/19 07/14/19 Unknown History - History of Present Illness-Resp Nature of Presenting Problem: Patient is a 69 year old male who presents with shortness of breath and increase in swelling to bilateral lower extremities. States symptoms have been present for 3 days. History of CHF and HTN. Denies chest pain. Quality of Pain: reports: none Severity in ED: reports: mild Onset/Duration: reports: 3 days ago Timing: reports: still present, getting worse Associated Symptoms: reports: shortness of breath, other (increase in swelling to bilateral lower extremities) Similar Symptoms Previously?: Yes Recently seen or treated by another doctor?: Yes Review of Systems - Adult - REVIEW OF SYSTEMS - ADULT Constitutional: reports: no symptoms reported Eyes: reports: no symptoms reported Ears, Nose, Mouth & Throat: reports: no symptoms reported Cardiovascular: reports: no symptoms reported Respiratory: reports: see HPI, shortness of breath. denies: cough, hemoptysis Gastrointestinal: reports: no symptoms reported Genitourinary: reports: no symptoms reported Musculoskeletal: reports: no symptoms reported Integumentary: reports: no symptoms reported Neurological: reports: no symptoms reported Psychiatric: reports: no symptoms reported Endocrine: reports: no symptoms reported Hematologic/Lymphatic: reports: no symptoms reported Allergic/Immunologic: reports: no symptoms reported All Other Systems: Reviewed and Negative Past History - Adult - PAST MEDICAL HISTORY-ADULT Review of Records: reports: Old Records Reviewed, Nursing Assessment Review, Medications Reviewed, Social history reviewed & non-contributory. Major Childhood Illnesses: reports: denies history Cardiovascular: reports: CAD, CHF, HTN, hyperlipidemia, [place], pacemaker, other Respiratory: reports: COPD, sleep apnea Gastrointestinal: reports: GERD Obstetrical/Gynecological: reports: denies history Genitourinary: reports: kidney disease Musculoskeletal: reports: denies history Neurological: reports: denies history Psychiatric: reports: denies history Endocrine/Immune: reports: denies history. denies: Diabetes Other Conditions: reports: denies history - PRIOR SURGERIES/PROCEDURES Surgical/Procedure History: reports: pacemaker - IMMUNIZATION STATUS Childhood Immunizations: See Nurse Assessment Flu Vaccine: See Nurse Assessment - FAMILY HISTORY Family History: reviewed, not pertinent - SOCIAL HISTORY Smoking: denies Substance Use: denies Physical Exam-General - PHYSICAL EXAM-ADULT Initial Vital Signs Reviewed: Yes - CONSTITUTIONAL General Appearance: alert, no apparent distress. negative: lethargic - RESPIRATORY Respiratory: chest non-tender, lungs clear, normal breath sounds. negative: crackles, wheezing - CARDIOVASCULAR Cardiovascular: regular rate, rhythm, no gallop. negative: systolic murmur - GASTROINTESTINAL (ABDOMEN) Abdominal Exam: normal bowel sounds, non tender, soft. negative: guarding - MUSCULOSKELETAL Extremity: non-tender, pedal edema (bilateral). negative: deformity - SKIN Integumentary: normal color, normal turgor, warm/dry. negative: diaphoresis - NEUROLOGIC Neurologic: grossly normal. negative: aphasia, facial droop - PSYCHIATRIC Psych/Mental Status: normal mood/affect, oriented x 3. negative: anxious - HEART Score HEART Score: History: Moderately Suspicious HEART Score: ECG: Non-Specific Repolarization Disturbance/LBBB/PM HEART Score: Age: > or = 65 Years HEART Score: Risk Factors for Atherosclerotic Disease: > or = 3 Risk Factors or History of Atherosclerotic Disease HEART Score: Troponin: < or = Normal Limit Total HEART Score:: 6 Progress - PLAN OF CARE/RESULTS Progress/Plan/Lab Results: Vital Signs - 8 hr 07/14/19 12:29 07/14/19 12:58 07/14/19 12:59 Temperature 97.5 F L Pulse Rate 82 107 H 105 H Respiratory Rate 24 20 30 H Blood Pressure 120/86 123/81 128/81 O2 Sat by Pulse Oximetry 86 L 91 L 92 L 07/14/19 13:00 07/14/19 13:01 Temperature Pulse Rate 104 H 100 H Respiratory Rate 36 H 37 H Blood Pressure 123/81 O2 Sat by Pulse Oximetry 95 94 L Laboratory Results - last 24 hr 07/14/19 07/14/19 07/14/19 13:05 13:05 13:05 WBC 8.87 RBC 4.89 Hgb 11.8 L Hct 37.2 L MCV 76.1 L MCH 24.1 L MCHC 31.7 L RDW Std Deviation 16.6 H Plt Count 149 MPV 11.5 H Immature Gran % (Auto) 0.3 Neut % (Auto) 78.7 H Lymph % (Auto) 12.9 L Buchanan % (Auto) 7.6 Eos % (Auto) 0.2 Baso % (Auto) 0.3 Immature Gran # (Auto) 0.03 Neut # (Auto) 6.98 H Lymph # (Auto) 1.14 L Buchanan # (Auto) 0.67 H Eos # (Auto) 0.02 Baso # (Auto) 0.03 Segmented Neutrophils Not Reportable PT INR PTT (Actin FS) Sodium 137 Potassium 3.8 Chloride 95 L Carbon Dioxide 26 Anion Gap 16 BUN 38 H Creatinine 1.8 H Estimated GFR/1.73 m2 45 BUN/Creatinine Ratio 21 Glucose 144 H Calculated Osmolality 285 Calcium 9.1 Total Bilirubin 1.09 H AST 16 ALT 14 Alkaline Phosphatase 54 Troponin T [id number] Pept 88668 H Total Protein 6.8 Albumin 4.1 Globulin 2.7 Albumin/Globulin Ratio 1.5 07/14/19 07/14/19 13:05 13:05 WBC RBC Hgb Hct MCV MCH MCHC RDW Std Deviation Plt Count MPV Immature Gran % (Auto) Neut % (Auto) Lymph % (Auto) Buchanan % (Auto) Eos % (Auto) Baso % (Auto) Immature Gran # (Auto) Neut # (Auto) Lymph # (Auto) Buchanan # (Auto) Eos # (Auto) Baso # (Auto) Segmented Neutrophils PT 33.2 H INR 3.14 PTT (Actin FS) 43.7 H Sodium Potassium Chloride Carbon Dioxide Anion Gap BUN Creatinine Estimated GFR/1.73 m2 BUN/Creatinine Ratio Glucose Calculated Osmolality Calcium Total Bilirubin AST ALT Alkaline Phosphatase Troponin T 0.027 Fco-[id number]-Wswepacmcqu Pept Total Protein Albumin Globulin Albumin/Globulin Ratio Orders Category Date Time Status Nursing- Obtain EKG ONCE Care 07/14/19 13:06 Active CHEST-1 VIEW [RAD] Stat Exams 07/14/19 13:06 Completed CBC WITH ELECTRONIC DIFF [HEME] Stat Lab 07/14/19 13:05 Completed COMPREHENSIVE METABOLIC PANEL [CHEM] Stat Lab 07/14/19 13:05 Completed DIGOXIN [TDM] Stat Lab 07/14/19 15:32 Ordered PRO B-NATRIURETIC PEPTIDE Stat Lab 07/14/19 13:05 Completed PT [PROTIME WITH INR] [COAG] Stat Lab 07/14/19 13:05 Completed PTT [COAG] Stat Lab 07/14/19 13:05 Completed TROPONIN T Stat Lab 07/14/19 13:05 Completed Furosemide [Lasix] Med 07/14/19 13:23 Discontinued 20 mg IV NOW ONE EKG [EKG] Stat Ther 07/14/19 13:06 Draft Result Diagrams: 07/14/19 13:05 07/14/19 13:05 - EKG 1 Time of EKG reading by physician:: 12:34 EKG Read and Signed by:: Travon Wellington EKG Interpretation (*Must complete 3 of following elements*): Abnormal Rate: 107 Rhythm: undetermined rhythm Walling: left QRS: LVH (with QRS widening and repolarization abnormality.) IL Interval: normal Comments: inferior infarct, age undetermined; anterolateral infarct, age undetermined - XRAY 1 XRAY Study: Chest Impression: See EMR Report ( EXAM: CHEST-1 VIEW HISTORY: sob TECHNIQUE: Single view COMPARISON: 05/10/2019 FINDINGS: The heart remains enlarged. There is pulmonary edema. There may be a small left pleural effusion. Increased density in the left base similar to the prior exam. There is a left pacemaker. No right-sided PICC line on the current exam. IMPRESSION: Cardiomegaly with pulmonary edema. Electronically signed by Tal Smith 07/14/2019 1:22 PM 07/14/19 1322 Interpreting Physician: Tal Smith MD Dictated Date/Time: 07/14/19 1321 cc: Travon Wellington MD; Jose F Johnson MD) - CONSULTS/PCP/HOSPITALIST Notification #1 *Consult/PCP/Hospitalist*: Asia Clay for Hospitalist Time Discussed: 15:33 Consult Disposition: Will see in ED, Admit Departure - Departure Date of Disposition Decision: 07/14/19 Time of Disposition Decision: 15:34 DIAGNOSIS: CHF (congestive heart failure), Hypoxia Disposition: ADMITTED INPATIENT 09 Certified Medical Emergency: Emergent Condition: Fair Referrals and Follow-Ups: Jose F Johnson MD [Primary Care Provider] - - Critical Care Note This patient required my direct & personal management of CC.: No Attestation - Physician/ DAMIEN Attestation Patient care was provided by Advanced Practice Provider:: No The physician spent face to face time with patient:: Yes Advanced Practice Provider documentation review:: Supervising physician onsite and consulted in the evaluation and care of this patient. The physician did have a face to face encounter with the patient. This chart was documented by the indicated scribe, (Nyasia Chopra Scribe) and accurately reflects the services I performed and decisions made by me, Travon Wellington MD, as attested by the provider's signature.
[2019-07-14] MEDS: DOBUTAMINE 250 MG/D5W 250 MG/250 ML IV.SOLN IV SCH (16:47)
[2019-07-14] MEDS: LASIX IV SCH (19:29)
[2019-07-14] MEDS: COLACE PO SCH (21:06)
[2019-07-14] MEDS: LACTULOSE PO SCH (21:08)
[2019-07-14] MEDS: ZOCOR PO SCH (21:51)
[2019-07-14] MEDS: VASOTEC PO SCH (21:51)
[2019-07-14] MEDS: XARELTO PO SCH (21:51)
--- NOTE | 2019-07-14 22:04 | HISTORY AND PHYSICAL ---
PRIMARY CARE PROVIDER: Dr. Jose F Johnson. RADIO SURVEY WORKER: Dr. Dillard. CHIEF COMPLAINT: Shortness of breath, swelling and abdominal swelling. HISTORY OF PRESENT ILLNESS: Mr. Vázquez is a 69-year-old gentleman well known to our service with dilated nonischemic cardiomyopathy, coronary heart disease, COPD, hypertension, hyperlipidemia, chronic kidney disease, anemia, morbid obesity, obstructive sleep apnea, history of PE and ventricular tachycardia, who reported shortness of breath over the weekend; however, it worsened today. It has been waking him up at night. He reports he has been compliant with his medications as well as diet and fluid intake even over the holidays. Upon arrival to the ED, he was hypotensive. Initial blood pressures were in the 80s. He was given a small dose of Lasix. I did call and speak with Dr. Dillard for recommendations. We will place him on a dobutamine drip at 3 mcg/kg per minute for 48 hours and monitor him closely in the ICU with strict input and output and daily weights. PAST MEDICAL HISTORY: Per HPI. PAST SURGICAL HISTORY: AICD implantation. SOCIAL HISTORY: He is , disable, ex-smoker. He is on home O2. No alcohol or illicit drug use. FAMILY HISTORY: Sister with coronary artery disease. ALLERGIES: None. HOME MEDICATIONS: However, looking over his previous discharge medications and trying to figure out between that and [facility], as what medications he is on. For now, we will continue on dobutamine, his digoxin, daily Lasix, his lactulose, Prilosec, MiraLAX, Xarelto, and spironolactone for now. REVIEW OF SYSTEMS: Twelve-point review of systems completely negative except for those mentioned in the HPI. PHYSICAL EXAMINATION: VITAL SIGNS: Temperature was 97.5 degrees, heart rate 99, respirations 35, blood pressure 114/73, O2 is 100% on room air. GENERAL: Mr. Vázquez is a pleasant 69-year-old male who was lying on his left side in no acute distress. HEENT: Atraumatic, normocephalic. PERRL. CARDIOVASCULAR: S1, S2 appreciated. No JVD noted. There is lower extremity edema. ABDOMEN: Obese, distended. Positive bowel sounds in 4 quadrants. PULMONARY: Breath sounds equal bilaterally. NEUROLOGIC: No focal deficits noted. DIAGNOSTIC DATA: Chest x-ray: Cardiomegaly with pulmonary edema. EKG: Indeterminate rhythm, 107 beats per minute. LABORATORY DATA: White count 8, hemoglobin and hematocrit 11 and 37, platelet count is 149,000. Sodium 137, potassium 3.8, BUN 38, creatinine 1.8, glucose 144, T bilirubin 1.09, AST 16, ALT 14, alkaline phosphatase 54, troponin 0.027. ProBNP is 21,309. Digoxin level less than 0.3. ASSESSMENT AND PLAN: 1. Acute on chronic decompensated systolic congestive heart failure with dilated cardiomyopathy. Last ejection fraction is 15 to 20 percent. We have initiated him on a dobutamine drip. We will continue his home Lasix, digoxin, Aldactone. Monitor strict intake and output, and daily weights. Healthy heart diet. We will do a palliative Care consult just to discuss with him his disease progression as well as goals of care. I do not know if he has ever been seen by palliative care before, but we will go ahead and get them on board as well. 2. Hypertension. There was some hypotension. I am going to monitor him closely in the intensive care unit. He has been placed on a dobutamine drip. 3. History of pulmonary embolus. Continue Eliquis. 4. History of chronic obstructive pulmonary disease. Does not appear to be in exacerbation. We will continue with supplemental O2. 5. Complaint of abdominal pain, easy satiety, probably secondary to his exacerbation as well as some constipation. We will continue him on his home laxatives. 6. Chronic kidney disease. He appears to be at his baseline. Creatinine is 1.8. BUN is 38. We will monitor his kidney function closely. 7. Further recommendation to follow physician evaluation, laboratory and diagnostic data. Dictated by ANAMIKA Berg for Tye Vanegas MD cc: MD Andi Colbert MD Moses Awoniyi, MD
[2019-07-15] MEDS: DOBUTAMINE 250 MG/D5W 250 MG/250 ML IV.SOLN IV SCH ×3 (02:49→23:36)
--- NOTE | 2019-07-15 03:43 | HISTORY AND PHYSICAL ---
ADDENDUM: This is an addendum to the history and physical dictated by nurse practitioner. I agree with [*]history, physical, assessment and plan. In brief, Mr. Vázquez is a 69-year-old man with history of dilated nonischemic cardiomyopathy with ejection fraction of 15 to 20 percent status post AICD for chronic systolic congestive heart failure, pulmonary embolism on Xarelto, who has had multiple admissions for heart failure, who comes in with chief complaints of worsening lower extremity swelling and shortness of breath. In the emergency room, he was found to have pulmonary edema and lower extremity edema so hospitalist team was consulted for further management. At the time of my evaluation, he denies any chest pain. He is feeling short of breath. He denies any cough. He states that he has been taking his medications regularly. PHYSICAL EXAMINATION: VITAL SIGNS: Currently, vital signs suggest temperature of 98.1 degrees, pulse 99, respiratory rate 35, and blood pressure 114/73. He is saturating 100% on room air. GENERAL: He is tachypneic, though he is alert. He does not appear in any acute distress. He has decreased air entry bilateral infrascapular region with inspiratory crackles. CARDIOVASCULAR: S1, S2 normal. No murmur or gallop. He has a pacemaker in the left pectoral region. He has abdominal distention tympanic to percussion in the center of the abdomen and dullness on the flank. He does have slight elevation of jugular venous distention. However, considering his thick neck, it was difficult to assess. He also has lower extremity edema extending up to knee level. NEUROLOGIC: He is alert and oriented x3. LABORATORY: Labs suggestive of [*] He has microcytic anemia. He has elevated INR. He has acute kidney injury or probably chronic kidney disease stage 3. No microbiological data. IMAGING: Chest x-ray had cardiomegaly with pulmonary edema. EKG had a paced rhythm. ASSESSMENT AND PLAN: Acute on chronic systolic congestive heart failure exacerbation. This could be progression of his congestive heart failure, dietary indiscretion related exacerbation. His medical compliance is questionable considering he is listed to be taking multiple medications of the same class. Plan: I will start him on intravenous Lasix. I will start him on intravenous dobutamine as per Cardiology recommendation. I will admit him to ICU. I will also keep him on carvedilol, digoxin, and enalapril, and then closely monitor input and output. He does have elevated INR, and slight elevation of proBNP which could be in the setting of his cardiomyopathy, however, Xarelto could also be interfering with his assay. I will continue to monitor it. His initial troponin was 0.02. DISPOSITION: I will admit the patient for close monitoring and need for intravenous dobutamine to the ICU. Plan of care discussed with the patient. His questions were answered. cc: Tye Vanegas MD
[2019-07-15] MEDS: PRILOSEC PO SCH (06:23)
[2019-07-15 07:58] LABS: BASO# 0.02 X1000 (0.0-0.2); BASO% 0.3 % (0.0-0.8); EOS# 0.05 X1000 (0.0-0.7); EOS% 0.6 % (0.0-10.0); HEMATOCRIT 34.7 % (42.0-52.0); HEMOGLOBIN 10.7 g/dL (14.0-18.0); LYMPH# 1.35 X1000 (1.2-3.4); LYMPH% 17.1 % (20.5-51.1); MCH 24.2 PG (27-31); MCHC 30.8 g/dL (33-37); MCV 78.3 FL (81-99); MONO# 0.88 X1000 (0.11-0.59); MONO% 11.2 % (1.7-9.3); MPV 12.9 FL (7.4-10.4); NEUT# 5.58 X1000 (1.4-6.5); NEUT% 70.8 % (42.2-75.2); PLT 138 X1000 (130-400); RBC 4.43 XMIL (4.7-6.1); RDW 16.6 % (11.5-14.5); WBC 7.88 X1000 (4.8-10.8)
--- NOTE | 2019-07-15 08:01 | EKG Report ---
Test Performed on : 07/15/2019 07:27:29 AM Test Reason : Heart Failure Admission Blood Pressure : / mmHG Vent. Rate : 085 BPM Atrial Rate : 085 BPM P-R Int : 192 ms QRS Dur : 146 ms QT Int : 508 ms P-R-T Axes : 056 -80 095 degrees QTc Int : 604 ms Suspect unspecified pacemaker failure Atrial-sensed ventricular-paced rhythm with occasional premature ventricular complexes. Abnormal ECG When compared with ECG of 14-JUL-2019 12:34, (Unconfirmed) Previous ECG has undetermined rhythm, needs review Confirmed by Stef MCDUFFIE, Geovanny Carlisle ([id number]) on 07/16/2019 10:19:43 AM
[2019-07-15] MEDS: LANOXIN PO SCH (08:29)
[2019-07-15] MEDS: COREG PO SCH ×2 (08:29→20:53)
[2019-07-15] MEDS: COLACE PO SCH ×2 (08:29→20:23)
[2019-07-15] MEDS: VASOTEC PO SCH (08:29)
[2019-07-15] MEDS: ZYLOPRIM PO SCH (08:29)
[2019-07-15] MEDS: MIRALAX PO SCH (08:29)
[2019-07-15] MEDS: LACTULOSE PO SCH ×2 (08:29→20:25)
[2019-07-15] MEDS: ALDACTONE PO SCH (08:29)
[2019-07-15] MEDS: LASIX IV SCH ×2 (08:30→20:22)
[2019-07-15 08:37] LABS: CALCIUM 8.7 mg/dL (8.8-10.2); CREATININE 1.5 mg/dL (0.7-1.2); POTASSIUM 3.4 mmol/L (3.5-5.1)
--- NOTE | 2019-07-15 08:39 | Diag Imaging Result Doc PS360 ---
EXAM: CHEST-PORTABLE INDICATION: chf TECHNIQUE: One view COMPARISON: 07/14/2019 FINDINGS: Pulmonary venous congestion and mild edema is approximately stable. The small left pleural effusion also appears stable. No new consolidation is identified. There is stable cardiomegaly. IMPRESSION: Stable chest. Electronically signed by Chinmay Lott 07/15/2019 8:37 AM
[2019-07-15] MEDS: THERA M PLUS PO SCH (08:46)
[2019-07-15] MEDS ORDERED: LASIX PO SCH (09:00)
[2019-07-15] MEDS ORDERED: MULTI-VITAMIN PO SCH (09:00)
[2019-07-15 09:43] LABS: LYMPHS 10 % (21-51); MONO 4 % (1-9); SEGS 84 % (42-75)
--- NOTE | 2019-07-15 11:37 | PROGRESS NOTE ---
DATE: 07/15/2019 SUBJECTIVE: As per nursing staff overnight, he has been okay. Upon my examination, he reports feeling better, less short of breath. OBJECTIVE: Vital Signs: Temperature 98.2 degrees, heart rate 86, respiratory rate 22, blood pressure 111/61, O2 saturation 99% on 2 L nasal cannula. General Examination: This is a chronically ill-appearing, 69-year-old, -Serbian male, lying in bed, in no acute distress. Cardiovascular Examination: S1 and S2 heard. No murmurs, gallops, or rubs. Regular rate and rhythm. There is a pacemaker in the left pectoral region. Respiratory Examination: There is decreased air entry bilaterally with some inspiratory crackles as well. Patient is not using any accessory muscles or having work of breathing. Extremities: There is 3+ bilateral lower edema up to both knees. Abdomen: Soft. Abdomen is distended. No organomegaly noted. Neurological Examination: The patient is alert and oriented x3. Moves 4 extremities. Laboratory Data: CBC shows anemia with hemoglobin 10.7. BMP reveals creatinine 1.5, with potassium 3.4. ProBNP is 13,590. ASSESSMENT AND PLAN: 1. Acute on chronic decompensated systolic congestive heart failure with dilated cardiomyopathy. The patient is well known to our service. His ejection fraction is 15 to 20 percent. He has been started on a dobutamine drip. The patient has been continued with Lasix (in this case, 40 mg intravenous every 12 hours), digoxin, and Aldactone. We will continue to monitor strict ins and outs. Cardiology has been consulted but because this patient has very advanced heart disease, we prefer to also put a consult for palliative care and see what we can do for him. 2. Hypertension. The patient actually has a better blood pressure in comparing with yesterday. Today, it is 111. We will continue with the same management. 3. History of pulmonary embolism. Patient is currently on Eliquis. We will continue with the same management. 4. Chronic obstructive pulmonary disease, not in any exacerbation. We will continue providing DuoNeb as needed. 5. Chronic kidney disease. Creatinine is back to his baseline, 1.4-1.5. We will continue to monitor. 6. Disposition. We will continue to monitor this patient closely. Cardiology will be consulted and also awaiting consultation from palliative care. cc: Max Chacon MD
--- NOTE | 2019-07-15 13:48 | CARDIOLOGY CONSULTATION ---
DATE: 07/15/2019 HISTORY: The patient is admitted with heart failure. Mr. Dandy Vázquez is a 69-year-old black gentleman, who has nonischemic cardiomyopathy with severe LV dysfunction, ventricular tachycardia, and AICD in the past, and history of pulmonary embolism. He comes in with complaints of increasing shortness of breath. He has chronic congestive heart failure. He was orthopneic with increasing fluid gain in the abdomen and lower extremities. He came to the emergency room. He was started on IV Lasix, and IV dobutamine for inotropic symptomatically. He has improved. Denies any chest pain. There is no palpitations. No history of syncope. LABORATORY: [place] [address] on 07/14/2019. [place] [address]. Sodium 138, potassium 3.4 BUN 32, and creatinine 1.7. REVIEW OF SYSTEM: A 14-point review of systems was done. GI: There is no history of nausea, vomiting, diarrhea. There is no history of hematemesis or melena. Central nervous system: No focal weakness to suggest a CVA or TIA. : There is no dysuria or hematuria. PAST MEDICAL HISTORY: 1. Dilated nonischemic cardiomyopathy, severe LV dysfunction. 2. Chronic congestive heart failure attending the CHF clinic. 3. History of pulmonary embolism. 4. History of ventricular tachycardia. 5. Status post AICD placement. 6. COPD. 7. Chronic kidney disease. 8. Anemia. 9. Morbid obesity. 10. Obstructive sleep apnea. 11. COPD. HOME MEDICATIONS: 1. Xarelto 15 mg a day. 2. Aspirin 81 mg a day. 3. Spironolactone 25 mg a day. 4. Coreg 3.125 mg daily. 5. Lanoxin 0.125 mg a day. 6. Simvastatin 40. 7. Omeprazole 40. 8. Potassium supplement. 9. Allopurinol 100 mg. 10. Torsemide 100 mg tablets. He takes half 50 mg 1 tablet a day. 11. Diovan 80 mg a day. SOCIAL HISTORY: He is . He is disabled, and lives at home. He does not drink. There is no alcohol abuse. He was a past smoker. ASSESSMENT AND PLAN: 1. Mr. Dandy Vázquez is a 69-year-old Afro-[place] gentleman with history of nonischemic cardiomyopathy, AICD placement, chronic congestive heart failure. He presents with decompensation. He has orthopnea, pedal edema and ascites as well. He was started on dobutamine. Would recommend continuing dobutamine for 72 hours. 2. I will give him an extra dose of metolazone for today and tomorrow. 3. We will restart his home medications at his current dosages. 4. Thank you for the consult. We will follow the hospital course. cc: Andi Dillard MD
[2019-07-15] MEDS: ZAROXOLYN PO SCH (14:15)
[2019-07-15] MEDS: XARELTO PO SCH (20:22)
[2019-07-15] MEDS: ZOCOR PO SCH (20:23)
[2019-07-16] MEDS: PRILOSEC PO SCH (06:17)
[2019-07-16 07:18] LABS: BASO# 0.03 X1000 (0.0-0.2); BASO% 0.4 % (0.0-0.8); EOS# 0.11 X1000 (0.0-0.7); EOS% 1.5 % (0.0-10.0); HEMATOCRIT 34.7 % (42.0-52.0); LYMPH# 1.48 X1000 (1.2-3.4); LYMPH% 19.9 % (20.5-51.1); MCH 24.7 PG (27-31); MCHC 31.7 g/dL (33-37); MONO# 0.61 X1000 (0.11-0.59); MONO% 8.2 % (1.7-9.3); NEUT# 5.22 X1000 (1.4-6.5); PLT 135 X1000 (130-400); RBC 4.45 XMIL (4.7-6.1); RDW 16.6 % (11.5-14.5); WBC 7.45 X1000 (4.8-10.8)
[2019-07-16 07:28] LABS: AGAP 11; ALBUMIN 3.6 g/dL (3.5-5.0); BUN 25 mg/dL (8-22); CALCIUM 9.1 mg/dL (8.8-10.2); CHLORIDE 95 mmol/L (98-107); COSMO 278; CREATININE 1.3 mg/dL (0.7-1.2); ESTIMATED GFR > 60; GLUCOSE 95 mg/dL (70-104); PHOSPHORUS 3.4 mg/dL (2.7-4.5); POTASSIUM 3.8 mmol/L (3.5-5.1); SODIUM 137 mmol/L (136-145); TCO2 31 mmol/L (25-35)
[2019-07-16 08:20] LABS: ANISOCYTOSIS 1+; BANDS 2 % (0-1); HYPOCHROM 2+; LARGE PLATELETS 1+; LYMPHS 28 % (21-51); MONO 8 % (1-9); SEGS 62 % (42-75)
[2019-07-16] MEDS: LACTULOSE PO SCH ×2 (08:21→20:08)
[2019-07-16] MEDS: LASIX IV SCH ×2 (08:21→20:07)
[2019-07-16] MEDS: COLACE PO SCH ×2 (08:22→20:08)
[2019-07-16] MEDS: THERA M PLUS PO SCH (08:22)
[2019-07-16] MEDS: MIRALAX PO SCH (08:22)
[2019-07-16] MEDS: ZAROXOLYN PO SCH (08:22)
[2019-07-16] MEDS: LANOXIN PO SCH (08:24)
[2019-07-16] MEDS: ALDACTONE PO SCH (08:24)
[2019-07-16] MEDS: ZYLOPRIM PO SCH (08:25)
[2019-07-16] MEDS: COREG PO SCH ×2 (08:25→20:08)
[2019-07-16] MEDS: DIOVAN PO SCH (08:34)
--- NOTE | 2019-07-16 09:39 | PROGRESS NOTE ---
DATE: 07/16/2019 SUBJECTIVE: Patient reports he has feeling better, less shortness. OBJECTIVE: Vital Signs: Temperature 97.4 degrees, heart rate 86, respiratory rate 22, blood pressure 107/78, 94% on 3 L nasal cannula. General: This is a chronically ill-appearing, 69-year- old male, lying in bed, in no acute distress. Cardiovascular: S1, S2 heard. No murmurs, gallops, or rubs. Regular rate and rhythm. There is a pacemaker in the left pectoral region. Respiratory: Decreased air entry bilaterally. Minimal inspiratory crackles noted still. The patient is not using any accessory muscles or having work of breathing. Abdomen: Soft, nontender to palpation. A little bit distended. Bowel sounds present. No organomegaly. Extremities: There is 3+ bilateral lower extremity edema up to both knees. Neurological: Patient, alert, oriented x3. Moves 4 extremities. LABORATORY DATA: White count 7.45 with hemoglobin 11.0 hematocrit 34.7. The creatinine is 1.3 today. ASSESSMENT AND PLAN: 1. Acute on chronic decompensated systolic congestive heart failure secondary to dilated cardiomyopathy. At this point, the patient clinically is doing fine. He continues to be on dobutamine drip. He is still on Lasix, digoxin and Aldactone. We will continue to monitor strict ins and outs. Cardiology is also following this patient. We will follow their recommendations. 2. Hypertension. Blood pressure is under control. We with continue with the same management. 3. History of pulmonary embolism. We will continue with Eliquis. 4. Chronic obstructive pulmonary disease, not in any exacerbation. We will provide DuoNeb if needed. 5. Chronic kidney disease stage 1. Creatinine is 1.3. We will continue to monitor. 6. Disposition. We will continue to monitor this patient closely. cc: Max Chacon MD
[2019-07-16] MEDS: DOBUTAMINE 250 MG/D5W 250 MG/250 ML IV.SOLN IV SCH ×2 (11:06→21:12)
[2019-07-16] MEDS: XARELTO PO SCH (20:08)
[2019-07-16] MEDS: ZOCOR PO SCH (20:08)
[2019-07-17 06:57] LABS: BASO# 0.03 X1000 (0.0-0.2); BASO% 0.4 % (0.0-0.8); EOS# 0.12 X1000 (0.0-0.7); EOS% 1.6 % (0.0-10.0); HEMATOCRIT 37.3 % (42.0-52.0); HEMOGLOBIN 11.6 g/dL (14.0-18.0); IMM GRAN# 0.02 X1000 (0.0-0.04); IMM GRAN% 0.3 % (0.0-0.5); LYMPH% 21.4 % (20.5-51.1); MCH 24.3 PG (27-31); MCHC 31.1 g/dL (33-37); MONO# 0.59 X1000 (0.11-0.59); MONO% 7.9 % (1.7-9.3); MPV 12.9 FL (7.4-10.4); NEUT# 5.11 X1000 (1.4-6.5); NEUT% 68.4 % (42.2-75.2); PLT 174 X1000 (130-400); RBC 4.78 XMIL (4.7-6.1); RDW 16.5 % (11.5-14.5); WBC 7.47 X1000 (4.8-10.8)
[2019-07-17] MEDS: PRILOSEC PO SCH (07:25)
[2019-07-17 07:37] LABS: AGAP 7; ALBUMIN 3.2 g/dL (3.5-5.0); BUN 29 mg/dL (8-22); CALCIUM 9.1 mg/dL (8.8-10.2); CHLORIDE 93 mmol/L (98-107); COSMO 281; CREATININE 1.4 mg/dL (0.7-1.2); ESTIMATED GFR > 60; GLUCOSE 116 mg/dL (70-104); PHOSPHORUS 4.3 mg/dL (2.7-4.5); POTASSIUM 3.6 mmol/L (3.5-5.1); SODIUM 137 mmol/L (136-145); TCO2 37 mmol/L (25-35)
[2019-07-17] MEDS: LACTULOSE PO SCH ×2 (08:55→21:27)
[2019-07-17] MEDS: MIRALAX PO SCH (08:55)
[2019-07-17] MEDS: LANOXIN PO SCH (08:55)
[2019-07-17] MEDS: THERA M PLUS PO SCH (08:55)
[2019-07-17] MEDS: COLACE PO SCH ×2 (08:55→21:27)
[2019-07-17] MEDS: DULCOLAX PO SCH (08:55)
[2019-07-17] MEDS: ZYLOPRIM PO SCH (08:56)
[2019-07-17] MEDS: ZAROXOLYN PO SCH (08:56)
[2019-07-17] MEDS: ALDACTONE PO SCH (08:56)
[2019-07-17] MEDS: COREG PO SCH ×2 (08:56→21:27)
[2019-07-17] MEDS: LASIX PO SCH (08:56)
--- NOTE | 2019-07-17 09:56 | PROGRESS NOTE ---
DATE: 07/17/2019 SUBJECTIVE: Patient reports he is breathing better. No shortness of breath while he is resting. OBJECTIVE: Vital Signs: Temperature 97.9 degrees, heart rate 89, respiratory rate 20, blood pressure 109/73, O2 saturation 97% on 3 L nasal cannula. General Examination: This is a chronically ill-appearing, 69-year-old, male, lying in bed, in no acute distress. Cardiovascular Examination: S1 and S2 heard. No murmurs, gallops, or rubs. Regular rate and rhythm. There is a pacemaker in the left pectoral region. Respiratory Examination: Decreased air entry bilaterally. Minimal inspiratory crackles noted, definitely better in comparing with admission. The patient is not using any accessory muscles or having work of breathing. Abdomen: Soft, nontender to palpation. A little bit distended. Bowel sounds present. No organomegaly. Extremities: There is 2+ bilateral lower extremity edema up to both knees. That is improving. Neurological Examination: The patient is alert and oriented x3. Moves 4 extremities. Laboratory Data: White cell count 7.47, hemoglobin 11.6, hematocrit 37.3, platelets 174,000. Creatinine 1.4. ASSESSMENT AND PLAN: 1. Acute on chronic decompensated systolic congestive heart failure secondary to cardiomyopathy. Clinically, this patient is better. He has been on a dobutamine drip since admission. Today, cardiology has decided to stop it. We will continue with Lasix, digoxin, and Aldactone. Patient is improving. We will move this patient out to [facility]. Cardiology is following this patient, as we mentioned before. We will follow recommendations. 2. Hypertension. Blood pressure is under control, in the range of 100s and 110s. We will continue with the same management. 3. History of pulmonary embolism. We will continue with Eliquis. 4. Chronic obstructive pulmonary disease, not in exacerbation. We will provide DuoNeb as needed. 5. Chronic kidney disease stage 1. Creatinine is 1.4. We will continue to monitor. 6. Disposition. We will continue to monitor this patient closely. cc: Max Chacon MD [facility]
[2019-07-17] MEDS: DIOVAN PO SCH (10:00)
[2019-07-17] MEDS: ZOCOR PO SCH (21:27)
[2019-07-17] MEDS: XARELTO PO SCH (21:27)
[2019-07-18] MEDS: PRILOSEC PO SCH (06:09)
[2019-07-18 06:14] LABS: BASO# 0.03 X1000 (0.0-0.2); BASO% 0.4 % (0.0-0.8); EOS% 2.4 % (0.0-10.0); HEMATOCRIT 38.8 % (42.0-52.0); HEMOGLOBIN 11.9 g/dL (14.0-18.0); IMM GRAN# 0.03 X1000 (0.0-0.04); IMM GRAN% 0.4 % (0.0-0.5); LYMPH# 1.52 X1000 (1.2-3.4); MCH 24.1 PG (27-31); MCHC 30.7 g/dL (33-37); MCV 78.7 FL (81-99); MONO# 0.57 X1000 (0.11-0.59); MONO% 6.8 % (1.7-9.3); MPV 12.2 FL (7.4-10.4); NEUT# 6.09 X1000 (1.4-6.5); PLT 176 X1000 (130-400); RBC 4.93 XMIL (4.7-6.1); RDW 16.5 % (11.5-14.5); WBC 8.44 X1000 (4.8-10.8)
[2019-07-18 06:37] LABS: AGAP 11; ALBUMIN 3.2 g/dL (3.5-5.0); BUN 29 mg/dL (8-22); CALCIUM 9.1 mg/dL (8.8-10.2); CHLORIDE 92 mmol/L (98-107); COSMO 278; CREATININE 1.3 mg/dL (0.7-1.2); ESTIMATED GFR > 60; GLUCOSE 127 mg/dL (70-104); PHOSPHORUS 3.5 mg/dL (2.7-4.5); SODIUM 135 mmol/L (136-145); TCO2 32 mmol/L (25-35)
[2019-07-18] MEDS: MIRALAX PO SCH (08:23)
[2019-07-18] MEDS: COLACE PO SCH ×2 (08:23→20:44)
[2019-07-18] MEDS: DULCOLAX PO SCH (08:23)
[2019-07-18] MEDS: LASIX PO SCH (08:23)
[2019-07-18] MEDS: THERA M PLUS PO SCH (08:23)
[2019-07-18] MEDS: ALDACTONE PO SCH (08:23)
[2019-07-18] MEDS: LACTULOSE PO SCH ×2 (08:23→20:44)
[2019-07-18] MEDS: LANOXIN PO SCH (08:24)
[2019-07-18] MEDS: COREG PO SCH ×2 (08:24→20:44)
[2019-07-18] MEDS: ZYLOPRIM PO SCH (08:25)
[2019-07-18] MEDS: DIOVAN PO SCH (08:26)
--- NOTE | 2019-07-18 16:01 | PROGRESS NOTE ---
DATE: 07/18/2019 SUBJECTIVE: He was asleep, but woke up easily, had no major complaints. Breathing seemed a little bit better. OBJECTIVE: Blood pressure is 97/42, heart rate of 85, respiratory rate of 18, temp 97.8 degrees, 100% on room air.Cardiovascular: Regular rate and rhythm. Pulmonary: Bilateral breath sounds, clear to auscultation. GI: Was soft, nontender, nondistended. Bowel sounds are positive. White count 8, hemoglobin and hematocrit 11 and 38, platelets 176,000. Creatinine 1.3. PROBLEM LIST: 1. Acute on chronic systolic heart failure. We will continue treatment. Right now he is on p.o. treatments. Cardiology is following. He is off dobutamine and seems stable. His ins and outs, he is about 4 L negative but he has put about 8 L of urine. His weights have gone up. They are to be assessed. Continue diuretics and follow. 2. Hypertension. Blood pressure is stable. If anything, it is a little bit on the low side, which is suitable considering his regimen. 3. History of PE. He is on Eliquis. 4. Chronic obstructive pulmonary disease exacerbation. He is on DuoNeb. 5. Chronic renal failure stage 1. It looks like he is stable. DISPOSITION: I think he is stable to go the floor and I guess we need to progress to going home. He has refused hospice care at this point. We will work on trying to get him up. cc: Sherif Carrera MD
[2019-07-18] MEDS: XARELTO PO SCH (20:44)
[2019-07-18] MEDS: ZOCOR PO SCH (20:44)
[2019-07-19 05:42] LABS: BASO# 0.03 X1000 (0.0-0.2); BASO% 0.4 % (0.0-0.8); EOS# 0.12 X1000 (0.0-0.7); EOS% 1.6 % (0.0-10.0); HEMATOCRIT 39.3 % (42.0-52.0); HEMOGLOBIN 11.9 g/dL (14.0-18.0); IMM GRAN# 0.03 X1000 (0.0-0.04); IMM GRAN% 0.4 % (0.0-0.5); LYMPH# 1.76 X1000 (1.2-3.4); LYMPH% 23.5 % (20.5-51.1); MCH 23.9 PG (27-31); MCHC 30.3 g/dL (33-37); MCV 78.9 FL (81-99); MONO# 0.57 X1000 (0.11-0.59); MONO% 7.6 % (1.7-9.3); MPV 12.4 FL (7.4-10.4); NEUT# 4.97 X1000 (1.4-6.5); NEUT% 66.5 % (42.2-75.2); PLT 196 X1000 (130-400); RBC 4.98 XMIL (4.7-6.1); RDW 16.6 % (11.5-14.5); WBC 7.48 X1000 (4.8-10.8)
[2019-07-19] MEDS: PRILOSEC PO SCH (06:07)
[2019-07-19 06:09] LABS: AGAP 8; ALBUMIN 3.3 g/dL (3.5-5.0); BUN 30 mg/dL (8-22); CALCIUM 9.4 mg/dL (8.8-10.2); CHLORIDE 95 mmol/L (98-107); COSMO 278; CREATININE 1.3 mg/dL (0.7-1.2); ESTIMATED GFR > 60; GLUCOSE 96 mg/dL (70-104); PHOSPHORUS 3.6 mg/dL (2.7-4.5); POTASSIUM 4.5 mmol/L (3.5-5.1); SODIUM 136 mmol/L (136-145); TCO2 33 mmol/L (25-35)
[2019-07-19] MEDS: ALDACTONE PO SCH (08:44)
[2019-07-19] MEDS: LANOXIN PO SCH (08:44)
[2019-07-19] MEDS: ZAROXOLYN PO SCH (08:44)
[2019-07-19] MEDS: THERA M PLUS PO SCH (08:44)
[2019-07-19] MEDS: MIRALAX PO SCH (08:44)
[2019-07-19] MEDS: LASIX PO SCH (08:44)
[2019-07-19] MEDS: LACTULOSE PO SCH ×2 (08:44→21:14)
[2019-07-19] MEDS: ZYLOPRIM PO SCH (08:44)
[2019-07-19] MEDS: DULCOLAX PO SCH (08:46)
[2019-07-19] MEDS: DIOVAN PO SCH (08:46)
[2019-07-19] MEDS: COLACE PO SCH ×2 (08:46→21:14)
[2019-07-19] MEDS: COREG PO SCH ×2 (08:46→21:14)
--- NOTE | 2019-07-19 13:23 | PROGRESS NOTE ---
DATE: 07/19/2019 SUBJECTIVE: The patient reports feeling fine. He is breathing better. No other complaints noted. OBJECTIVE: Vital Signs: Temperature 97.6 degrees, heart rate 64, respiratory rate 18, blood pressure 117/69, O2 saturation 100% on 3 L nasal cannula. General: This is a chronically ill- appearing, morbidly obese, 69-year-old male, lying in bed, in no acute distress. Cardiovascular: S1, S2 heard. No murmurs, gallops, or rubs. Regular rate and rhythm. Respiratory: Clear bilaterally to auscultation. No work of breathing or using accessory muscles. Minimal crackles noted in both pulmonary bases. Patient not using any accessory muscles or having work of breathing. Abdomen: Soft. Nontender to palpation. Bowel sounds present. No organomegaly. Extremities: No clubbing or cyanosis. There is 1+ pitting edema in both lower extremities. Neurological: The patient is alert, oriented x3. Moves 4 extremities. LABORATORY DATA: Reviewed. ASSESSMENT AND PLAN: 1. Acute on chronic systolic congestive heart failure secondary to nonischemic cardiomyopathy. The patient has been on dobutamine but that medication has been stopped 2 days ago. Now only on p.o. medications. Cardiology is following this patient. So far, there has been acceptable ins and outs. We will continue to monitor this patient closely over the weekend and we will check home Sunday if patient is ready to go. We have consulted Palliative Care because of multiple admissions to the hospital the day refuse to be on hospice. 2. Hypertension. Blood pressure is under control. We will continue with the same management. 3. History of pulmonary embolism. We will continue with Eliquis. 4. Chronic obstructive pulmonary disease. Does not look to be in any exacerbation. We will continue with DuoNeb as needed. 5. Chronic kidney disease stage 1. We will continue to monitor BMP. Creatinine at baseline. 6. Disposition. We will continue to monitor this patient closely over the weekend. We will see on Sunday, if he is ready to go, will discharge him. cc: Max Chacon MD
[2019-07-19] MEDS: ZOCOR PO SCH (21:14)
[2019-07-19] MEDS: XARELTO PO SCH (21:14)
[2019-07-20 06:28] LABS: AGAP 8; ALBUMIN 3.3 g/dL (3.5-5.0); BUN 31 mg/dL (8-22); CALCIUM 9.5 mg/dL (8.8-10.2); CHLORIDE 95 mmol/L (98-107); COSMO 279; CREATININE 1.3 mg/dL (0.7-1.2); ESTIMATED GFR > 60; GLUCOSE 108 mg/dL (70-104); PHOSPHORUS 2.8 mg/dL (2.7-4.5); POTASSIUM 4.3 mmol/L (3.5-5.1); SODIUM 136 mmol/L (136-145); TCO2 33 mmol/L (25-35)
[2019-07-20] MEDS: PRILOSEC PO SCH (06:31)
[2019-07-20] MEDS: THERA M PLUS PO SCH (08:21)
[2019-07-20] MEDS: LANOXIN PO SCH (08:21)
[2019-07-20] MEDS: ZYLOPRIM PO SCH (08:21)
[2019-07-20] MEDS: COREG PO SCH ×2 (08:21→20:40)
[2019-07-20] MEDS: COLACE PO SCH ×2 (08:21→20:40)
[2019-07-20] MEDS: DIOVAN PO SCH (08:21)
[2019-07-20] MEDS: ALDACTONE PO SCH (08:21)
[2019-07-20] MEDS: LASIX PO SCH (08:21)
[2019-07-20] MEDS: DULCOLAX PO SCH (08:22)
[2019-07-20] MEDS: MIRALAX PO SCH (08:22)
[2019-07-20] MEDS: LACTULOSE PO SCH ×2 (08:22→20:40)
[2019-07-20] MEDS ORDERED: DEMADEX PO ONE (10:57)
--- NOTE | 2019-07-20 15:47 | PROGRESS NOTE ---
DATE: 07/20/2019 SUBJECTIVE: Patient is resting in bed. He feels that he is breathing better. No new issues. No acute events overnight. Dr. Dillard evaluated this patient and he modified some of his treatment. OBJECTIVE: Vital Signs: Temperature 97.8 degrees, pulse 75, respiratory rate 24, blood pressure 127/60, oxygen saturation 100% on 3 L of nasal cannula. HEENT: Head normocephalic. No trauma. PERRLA. Neck: Supple. No JVD. No masses. Central trachea. Chest: Some crepitus at the bases. Minimal crackles at the bases as well. Abdomen: Soft, obese, protuberant, nontender, nondistended, no hepatosplenomegaly. Extremities: 1+ pitting edema. No clubbing, no cyanosis. Neurologic: The patient is awake, alert, she is oriented x3. No focal deficit. LABORATORY: Sodium 136, potassium 4.3, chloride 95, bicarbonate 33, BUN 31, creatinine 1.3, glucose 108, calcium 9.5, albumin 3.3. ASSESSMENT AND PLAN: 1. Acute on chronic systolic heart failure exacerbation secondary to nonischemic cardiomyopathy, continue with same management. Cardiology Department on board. 2. Hypertension stable. 3. History of pulmonary embolism. Continue with Eliquis. 4. Chronic obstructive pulmonary disease, not in exacerbation at this time. 5. Chronic kidney disease stage 1. We will continue to monitor his creatinine which is at the baseline. 6. Disposition. We are keeping an eye on him during the weekend, tomorrow we will reevaluate this patient and we will talk to Cardiology to see if this patient can go home. cc: Srinivas Magana MD
[2019-07-20] MEDS: XARELTO PO SCH (20:40)
[2019-07-20] MEDS: ZOCOR PO SCH (20:40)
[2019-07-21 05:46] LABS: AGAP 8; ALBUMIN 3.4 g/dL (3.5-5.0); BUN 33 mg/dL (8-22); CALCIUM 9.5 mg/dL (8.8-10.2); CHLORIDE 91 mmol/L (98-107); COSMO 277; CREATININE 1.3 mg/dL (0.7-1.2); ESTIMATED GFR > 60; GLUCOSE 132 mg/dL (70-104); POTASSIUM 4.2 mmol/L (3.5-5.1); SODIUM 134 mmol/L (136-145); TCO2 35 mmol/L (25-35)
[2019-07-21] MEDS: PRILOSEC PO SCH (06:37)
[2019-07-21] MEDS: MIRALAX PO SCH (08:59)
[2019-07-21] MEDS: ZAROXOLYN PO SCH (09:00)
[2019-07-21] MEDS ORDERED: DEMADEX PO SCH (09:00)
[2019-07-21] MEDS: LACTULOSE PO SCH (09:00)
[2019-07-21] MEDS: ALDACTONE PO SCH (09:01)
[2019-07-21] MEDS: ZYLOPRIM PO SCH (09:02)
[2019-07-21] MEDS: DIOVAN PO SCH (09:02)
[2019-07-21] MEDS: THERA M PLUS PO SCH (09:02)
[2019-07-21] MEDS: DULCOLAX PO SCH (09:03)
[2019-07-21] MEDS: COREG PO SCH (09:03)
[2019-07-21] MEDS: COLACE PO SCH (09:03)
[2019-07-21] MEDS: LANOXIN PO SCH (09:07)
--- NOTE | 2019-07-21 14:07 | DISCHARGE SUMMARY ---
ADMISSION DATE: 07/14/2019 DISCHARGE DATE: 07/21/2019 PRIMARY CARE PHYSICIAN: Dr. Jose F Johnson. SECURITY TRAINER: Dr. Dillard. HISTORY AND HOSPITAL COURSE: He came in with shortness of breath, swelling, abdominal swelling. This is a 69-year-old black male, well known to our service with dilated nonischemic cardiomyopathy, coronary artery disease, COPD, hypertension, hyperlipidemia, chronic kidney disease, anemia, morbid obesity, obstructive sleep apnea, and history of pulmonary emboli with history of ventricular tachycardia. Reported shortness of breath over the last week; however, worsened on the day of admission, waking him up at night. Reports he has been compliant to his medication as well as a diet and fluid intake. Upon arrival to the emergency room, he was hypotensive. Initial blood pressure in the 80s systolic. Given a small dose of Lasix and he was admitted to the hospital. He has an AICD defibrillator. He was diuresed and watched his afterload and Cardiology followed him, Dr. Dillard. He has a well-known history of nonischemic cardiomyopathy, AICD placement, chronic congestive heart failure. So they put him on some dobutamine and this seemed to help with the diuresis. They added an extra dose of metolazone and he had marked improvement and wanted to go home on 07/21/2019. DISCHARGE MEDICATIONS: He will be on allopurinol 100 mg a day, aspirin 81 mg a day, Coreg 3.125 mg daily, codeine phosphate cough syrup as needed, digoxin 125 mg a day, Colace 100 mg b.i.d., Vasotec 10 mg b.i.d., Lasix 40 mg a day, lactulose 30 mL b.i.d., multivitamin 1 a day, omeprazole 40 mg a day, MiraLAX 17 g daily, Klor-Con 2 tablets b.i.d., Xarelto 15 mg a day, Zocor 40 mg at bedtime, Aldactone 25 mg a day, torsemide 50 mg a day, Diovan 80 mg a day, and vitamin E 1 capsule daily. cc: Rick Price MD
[2019-07-21 16:26] VITALS: BP 96/67
== END 2019-07-21 17:05 | disposition home health service (06) | DRG 291 ==
LOC: ED 12:19 → SUATTDRO 17:39 → EDIPHOLD 17:39 → ICU 20:09 → 2N 07-17 11:35 → 1N 07-18 15:49
PROVIDERS: ATTEND Emergency Medicine

== ENCOUNTER 2019-09-20 23:59 | Inpatient (IN) ==
[2019-09-21 02:05] LABS: BASO# 0.03 X1000 (0.0-0.2); BASO% 0.3 % (0.0-0.8); EOS# 0.11 X1000 (0.0-0.7); EOS% 1.3 % (0.0-10.0); HEMATOCRIT 39.1 % (42.0-52.0); HEMOGLOBIN 12.9 g/dL (14.0-18.0); IMM GRAN# 0.03 X1000 (0.0-0.04); IMM GRAN% 0.3 % (0.0-0.5); LYMPH# 2.01 X1000 (1.2-3.4); LYMPH% 22.8 % (20.5-51.1); MCH 24.2 PG (27-31); MCV 73.2 FL (81-99); MONO# 0.96 X1000 (0.11-0.59); MONO% 10.9 % (1.7-9.3); MPV 12.3 FL (7.4-10.4); NEUT# 5.66 X1000 (1.4-6.5); NEUT% 64.4 % (42.2-75.2); PLT 187 X1000 (130-400); RBC 5.34 XMIL (4.7-6.1)
[2019-09-21] MEDS ORDERED: NS 1,000 ML IV ONE (02:12)
[2019-09-21 02:46] LABS: ALB/GLOB RATIO 1.2; ALBUMIN 3.9 g/dL (3.5-5.0); CALCIUM 9.5 mg/dL (8.8-10.2); CREATININE 2.1 mg/dL (0.7-1.2); POTASSIUM 3.5 mmol/L (3.5-5.1); TOTAL BILIRUBIN 0.3 mg/dL (0.20-1.00); TOTAL PROTEIN 7.2 g/dL (6.3-8.3)
[2019-09-21] MEDS ORDERED: CORDARONE IV ONE (03:27)
[2019-09-21] MEDS ORDERED: CORDARONE 360 MG/D5W 360 MG/200 ML IV.SOLN IV ONE (03:32)
--- NOTE | 2019-09-21 03:40 | PROVIDER DOCUMENTATION ---
This chart was entered by Giselle Bloom Scribe, acting as scribe for Jerson Mccarty DO. HPI-General Adult - General Chief Complaint: For Procedure Stated Complaint: pacemaker fired Time Seen by Provider: 09/21/19 00:13 Source: patient Allergies/Adverse Reactions: Patient Allergies Allergy/AdvReac Type Severity Reaction Status Date / Time No Known Allergies Allergy Verified 09/21/19 01:23 Home Medications: Home Medication List Medication Instructions Recorded Confirmed Last Taken Type Aspirin [Iroquois Aspirin EC] 81 mg PO DAILY #30 tablet. 03/27/16 09/21/19 05/05/19 Rx Omeprazole 40 mg PO DAILY #90 capsule. 08/04/17 09/21/19 05/05/19 Rx Allopurinol 100 mg PO DAILY 02/14/19 09/21/19 05/05/19 History Rivaroxaban [Xarelto] 15 mg PO QPM 02/14/19 09/21/19 05/05/19 History Potassium Chloride [Klor-Con M20] 2 tab PO BID 04/30/19 09/21/19 05/05/19 History Vitamin E 1 cap PO DAILY 04/30/19 09/21/19 05/05/19 History Digoxin [Lanoxin] 125 microgm PO DAILY 30 Days #30 05/15/19 09/21/19 Unknown Rx tab Docusate Sodium [Colace] 100 mg PO BID 30 Days #60 cap 05/15/19 09/21/19 Unknown Rx Polyethylene Glycol 3350 [Miralax] 17 gm PO DAILY 30 Days #1 powder, 05/15/19 09/21/19 Unknown Rx packet Spironolactone [Aldactone] 25 mg PO DAILY tab 05/15/19 09/21/19 Unknown Rx Codeine Phosphate/Guaifenesin 120 ml PO Q6-8H PRN PRN 07/14/19 09/21/19 Unknown History [Codeine-Guaifen 10-100 mg/5 ml] SIMVAstatin [Zocor] 40 mg PO QHS 07/14/19 09/21/19 Unknown History Torsemide [Demadex] 50 mg PO DAILY 09/21/19 09/21/19 Unknown History - History of Present Illness -Gen Adult Nature of Presenting Problems: pt is a 69 yr old male presenting via EMS with complaint of internal defibrillator/pacemaker firing at home 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 pt reports no chest pain(except while firing) no shortness of breath, syncope or diaphoresis. pt reports setting were adjusted 2 weeks ago and he has been felling well since that time. pt denies any complaints outside of the defibrillator firing. [facility] [employer] interrogator reports pt has been in and out of Afib over last few day and has we nt into Vfib and fired 4X since yesterday. 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 Location of Pain/Injury: reports: none Pain Radiation: reports: no radiation Quality of Pain: reports: none Onset/Duration: reports: just prior to arrival Timing: reports: intermittent Context/Activities at Onset: reports: rest Modifying Factors: improves with: nothing Associated Symptoms: denies: chest pain, diaphoresis, dizziness, fatigue, fever/chills, nausea, shortness of breath, syncope, vomiting Similar Symptoms Previously?: No Recently seen or treated by another doctor?: Yes Review of Systems - Adult - REVIEW OF SYSTEMS - ADULT Constitutional: denies: chills, fever Eyes: reports: no symptoms reported Ears, Nose, Mouth & Throat: reports: no symptoms reported Cardiovascular: reports: other (internal defibrillator firing). denies: chest pain, palpitations, syncope Respiratory: denies: cough, shortness of breath Gastrointestinal: denies: nausea, vomiting Genitourinary: reports: no symptoms reported Musculoskeletal: reports: no symptoms reported Integumentary: reports: no symptoms reported Neurological: denies: dizziness/vertigo, headache/migraines Psychiatric: reports: no symptoms reported Endocrine: reports: no symptoms reported Hematologic/Lymphatic: reports: no symptoms reported Allergic/Immunologic: reports: no symptoms reported All Other Systems: Reviewed and Negative Past History - Adult - PAST MEDICAL HISTORY-ADULT Review of Records: reports: Old Records Reviewed, Nursing Assessment Review, Medications Reviewed, Social history reviewed & non-contributory. Major Childhood Illnesses: reports: denies history Cardiovascular: reports: CAD, CHF, HTN, hyperlipidemia, DC, pacemaker, other Respiratory: reports: COPD, sleep apnea Gastrointestinal: reports: denies history Obstetrical/Gynecological: reports: denies history Genitourinary: reports: denies history Musculoskeletal: reports: denies history Neurological: reports: denies history Psychiatric: reports: denies history Endocrine/Immune: reports: denies history. denies: Diabetes Other Conditions: reports: denies history - PRIOR SURGERIES/PROCEDURES Surgical/Procedure History: reports: pacemaker - IMMUNIZATION STATUS Childhood Immunizations: See Nurse Assessment Flu Vaccine: See Nurse Assessment - FAMILY HISTORY Family History: reviewed, not pertinent - SOCIAL HISTORY Smoking: non-smoker Substance Use: denies Living Situation: family Physical Exam-General - PHYSICAL EXAM-ADULT Initial Vital Signs Reviewed: Yes - CONSTITUTIONAL General Appearance: appears well, alert, no apparent distress, obese - EYES Eyes: PERRL/EOMI - HEAD, EARS, NOSE, MOUTH & THROAT HENMT: normocephalic/atraumatic, moist mucous membranes, normal ENT inspection - NECK Neck: non-tender, full range of motion, supple, normal inspection - RESPIRATORY Respiratory: chest non-tender, lungs clear, normal breath sounds, no pleuratic chest pain, no respiratory distress, no accessory muscle use - CARDIOVASCULAR Cardiovascular: normal peripheral pulses, regular rate, rhythm, no edema - GASTROINTESTINAL (ABDOMEN) Abdominal Exam: normal bowel sounds, non tender, soft - LYMPHATIC Lymphatic: no adenopathy - MUSCULOSKELETAL Back Exam: normal inspection, no CVA tenderness, no vertebral tenderness Extremity: normal range of motion, non-tender, normal gait, normal inspection - SKIN Integumentary: normal color, normal turgor, warm/dry - NEUROLOGIC Neurologic: grossly normal, no motor/sensory deficits - PSYCHIATRIC Psych/Mental Status: normal mood/affect, normal thought content, normal thought process, oriented x 3 Progress - PLAN OF CARE/RESULTS Progress/Plan/Lab Results: Vital Signs - 8 hr 09/21/19 00:28 Temperature 97.9 F Pulse Rate 60 Respiratory Rate 20 Blood Pressure 114/54 O2 Sat by Pulse Oximetry 93 L Orders Category Date Time Status EKG [EKG] Stat Ther 09/20/19 23:57 Ordered Result Diagrams: 09/21/19 01:41 09/21/19 01:58 - EKG 1 Time of EKG reading by physician:: 00:05 EKG Read and Signed by:: Jerson Mccarty EKG Interpretation (*Must complete 3 of following elements*): Abnormal Rate: 90 Rhythm: afib/paced rhythm [place]: left QRS: LBB - CONSULTS/PCP/HOSPITALIST Notification #1 *Consult/PCP/Hospitalist*: Dr Jeff Time Discussed: 03:27 (start Amioderone gtt) Reason/Comments: admit to hospitalist #2 Consult: Dr Fox Time Discussed: 03:38 Consult Disposition: Will see in ED Departure - Departure Date of Disposition Decision: 09/21/19 Time of Disposition Decision: 03:38 DIAGNOSIS: Ventricular fibrillation CHF (congestive heart failure), NYHA class IV Qualifiers: Congestive heart failure type: systolic Congestive heart failure chronicity: acute on chronic Qualified Code(s): I50.23 - Acute on chronic systolic (congestive) heart failure Hypotension Qualifiers: Hypotension type: idiopathic hypotension Qualified Code(s): I95.0 - Idiopathic hypotension Disposition: ADMITTED INPATIENT 09 Certified Medical Emergency: Emergent Condition: Critical Referrals and Follow-Ups: Jose F Johnson MD [Primary Care Provider] - - Critical Care Note This patient required my direct & personal management of CC.: Yes Total Time (mins): 67 Critical Care Statement: This patient required my direct personal management to treat or rule out processes, the absence of which, could potentiallly result in sudden, clinically significant life or limb threatening deterioration. Attestation - Physician/ DAMIEN Attestation Patient care was provided by Advanced Practice Provider:: No The physician spent face to face time with patient:: Yes Advanced Practice Provider documentation review:: Supervising physician onsite and consulted in the evaluation and care of this patient. The physician did have a face to face encounter with the patient. This chart was documented by the indicated scribe, (Giselle Bloom Scribe) and accurately reflects the services I performed and decisions made by me, Jerson Mccarty DO, as attested by the provider's signature.
[2019-09-21] MEDS ORDERED: ZOFRAN IV PRN (05:47)
--- NOTE | 2019-09-21 05:57 | HISTORY AND PHYSICAL ---
PRIMARY CARE PROVIDER: Dr. Johnson. CHIEF COMPLAINT: AICD firing. HISTORY OF PRESENTING ILLNESS: A 69-year-old male with a history of dilated nonischemic cardiomyopathy, coronary artery disease, COPD, hypertension and chronic kidney disease, who had presented to emergency department with several days history of having his AICD firing. He states that he was not feeling well. He was having some chest discomfort and subsequently had come to the emergency department. In the ED he was evaluated. His [employer] interrogator report showed that he was in and out of atrial fibrillation and then went into ventricular fibrillation and fired about 4 times since yesterday. His case was discussed with Cardiology who recommended patient be started on amiodarone and will be admitted for further management. At the time of my examination, patient denied any headache, fever, chills, nausea, vomiting, diarrhea, hemoptysis or weight changes, but complained of chest discomfort and shortness of breath. PAST MEDICAL HISTORY: Include dilated nonischemic cardiomyopathy, coronary artery disease, COPD on home oxygen, hypertension, hyperlipidemia, chronic kidney disease, morbid obesity, PE. PAST SURGICAL HISTORY: Pacemaker, AICD. ALLERGIES: No known drug allergies. CURRENT MEDICATIONS: Allopurinol 100 mg p.o. daily, aspirin 81 mg p.o. daily, digoxin 125 mcg p.o. daily, omeprazole 40 mg p.o. daily, Xarelto 15 mg p.o. q.p.m., simvastatin 40 mg p.o. at bedtime, spironolactone 25 mg p.o. daily, Demadex 50 mg p.o. daily, vitamin E 1000 units subcutaneous daily. SOCIAL HISTORY: No history of smoking, alcohol or illicit drug use. FAMILY HISTORY: No history of coronary artery disease. REVIEW OF SYSTEMS: Fourteen point review of system is as listed in HPI. Other systems negative. PHYSICAL EXAMINATION: GENERAL: Cooperative, friendly male. He is resting more comfortably now. VITAL SIGNS: Temperature 97.9 degrees, pulse 60, respirations 20, blood pressure 114/54. HEENT: Atraumatic, normocephalic. Extraocular movements intact. PERRLA. NECK: No masses. CHEST: Clear to auscultation. CARDIOVASCULAR: Regular rate and rhythm. ABDOMEN: Soft. Positive bowel sounds. EXTREMITIES: Trace edema. NEUROLOGIC: She is awake, alert, oriented x3. GENITOURINARY: No bladder distention. SKIN: Warm. LABORATORIES AND STUDIES: WBCs 8.80, hemoglobin 12.9, hematocrit 39.1, platelets 187,000. Sodium 135, potassium 3.5, chloride 90, CO2 is 29, BUN is 69, creatinine is 2.1, glucose 158. ASSESSMENT: A 69-year-old male with a history of a dilated nonischemic cardiomyopathy, coronary artery disease, chronic obstructive pulmonary disease, hypertension and chronic kidney disease, who had presented to emergency department with several days history of his AICD firing. He was evaluated in the emergency department. He had a [employer] interrogation report which showed that he was in and out of atrial fibrillation and also went into ventricular fibrillation. He was started on amiodarone and he will be admitted to [facility] for further evaluation and management. 1. Automatic implantable cardioverter defibrillator firing. 2. Ventricular fibrillation. 3. Chronic obstructive pulmonary disease. 4. Hypertension. PLAN: 1. We will admit patient to [facility]. 2. Continue patient on amiodarone. 3. We will consult Cardiology. 4. We will have patient on supplemental oxygen. 5. Monitor blood pressure closely. 6. The patient is on Xarelto and that will suffice for DVT prophylaxis. 7. We will continue to follow and reassess, make further recommendation based on patient's clinical course. cc: José Miguel Fox MD
[2019-09-21] MEDS: PRILOSEC PO SCH (06:43)
--- NOTE | 2019-09-21 07:52 | Diag Imaging Result Doc PS360 ---
EXAM: CHEST-PORTABLE INDICATION: defibrillation TECHNIQUE: One view COMPARISON: 07/15/2019 FINDINGS: There is pulmonary venous congestion that is similar to the previous study. There is elevation of the left hemidiaphragm, stable. There is no discrete pleural fluid collection or pneumothorax. There is stable cardiomegaly. The left pacemaker is stable. IMPRESSION: Cardiomegaly and pulmonary venous congestion as described. Electronically signed by Chinmay Lott 09/21/2019 7:50 AM
[2019-09-21] MEDS: CORDARONE 540 MG in D5W 289.2 ML IV ONE ×2 (08:50→12:04)
[2019-09-21] MEDS ORDERED: DEMADEX PO SCH (09:00)
[2019-09-21] MEDS ORDERED: ALDACTONE PO SCH (09:00)
[2019-09-21] MEDS ORDERED: LANOXIN PO SCH (09:00)
--- NOTE | 2019-09-21 09:05 | EKG Report ---
Test Performed on : 09/21/2019 00:06:36 AM Test Reason : defib fired at home Blood Pressure : / mmHG Vent. Rate : 089 BPM Atrial Rate : 051 BPM P-R Int : 176 ms QRS Dur : 162 ms QT Int : 446 ms P-R-T Axes : 000 -89 100 degrees QTc Int : 542 ms Sinus bradycardia. with frequent and consecutive premature ventricular complexes. Left axis deviation Nonspecific intraventricular block Inferior infarct , age undetermined Anterolateral infarct , age undetermined Abnormal ECG When compared with ECG of 21-SEP-2019 00:05, (Unconfirmed) Significant changes have occurred Unconfirmed Result
[2019-09-21] MEDS ORDERED: KLOR-CON PO ONE (09:22)
[2019-09-21] MEDS ORDERED: POTASSIUM CHLORIDE 20 MEQ/SWI 20 MEQ/100 ML IVPB IV ONE (09:23)
[2019-09-21] MEDS ORDERED: MAGNESIUM SULFATE 2 GM/S.W.I. 2 GM/50 ML IVPB IV ONE ×2 (09:36→18:30)
[2019-09-21] MEDS: DEMADEX PO SCH (09:40)
[2019-09-21] MEDS: ASPIRIN EC PO SCH (09:40)
[2019-09-21] MEDS: COLACE PO SCH ×2 (09:40→20:22)
[2019-09-21] MEDS: VITAMIN E PO SCH (09:41)
[2019-09-21] MEDS: ZYLOPRIM PO SCH (09:42)
--- NOTE | 2019-09-21 10:55 | PROGRESS NOTE ---
DATE: 09/21/2019 INTERVAL HISTORY: Mr. Vázquez was admitted for firing of his AICD. The patient felt one of the shocks, and AICD interrogation revealed he had 4 of them. SUBJECTIVE: He currently denies any chest pain or shortness of breath. He says that his lower extremity swelling has significantly decreased. He wants to eat something and is feeling hungry. OBJECTIVE: Vital Signs: Temperature 97.5 degrees, pulse 82, respiratory rate 19, blood pressure 101/72, he is saturating 100% on 3 L nasal cannula. General: He is not in acute distress. HEENT: Oral cavity is moist. Lungs: Air entry bilaterally equal. No wheeze, rhonchi, crackles. Cardiovascular: S1, S2 normal. No murmur, rub, or gallop. Appears irregular. Abdomen: Appears obese. There could certainly be a component of ascites. I percussed his abdomen, but it is difficult for me to appreciate whether it is dull or tympanic. LABORATORY DATA: Repeat troponin is showing 63. Potassium was 3.5. ASSESSMENT AND PLAN: 1. Ventricular fibrillation, status post shock delivered by automatic implantable cardioverter- defibrillator on interrogation. I will replete his potassium to keep it more than 4, and magnesium to keep it more than 2. Continue intravenous amiodarone drip, and appreciate further Cardiology team's recommendation. He does have baseline congestive heart failure with systolic dysfunction and ejection fraction of 15% to 20%. His current ventricular fibrillation episode could just be related to his congestive heart failure. His mild hypokalemia could also be a contributing factor. I will trend troponin to rule out any acute coronary syndrome, which is extremely less likely since he did not have any symptoms. 2. Chronic systolic congestive heart failure, hyperlipidemia, and essential hypertension. Continue home simvastatin, aspirin, spironolactone, torsemide. 3. History of chronic obstructive pulmonary disease. 4. History of pulmonary embolism. Continue rivaroxaban. 5. Disposition. Continue to monitor the patient in PVC. Plan of care discussed with him. His questions have been answered. cc: Tye Vanegas MD
--- NOTE | 2019-09-21 11:25 | CARDIOLOGY CONSULTATION ---
DATE: 09/21/2019 CHIEF COMPLAINT: Device shocks, weakness. HISTORY: Mr. Vázquez is a 69-year-old, black gentleman who is very well known to us. As a matter of fact, I saw him in the hospital on 05/06/2019 when he was admitted with decompensated heart failure. At this time, he presents to the ER shortly after midnight, complaining of several episodes of feeling a jolt in the chest. That was consistent with the defibrillator firing. The pacemaker company, [employer], was asked to come and help. They analyzed the device and apparently, he had been shocked several times-at 1:55 p.m. on September 19, then again at 2:05 p.m., at 5:04 p.m., and at 11:08 p.m., a total of 4 times. The rhythm for which he was shocked was ventricular fibrillation. The patient is feeling better at this time. Last night, he was given amiodarone. Of note, his potassium is 3.5 which is somewhat low. His magnesium is 1.9. He is not having chest pain. His legs are not as swollen as they are were. He is not having any chest pain. He seems to be feeling fine this morning. I am seeing him at 9:50 a.m. He states that a few days ago, he went to his primary physician and reported having a cold, and was prescribed some sort of "cold medicine". On the listed medications, it looks like he was taking codeine phosphate-guaifenesin. I do not know if he was also prescribed an antibiotic to take. I have asked the family to bring the medicines to review them. PAST MEDICAL HISTORY: As I said, it is positive for dilated cardiomyopathy. This is nonischemic. The patient has been already investigated for the presence of coronary heart disease and nothing has been found in the past. He has a history of pulmonary embolism. He has had previous diagnosis of ventricular tachycardia. He has hypertension, hyperlipidemia. He has chronic kidney disease. He is morbidly obese. He has obstructive sleep apnea. He has COPD. SURGICAL HISTORY: He has had AICD implantation in the past. SOCIAL HISTORY: The patient is . He lives at home with . He quit smoking a long time ago. He is on disability. FAMILY HISTORY: Positive for heart disease in a sister. ALLERGIES: Negative. HOME MEDICATIONS: Listed at this time include: Allopurinol 100 mg daily, aspirin [place] 81 mg daily, codeine phosphate-guaifenesin 120 mL every 6 to 8 hours, digoxin 0.125 mg daily, docusate 100 mg twice a day, omeprazole 40 mg daily, rivaroxaban 50 mg at bedtime, simvastatin 40 at bedtime, spironolactone 25 mg daily, torsemide 50 mg daily, vitamin E one capsule daily, potassium chloride 2 tablets b.i.d. REVIEW OF SYSTEMS: There has been no real change. He is always limited by shortness of breath. He does have some abdominal swelling. Of note, his weight is 285 at this time. On prior admissions that took place 02/14/2019, 03/07/2019, 05/05/2019, and 07/14/2019, his weight has fluctuated from as high as 302 pounds to as low as 277 pounds. At the time of last admission, he was discharged with a weight of 292 pounds. The last time he saw Dr. Dillard at the office, they quoted a weight of 284 pounds which is very close to his current weight. He was seen by Dr. Dillard last time on 08/13/2019. At that time, he appeared to be stable. Dr. Dillard had him on Entresto, according to his list of medicines. However, I do not see that on his current list of medicines. His device is a [employer] device. That had been checked last time on 09/16/2019 prior to the checkup that was done yesterday and at that time, there was a suggestion of question of increased fluid volume. The device is a [employer] model CD #3365/40 [employer] serial #[id number]. PHYSICAL EXAMINATION: Vital Signs: Blood pressure 101/72, temperature 97.5 degrees, pulse 82, respirations 19. Patient is awake, in no distress. HEENT: Some jugular venous distention. Chest: Clear to auscultation and percussion. Heart sounds are regular and rhythmic. No gallop or murmur. Abdomen: Nontender. Extremities: Showed no edema. Neurological Examination: Nonfocal. Moves 4 extremities. DIAGNOSTIC DATA: Chest x-ray showed cardiomegaly with pulmonary venous congestion. EKG that was done yesterday showed AV paced rhythm. Blood work showed sodium 135, potassium 3.5, BUN 69, creatinine 2.1. High sensitivity troponin is 63 and 62. Hemoglobin is 12.9, hematocrit 39.1. IMPRESSION: 1. Patient presenting with episodes of ventricular fibrillation, status post successful defibrillation four times. 2. Advanced dilated nonischemic cardiomyopathy with congestive heart failure functional class 3 to 4 [place] [employer]. 3. History of hypertension. 4. History of hyperlipidemia. 5. Prior history of pulmonary embolism. 6. Obesity and sleep apnea syndrome. 7. Chronic kidney disease. RECOMMENDATIONS: At this time, we will keep him on amiodarone as he was started yesterday. We will give him extra potassium to get his level up to 4. We will see how he does. I have asked the family to bring all the home medicines so we can tell whether or not he was prescribed azithromycin or clarithromycin or Levaquin which could potentially alter the electrical substrate of the heart and make him more liable to develop ventricular arrhythmia. At any rate, we will continue to observe him in the hospital. cc: Barry Jeff MD
--- NOTE | 2019-09-21 18:33 | EKG Report ---
Test Performed on : 09/21/2019 6:10:50 PM Test Reason : Run of V-fib with Defib firing Blood Pressure : / mmHG Vent. Rate : 080 BPM Atrial Rate : 052 BPM P-R Int : 000 ms QRS Dur : 212 ms QT Int : 528 ms P-R-T Axes : 000 -82 092 degrees QTc Int : 608 ms Suspect unspecified pacemaker failure Ventricular-paced rhythm Abnormal ECG When compared with ECG of 21-SEP-2019 00:06, (Unconfirmed) Electronic ventricular pacemaker has replaced Sinus rhythm. Confirmed by Mario Rice MD ([id number]) on 09/23/2019 7:31:25 PM
[2019-09-21] MEDS: ZOCOR PO SCH (20:22)
[2019-09-21] MEDS: XARELTO PO SCH (20:22)
[2019-09-22] MEDS: CORDARONE PO SCH ×3 (02:19→15:53)
[2019-09-22] MEDS: PRILOSEC PO SCH (06:09)
[2019-09-22 06:51] LABS: BASO# 0.03 X1000 (0.0-0.2); BASO% 0.3 % (0.0-0.8); EOS# 0.11 X1000 (0.0-0.7); EOS% 1.2 % (0.0-10.0); HEMATOCRIT 41.3 % (42.0-52.0); HEMOGLOBIN 13.4 g/dL (14.0-18.0); IMM GRAN# 0.03 X1000 (0.0-0.04); IMM GRAN% 0.3 % (0.0-0.5); LYMPH# 2.59 X1000 (1.2-3.4); LYMPH% 28.7 % (20.5-51.1); MCHC 32.4 g/dL (33-37); MONO# 0.81 X1000 (0.11-0.59); MPV 11.8 FL (7.4-10.4); NEUT# 5.47 X1000 (1.4-6.5); NEUT% 60.5 % (42.2-75.2); PLT 176 X1000 (130-400); RBC 5.58 XMIL (4.7-6.1); RDW 16.1 % (11.5-14.5); WBC 9.04 X1000 (4.8-10.8)
[2019-09-22 07:20] LABS: CALCIUM 9.3 mg/dL (8.8-10.2); CREATININE 1.9 mg/dL (0.7-1.2); POTASSIUM 3.3 mmol/L (3.5-5.1)
[2019-09-22] MEDS ORDERED: KLOR-CON PO ONE (08:10)
[2019-09-22] MEDS ORDERED: POTASSIUM CHLORIDE 20% LIQUID PO ONE ×3 (08:51→20:06)
--- NOTE | 2019-09-22 09:16 | CARDIOLOGY PROGRESS NOTE ---
DATE: 09/22/2019 CHIEF COMPLAINT: Defibrillator shock, shortness of breath. SUBJECTIVE: Mr. Vázquez had another episode of ventricular fibrillation, and he was successfully defibrillated last night. The EKG that was done at 6:03 p.m. shows activity of a dual chamber pacemaker with atrial sensing and V pacing. The patient denies having any pain at this time. He is in no distress. OBJECTIVE: Blood pressure is 100/66, temperature 98.2, pulse 80, respirations 24. He is awake, alert, in no distress. HEENT: Slight distention of jugular veins. Chest sounds clear to auscultation and percussion. Heart sounds are regular and rhythmic. I do not hear a gallop or murmur. His abdomen is obese. Extremities show no significant edema. Neurologic: Follows commands. Moves all 4 extremities. IMPRESSION: 1. The patient presented with ventricular fibrillation, recurrent, with multiple defibrillator shocks. 2. Dilated nonischemic cardiomyopathy, functional class 3 to 4. 3. Hypertension. 4. Hyperlipidemia. 5. History of prior pulmonary embolism. 6. Sleep apnea syndrome. 7. Chronic kidney disease. RECOMMENDATIONS: At this time, we will try to optimize his electrolytes. We will give him extra potassium. I am going to put him on spironolactone 50 mg twice a day. We will see how he does with that. We have made the amiodarone 400 mg 3 times a day by mouth. His prognosis in general is guarded. cc: Barry Jeff MD
--- NOTE | 2019-09-22 09:18 | PROGRESS NOTE ---
DATE: 09/22/2019 INTERVAL HISTORY: Yesterday evening, at about 6 p.m., Mr. Vázquez had an episode of ventricular fibrillation and his AICD fired. He was feeling tired after the AICD fired. No other acute overnight events. Emergency Specialist was informed about it and the plan was to continue intravenous amiodarone drip and change it to oral amiodarone when the drip would get done. SUBJECTIVE: In the morning time, Mr. Vázquez is feeling better. Denies any new complaints including chest pain or shortness of breath. We discussed about cardiac arrest rhythm of ventricular fibrillation, the mechanism. We discussed about possible etiologies. We discussed about continuing amiodarone for now and awaiting further cardiology recommendations. VITALS: Temperature 98.2 degrees, pulse 80, respiratory rate 24, blood pressure 100/66, saturating 97% on 3 L nasal cannula. PHYSICAL EXAMINATION: He is not in acute distress. Oral cavity is moist. Lungs: Air entry bilaterally equal. No wheeze, rhonchi, crackles. Cardiovascular: S1, S2 normal. No murmur, rub, or gallop. Abdomen: Obese, soft, nontender. No lower extremity edema. He is alert and oriented x3. LABS: Suggestive of microcytosis, hemoglobin of 13.4, potassium of 3.3, BUN 59, and creatinine 1.9. His troponin has been showing flat trend of 67. MICROBIOLOGY: No data. IMAGING: No new imaging. ASSESSMENT AND PLAN: 1. Ventricular fibrillation, status post multiple shocks, at least 4 to 5 delivered over the last 48 to 72 hours by automatic implantable cardioverter defibrillator. I will replete his potassium and magnesium to keep it more than 4 and more than 2 respectively. He is status post intravenous amiodarone drip and continue oral amiodarone as per cardiology team's recommendation. He has a history of nonischemic cardiomyopathy with an ejection fraction of 15 to 20 percent. 2. Chronic systolic congestive heart failure, hyperlipidemia, and hypertension. Continue home simvastatin, aspirin, spironolactone, and torsemide. 3. History of chronic hypoxic respiratory failure. Continue patient's oxygen. 4. History of pulmonary embolism. Continue Xarelto. 5. Disposition. Continue to monitor the patient in PVC as I await further cardiology recommendations. Plan of care was discussed with the patient. His questions were answered. ADDENDUM: Patient went into [facility] at around 1800 PM and AICD fired. Cardiology team was notified and patient was started on Metoprolol PO and IV. I went to evaluate the patient at bedside and while I was standing next to him, he went into [facility] again and his AICD fired. He did not convert back after 1st fire and a few seconds later it fired again and he converted back. I immediately notified director learning services pc installation engineer. We decided to redraw Potassium. We decided to start him on Amiodarone drip and continue oral metoprolol. We decided to transfer him to ICU. After AICD firing, patient appeared tired. I informed him and 2 of his brothers at bedside about his critical condition, pathophysiology of ventricular arrhythmia and CHF. I answered all of their questions. I will repeat Potassium at around midnight. 35 minutes of additional critical care time has been spent. I communicated the plan to the night nursing team. cc: Tye Vanegas MD MTDD
[2019-09-22] MEDS: POTASSIUM CHLORIDE 20 MEQ/SWI 20 MEQ/100 ML IVPB IV SCH ×2 (09:19→12:03)
[2019-09-22] MEDS: VITAMIN E PO SCH (09:20)
[2019-09-22] MEDS: ALDACTONE PO SCH ×2 (09:20→20:44)
[2019-09-22] MEDS: ASPIRIN EC PO SCH (09:20)
[2019-09-22] MEDS: DEMADEX PO SCH (09:20)
[2019-09-22] MEDS: COLACE PO SCH ×2 (09:21→20:43)
[2019-09-22] MEDS: ZYLOPRIM PO SCH (09:21)
--- NOTE | 2019-09-22 13:24 | EKG Report ---
Test Performed on : 09/22/2019 1:12:01 PM Test Reason : HR 130 Blood Pressure : / mmHG Vent. Rate : 101 BPM Atrial Rate : 104 BPM P-R Int : 000 ms QRS Dur : 158 ms QT Int : 412 ms P-R-T Axes : 000 -85 082 degrees QTc Int : 534 ms Suspect unspecified pacemaker failure Atrial fibrillation. with rapid ventricular response. with premature ventricular or aberrantly conduc khris complexes. Left axis deviation Nonspecific intraventricular block Abnormal ECG When compared with ECG of 21-SEP-2019 18:10, (Unconfirmed) Atrial fibrillation. has replaced Electronic ventricular pacemaker Confirmed by Mario Rice MD ([id number]) on 09/23/2019 7:39:28 PM
[2019-09-22] MEDS ORDERED: LOPRESSOR 10 MG in NS 50 ML IV ONE ×2 (17:02→17:41)
[2019-09-22] MEDS ORDERED: CORDARONE 150 MG/D5W 150 MG/100 ML IV.SOLN IV ONE (19:14)
[2019-09-22] MEDS ORDERED: LOPRESSOR PO ONE (19:14)
[2019-09-22] MEDS ORDERED: CORDARONE 360 MG/D5W 360 MG/200 ML IV.SOLN IV ONE (19:14)
[2019-09-22] MEDS: ZOCOR PO SCH (20:43)
[2019-09-22] MEDS: XARELTO PO SCH (20:44)
[2019-09-22 22:30] LABS: ALB/GLOB RATIO 0.9; ALBUMIN 3.6 g/dL (3.5-5.0); CALCIUM 9.5 mg/dL (8.8-10.2); CREATININE 1.9 mg/dL (0.7-1.2); POTASSIUM 3.4 mmol/L (3.5-5.1); TOTAL BILIRUBIN 0.33 mg/dL (0.20-1.00); TOTAL PROTEIN 7.7 g/dL (6.3-8.3)
[2019-09-23] MEDS: LOPRESSOR PO SCH ×5 (01:08→20:08)
[2019-09-23] MEDS ORDERED: CORDARONE 540 MG in D5W 289.2 ML IV ONE (01:14)
[2019-09-23] MEDS ORDERED: KEPPRA 500 MG in NS 100 ML IV ONE (05:39)
[2019-09-23 06:00] LABS: CALCIUM 9.9 mg/dL (8.8-10.2); CREATININE 1.9 mg/dL (0.7-1.2); MAGNESIUM 2.1 mg/dL (1.5-2.7); POTASSIUM 3.7 mmol/L (3.5-5.1)
[2019-09-23] MEDS: ATIVAN IV PRN ×5 (06:02→19:43)
--- NOTE | 2019-09-23 06:07 | EKG Report ---
Test Performed on : 09/23/2019 05:58:34 AM Test Reason : Possible seizures Blood Pressure : / mmHG Vent. Rate : 071 BPM Atrial Rate : 071 BPM P-R Int : 204 ms QRS Dur : 196 ms QT Int : 576 ms P-R-T Axes : 064 -80 090 degrees QTc Int : 625 ms Atrial-sensed ventricular-paced rhythm Abnormal ECG When compared with ECG of September 22, 2019- No significant change was found Confirmed by Mario Rice MD ([id number]) on 09/23/2019 8:01:40 PM
[2019-09-23] MEDS: PRILOSEC PO SCH (06:28)
[2019-09-23] MEDS ORDERED: AMIDATE IV ONE (06:57)
[2019-09-23] MEDS ORDERED: QUELICIN IV ONE (06:57)
[2019-09-23] MEDS ORDERED: QUELICIN ONE (07:00)
[2019-09-23] MEDS ORDERED: AMIDATE ONE (07:00)
[2019-09-23] MEDS ORDERED: DIPRIVAN 1% 0 MG/0 ML BOTTLE ONE (07:01)
[2019-09-23] MEDS ORDERED: MORPHINE IV ONE ×2 (07:14→14:49)
[2019-09-23] MEDS ORDERED: LIDOCAINE 2 GM/D5W 2 GM/500 ML IV.SOLN IV SCH (07:15)
[2019-09-23] MEDS ORDERED: NEO-SYNEPHRINE 50 MG in NS 250 ML IV SCH (07:15)
--- NOTE | 2019-09-23 07:30 | Diag Imaging Result Doc PS360 ---
EXAM: CHEST-PORTABLE INDICATION: ETT and NG tube placement TECHNIQUE: 2 views COMPARISON: 09/21/2019 FINDINGS: An NG tube is identified with the tip projecting below the diaphragm and assumed to be in the lumen of the stomach in expected position. There is an ET tube with the tip projecting over the trachea and above the chito at about the T4 level. There is pulmonary venous congestion similar to the previous study. No new consolidation is appreciated. There is stable cardiomegaly. IMPRESSION: Interval placement of ET tube and NG tube as described. Stable chest, otherwise. Electronically signed by Chinmay Lott 09/23/2019 7:27 AM
--- NOTE | 2019-09-23 07:43 | CARDIOLOGY PROGRESS NOTE ---
DATE: 09/23/2019 CHIEF COMPLAINT: Defibrillator shock.Dyspnea. SUBJECTIVE: Mr. Vázquez had another episode of ventricular fibrillation yesterday afternoon. At that time, the device fired successfully and we gave him magnesium 2 g, metoprolol 10 mg IV, and put him on oral metoprolol. Since then, the patient had an uneventful night until today at about 5:23 in the morning when he had an episode of seizure. He developed at that time evidence of ventricular fibrillation again and he was treated with the ACLS standard protocol. Chest compressions, etc. were provided. He has been intubated. He has been brought to the ICU. At this time, his rhythm appears to be atrial sinus V-paced. He reacted when they were passing the NG tube. The patient is really minimally responsive at this time. OBJECTIVE: Vital signs: Blood pressure is 144/68, temperature 98.3 degrees, pulse 74, respirations 25. General: He is unresponsive, intubated. An NG tube has just been placed. Chest: Shows symmetrical breath sounds diminished. Heart: Sounds are regular, rhythmic, distant. Abdomen: Distended. Extremities: Showed decreased pulses. Trace edema. Neurologic exam: As I said, he is unresponsive. BLOOD WORK: This morning, sodium 133, potassium 3.7, magnesium 2.1, BUN 59, creatinine 1.9. IMPRESSION: 1. Patient who has recurrent ventricular fibrillation. Apparently, his device has been overwhelmed by it. 2. Dilated nonischemic cardiomyopathy long-term process. 3. History of pulmonary embolism in the past. 4. Obstructive sleep apnea. 5. Morbidly obese. 6. Chronic kidney disease. RECOMMENDATIONS: At this time, the patient is in a critical situation. He is on IV amiodarone. I am going to initiate IV lidocaine. We will give him Filiberto-Synephrine as needed to maintain adequate perfusion. We will continue to monitor his electrolytes. It is very possible that we are just witnessing the end-stage of his cardiomyopathy with electrical storm. At this time, we will continue to support him. Prognosis is very poor. cc: Barry Jeff MD [facility]
--- NOTE | 2019-09-23 08:46 | EKG Report ---
Test Performed on : 09/23/2019 06:20:43 AM Test Reason : RHYTHM CHANGE Blood Pressure : / mmHG Vent. Rate : 216 BPM Atrial Rate : 267 BPM P-R Int : 000 ms QRS Dur : 006 ms QT Int : 122 ms P-R-T Axes : 000 000 245 degrees QTc Int : 231 ms Wide complex tachycardia- suspect ventricular tachycardia Indeterminate axis Pulmonary disease pattern ST & T wave abnormality, consider inferolateral ischemia Abnormal ECG When compared with ECG of 23-SEP-2019 06:10, (Unconfirmed) Significant changes have occurred Confirmed by Mario Rice MD ([id number]) on 09/23/2019 8:10:14 PM
--- NOTE | 2019-09-23 08:46 | EKG Report ---
Test Performed on : 09/23/2019 06:06:16 AM Test Reason : RHYTHM CHANGE Blood Pressure : / mmHG Vent. Rate : 183 BPM Atrial Rate : 277 BPM P-R Int : 000 ms QRS Dur : 018 ms QT Int : 128 ms P-R-T Axes : 000 000 -50 degrees QTc Int : 223 ms Wide complex tachycardia Indeterminate axis Pulmonary disease pattern ST & T wave abnormality, consider lateral ischemia Unconducted pacer spikes present Abnormal ECG When compared with ECG of 23-SEP-2019 05:58, (Unconfirmed) Wide complex tachycardia has replaced Atrial-sensed ventricular-paced rhythm Vent. rate has increased BY 112 BPM Questionable change in QRS duration Confirmed by Mario Rice MD ([id number]) on 09/23/2019 8:06:49 PM
--- NOTE | 2019-09-23 08:46 | EKG Report ---
Test Performed on : 09/23/2019 06:10:30 AM Test Reason : RHYTHM CHANGE Blood Pressure : / mmHG Vent. Rate : 085 BPM Atrial Rate : 037 BPM P-R Int : 170 ms QRS Dur : 200 ms QT Int : 548 ms P-R-T Axes : 072 -66 098 degrees QTc Int : 652 ms Undetermined rhythm - Suspect atrial fibrillation with multiple paced beats Left axis deviation Left ventricular hypertrophy with QRS widening and repolarization abnormality Inferior infarct , age undetermined Anterolateral infarct , age undetermined Abnormal ECG When compared with ECG of 23-SEP-2019 06:07, (Unconfirmed) Significant changes have occurred Confirmed by Mario Rice MD ([id number]) on 09/23/2019 8:08:40 PM
--- NOTE | 2019-09-23 08:46 | EKG Report ---
Test Performed on : 09/23/2019 08:03:07 AM Test Reason : RHYTHM CHECK Blood Pressure : / mmHG Vent. Rate : 086 BPM Atrial Rate : 086 BPM P-R Int : 256 ms QRS Dur : 154 ms QT Int : 534 ms P-R-T Axes : 071 265 077 degrees QTc Int : 639 ms Poor data quality, interpretation may be adversely affected Atrial-sensed ventricular-paced rhythm Abnormal ECG When compared with ECG of 23-SEP-2019 06:20, (Unconfirmed) Significant changes have occurred Confirmed by Mario Rice MD ([id number]) on 09/23/2019 8:13:21 PM
--- NOTE | 2019-09-23 08:58 | EKG Report ---
Test Performed on : 09/22/2019 5:46:43 PM Test Reason : CONFIRM RHYTHM Blood Pressure : / mmHG Vent. Rate : 101 BPM Atrial Rate : 101 BPM P-R Int : 184 ms QRS Dur : 154 ms QT Int : 418 ms P-R-T Axes : 040 -58 073 degrees QTc Int : 542 ms Suspect unspecified pacemaker failure Atrial-sensed ventricular-paced rhythm with occasional premature ventricular complexes. in a pattern of bigeminy. Abnormal ECG When compared with ECG of 22-SEP-2019 17:40, (Unconfirmed) Paced rhythm has replaced atrial fibrillation Confirmed by Mario Rice MD ([id number]) on 09/23/2019 7:53:54 PM
--- NOTE | 2019-09-23 08:58 | EKG Report ---
Test Performed on : 09/22/2019 5:40:15 PM Test Reason : RHYTHM CHECK Blood Pressure : / mmHG Vent. Rate : 093 BPM Atrial Rate : 097 BPM P-R Int : 000 ms QRS Dur : 154 ms QT Int : 450 ms P-R-T Axes : 000 -80 083 degrees QTc Int : 559 ms Suspect unspecified pacemaker failure Atrial fibrillation. with multiple paced beats. Left axis deviation Nonspecific intraventricular block Lateral infarct , age undetermined Abnormal ECG When compared with ECG of 22-SEP-2019 17:39, (Unconfirmed) No significant change was found Confirmed by Mario Rice MD ([id number]) on 09/23/2019 7:53:14 PM
--- NOTE | 2019-09-23 08:58 | EKG Report ---
Test Performed on : 09/22/2019 5:39:30 PM Test Reason : IRREGULAR RHYTHM Blood Pressure : / mmHG Vent. Rate : 095 BPM Atrial Rate : 089 BPM P-R Int : 000 ms QRS Dur : 210 ms QT Int : 450 ms P-R-T Axes : 000 047 202 degrees QTc Int : 565 ms Suspect unspecified pacemaker failure Atrial fibrillation. with multiple paced beats and fusion complexes Left axis deviation Nonspecific intraventricular block Inferior infarct , age undetermined Abnormal ECG When compared with ECG of 22-SEP-2019 17:37, (Unconfirmed) Significant changes have occurred Confirmed by Mario Rice MD ([id number]) on 09/23/2019 7:50:55 PM
--- NOTE | 2019-09-23 08:59 | EKG Report ---
Test Performed on : 09/22/2019 5:37:14 PM Test Reason : v fib Blood Pressure : / mmHG Vent. Rate : 102 BPM Atrial Rate : 094 BPM P-R Int : 200 ms QRS Dur : 168 ms QT Int : 374 ms P-R-T Axes : 000 -79 079 degrees QTc Int : 487 ms Suspect unspecified pacemaker failure Atrial fibrillation. with occasional paced beat Left axis deviation Nonspecific intraventricular block Lateral infarct , age undetermined Abnormal ECG When compared with ECG of 22-SEP-2019 13:12, (Unconfirmed) Lateral infarct is now present QT has shortened Confirmed by Mario Rice MD ([id number]) on 09/23/2019 7:48:11 PM
[2019-09-23] MEDS: ALDACTONE PO SCH ×2 (10:43→20:08)
[2019-09-23] MEDS: DEMADEX PO SCH (10:44)
[2019-09-23] MEDS: ASPIRIN EC PO SCH (10:44)
[2019-09-23] MEDS: ZYLOPRIM PO SCH (10:44)
[2019-09-23] MEDS: VITAMIN E PO SCH (10:44)
[2019-09-23] MEDS: COLACE PO SCH ×2 (10:44→20:08)
--- NOTE | 2019-09-23 12:04 | PROGRESS NOTE ---
DATE: 09/23/2019 SUBJECTIVE: I have seen and examined Mr. Vázquez today. Mr. Vázquez is currently intubated in the Critical Care Unit. He is not able to give any interim history. The and another female younger family member were at the bedside at the time of the encounter. Per the nursing staff, Mr. Vázquez went into sustained ventricular tachycardia/ventricular fibrillation early this morning, with multiple shocks from his device, which was unsuccessful. He then went into asystole. He was coded for about 3 minutes, after which they got return of spontaneous circulation. He was intubated, and has been started on amiodarone drip. Cardiology has been notified. Somewhere along the line, he was also found to have some jerky type of movement. This was interpreted to be possible seizures. He was loaded with Keppra, and EEG has been ordered. I have been told that Mr. Vázquez did not qualify for hypothermia protocol because he was immediately responsive. OBJECTIVE: Current Vital Signs: Blood pressure is 85/66, pulse of 74, respirations 16, temperature is 98.4 degrees. General: Mr. Vázquez is a 69-year-old, male. He is in bed, currently intubated. HEENT: Mucosa is pink and moist. Anicteric. Acyanotic. Neck: Supple. Chest: Good air entry bilaterally. No crepitations. Cardiovascular: Regular rate and rhythm. There is a positive S3. Abdomen: Soft, distended. Bowel sounds present. Extremities: No pedal edema. HOME HEALTH PROVIDER: The patient is currently sedated, intubated. He will, however, move his upper extremity, trying to extubate himself. The patient's I's and O's show output has been 1350, he is currently in negative balance of 3645. IMAGING STUDIES: A chest x-ray from early this morning shows interval placement of ET tube and NG tube. EKG early this morning shows a paced rhythm. LABORATORY DATA: The chemistry is reviewed. Creatinine is 1.9. ASSESSMENT: 1. Status post cardiopulmonary arrest. I understand the patient went into sustained ventricular fibrillation, had to be resuscitated for about 3 minutes. 2. Ventricular fibrillation, status post multiple shocks from the patient's automatic implantable cardioverter-defibrillator. 3. Chronic systolic heart failure with ejection fraction of 15% to 20%. 4. Previous history of pulmonary embolism. 5. Microcytic anemia. 6. Chronic kidney disease stage IIIB. 7. Shaky movement, concerning for seizures. The patient is currently undergoing electroencephalogram. In general, I think Mr. Vázquez continues to be remarkably sick, has a very poor ejection fraction. On top of that, he is doing cardiac arrhythmias, which led him to cardiac arrest. He has been resuscitated. He is currently intubated. His heart rhythm is now regular, is paced. He is on amiodarone drip. Cardiology is on board. I have discussed the patient's code status with the , and her recommendation is that Mr. Vázquez is full code despite their knowledge that his heart health is extremely poor, and his general prognosis continues to be remarkably poor. Critical time spent 1 hour cc: Kei Stanley MD MTDD
[2019-09-23] MEDS ORDERED: ATIVAN IV PRN (12:05)
[2019-09-23] MEDS: MORPHINE IV PRN ×2 (12:21→19:44)
[2019-09-23 12:40] LABS: ALLEN TEST YES; BE 10.5 mmoll (-3.0-3.0); BLOOD TYPE ARTERIAL; HCO3-(ACT) 33.1 mmoll (20.0-26.0); METHB 0.8 % (0.0-1.5); O2(CT) 18.8 mL/dL (15.0-23.0); O2HB 97.2 % (95.0-99.0); PCO2(98.6) 33 mmHg (35-45); PO2(98.6) 166 mmHg (60-100); SAMPLE BLOOD; SRATE 16 BPM; THB 13.5 g/dL (11.5-17.4); TVOL 600 mL
--- NOTE | 2019-09-23 12:40 | EEG REPORT ---
DATE: 09/23/2019 REFERRING PHYSICIAN: ANAMIKA Richardson. POWER DIGGER OPERATOR: Shante Moy. BACKGROUND INFORMATION/TECHNIQUE: This is a digitally recorded portable routine EEG with video. HISTORY: A 69-year-old male patient with repeated episodes of ventricular fibrillation triggering his AICD. He also has a history of dilated nonischemic cardiomyopathy. There was a question of a witnessed seizure-like event associated with development of ventricular fibrillation early this morning. EEG is ordered to detect evidence of seizures. MEDICATIONS: Include Keppra and p.r.n. lorazepam. EEG FINDINGS: A posterior dominant alpha rhythm is not seen. The background consists of theta delta slowing, with intermixed and superimposed faster frequencies. No definite persistent focal slowing. No epileptiform discharges. No seizures. Hyperventilation is not performed. Photic stimulation does not alter the record. No definite drowsiness patterns. Stage II sleep is not seen. EKG demonstrates regular intervals. IMPRESSION AND CLINICAL CORRELATION: Abnormal routine electroencephalogram due to moderate diffuse slowing, indicative of a moderate nonspecific encephalopathy. No epileptiform discharges or seizures seen on the current study. This does not rule out an underlying seizure disorder. Clinical correlation is recommended. cc: MD Kelsey Peralta CRNP
[2019-09-23 12:41] LABS: MODALITY VENTILATOR
[2019-09-23] MEDS ORDERED: LIDOCAINE SYRINGE ONE (14:09)
[2019-09-23] MEDS ORDERED: DIAMOX IV ONE (14:40)
[2019-09-23] MEDS ORDERED: LOPRESSOR IV ONE ×2 (15:07→15:18)
[2019-09-23] MEDS ORDERED: MAGNESIUM SULFATE IM ONE (15:08)
[2019-09-23] MEDS ORDERED: LOPRESSOR ONE (15:13)
[2019-09-23] MEDS ORDERED: STERILE WATER INJ. ONE (15:14)
[2019-09-23] MEDS ORDERED: MAGNESIUM SULFATE IV ONE (15:18)
[2019-09-23] MEDS: BREVIBLOC 2.5 GM/NS 2.5 GM/250 ML IV.SOLN IV SCH ×2 (15:34→23:01)
[2019-09-23] MEDS: LEVOPHED 8 MG in D5 1/2 NS 250 ML IV SCH (15:44)
--- NOTE | 2019-09-23 16:41 | PULMONOLOGY CONSULTATION ---
DATE: 09/23/2019 REQUESTING PROVIDER: Dr. Kei Stanley. REASON FOR CONSULTATION: Acute cardiopulmonary arrest, intubated. HISTORY OF PRESENT ILLNESS: This is a 69-year-old male with a medical history of COPD, morbid obesity, obstructive sleep apnea, dilated nonischemic cardiomyopathy, coronary artery disease, pulmonary embolism, ventricular tachycardia, hypertension, hyperlipidemia, chronic kidney disease, and anemia. He is well known to our facility. He had multiple hospitalizations last year, many with congestive heart failure exacerbation. His last admission was from 07/14/2019 to 07/21/2019 with congestive heart failure. He presented to the ER on 09/21/2019 with internal defibrillator pacemaker firing. Further workup revealed ventricular fibrillation with idiopathic shock. Unattended Ground Sensor Specialist already saw the patient, has been seeing the patient since 09/21/2019. Unfortunately, early this morning about 5:23, the patient appeared to seizure and then went into Vfib. At that time, defibrillator took over within seconds. Later at 6:50, the patient in Vfib again, the few defibrillator did not shock this time. The patient remained in Vfib and blue code called. The code lasted about 3 minutes. The patient eventually was intubated. The patient currently is in the ICU. He stayed intubated with 1 mg of Ativan every 1 hour if needed. He did move his arms at times during the encounter. We increased Levaquin from 1 to 2 at this time, morphine 4 mg IV q.4 hours. The patient currently on amiodarone and phenylephrine drip. The patient's and daughter at the bedside. Chest x-ray this morning showed pulmonary venous congestion and stable cardiomegaly. PAST MEDICAL HISTORY: 1. COPD on home oxygen. I did not see the patient was on any inhaler on his home medication list. 2. Morbid obesity. Current BMI 38.7. 3. Obstructive sleep apnea. 4. Dilated nonischemic cardiomyopathy. 5. Coronary artery disease. 6. History of pulmonary embolism. 7. History of ventricular tachycardia. 8. Dementia. 9. Hypertension. 10. Hyperlipidemia 11. Chronic kidney disease. 12. Anemia. PAST SURGICAL HISTORY: AICD implantation prophylactic. SOCIAL HISTORY: The patient is . He lives at home with his family. He is disabled. He is a former smoker on home oxygen. He has no history of alcohol or illicit drug use. FAMILY HISTORY: Positive for coronary artery disease. ALLERGIES: No known drug allergies. REVIEW OF SYSTEMS: Unable to be obtained as the patient is intubated and sedated. PHYSICAL EXAMINATION: Vital Signs: Temperature 98.6, blood pressure of 81/65, pulse 74, respiratory rate 16, oxygen saturation 100% on mechanical ventilator with spontaneous rate 16, FiO2 50%, tidal volume 600 and PEEP 5. General: Lying in bed, intubated, moving upper extremities at times, but no acute distress noted. HEENT: Atraumatic, normocephalic. Trachea midline. Mucosa pink and slightly dry. ET tube in place. Cardiovascular: Distant heart sounds, S1, S2 appreciated. Gastrointestinal: Obese, distended, soft. Bowel sounds in all 4 quadrants. Extremities: Trace pedal edema. No cyanosis. Dorsalis pedis diminished bilaterally. Neurologic: Sedated. Moving upper extremity randomly. Eyes closed, not answering questions, not following commands. LABORATORY DATA: Sodium 133, potassium 3.7, chloride 39, carbon dioxide 30, BUN 59, creatinine 1.9, glucose 129. IMAGING DATA: See HPI. ASSESSMENT: This is a 69-year-old male with a medical history of chronic obstructive pulmonary disease, morbid obesity, obstructive sleep apnea, dilated nonischemic cardiomyopathy, coronary artery disease, pulmonary embolism, ventricular tachycardia, hypertension, hyperlipidemia, chronic kidney disease, and anemia. He has been admitted since 09/21/2019 with ventricular fibrillation and idiopathic shock. He developed ventricular fibrillation this morning at 6:50. AICD shocked multiple times unsuccessfully. The patient remained in ventricular fibrillation and eventually on blue code for about 3 minutes. The patient was intubated at the end of the code. 1. Acute respiratory failure secondary to cardiac arrest. 2. Status post cardiopulmonary arrest secondary to sustained ventricular fibrillation. The code lasted about 3 minutes. 3. Ventricular fibrillation, status post multiple shocks from the patient's AICD. 4. Decompensated systolic congestive heart failure, acute on chronic, with dilated cardiomyopathy, ejection fraction 15 to 20 percent. 5. History of pulmonary embolism. The patient's is not sure when the pulmonary embolism was diagnosed. She said it was possible last year. 6. Shock. The patient has been on Levophed drip. 7. Possible seizure. PLAN: 1. Continue full ventilatory support. We checked ventilation and titrate it to patient's needs per clinical protocol. We will monitor patient's response closely. Currently retitrating the FiO2 from 70% to 50%. We are checking O2 and ABG at this time. We will follow up ABG, chest x-ray, CBC and CMP daily. 2. We titrated sedative per the patient's needs per clinical protocols. We will monitor the patient's response closely. We increased Ativan from 1 mg to 2 mg q.1 hour if needed. We added morphine 4 mg q.4 hours. 3. We titrated Levophed. With titrate vasopressor, Levophed drip, to the patient's needs per clinical protocol. We will monitor patient's response closely. 4. We explained the patient's condition and care plan to the patient's and daughter at the bedside. All questions have been answered. 5. Further recommendations pending hospital course. Thank you for the courtesy of this consult. Dr. Duncan did the examination, evaluation, management and orders. ANAMIKA did dictation for Dr. Duncan according to his direction. Total evaluation time in minutes 35. Dictated by ANAMIKA Givens for Juan Duncan MD cc: ANAMIKA Givens MD [facility]
[2019-09-23] MEDS: CORDARONE 540 MG in D5W 289.2 ML IV SCH ×2 (17:03→19:04)
--- NOTE | 2019-09-23 17:40 | PROGRESS NOTE ---
DATE: 09/23/2019 ADDENDUM: Throughout the course of the day, Mr. Vázquez had multiple arrhythmias, some of which included multiple ventricular fibrillations. He had to be shocked multiple times. He also had asystole, which he needed to have chest compression. I think he had a total of more than about 7 to 10. I spoke with the family members on 2 separate occasions, and I also spoke extensively with Dr. Jeff who gave some further recommendations; however, he did say that Mr. Vázquez's prognosis remained remarkably poor and that there was really not much that we will be able to achieve. I did communicate the same recommendations to the family members. Around 3 to 4 in this afternoon, he did code again. Luckily at the time, Dr. Dillard was there. Dr. Dillard has also taken care of Mr. Vázquez for some time, so I think he had communication with Dr. Jeff, and both of them agreed to make a few changes to his cardiac medicines, continue with amiodarone, change him to Esmolol and replace magnesium and then go from there. We have also started him on phenylephrine; however, after discussion with the two cardiologists, both of them agree to do Levophed instead. Mr. Vázquez's family have been notified and explained in detail the poor prognostic nature of Mr. Vázquez. At this point, however, they still want us to do everything possible in that they want Mr. Vázquez remain full code. Dr. Dillard also spoke to the family at a later time. Critical time spent is 1 hour. cc: Kei Stanley MD
--- NOTE | 2019-09-23 18:05 | NEUROLOGY CONSULTATION ---
DATE: 09/23/2019 REASON FOR CONSULT: Question of seizures. HISTORY OF PRESENT ILLNESS: This is a 69-year-old black male who has a history of dilated cardiomyopathy, AICD implantation, pulmonary embolism, previous ventricular tachycardia and chronic kidney disease. He presented in the early hours 2 days ago after his AICD fired at home. Apparently, he has had multiple episodes of the ventricular fibrillation and his defibrillator had fired 4 times in the day or 2 leading up to his presentation. The patient was admitted. Since admission, he has had several episodes of arrhythmia with repeated AICD firings. I believe with 1 or more episodes the AICD either was not firing or was not successful and he underwent the ACLS protocol. Most recently, he was intubated around 7 a.m. following a code blue. He was given 150 mg of succinylcholine and 20 mg of etomidate at that time. The nurse today reports that he is able to wake up and follow commands. He has received occasional doses of IV lorazepam but is not on a sedation drip. There is a nursing note from overnight that said the patient appeared to have a seizure and went into ventricular fibrillation on the monitor. The defibrillator took over within seconds. He was alert and oriented and he felt something oncoming. I believe there was only 1 episode of this but I am not certain about that. There is also no description documented of the event in question. The nurse today reports that she has pretty consistently seen his left arm jerk a few times and lift into the air which has been associated with the AICD firing. She suspects this is what the night nurse witnessed but is not certain. There is no personal history of seizure, stroke or major neurologic event. PAST MEDICAL HISTORY: As per above in addition COPD, obstructive sleep apnea, morbid obesity, hypertension, hyperlipidemia are listed in the chart. FAMILY HISTORY: Positive for stroke in his mother. No seizures. SOCIAL HISTORY: He is and lives with his . He has several children. Many are here visiting. He is a previous smoker, but quit a long time ago. ALLERGIES: No known drug allergies listed. HOME MEDICATIONS: Current medications viewed in the chart include levetiracetam 500 mg q.12 hours. Lorazepam 2 mg IV q. 1 hour p.r.n. seizures or sedation. Last dose today at 1445 hours. Morphine 4 mg IV q.4h p.r.n. pain. Last dose today at 12:21. Xarelto. Aspirin 81 mg. Amiodarone, esmolol, metoprolol, norepinephrine, spironolactone. REVIEW OF SYSTEMS: Unobtainable, pt intubated. PHYSICAL EXAMINATION: Vital Signs: Afebrile. Blood pressure recently 80s to 116 systolic over 60s to 80s diastolic. Pulse 60s to 80s. Respirations 16. General: Mr. Vázquez is supine in bed. He is on the ventilator. His eyes are closed. He opens his eyes and regards with loud voice and light sternal tactile stimulation. He follows simple commands consistently. Pupils are equal, miotic and reactive to bright light. Gaze is conjugate. He has full lateral eye movements on command. Face appears to be symmetric at rest. Corneal responses are present. He blinks to threat. He appears to have good power in the limbs that is symmetric without obvious focal deficit. He responds to mild noxious stimuli in all extremities. He is in bilateral soft wrist restraints. Reflexes are diminished in the lower extremities, 1 to 2+ in the upper extremities bilaterally. No clonus. Plantar response is downgoing. DIAGNOSTICS: There is no cranial imaging labs reviewed in the chart. Normal white count. Sodium 133, BUN of 59, which is higher than previous admissions creatinine of 1.9. Blood glucose 120s. Normal calcium, AST, ALT. Routine EEG personally reviewed, showing moderate diffuse slowing but no epileptiform discharges or seizures. ASSESSMENT AND PLAN: Questionable seizure event overnight in the setting of multiple episodes of cardiac arrhythmia and defibrillator firing. Unfortunately, there is no documentation of event semiology. The patient appears neurologically intact on exam which is reassuring. EEG today did not show evidence of seizure or increased propensity to seizure, also reassuring. With the limited information I have, I suspect whatever was witnessed may have been movement related to one of his many cardiac events, though other possibilities are not excluded. I think we can continue the Keppra for now and see how he does, and we might even be able to discontinue it depending on his progress. If further question of seizure arises we can repeat the EEG. At some point, we may need to consider a head CT if he becomes stable enough for that. Thank you for the consult. cc: MD GREG Peralta
[2019-09-23] MEDS: ZOCOR PO SCH (20:08)
[2019-09-23] MEDS: XARELTO PO SCH (20:08)
[2019-09-23] MEDS: KLOR-CON PO SCH (20:08)
[2019-09-23] MEDS: KEPPRA 500 MG in NS 100 ML IV SCH (20:09)
[2019-09-23] MEDS ORDERED: MORPHINE IV PRN (21:45)
[2019-09-24] MEDS: ATIVAN IV PRN (00:05)
[2019-09-24 00:12] LABS: ALB/GLOB RATIO 0.8; ALBUMIN 3.3 g/dL (3.5-5.0); CALCIUM 9.2 mg/dL (8.8-10.2); CREATININE 2.3 mg/dL (0.7-1.2); MAGNESIUM 3.3 mg/dL (1.5-2.7); PHOSPHORUS 2.9 mg/dL (2.7-4.5); POTASSIUM 3.4 mmol/L (3.5-5.1); TOTAL BILIRUBIN 0.67 mg/dL (0.20-1.00); TOTAL PROTEIN 7.3 g/dL (6.3-8.3)
[2019-09-24] MEDS: LOPRESSOR PO SCH ×4 (03:00→20:27)
[2019-09-24] MEDS: CORDARONE 540 MG in D5W 289.2 ML IV SCH ×3 (04:08→21:48)
[2019-09-24] MEDS: LEVOPHED 8 MG in D5 1/2 NS 250 ML IV SCH ×5 (04:09→23:46)
[2019-09-24 04:39] LABS: ALLEN TEST YES; BLOOD TYPE ARTERIAL; HCO3-(ACT) 26.5 mmoll (20.0-26.0); O2(CT) 17.6 mL/dL (15.0-23.0); PCO2(98.6) 40 mmHg (35-45); PO2(98.6) 138 mmHg (60-100); SAMPLE BLOOD; SAO2 99.3 % (95.0-100.0); SRATE 16 BPM; THB 12.7 g/dL (11.5-17.4); TVOL 500 mL; pH(98.6) 7.43 (7.35-7.45)
[2019-09-24 04:41] LABS: MODALITY VENTILATOR
[2019-09-24] MEDS ORDERED: NEO-SYNEPHRINE 50 MG in NS 250 ML IV SCH (04:45)
[2019-09-24 05:24] LABS: BASO# 0.02 X1000 (0.0-0.2); BASO% 0.2 % (0.0-0.8); EOS# 0.01 X1000 (0.0-0.7); EOS% 0.1 % (0.0-10.0); HEMATOCRIT 37.2 % (42.0-52.0); IMM GRAN# 0.07 X1000 (0.0-0.04); IMM GRAN% 0.6 % (0.0-0.5); LYMPH# 1.68 X1000 (1.2-3.4); LYMPH% 14.6 % (20.5-51.1); MCH 23.8 PG (27-31); MCHC 32.3 g/dL (33-37); MCV 73.8 FL (81-99); MONO# 0.55 X1000 (0.11-0.59); MONO% 4.8 % (1.7-9.3); MPV 12.8 FL (7.4-10.4); NEUT# 9.21 X1000 (1.4-6.5); NEUT% 79.7 % (42.2-75.2); PLT 179 X1000 (130-400); RBC 5.04 XMIL (4.7-6.1); RDW 16.1 % (11.5-14.5); WBC 11.54 X1000 (4.8-10.8)
[2019-09-24 06:05] LABS: ALB/GLOB RATIO 0.9; ALBUMIN 3.3 g/dL (3.5-5.0); CALCIUM 8.8 mg/dL (8.8-10.2); CREATININE 2.9 mg/dL (0.7-1.2); MAGNESIUM 3.2 mg/dL (1.5-2.7); POTASSIUM 3.8 mmol/L (3.5-5.1); TOTAL BILIRUBIN 0.64 mg/dL (0.20-1.00); TOTAL PROTEIN 6.9 g/dL (6.3-8.3)
[2019-09-24] MEDS: PRILOSEC PO SCH (06:31)
--- NOTE | 2019-09-24 07:36 | Diag Imaging Result Doc PS360 ---
EXAM: CHEST-1 VIEW 09/24/2019 HISTORY: SOB TECHNIQUE: AP portable at 0543 COMMENT: There is an endotracheal tube with its tip at thoracic inlet and an NG tube with its tip below the diaphragm. There is cardiomegaly. There is increased pulmonary vascularity. There is increased interstitial opacity in the lung bases particularly the right lower lobe compared to 09/23/2019. IMPRESSION: Worsened pulmonary edema. Electronically signed by Doyle Miner 09/24/2019 7:33 AM
[2019-09-24] MEDS ORDERED: CORDARONE 540 MG in D5W 289.2 ML IV ONE (08:00)
[2019-09-24 08:01] LABS: BANDS 2 % (0-1); EOS 2 % (1-10); LYMPHS 14 % (21-51); MONO 2 % (1-9); SEGS 80 % (42-75)
[2019-09-24 08:02] LABS: ANISOCYTOSIS 1+; HYPOCHROM 1+; MICROCYTOSIS 2+; POIKILOCYTOSIS 1+
[2019-09-24] MEDS ORDERED: NS 2,000 ML ONE (08:24)
--- NOTE | 2019-09-24 08:36 | CARDIOLOGY PROGRESS NOTE ---
DATE: 09/24/2019 CHIEF COMPLAINT: Shortness of breath, multiple defibrillator shocks. SUBJECTIVE: Since yesterday, Mr. Vázquez has had additional episodes of ventricular fibrillation some of them not responding to the device action requiring external defibrillation. His lidocaine was discontinued per orders of Dr. Dillard and put on IV Brevibloc. He has also been put on Levophed to control his blood pressure per Dr. Dillard's orders. At this time, the patient remains basically sedated. He is not responsive right now. OBJECTIVE: Vital signs: His vital signs, blood pressure 102/56, temperature is 97.6 degrees, respirations 16, pulse 66. General: Patient unresponsive. Chest: Symmetrical breath sounds, no rales. Heart: Sounds are regular and rhythmic at this time, question of gallop. Abdomen: Slightly distended, nontender. Extremities: Showed decreased pulses. No edema. Neurologic exam: Unresponsive. BLOOD WORK: Today, sodium is 132, potassium 3.8, BUN 65, creatinine 2.9, magnesium is 3.2. Albumin 3.3. Hemoglobin 12 g. IMPRESSION: 1. Patient who has recurrent ventricular fibrillation/electrical storm. 2. Patient with dilated nonischemic cardiomyopathy of several years duration. 3. Status post automatic implantable cardioverter-defibrillator implantation. 4. Congestive heart failure functional class III to IV. 5. Obstructive sleep apnea. 6. Chronic kidney disease. RECOMMENDATIONS: At this time, we will continue with current supportive measures. Prognosis is really very poor. We have really tried several antiarrhythmics with limited effect. I have reviewed the x-ray today, it shows worsened pulmonary edema. The patient is most likely to succumb to multiorgan failure at this time. We will continue to follow. cc: Barry Jeff MD
[2019-09-24] MEDS: KLOR-CON PO SCH ×2 (09:19→20:26)
[2019-09-24] MEDS: ALDACTONE PO SCH ×2 (09:19→20:24)
[2019-09-24] MEDS: ZYLOPRIM PO SCH (09:20)
[2019-09-24] MEDS: ASPIRIN EC PO SCH (09:20)
[2019-09-24] MEDS: COLACE PO SCH ×2 (09:20→20:27)
[2019-09-24] MEDS: KEPPRA 500 MG in NS 100 ML IV SCH ×2 (09:20→20:32)
[2019-09-24] MEDS: VITAMIN E PO SCH (09:57)
--- NOTE | 2019-09-24 11:01 | PROGRESS NOTE ---
DATE: 09/24/2019 SUBJECTIVE: I have seen and examined Mr. Vázquez today. Mr. Vázquez continues to be intubated and verbally nonresponsive. I understand from early this morning, he has had a change in his mentation where he is now just not responsive to even extremely painful stimulation. There was no family member at the bedside at the time of the encounter. I also understand that Mr. Vázquez went into multiple ventricular fibrillations from last night to early this morning and he has had multiple shocks. The EP team have come to evaluate his AICD and they have gone up on his rate to 90. OBJECTIVE: Vital Signs: Blood pressure is 126/52, pulse of 68, respirations are 16, temperature is 97.9 degrees, the patient is saturating 100% on mechanical ventilation. General Examination: Mr. Vázquez is a 69-year-old, male. He is in bed, currently intubated, and he is synchronizing well with the ventilator. HEENT: Mucosa is pink and moist. Anicteric. Acyanotic. Neck: Supple. There is positive mild JVD. Chest: Air entry is bilaterally reduced. Some crackles posteriorly. Cardiovascular: Regular rate and rhythm. There is a paced rhythm. Abdomen: Soft. It is distended. Bowel sounds present. Extremities: No pedal edema. APPRAISAL MANAGER: The patient is unresponsive. There is intermittent twitching of his mouth. His pupils are about 2 mm in diameter and they are nonreactive. He still does have some corneal reaction and he will cough to gag reflex. He would not respond to extreme painful stimulation. Is and Os: Urine output was 720. He is currently negative balance of 2715. Laboratory Data: WBC is 11.54, hemoglobin is 12.0, platelet count of 179,000. Chemistry is also reviewed. Creatinine is slightly up to 2.9. Potassium and magnesium were within normal range. A chest x-ray this morning shows worsening pulmonary edema. The EKG from yesterday continues to show a paced rhythm. ASSESSMENT: 1. Status post cardiopulmonary arrest. 2. Recurrent ventricular fibrillations/electrical storm. The patient continues to be on amiodarone, esmolol drip. 3. Severe congestive systolic heart failure class 4 with extremely low output. The patient is currently on pressors. 4. History of dilated nonischemic cardiomyopathy of several years with ejection fraction of 10 to 15 percent. 5. Previous history of pulmonary embolism. 6. Chronic kidney disease stage IIIB. 7. Unresponsiveness, concerning for anoxic brain injury after the multiple ventricular fibrillation/electrical storm episodes. PLAN: In general, Mr. Vázquez continues to be extremely critical with a very poor prognosis. His AICD has been interrogated. I understand the rate has been readjusted. Unfortunately, after multiple shocks and after multiple cardiac arrests, it looks like his neurological status has significantly changed. This morning, he is completely nonverbal. He does not seem to have any meaningful movement, even on painful stimulation. At this point, he seems to have GCS of 3/15. He is pending a CT scan of the head whenever possible. Unfortunately, at this point, he seems too hemodynamically unstable to have it done. I think with the current findings on his physical exams, it is apparent that he might have suffered a major anoxic brain injury. We will be waiting on neurology evaluation on this as well. I am also pending the family members to update them on the current medical status. Critical time spent 45 minutes cc: Kei Stanley MD [facility]
[2019-09-24] MEDS: BREVIBLOC 2.5 GM/NS 2.5 GM/250 ML IV.SOLN IV SCH (11:41)
[2019-09-24] MEDS ORDERED: CORDARONE IV ONE (11:59)
--- NOTE | 2019-09-24 14:19 | NEUROLOGY PROGRESS NOTE ---
DATE: 09/24/2019 HISTORY: Mr. Vázquez is [id number] and he has had some episodes of altered awareness, which, on at least a few occasions, raised question of seizure. These were mostly associated with significant cardiac arrhythmia including atrial fibrillation. Dr. Johnston saw him for initial Neurology evaluation yesterday. He had cardiac arrest overnight and has continued unresponsive, intubated, and mechanically ventilated. Levetiracetam has been started and now continues 500 mg IV q.12 hours. He received 2 mg of lorazepam 3 doses in the last 24 hours. Brain imaging has been planned, to be done when he is medically stable enough for that. EEG before his most recent incident showed generalized slowing but no epileptiform discharge. PHYSICAL EXAMINATION: On exam now, Mr. Vázquez is supine, eyes partially open, pupils covered by the eyelids, whites of the eyes showing below the eyelids, similar on the left and right. There is good lateral eye movement with passive head turning. There is slight pupil reaction to sustained bright light. There is brisk corneal reflex present bilaterally. I did not witness definite respiratory effort above the ventilator. Limb tone is diminished throughout. Plantar response is silent bilaterally. Neck is supple. IMPRESSION: Global encephalopathy. There is concern for hypoxic/ischemic brain injury. Depending on his clinical course and whether or not we are able to obtain brain imaging, we might consider repeating the EEG later. For now, I would continue levetiracetam and expect this relatively modest dose is providing significant serum level in light of his poor renal function. I will order levetiracetam serum level to be checked. I do not think we need to change AED management today. Thanks for asking Neurology to see Mr. Vázquez. cc: MD GREG Alvarez III
--- NOTE | 2019-09-24 19:02 | PROVIDER PROGRESS NOTE ---
Progress Note Dr. Duncan Progress Note/Pulmonary and or critical care Subjective: The patient stays intubated. RN at the bedside reports that patient became unresponsive early this morning with eyes partially open and rolling upwards. He is on Esmolol, Amiodarone and Norepinephrine drips at this time. No family at the bedside. Input was appreciated from Dr. Stanley and other teams on the case. Objective: Vital Signs: T 98.1 (no fever in last 24 hours), VA 90, RR 18, BP 123/72 and SaO2 100% on AC 16, 60%, 500, 5. I/O: +930 ml. Physical Examination: General: Intubated. Lying in bed. No acute distress noted. HEENT: Normocephalic. Atraumatic. Trachea midline. Eyes partially open and rolling upwards. Pupils nonreactive. Chest: Even and unlabored. Symmetrical excursion. Diminished air entry bilaterally with some inspiratory crackles. CVS: Paced rhythm. Abdomen: Soft. Distended. Normoactive bowel sounds in all 4 quadrants. Extremities: Trace pedal edema. No cyanosis. Neuro: Unresponsive to pain stimuli without sedation. Labs and Radiology: Laboratory Results 09/23/19 09/24/19 09/24/19 23:18 04:20 04:29 WBC 11.54 H RBC 5.04 Hgb 12.0 L Hct 37.2 L MCV 73.8 L MCH 23.8 L MCHC 32.3 L RDW Std Deviation 16.1 H Plt Count 179 MPV 12.8 H Immature Gran % (Auto) 0.6 H Neut % (Auto) 79.7 H Lymph % (Auto) 14.6 L [place] % (Auto) 4.8 Eos % (Auto) 0.1 Baso % (Auto) 0.2 Immature Gran # (Auto) 0.07 H Neut # (Auto) 9.21 H Lymph # (Auto) 1.68 [place] # (Auto) 0.55 Eos # (Auto) 0.01 Baso # (Auto) 0.02 Segmented Neutrophils 80 H Band Neutrophils 2 H Lymphocytes 14 L Monocytes 2 Eosinophils 2 Hypochromia 1+ Poikilocytosis 1+ Anisocytosis 1+ Microcytosis 2+ Specimen Type ARTERIAL Sample Site R RADIAL pH 7.43 pCO2 40 pO2 138 H HCO3 26.5 H Base Excess 2.0 Oxyhemoglobin 97.0 ABG O2 Sat (Calculated) 17.6 ABG O2 Saturation 99.3 ABG Carboxyhemoglobin 1.40 ABG Methemoglobin 1.0 Rick Test YES A-a O2 Difference 240.0 Total Hemoglobin 12.7 Lactate 5.60 H* Blood Gas Modality VENTILATOR Vent Mode A/C Spontaneous Rate 16 FiO2 % 60.0 Tidal Volume 500 PEEP 5.0 Sodium 133 L Potassium 3.4 L Chloride 91 L Carbon Dioxide 26 Anion Gap 16 BUN 63 H Creatinine 2.3 H Estimated GFR/1.73 m2 34 BUN/Creatinine Ratio 27 Glucose 177 H Calculated Osmolality 289 Calcium 9.2 Phosphorus 2.9 Magnesium 3.3 H Total Bilirubin 0.67 AST 37 H ALT 29 Alkaline Phosphatase 46 Troponin T High Sens Dma-Z-Wjlpinjwyxr Pept Total Protein 7.3 Albumin 3.3 L Globulin 4.0 Albumin/Globulin Ratio 0.8 09/24/19 09/24/19 09/24/19 04:29 10:30 10:30 WBC RBC Hgb Hct MCV MCH MCHC RDW Std Deviation Plt Count MPV Immature Gran % (Auto) Neut % (Auto) Lymph % (Auto) [place] % (Auto) Eos % (Auto) Baso % (Auto) Immature Gran # (Auto) Neut # (Auto) Lymph # (Auto) [place] # (Auto) Eos # (Auto) Baso # (Auto) Segmented Neutrophils Band Neutrophils Lymphocytes Monocytes Eosinophils Hypochromia Poikilocytosis Anisocytosis Microcytosis Specimen Type Sample Site pH pCO2 pO2 HCO3 Base Excess Oxyhemoglobin ABG O2 Sat (Calculated) ABG O2 Saturation ABG Carboxyhemoglobin ABG Methemoglobin Rick Test A-a O2 Difference Total Hemoglobin Lactate Blood Gas Modality Vent Mode Spontaneous Rate FiO2 % Tidal Volume PEEP Sodium 132 L Potassium 3.8 Chloride 88 L Carbon Dioxide 24 L Anion Gap 20 BUN 65 H Creatinine 2.9 H Estimated GFR/1.73 m2 26 BUN/Creatinine Ratio 22 Glucose 264 H Calculated Osmolality 292 Calcium 8.8 Phosphorus Magnesium 3.2 H Total Bilirubin 0.64 AST 39 H ALT 30 Alkaline Phosphatase 44 Troponin T High Sens 142 H* [place]q-[id number]ycounwkn Pe[place] 83104 H Total Protein 6.9 Albumin 3.3 L Globulin 3.6 Albumin/Globulin Ratio 0.9 Assessment: Acute respiratory failure secondary to cardiac arrest. s/p cardiopulmonary arrest secondary to sustained ventricular fibrillation. Ventricular fibrillation Decompensated systolic congestive heart failure, acute on chronic, with dilated cardiomyopathy, EF 15-20%. Shock, cardiogenic. Possible seizure. Elevated troponin. Acute renal failure. Prognosis poor. Plan: Continue full ventilatory support. We checked ventilation and titrated to patients needs per clinical protocols. We will monitor patients response closely. We titrated vasopressor (Levophed drip) to patients needs per clinical protocols. We will monitor patients response closely. We discontinue Ativan and morphine at this time. Patient stays full code. His prognosis is very poor. There is no family at the bedside. Total evaluation time in minutes: 32.
[2019-09-24] MEDS: ZOCOR PO SCH (20:26)
[2019-09-24 21:19] LABS: URINE SOURCE CATH
[2019-09-24 21:23] LABS: BILIRUBIN URINE NEGATIVE (NEGATIVE); BLOOD URINE SMALL (NEGATIVE); COLOR YELLOW; GLUCOSE URINE NEGATIVE (NEGATIVE); KETONE URINE NEGATIVE (NEGATIVE); LEUKOCYTES URINE NEGATIVE (NEGATIVE); NITRITE URINE NEGATIVE (NEGATIVE); PROTEIN URINE 30 mg/dL (NEGATIVE); SP GRAVITY URINE 1.017; TURBIDITY URINE CLEAR (CLEAR); UROBILINOGEN URINE NORMAL (NORMAL)
[2019-09-24 21:27] LABS: UR EPITHELIAL CELLS <10 /HPF (<10); URINE BACTERIA NEGATIVE /HPF; URINE RBC <10 /HPF (<10)
[2019-09-24] MEDS: CORDARONE 360 MG/D5W 360 MG/200 ML IV.SOLN IV SCH (21:51)
[2019-09-25] MEDS: BREVIBLOC 2.5 GM/NS 2.5 GM/250 ML IV.SOLN IV SCH ×2 (01:16→12:59)
[2019-09-25] MEDS: LOPRESSOR PO SCH ×4 (02:07→20:35)
[2019-09-25] MEDS: CORDARONE 360 MG/D5W 360 MG/200 ML IV.SOLN IV SCH ×4 (04:05→21:24)
[2019-09-25 04:53] LABS: ALLEN TEST YES; BE 3.5 mmoll (-3.0-3.0); BLOOD TYPE ARTERIAL; HCO3-(ACT) 27.7 mmoll (20.0-26.0); METHB 0.9 % (0.0-1.5); O2(CT) 18.8 mL/dL (15.0-23.0); O2HB 97.1 % (95.0-99.0); PCO2(98.6) 35 mmHg (35-45); PO2(98.6) 189 mmHg (60-100); SAMPLE BLOOD; SRATE 16 BPM; THB 13.5 g/dL (11.5-17.4); TVOL 500 mL; pH(98.6) 7.49 (7.35-7.45)
[2019-09-25 04:56] LABS: MODALITY VENTILATOR
[2019-09-25] MEDS: PRILOSEC PO SCH (06:01)
[2019-09-25 06:05] LABS: BASO# 0.02 X1000 (0.0-0.2); BASO% 0.1 % (0.0-0.8); HEMATOCRIT 37.5 % (42.0-52.0); HEMOGLOBIN 12.4 g/dL (14.0-18.0); IMM GRAN# 0.05 X1000 (0.0-0.04); IMM GRAN% 0.3 % (0.0-0.5); LYMPH# 1.38 X1000 (1.2-3.4); LYMPH% 8.1 % (20.5-51.1); MCH 24.2 PG (27-31); MCHC 33.1 g/dL (33-37); MCV 73.2 FL (81-99); MONO# 1.33 X1000 (0.11-0.59); MONO% 7.8 % (1.7-9.3); MPV 12.3 FL (7.4-10.4); NEUT# 14.22 X1000 (1.4-6.5); NEUT% 83.7 % (42.2-75.2); PLT 189 X1000 (130-400); RBC 5.12 XMIL (4.7-6.1); RDW 16.1 % (11.5-14.5)
[2019-09-25] MEDS: LEVOPHED 8 MG in D5 1/2 NS 250 ML IV SCH (06:21)
--- NOTE | 2019-09-25 06:38 | Diag Imaging Result Doc PS360 ---
CHEST-1 VIEW - 09/25/2019 INDICATION: SOB COMPARISON: 09/24/2019 FINDINGS: Support tubes are stable and in good position. Stable pacemaker. Stable severe cardiomegaly and pulmonary vascular congestion. Stable consolidation or effusion at the left lung base. Stable mild interstitial pulmonary edema. IMPRESSION: No change from prior. Electronically signed by Joseph Jonas 09/25/2019 6:36 AM
[2019-09-25 06:47] LABS: LYMPHS 9 % (21-51); MONO 5 % (1-9); SEGS 86 % (42-75)
[2019-09-25 06:57] LABS: CALCIUM 8.9 mg/dL (8.8-10.2); CREATININE 2.7 mg/dL (0.7-1.2); POTASSIUM 3.5 mmol/L (3.5-5.1)
[2019-09-25] MEDS: ZYVOX 600 MG/D5W 600 MG/300 ML IVPB IV SCH ×2 (08:36→20:33)
[2019-09-25] MEDS: KEPPRA 500 MG in NS 100 ML IV SCH ×2 (08:36→20:33)
[2019-09-25] MEDS: ASPIRIN EC PO SCH (08:37)
[2019-09-25] MEDS: COLACE PO SCH ×2 (08:37→20:35)
[2019-09-25] MEDS: ZYLOPRIM PO SCH (08:37)
[2019-09-25] MEDS: ALDACTONE PO SCH ×2 (08:37→20:34)
[2019-09-25] MEDS: MAXIPIME 2 GM/NS 2 GM/100 ML IVPB IV SCH ×2 (08:37→21:24)
[2019-09-25] MEDS: KLOR-CON PO SCH ×2 (08:37→20:35)
[2019-09-25] MEDS: VITAMIN E PO SCH (08:47)
--- NOTE | 2019-09-25 09:45 | CARDIOLOGY PROGRESS NOTE ---
DATE: 09/25/2019 CHIEF COMPLAINT: Shortness of breath, multiple defibrillator jolts. SUBJECTIVE: The patient has not had any further jolts since yesterday at noontime. This is almost 18 hours plus now. He remains intubated, sedated. He is on a low-dose of IV Levophed, continues to be on IV amiodarone, and IV esmolol. His defibrillator device was interrogated yesterday. They noted 28 defibrillation episodes and 22 ventricular tachycardia episodes since 09/19 with more than 33 shocks delivered. After consultation with Electrophysiology, a decision was made to increase the rate to 90 beats per minute and this seems to have helped with the suppression of the ventricular fibrillation. OBJECTIVE: Vital signs: Blood pressure 141/74, temperature 99.5, pulse 90, respirations 18. General: Sedated, unresponsive. HEENT: Unremarkable. Chest: Symmetrical breath sounds. Heart: Sounds are regular and rhythmic. I believe there is a pericardial friction rub. Abdomen: Slightly distended, soft. Extremities: Showed decreased pulses, maybe trace edema. Neurologic exam: He is very sedated. He does not respond. Sodium is 128, potassium 3.5, BUN is 59, creatinine 2.7. Hemoglobin is 12.4, hematocrit 37.5, platelet count is 189,000. Chest x-ray shows pulmonary congestion, however, I do not see any indication of any definite infiltrate. IMPRESSION: 1. Patient who presented with recurrent ventricular fibrillation treated with multiple defibrillator shocks ."Electrical storm". 2. Dilated nonischemic cardiomyopathy. 3. Chronic systolic heart failure functional class III to IV. 4. Chronic kidney disease. 5. Obstructive sleep apnea. 6. Possible pericarditis based on presence of pericardial rub. RECOMMENDATIONS: At this time, I will continue all present medications. The patient has not had any further bouts of ventricular fibrillation since yesterday at noontime. He is on broad-spectrum antibiotics. I will check a C-reactive protein and sedimentation rate. We may consider putting him on Solu-Medrol IV if there is indication of high inflammatory markers. Prognosis remains very guarded. We will continue to follow. cc: Barry Jeff MD [facility]
--- NOTE | 2019-09-25 11:22 | PROGRESS NOTE ---
DATE: 09/25/2019 SUBJECTIVE: I have seen and examined Mr. Vázquez today. He remains fairly the same. I understand that he has not had any more of the ventricular fibrillation events since yesterday afternoon. OBJECTIVE: Vital Signs: Blood pressure is 141/74, pulse of 92, respirations 18, temperature 99.5 degrees, the patient is saturating 99% on mechanical ventilation. General: Mr. Vázquez is a 69- year-old, gentleman. He is in bed. He is currently intubated, but not on any sedation. He remains unresponsive. HEENT: Mucosa is pink and moist. Anicteric. Acyanotic. Neck: Supple. Positive JVD. Chest: Air entry is bilaterally reduced. There are some crackles posteriorly. Cardiovascular: Regular rate and rhythm. There are no murmurs. I did not hear any gallops. GI: Abdomen is soft. It is distended. Bowel sounds present. [employer]: The patient remains unresponsive. The pupils are reactive to light. He still has corneal reflex, and he still has good gag reflex. He would not move to any painful stimulation. The patient's I's and O's show urine output was 1400. He is currently negative balance of 1026. IMAGING: A chest x-ray this morning shows stable severe cardiomegaly and pulmonary vascular congestion, stable consolidation or effusion at the left lung, pulmonary edema. LABORATORY DATA: Laboratory data has been reviewed. WBC is up to 17.00, hemoglobin is 12.4, platelet count 189,000. Chemistry is also reviewed. Creatinine is down to 2.7. MICROBIOLOGY: Some blood cultures were done early on today. MEDICATIONS: Medication list has all been reviewed. ASSESSMENT: 1. Status post cardiopulmonary arrest. 2. Recurrent ventricular fibrillation/electrical storm. The patient continues to be on amiodarone and esmolol drip. 3. Severe dilated nonischemic cardiomyopathy with ejection fraction of 10% to 15%. 4. Previous history of pulmonary embolism. 5. Chronic kidney disease stage IIIB. 6. Unresponsiveness after cardiopulmonary arrest, concerning for anoxic brain injury after multiple ventricular fibrillation/electrical storm. Neurology is on board. The patient is pending neuroimaging studies. 7. Leukocytosis, with imaging studies concerning for possible left lower lobe pneumonia. The patient has been started on broad-spectrum intravenous antibiotics. Blood cultures have also been done, as well as sputum culture. Mr. Vázquez continues to be unresponsive with poor prognosis. cc: Kei Stanley MD
[2019-09-25] MEDS ORDERED: CORDARONE IV PRN (12:55)
[2019-09-25] MEDS ORDERED: SOLU-MEDROL IV ONE (13:55)
--- NOTE | 2019-09-25 17:25 | Diag Imaging Result Doc PS360 ---
EXAM: CT HEAD W/O CONTRAST 09/25/2019 HISTORY: Possible seizures TECHNIQUE: This exam was performed using automated exposure control, adjustment of mA or kV according to patient size, and/or use of iterative reconstruction technique. COMMENT: There is extensive periventricular and subcortical white matter hypodensity in both hemispheres similar in appearance to the previous study of 08/25/2018. There is some calcification in the globus pallidus which was also present previously. There is encephalomalacia in the left occipital lobe which was also present previously. There is no evidence of mass effect or bleed. There is an NG tube. The calvarium appears to be intact. There is a mucous retention cyst in the left maxillary sinus. IMPRESSION: Extensive chronic ischemic microvascular changes and old left occipital infarct. No evidence of acute intracranial disease. Electronically signed by Doyle Miner 09/25/2019 5:22 PM
--- NOTE | 2019-09-25 17:44 | PROVIDER PROGRESS NOTE ---
Progress Note Dr. Duncan Progress Note/Pulmonary and or critical care Subjective: The patient stays intubated. He stays unresponsive even after we held all sedatives yesterday. No family at the bedside. Input was appreciated from Dr. Stanley and other teams on the case. Objective: Vital Signs: T 99.5 (no fever in last 24 hours), W[place] 90, RR 18, BP 141/74 and SaO2 99% on AC 16, 60%, 500, 5. I/O: +1689 ml. Physical Examination: General: Intubated. Lying in bed. No acute distress noted. HEENT: Normocephalic. Atraumatic. Trachea midline. Eyes partially open and rolling upwards. Pupils nonreactive. Chest: Mechanically ventilated. Symmetrical excursion. Improved air entry bilaterally with less inspiratory crackles. CVS: Paced rhythm. Abdomen: Soft. Distended. Bowel sounds present in all 4 quadrants. Extremities: Trace pedal edema. No cyanosis. Neuro: Unresponsive to pain stimuli without sedation. Labs and Radiology: Laboratory Results 09/23/19 09/25/19 09/25/19 20:05 04:15 04:30 WBC 17.00 H RBC 5.12 Hgb 12.4 L Hct 37.5 L MCV 73.2 L MCH 24.2 L MCHC 33.1 RDW Std Deviation 16.1 H Plt Count 189 MPV 12.3 H Immature Gran % (Auto) 0.3 Neut % (Auto) 83.7 H Lymph % (Auto) 8.1 L [place] % (Auto) 7.8 Eos % (Auto) 0.0 Baso % (Auto) 0.1 Immature Gran # (Auto) 0.05 H Neut # (Auto) 14.22 H Lymph # (Auto) 1.38 [place] # (Auto) 1.33 H Eos # (Auto) 0.00 Baso # (Auto) 0.02 Segmented Neutrophils 86 H Lymphocytes 9 L Monocytes 5 ESR Specimen Type ARTERIAL Sample Site R RADIAL pH 7.49 H pCO2 35 pO2 189 H HCO3 27.7 H Base Excess 3.5 H Oxyhemoglobin 97.1 ABG O2 Sat (Calculated) 18.8 ABG O2 Saturation 99.0 ABG Carboxyhemoglobin 0.90 ABG Methemoglobin 0.9 Rick Test YES A-a O2 Difference 195.0 Total Hemoglobin 13.5 Lactate 1.70 Blood Gas Modality VENTILATOR Vent Mode A/C Spontaneous Rate 16 FiO2 % 60.0 Tidal Volume 500 PEEP 5.0 Sodium Potassium Chloride Carbon Dioxide Anion Gap BUN Creatinine Estimated GFR/1.73 m2 BUN/Creatinine Ratio Glucose Calculated Osmolality Calcium C-Reactive Prot, Quant Urine Source CATH Urine Color YELLOW Urine Turbidity CLEAR Urine pH 6.0 Ur Specific [place] 1.017 Urine Protein 30 A Ur Glucose (Stick) NEGATIVE Ur Ketones (Stick) NEGATIVE Urine Blood SMALL A Urine Nitrite NEGATIVE Urine Bilirubin NEGATIVE Urobilinogen Dipstick NORMAL Urine Leukocytes NEGATIVE Urine WBC (Auto) 10-20 A Urine RBC (Auto) <10 U Epithel Cells (Auto) <10 Urine Bacteria (Auto) NEGATIVE 09/25/19 09/25/19 09/25/19 04:30 09:58 09:58 WBC RBC Hgb Hct MCV MCH MCHC RDW Std Deviation Plt Count MPV Immature Gran % (Auto) Neut % (Auto) Lymph % (Auto) [place] % (Auto) Eos % (Auto) Baso % (Auto) Immature Gran # (Auto) Neut # (Auto) Lymph # (Auto) [place] # (Auto) Eos # (Auto) Baso # (Auto) Segmented Neutrophils Lymphocytes Monocytes ESR 45 H Specimen Type Sample Site pH pCO2 pO2 HCO3 Base Excess Oxyhemoglobin ABG O2 Sat (Calculated) ABG O2 Saturation ABG Carboxyhemoglobin ABG Methemoglobin Rick Test A-a O2 Difference Total Hemoglobin Lactate Blood Gas Modality Vent Mode Spontaneous Rate FiO2 % Tidal Volume PEEP Sodium 128 L Potassium 3.5 Chloride 87 L Carbon Dioxide 26 Anion Gap 15 BUN 59 H Creatinine 2.7 H Estimated GFR/1.73 m2 28 BUN/Creatinine Ratio 22 Glucose 162 H Calculated Osmolality 277 Calcium 8.9 C-Reactive Prot, Quant 87.98 H Urine Source Urine Color Urine Turbidity Urine pH Ur Specific [place] Urine Protein Ur Glucose (Stick) Ur Ketones (Stick) Urine Blood Urine Nitrite Urine Bilirubin Urobilinogen Dipstick Urine Leukocytes Urine WBC (Auto) Urine RBC (Auto) U Epithel Cells (Auto) Urine Bacteria (Auto) Assessment: Acute respiratory failure secondary to cardiac arrest. Possible pneumonia. CXR today shows consolidation or effusion at the left lung base. s/p cardiopulmonary arrest secondary to sustained ventricular fibrillation. Ventricular fibrillation with recurrent defibrillator shocks. Decompensated systolic congestive heart failure, acute on chronic, with dilated cardiomyopathy, EF 15-20%. CXR today shows stable severe cardiomegaly, pulmonary vascular congestion, and mild interstitial pulmonary edema. Shock, cardiogenic. Possible seizure. Elevated troponin. Acute renal failure. Prognosis poor. Plan: Continue full ventilatory support. We checked ventilation and titrated to patients needs per clinical protocols. We will monitor patients response closely. We titrated vasopressor (Levophed drip) to patients needs per clinical protocols. We will monitor patients response closely. We discontinue Ativan and morphine at this time. Patient stays full code. His prognosis is very poor. There is no family at the bedside. Tish met with spouse, sister and step daughter at an earlier time. They voiced to stay full code at that time. We are ordering CT head scan at this time. Total evaluation time in minutes: 31.
[2019-09-25] MEDS: ZOCOR PO SCH (20:34)
[2019-09-25] MEDS: SOLU-MEDROL IV SCH (20:34)
[2019-09-26] MEDS: LOPRESSOR PO SCH ×4 (01:22→20:07)
[2019-09-26] MEDS: SOLU-MEDROL IV SCH ×4 (01:22→20:07)
[2019-09-26] MEDS: BREVIBLOC 2.5 GM/NS 2.5 GM/250 ML IV.SOLN IV SCH (01:32)
[2019-09-26] MEDS: CORDARONE 360 MG/D5W 360 MG/200 ML IV.SOLN IV SCH ×4 (03:44→22:11)
[2019-09-26 04:16] LABS: ALLEN TEST YES; BLOOD TYPE ARTERIAL; HCO3-(ACT) 26.5 mmoll (20.0-26.0); METHB 1.3 % (0.0-1.5); O2HB 97.3 % (95.0-99.0); PCO2(98.6) 33 mmHg (35-45); PO2(98.6) 204 mmHg (60-100); SAMPLE BLOOD; SAO2 99.3 % (95.0-100.0); SRATE 16 BPM; THB 9.9 g/dL (11.5-17.4); TVOL 500 mL; pH(98.6) 7.49 (7.35-7.45)
[2019-09-26 04:17] LABS: MODALITY VENTILATOR
[2019-09-26 04:54] LABS: BASO# 0.01 X1000 (0.0-0.2); BASO% 0.1 % (0.0-0.8); HEMATOCRIT 34.6 % (42.0-52.0); HEMOGLOBIN 11.2 g/dL (14.0-18.0); IMM GRAN# 0.03 X1000 (0.0-0.04); IMM GRAN% 0.2 % (0.0-0.5); LYMPH# 1.08 X1000 (1.2-3.4); LYMPH% 8.7 % (20.5-51.1); MCH 23.6 PG (27-31); MCHC 32.4 g/dL (33-37); MONO# 0.42 X1000 (0.11-0.59); MONO% 3.4 % (1.7-9.3); MPV 12.3 FL (7.4-10.4); NEUT# 10.82 X1000 (1.4-6.5); NEUT% 87.6 % (42.2-75.2); PLT 165 X1000 (130-400); RBC 4.74 XMIL (4.7-6.1); RDW 16.1 % (11.5-14.5); WBC 12.36 X1000 (4.8-10.8)
[2019-09-26 05:20] LABS: CALCIUM 9.3 mg/dL (8.8-10.2); CREATININE 2.6 mg/dL (0.7-1.2)
--- NOTE | 2019-09-26 07:40 | Diag Imaging Result Doc PS360 ---
EXAM: CHEST-1 VIEW 09/26/2019 HISTORY: SOB TECHNIQUE: AP portable at 0514 COMMENT: There is cardiomegaly. There is a left pleural effusion. There is an endotracheal tube with its tip thoracic inlet and an NG tube which appears to pass below the diaphragm. Compared to 09/25/2019, there has been no appreciable change. IMPRESSION: Cardiomegaly. Left pleural effusion and left lower lobe atelectasis versus pneumonia. Electronically signed by Doyle Miner 09/26/2019 7:38 AM
--- NOTE | 2019-09-26 07:56 | CARDIOLOGY PROGRESS NOTE ---
DATE: 09/26/2019 CHIEF COMPLAINT: Shortness of breath and ventricular arrhythmia. SUBJECTIVE: The patient remains intubated. Since September 23 at around noon time he has not had any further episodes of ventricular fibrillation. He continues to be on IV esmolol and IV amiodarone. We have ordered metoprolol and his NG tube seems to be working. Levophed has been stopped. OBJECTIVE: Vital Signs: Blood pressure is 91/72, pulse 90, temperature 97.6, and respirations 16. General: The patient is sedated and unresponsive. Coronary artery reflex appears to be present. HEENT: Otherwise, unremarkable. He has an NG tube and an orotracheal tube. Chest: Symmetrical breath sounds. No rales. Cardiovascular: Heart sounds are regular and rhythmic. Question of a pericardial rub. Abdomen: Soft and slightly distended. Bowel sounds are diminished. Extremities: Good pulses. No edema. Neurological: He is completely sedated. LABORATORY DATA: Blood work: PH is 7.49, pCO2 33, and pO2 204. Sodium is 130, potassium 4, BUN 65, and creatinine 2.6. White cell count is 12,360, hemoglobin 11.2, and platelet count 165,000. Chest x-ray today has not been read but it shows congestion. Cardiomegaly. IMPRESSION: 1. Patient who presented with recurrent ventricular fibrillation followed by multiple defibrillator jolts. 2. Dilated nonischemic cardiomyopathy. 3. Chronic kidney disease. 4. Hypoxemic respiratory failure, question of right lower lobe pneumonia versus just decompensated congestive heart failure, functional class 4. 5. Sleep apnea syndrome. 6. Morbid obesity. 7. Patient seems to have pericarditis. He has a pericardial friction rub and his C-reactive protein was elevated at 87.98 mg/L which is highly suggestive of it. Sedimentation rate was 45 mm/hr. RECOMMENDATION: At this time we will continue supportive therapy. We might decrease esmolol and continue oral metoprolol. We will see how things go over the weekend. We might start the weaning process.We have put him on Solu-Medrol and we will see how he does. cc: Barry Jeff MD [facility]
[2019-09-26] MEDS: ZYVOX 600 MG/D5W 600 MG/300 ML IVPB IV SCH ×2 (10:15→20:07)
[2019-09-26] MEDS: ALDACTONE PO SCH ×2 (10:16→20:07)
[2019-09-26] MEDS: ASPIRIN EC PO SCH (10:16)
[2019-09-26] MEDS: KLOR-CON PO SCH ×2 (10:16→20:07)
[2019-09-26] MEDS: PRILOSEC PO SCH (10:16)
[2019-09-26] MEDS: COLACE PO SCH ×2 (10:16→20:08)
[2019-09-26] MEDS: ZYLOPRIM PO SCH (10:17)
[2019-09-26] MEDS: MAXIPIME 2 GM/NS 2 GM/100 ML IVPB IV SCH ×2 (10:17→20:08)
[2019-09-26] MEDS: VITAMIN E PO SCH (10:18)
[2019-09-26] MEDS: KEPPRA 500 MG in NS 100 ML IV SCH ×2 (10:36→20:07)
--- NOTE | 2019-09-26 13:45 | NEUROLOGY PROGRESS NOTE ---
DATE: 09/26/2019 SUBJECTIVE: Mr. Vázquez continues minimally responsive. There is very slight grimace with noxious stimulation. Limb tone is symmetric. Plantar response is extensor bilaterally. There is lateral eye movement with passive head turning. Pupils react slightly to bright light. Corneal reflexes are brisk and symmetric. Neck is supple without meningismus. Levetiracetam level is pending. BUN is up to 65. Sodium is 130. Noncontrast CT, 09/25/2019, showed the old left occipital infarction, scattered micro ischemic changes in the white matter, nothing new. He has not had further ventricular fibrillation event. IMPRESSION: Global encephalopathy, continued concern for hypoxic/ischemic brain injury following his most recent arrest. The negative CT is reassuring. We need to check the levetiracetam level when it comes in and adjust dose if needed. If he does not recover consciousness, a 2nd EEG would be reasonable. Thanks for asking Neurology to see Mr. Vázquez. cc: Morris Curran III, MD MTDD
--- NOTE | 2019-09-26 14:03 | EKG Report ---
Test Performed on : 09/26/2019 1:54:27 PM Test Reason : PERICARDITIS Blood Pressure : / mmHG Vent. Rate : 090 BPM Atrial Rate : 090 BPM P-R Int : 174 ms QRS Dur : 192 ms QT Int : 504 ms P-R-T Axes : 081 -76 102 degrees QTc Int : 616 ms AV sequential or dual chamber electronic pacemaker Abnormal ECG When compared with ECG of 23-SEP-2019 08:03, AV sequential or dual chamber electronic pacemaker has replaced Electronic ventricular pacemaker Confirmed by Mario Rice MD ([id number]) on 09/27/2019 2:25:26 PM
--- NOTE | 2019-09-26 14:03 | PROGRESS NOTE ---
DATE: 09/26/2019 SUBJECTIVE: I have seen and examined Mr. Vázquez today. Mr. Vázquez continues to be critically sick, and unresponsive. OBJECTIVE: Vital signs: Blood pressure is 89/60 with a MAP of 67, pulse of 90, respiration is 16, temperature is 97.9 degrees. General: Mr. Vázquez is a 69-year-old morbidly obese, gentleman. He is in bed, currently intubated. HEENT: Mucosa is pink and moist. Anicteric. Acyanotic. Neck: Supple. Positive JVD. Respiratory: Air entry is bilaterally reduced. There is transmitted sounds from the ventilator. There are some crackles posteriorly. Cardiovascular: Regular rate and rhythm. No murmurs, no rubs, no gallops. However, it is notable that after reading cardiology note, they referred that they might have heard a pericardial rub. GI: Abdomen is soft, is distended. DIRECTOR DATA ARCHITECTURE: The patient remains unresponsive. Pupils are reactive and equal. The patient still has gag reflex and corneal reflex, but will not move to painful stimulation. LABORATORY DATA: WBC is down to 13.26, hemoglobin is 11.2, platelet count of 165,000. Chemistry is also reviewed. Sodium is 130, potassium is 4.0, chloride 90, creatinine is down to 2.6. A chest x-ray this morning shows cardiomegaly, left pleural effusion and left lower lobe atelectasis versus pneumonia. Sputum culture so far Gram stain shows no bacteria. Blood culture still pending. CURRENT MEDICATIONS: Have all been reviewed. The patient was started on methylprednisolone since yesterday for presumed pericarditis. ASSESSMENT: 1. Status post cardiopulmonary arrest. 2. Recurrent ventricular fibrillation/electrical storm. The patient has had multiple defibrillations. He is currently on amiodarone and esmolol drip. 3. Severe dilated nonischemic cardiomyopathy with ejection fraction of 10% to 15%. Cardiology is on board. 4. CKD stage IIIB, stable. 5. History of pulmonary embolism. 6. Unresponsiveness after cardiopulmonary arrest concerning for anoxic brain injury. The patient had an EEG which only showed moderate to diffuse slowing indicative of moderate nonspecific encephalopathy. A CT scan of the brain which was done yesterday showed extensive chronic ischemic microvascular changes. Old left occipital infarct. No evidence of acute intracranial pathology. We will continue to follow up with Neurology. 7. Left lower lobe pneumonia. Patient is on broad-spectrum antimicrobial coverage. 8. Suspected pericarditis. Per Cardiology notes, it appears the patient has a pericardial rub. Inflammatory markers are also elevated which could also be elevated in the setting of the pneumonia. He has been started on steroid therapy. We will continue to monitor. We will get an ECG to see if there is any diffuse ST-segment elevations or other evidence of pericarditis, and I wonder if they would do a bedside echo to see if there is evidence of that. cc: Kei Stanley MD
--- NOTE | 2019-09-26 19:26 | PULMONOLOGY PROGRESS NOTE ---
DATE: 09/26/2019 SUBJECTIVE: The patient does not respond to painful stimuli. He remains on mechanical ventilation. OBJECTIVE: Vital Signs: BP 96/84, heart rate 90, respiratory rate 16, oxygen saturation 98%. HEENT: Pupils are equal with slight response the light. Oropharynx appears clear. Neck: Supple. Chest reveals rhonchi bilaterally. Cardiac exam: S1, S2. Irregular rhythm. Abdomen: Soft with diminished bowel sounds. Extremities: Reveal 1+ peripheral edema. LABORATORY DATA: Chest x-ray reveals cardiomegaly with left lower lobe atelectasis. Sputum culture is pending. White blood count 12.36, hemoglobin 11.2, platelet count 165,000. Arterial blood gas reveals a pH of 7.49, pCO2 of 33, pO2 of 204 with a normal lactate. Sodium 130, potassium 4.0, chloride 90, bicarbonate 25, BUN 65, creatinine 2. IMPRESSION: A 69-year-old with: 1. Acute hypoxemic respiratory failure. 2. Hypoxemic encephalopathy following cardiopulmonary arrest. 3. Dilated cardiomyopathy. 4. Recurrent ventricular fibrillation requiring defibrillator shocks. 5. Acute renal failure. DISCUSSION: A 69-year-old with problems outlined above. The patient's prognosis is dismal. The palliative care nurse has met with the family who continues to push for aggressive interventions. PLAN: 1. Continue ventilatory support. 2. Await sputum cultures. 3. Initiate tube feeds in an attempt to decrease tissue and skin breakdown. 4. Extremely poor prognosis as outlined above. Recommend ongoing end-of-life discussions. Time spent in critical care management: 35 minutes cc: Ruddy Robbins MD [facility]
[2019-09-26] MEDS: ZOCOR PO SCH (20:08)
[2019-09-27] MEDS: LOPRESSOR PO SCH ×3 (01:07→20:13)
[2019-09-27] MEDS: SOLU-MEDROL IV SCH ×3 (01:11→14:05)
[2019-09-27] MEDS: CORDARONE 360 MG/D5W 360 MG/200 ML IV.SOLN IV SCH ×4 (03:08→21:50)
[2019-09-27 05:03] LABS: ALLEN TEST YES; BE 0.2 mmoll (-3.0-3.0); BLOOD TYPE ARTERIAL; HCO3-(ACT) 25.1 mmoll (20.0-26.0); O2(CT) 16.2 mL/dL (15.0-23.0); O2HB 97.1 % (95.0-99.0); PCO2(98.6) 32 mmHg (35-45); PO2(98.6) 121 mmHg (60-100); SAMPLE BLOOD; SAO2 98.8 % (95.0-100.0); SRATE 16 BPM; THB 11.7 g/dL (11.5-17.4); TVOL 500 mL; pH(98.6) 7.47 (7.35-7.45)
[2019-09-27 05:04] LABS: MODALITY VENTILATOR
[2019-09-27] MEDS: PRILOSEC PO SCH (06:05)
[2019-09-27 06:32] LABS: BASO# 0.01 X1000 (0.0-0.2); BASO% 0.1 % (0.0-0.8); HEMATOCRIT 34.3 % (42.0-52.0); IMM GRAN# 0.09 X1000 (0.0-0.04); IMM GRAN% 0.7 % (0.0-0.5); LYMPH# 1.22 X1000 (1.2-3.4); LYMPH% 9.5 % (20.5-51.1); MCH 23.3 PG (27-31); MCHC 32.1 g/dL (33-37); MCV 72.7 FL (81-99); MONO# 0.61 X1000 (0.11-0.59); MONO% 4.8 % (1.7-9.3); NEUT# 10.85 X1000 (1.4-6.5); NEUT% 84.9 % (42.2-75.2); PLT 183 X1000 (130-400); RBC 4.72 XMIL (4.7-6.1); RDW 16.4 % (11.5-14.5); WBC 12.78 X1000 (4.8-10.8)
[2019-09-27 07:12] LABS: CALCIUM 9.2 mg/dL (8.8-10.2); CREATININE 3.4 mg/dL (0.7-1.2); POTASSIUM 4.2 mmol/L (3.5-5.1)
[2019-09-27] MEDS: ZYVOX 600 MG/D5W 600 MG/300 ML IVPB IV SCH ×2 (07:34→20:13)
[2019-09-27] MEDS: MAXIPIME 2 GM/NS 2 GM/100 ML IVPB IV SCH ×2 (07:34→20:13)
--- NOTE | 2019-09-27 07:41 | Diag Imaging Result Doc PS360 ---
EXAM: CHEST-1 VIEW HISTORY: SOB TECHNIQUE: Single view COMPARISON: 09/26/2019 FINDINGS: No change in the endotracheal tube, nasogastric tube, or left-sided pacemaker. The heart remains enlarged. Pulmonary edema persists. There is a moderate sized left pleural effusion. Atelectasis or pneumonia is found in the left lung base. IMPRESSION: No interval improvement Electronically signed by Tal Smith 09/27/2019 7:39 AM
[2019-09-27] MEDS: ASPIRIN EC PO SCH (08:05)
[2019-09-27] MEDS: KEPPRA 500 MG in NS 100 ML IV SCH (08:05)
[2019-09-27] MEDS: ALDACTONE PO SCH ×2 (08:05→20:13)
[2019-09-27] MEDS: ZYLOPRIM PO SCH (08:05)
[2019-09-27] MEDS: KLOR-CON PO SCH (08:06)
[2019-09-27] MEDS: COLACE PO SCH (08:06)
[2019-09-27] MEDS: VITAMIN E PO SCH (08:07)
--- NOTE | 2019-09-27 11:42 | PROGRESS NOTE ---
DATE: 09/27/2019 SUBJECTIVE: I have seen and examined Mr. Vázquez today. Mr. Vázquez remains the same. No changes overnight per the nursing staff. He has been started on tube feedings, and he seems to be tolerating that well. OBJECTIVE: Vital signs: Blood pressure is 105/73, pulse of 81, respiration is 16, temperature is 98. General: Mr. Vázquez is a 69-year-old gentleman. He is in bed still intubated. No sedation. HEENT: Mucosa is pink and moist. Anicteric. Acyanotic. Neck: Supple. Positive JVD. Chest: Air entry is bilaterally reduced. Some transmitted sounds from the ventilator. Cardiovascular: Regular rate and rhythm. GI/Abdomen: Soft, distended. Bowel sounds present. COMMUNICATIONS ELECTRICIAN SUPERVISOR: Patient is unresponsive. He will barely try to open the eyes to painful stimulation. Pupils continue to be equal and reactive. The patient has gag reflex. LABORATORY DATA: WBC is 12.78, hemoglobin is 11.0, platelet count of 183. Chemistry is also reviewed. Sodium is 128, creatinine went up to 3.4. C-reactive protein is down to 56.43. The patient's ProBNP is 26,000. The patient's I's and O's: Urine output was 745. It is currently positive balance of 1786. CURRENT MEDICATIONS: Have all been reviewed. No changes. The patient is on cefepime and Zyvox; today is day 2. MICROBIOLOGY: So far blood cultures have been 48 hours negative. Sputum culture from yesterday is showing gram-positive cocci. ASSESSMENT: 1. Status post cardiopulmonary arrest. 2. Recurrent ventricular fibrillation/electrical storm. The patient had multiple shocks from his defibrillator. This is 3 days ago. He also had multiple external shocks. He is currently on amiodarone. Esmolol drip has been discontinued. 3. Severe dilated nonischemic cardiomyopathy with ejection fraction of 10% to 15%. Cardiology is on board. 4. Chronic kidney disease stage III-B. Creatinine has worsened significantly this morning. Urine output has also dropped some. We will get Nephrology to evaluate him. 5. History of pulmonary embolism. 6. Unresponsiveness after cardiopulmonary arrest, concerning for anoxic brain injury. Neurology is on board. 7. Left lower lobe pneumonia with sputum positive for gram-positive cocci. I will continue with current antimicrobial coverage. 8. Suspected pericarditis as per Cardiology notes. We will continue with recommendations from them. 9. Congestive heart failure with a ProBNP up to 26,000. We will continue with medications recommended by Cardiology. PLAN: So, today, I spoke with the for Mr. Vázquez, updated her on his current medical condition. Also notified her that Mr. Vázquez has not significantly changed from yesterday, and that he continues to be unresponsive and will barely open the eyes, and there is still the concern for severe anoxic brain injury. I also notified her about the worsening nature of the kidney function, and that we will get Nephrology on board. I did address all her concerns, and all her questions were answered. Mr. Vázquez continues to be full code. cc: Kei Stanley MD
[2019-09-27] MEDS ORDERED: LASIX IV ONE (12:31)
--- NOTE | 2019-09-27 12:54 | PROGRESS NOTE ---
DATE: 09/27/2019 SUBJECTIVE: Patient continues on ventilator. He makes some respiratory efforts, but is otherwise unresponsive. OBJECTIVE: Vital Signs: Blood pressure 105/73, heart rate 90, oxygen saturation 96% on ventilator with FiO2 of 40%. Neck: Jugular venous distention cannot be appreciated on auscultation. Lungs: Chest reveals coarse breath sounds bilaterally. Cardiac: Exam reveals regular rate and rhythm without appreciable murmur or gallop. Extremities: Demonstrate mild edema. LABORATORY DATA: Includes a white blood cell count 12.78, hematocrit 34.3, hemoglobin 11.0, platelet count 183. Sodium 128, potassium 4.2, chloride 90, carbon dioxide 20. BUN 82, creatinine 3.4, glucose 177. IMAGING STUDIES: Chest x-ray is reviewed and demonstrates marked cardiomegaly and evidence of pulmonary edema. IMPRESSION: 1. Recurrent ventricular fibrillation episodes and status post cardiac arrest. The patient's rhythm has been more stable in the past 24 hours as he continues on parental amiodarone. 2. Clinical evidence of acute on chronic systolic heart failure and probable associated cardiorenal syndrome superimposed on chronic kidney disease. He may have also had a renal insult related to transient hypoperfusion. 3. Dilated cardiomyopathy. 4. Chronic kidney disease. 5. Hypoxemic respiratory failure. RECOMMENDATIONS: 1. Continue supportive care.with ventilator, 2. Diurese. 3. Continue amiodarone parenterally. We will try and resume amiodarone per tube to ensure adequate loading. 4. Given decline in renal function and encephalopathy, suggest reducing dose of Keppra. cc: Abelardo Groves MD [facility]
[2019-09-27] MEDS: CORDARONE NG SCH ×2 (14:04→16:22)
[2019-09-27] MEDS: LOVENOX SUBQ SCH (14:05)
--- NOTE | 2019-09-27 14:31 | Diag Imaging Result Doc PS360 ---
EXAM: US RENAL 2 (RETROPER) COMPLETE HISTORY: stefani/arf TECHNIQUE: Renal ultrasound COMPARISON: 06/07/2016 FINDINGS: The right kidney measures 10.8 x 5.7 x 5.6 cm. The left kidney measures 12.5 x 5.4 x 5.8 cm. There are scattered renal cysts. The largest on the right measures 2.5 cm. The largest on the left measures 5.1 cm. There appears to be nonobstructing right renal stone. Likely cortical calcifications superiorly in the left kidney. IMPRESSION: Scattered renal cysts with a possible small nonobstructing right renal stone. Electronically signed by Tal Smith 09/27/2019 2:29 PM
--- NOTE | 2019-09-27 15:17 | NEPHROLOGY CONSULTATION ---
DATE: 09/27/2019 REASON FOR CONSULTATION: Acute kidney injury. HISTORY OF PRESENT ILLNESS: Mr. Vázquez is a 69-year-old man that we have followed historically. He has chronic kidney disease stage 3 with baseline creatinine typically 1.3 to 1.8. He was admitted to the hospital on the because of recurrent ventricular tachycardia and ventricular tachyarrhythmias. He suffered a rather protracted cardiac arrest on admission and then again in the ICU. In this context, his creatinine was 2.1 on presentation and 1.9 on the . Subsequently has begun to rise peaked at 3.4 today. Urine output has been trailing off and he has had 745 mL of urine output in the last 24 hours. He is intubated and unresponsive. He has been evaluated by Neurology who had concern for ischemic hypoxic brain injury. PAST MEDICAL HISTORY: Ischemic cardiomyopathy, CKD, hypertension, hyperlipidemia, COPD, home oxygen. HOME MEDICATIONS: Include allopurinol, aspirin, digoxin, omeprazole, Xarelto, simvastatin, spironolactone, Demadex, vitamin E, Entresto, potassium chloride, spironolactone, metoprolol. ALLERGIES: None. SOCIAL HISTORY, FAMILY HISTORY, REVIEW OF SYSTEMS: Are not obtainable except as listed. PHYSICAL EXAMINATION: Vital Signs: Blood pressure 129/93, heart rate 90, respirations 16, afebrile. General: He is an elderly black male on the ventilator unresponsive. Skin is warm and dry. Conjunctivae are pink. Corneal arcus is present. Pupils are sluggish. Oropharynx is dry. Neck: Neck veins are not appreciated. Heart: Regular with no gallops or murmurs. Lungs: Equal, coarse. No crackles or wheezes. Abdomen: Soft, nontender. Bowel sounds are present. Extremities: With trace edema. No clubbing or cyanosis. Neurologic: He is unresponsive. IMPRESSION: Acute kidney injury with worsening oliguria. Sodium is low at 128. Potassium acceptable at 4.2. Modest anion gap acidosis presumably related to his renal dysfunction. Presumably, ischemic acute tubular necrosis secondary to his arrest. I have reviewed his medications and no changes are required. He has been prescribed furosemide 100 mg daily. We will observe his response to this. He does not currently meet criteria for dialysis. cc: Camilo Chpora MD
--- NOTE | 2019-09-27 20:09 | PULMONOLOGY PROGRESS NOTE ---
DATE: 09/27/2019 SUBJECTIVE: The patient does not respond to question. He does not respond to painful stimuli. OBJECTIVE: Vital Signs: The patient has been afebrile for the last 24 hours. Blood pressure 115/84, heart rate 90, respiratory rate 16, oxygen saturation 95%. HEENT: Pupils were midpoint and poorly reactive. Oropharynx appears clear. Neck: Supple. Chest: Reveals bilateral crackles. Cardiac: S1, S2. Abdomen: Obese and soft. Extremities: Reveal 1 to 2+ peripheral edema. LABORATORIES: Chest x-ray reveals cardiomegaly with pulmonary vascular congestion. Arterial blood gas reveals a pH of 7.47, pCO2 of 32, PO2 of 121. Sodium 128, potassium 4.2, chloride 90, bicarbonate 20, BUN 82, creatinine 3.4, glucose 177. IMPRESSION: A 69-year-old with 1. Acute hypoxemic respiratory failure. 2. Hypoxemic encephalopathy following cardiopulmonary arrest. 3. Dilated cardiomyopathy. 4. Recurrent ventricular fibrillation requiring multiple defibrillator shocks. 5. Acute renal failure. DISCUSSION: A 69-year-old with problems outlined above. He continues to do poorly. He does not appear to be a great candidate for dialysis but he is being evaluated by Dr. Chopra. PLAN: 1. Continue ventilatory support. We will adjust the respiratory rate. 2. Sputum cultures have revealed gram-positive cocci. He is currently on linezolid. 3. Continue tube feeds. 4. Extremely poor prognosis as outlined above. Recommend ongoing end-of-life discussions. Time spent in critical care management: 35 minutes cc: Ruddy Robbins MD [facility]
[2019-09-27] MEDS: TYLENOL PO PRN (20:13)
[2019-09-27] MEDS: ZOCOR PO SCH (20:13)
[2019-09-27] MEDS: KEPPRA 250 MG in NS 100 ML IV SCH (20:13)
[2019-09-27] MEDS ORDERED: LASIX IV SCH (20:30)
[2019-09-27] MEDS: LASIX 120 MG in NS 25 ML IV SCH (21:35)
[2019-09-28] MEDS: CORDARONE 360 MG/D5W 360 MG/200 ML IV.SOLN IV SCH (04:12)
[2019-09-28 05:26] LABS: ALLEN TEST YES; BE -0.4 mmoll (-3.0-3.0); BLOOD TYPE ARTERIAL; HCO3-(ACT) 24.6 mmoll (20.0-26.0); METHB 1.1 % (0.0-1.5); O2(CT) 16.5 mL/dL (15.0-23.0); O2HB 96.6 % (95.0-99.0); PCO2(98.6) 32 mmHg (35-45); PO2(98.6) 125 mmHg (60-100); SAMPLE BLOOD; SAO2 98.9 % (95.0-100.0); SRATE 10 BPM; TVOL 500 mL; pH(98.6) 7.46 (7.35-7.45)
[2019-09-28 05:27] LABS: MODALITY VENTILATOR
[2019-09-28 05:45] LABS: BASO# 0.03 X1000 (0.0-0.2); BASO% 0.2 % (0.0-0.8); EOS# 0.01 X1000 (0.0-0.7); EOS% 0.1 % (0.0-10.0); HEMATOCRIT 33.3 % (42.0-52.0); HEMOGLOBIN 11.2 g/dL (14.0-18.0); IMM GRAN# 0.08 X1000 (0.0-0.04); IMM GRAN% 0.5 % (0.0-0.5); LYMPH# 1.39 X1000 (1.2-3.4); LYMPH% 9.4 % (20.5-51.1); MCH 24.1 PG (27-31); MCHC 33.6 g/dL (33-37); MCV 71.8 FL (81-99); MONO# 0.88 X1000 (0.11-0.59); MPV 11.7 FL (7.4-10.4); NEUT# 12.35 X1000 (1.4-6.5); NEUT% 83.8 % (42.2-75.2); PLT 192 X1000 (130-400); RBC 4.64 XMIL (4.7-6.1); RDW 16.2 % (11.5-14.5); WBC 14.74 X1000 (4.8-10.8)
[2019-09-28 06:20] LABS: CALCIUM 9.3 mg/dL (8.8-10.2); CREATININE 3.9 mg/dL (0.7-1.2); LYMPHS 4 % (21-51); NRBC 1 % (0-0); POTASSIUM 3.4 mmol/L (3.5-5.1); SEGS 90 % (42-75)
[2019-09-28] MEDS: ZYVOX 600 MG/D5W 600 MG/300 ML IVPB IV SCH (08:14)
[2019-09-28] MEDS: KEPPRA 250 MG in NS 100 ML IV SCH ×2 (08:14→20:40)
[2019-09-28] MEDS: MAXIPIME 2 GM/NS 2 GM/100 ML IVPB IV SCH (08:14)
[2019-09-28] MEDS ORDERED: KEFZOL 1 GM/D5W 1 GM/50 ML IVPB IV ONE (08:35)
[2019-09-28] MEDS: CORDARONE NG SCH ×3 (08:56→16:44)
[2019-09-28] MEDS: SODIUM CHLORIDE 0.9% INJ SCH (08:56)
[2019-09-28] MEDS: PROTONIX IV SCH (08:56)
[2019-09-28] MEDS: ALDACTONE PO SCH ×2 (08:56→20:40)
[2019-09-28] MEDS: ZYLOPRIM PO SCH (08:57)
[2019-09-28] MEDS: ASPIRIN EC PO SCH (08:57)
[2019-09-28] MEDS: LOPRESSOR PO SCH ×2 (08:57→20:41)
[2019-09-28] MEDS ORDERED: LASIX IV SCH (09:00)
--- NOTE | 2019-09-28 09:06 | Diag Imaging Result Doc PS360 ---
CHEST-1 VIEW - 09/28/2019 INDICATION: SOB COMPARISON: 09/27/2019 FINDINGS: Support tubes are stable and in good position. Stable severe cardiomegaly and pulmonary vascular congestion. Stable left basilar opacification. Stable central interstitial infiltrates compatible with pulmonary edema. IMPRESSION: No change from prior. Electronically signed by Joseph Jonas 09/28/2019 9:04 AM
[2019-09-28] MEDS: LASIX 120 MG in NS 25 ML IV SCH ×2 (09:21→20:54)
[2019-09-28] MEDS: LOVENOX SUBQ SCH (12:45)
--- NOTE | 2019-09-28 13:56 | PROGRESS NOTE ---
DATE: 09/28/2019 SUBJECTIVE: This morning, Mr. Vázquez remained the same. Per the nursing staff, there were really no changes overnight. He continues to be nonverbal and unresponsive. OBJECTIVE: Vital Signs: Blood pressure is 107/85, pulse of 90, respirations are 21, temperature is 98 degrees, the patient is saturating 100% on 30 FiO2 on mechanical ventilation. General Examination: Mr. Vázquez is a 69-year-old, -[place] male. He is in bed, currently intubated. No sedation. HEENT: Mucosa is pink and moist. Anicteric. Acyanotic. Neck: Supple. Positive JVD. Respiratory System: Air entry is bilaterally reduced. Some crackles posteriorly. Cardiovascular: Regular rate and rhythm. There is a generator pocket on the left anterior chest wall. GI: Abdomen is soft. Bowel sounds present. MIDDLEWARE CONSULTANT: The patient is minimally responsive to painful stimulation. He does withdrawal to some painful stimulation, especially on the upper extremities. Pupils are also equal and they are reactive. The patient has a gag reflex but he does not follow any commands. Is and Os: Urine output was 1280. He is currently positive balance of 2888. Imaging Studies: A chest x-ray shows stable severe cardiomegaly and pulmonary vascular congestion, stable left basilar opacification. Renal ultrasound does not show any obstructive uropathy. ASSESSMENT: 1. Recurrent ventricular fibrillation/electrical storm leading to a cardiopulmonary arrest. Today is day 5 on the mechanical ventilation. The patient's implantable cardioverter defibrillator was also interrogated. He is currently on amiodarone. Cardiology and pulmonary on board. 2. Severe dilated nonischemic cardiomyopathy, ejection fraction of 10% to 15%. Cardiology is on board. 3. Acute on chronic kidney disease. Creatinine continues to be worsening. 4. Volume distention, most likely due to congestive heart failure with severe systolic dysfunction. 5. Unresponsiveness after cardiopulmonary arrest, concerning for anoxic brain injury. The patient seems to withdraw from pain. He will also spontaneously open the eyes upon painful stimulation. No verbal response. He is not on any sedation. However, his clinical mental status has had no change for the past 72 hours. I think he is going to probably be in a permanent vegetative state for some time. Neurology is on board and we will follow up with further recommendations from them. 6. Left lower lobe methicillin-sensitive Staphylococcus aureus pneumonia. We have switched the antibiotics to target this pathogen specifically. 7. Suspected pericarditis as per cardiology notes. We will follow up further recommendations from them. 8. Shock, presumably a combination of cardiogenic and sepsis. We will continue addressing each one of these. PLAN: In general, Mr. Vázquez continues to be critically sick but remains stable. He is currently on just 30% of FiO2. He is saturating well. His heart rate also seems to be well controlled and on the monitor, it looks like he has intrinsic rhythm. Unfortunately, his mentation has not improved for the past 72 hours and I am concerned if he did suffer a severe anoxic brain injury, that will lead him to a permanent vegetable state. We are going to continue to follow up with neurology in that regard. Mr. Vázquez is being seen by multiple subspecialties including pulmonary medicine, cardiology, nephrology, and we do appreciate their input. cc: Kei Stanley MD
[2019-09-28] MEDS ORDERED: LASIX IV ONE (15:00)
--- NOTE | 2019-09-28 15:12 | PROGRESS NOTE ---
DATE: 09/28/2019 SUBJECTIVE: Patient continues on ventilator. He makes some respiratory efforts but is otherwise unresponsive. OBJECTIVE: Vital Signs: Blood pressure 107/85, heart rate 90, oxygen saturation 100% on ventilator with FiO2 of 30%. Neck: There is no significant jugular venous distention appreciated. Respiratory: Auscultation of the chest reveals coarse breath sounds bilaterally. Cardiac: Reveals a regular rate and rhythm without appreciable murmur or gallop. Extremities: Demonstrate mild edema. IMAGING: Chest x-ray demonstrates severe cardiomegaly and pulmonary vascular congestion, as well as interstitial infiltrates suggesting pulmonary edema. LABORATORY DATA: Includes a white blood cell count of 14.74, hematocrit 33.3, hemoglobin 11.2, platelet count 192,000. Sodium 129, potassium 3.4, chloride 87, carbon dioxide 22, BUN 96, creatinine 3.9, glucose is 214. IMPRESSIONS: 1. Recurrent ventricular fibrillation episodes and status post cardiac arrest. The patient's rhythm has been stable for the past 48 hours. 2. Clinical evidence of acute on chronic systolic heart failure and probable associated cardiorenal syndrome superimposed on chronic kidney disease. He may have also had a renal insult related to transient hypoperfusion. 3. Dilated cardiomyopathy, severe. 4. Chronic kidney disease. 5. Hypoxemic respiratory failure. 6. Encephalopathy. RECOMMENDATIONS: 1. Continue supportive care. 2. Continue efforts to diurese with IV Lasix. 3. Given tendency for life-threatening ventricular arrhythmias recently suppressed, will hold off on initiating inotropic therapy which may provoke further arrhythmias. 4. Transition from IV amiodarone to oral amiodarone. cc: Abelardo Groves MD
[2019-09-28] MEDS: KEFZOL 1 GM/D5W 1 GM/50 ML IVPB IV SCH (16:44)
--- NOTE | 2019-09-28 17:40 | PULMONOLOGY PROGRESS NOTE ---
DATE: 09/28/2019 SUBJECTIVE: The patient's eyes are open. The patient responded once to painful stimuli, but this was not reproducible. OBJECTIVE: Vital Signs: The patient has been afebrile for the last 24 hours. Blood pressure 123/95, heart rate 90, respiratory rate 22, oxygen saturation 98%. HEENT: Pupils are midpoint but poorly reactive. Oropharynx appears dry. Neck: Supple. Chest: Reveals scattered rhonchi. Cardiac exam: S1-S2. Abdomen: Soft. Extremities: Reveal 1+ peripheral edema. LABORATORIES: Chest x-ray reveals cardiomegaly with opacification of the left base and pulmonary vascular congestion. White blood count 14.74, hemoglobin 11.2, platelet count 192,000. Arterial blood gas reveals a pH of 7.46, pCO2 of 32, PO2 of 125. Sodium 129, potassium 3.4, chloride 87, bicarbonate 22, BUN 96, creatinine 3.9. IMPRESSION: A 69-year-old with 1. Acute hypoxemic respiratory failure. 2. Hypoxemic encephalopathy following cardiopulmonary arrest. 3. Dilated cardiomyopathy. 4. Recurrent ventricular fibrillation requiring multiple defibrillator shocks. 5. Acute renal failure. DISCUSSION: A 69-year-old problems outlined above. He continues to do poorly. PLAN: 1. Continue current ventilatory support. 2. Continue antibiotics for methicillin sensitive Staph aureus. His linezolid could be changed to another agent. 3. Prognosis remains poor. TIME SPENT: In critical care management: 30+ minutes. cc: Ruddy Robbins MD
[2019-09-29 04:29] LABS: ALLEN TEST YES; BE 2.5 mmoll (-3.0-3.0); BLOOD TYPE ARTERIAL; HCO3-(ACT) 26.9 mmoll (20.0-26.0); METHB 0.7 % (0.0-1.5); O2(CT) 16.9 mL/dL (15.0-23.0); O2HB 96.9 % (95.0-99.0); PCO2(98.6) 37 mmHg (35-45); PO2(98.6) 111 mmHg (60-100); SAMPLE BLOOD; SRATE 10 BPM; THB 12.3 g/dL (11.5-17.4); TVOL 500 mL; pH(98.6) 7.46 (7.35-7.45)
[2019-09-29 04:31] LABS: MODALITY VENTILATOR
[2019-09-29] MEDS: KEFZOL 1 GM/D5W 1 GM/50 ML IVPB IV SCH ×2 (05:29→15:59)
[2019-09-29 06:21] LABS: BASO# 0.01 X1000 (0.0-0.2); BASO% 0.1 % (0.0-0.8); HEMATOCRIT 34.1 % (42.0-52.0); HEMOGLOBIN 11.3 g/dL (14.0-18.0); IMM GRAN# 0.08 X1000 (0.0-0.04); IMM GRAN% 0.5 % (0.0-0.5); LYMPH% 6.8 % (20.5-51.1); MCH 23.8 PG (27-31); MCHC 33.1 g/dL (33-37); MCV 71.8 FL (81-99); MONO# 0.92 X1000 (0.11-0.59); MONO% 6.3 % (1.7-9.3); MPV 12.1 FL (7.4-10.4); NEUT% 86.3 % (42.2-75.2); PLT 207 X1000 (130-400); RBC 4.75 XMIL (4.7-6.1); RDW 16.7 % (11.5-14.5); WBC 14.71 X1000 (4.8-10.8)
--- NOTE | 2019-09-29 06:48 | Diag Imaging Result Doc PS360 ---
CHEST-1 VIEW - 09/29/2019 INDICATION: SOB COMPARISON: 09/28/2019 FINDINGS: Support tubes are stable and in good position. There has been slight decrease in the density of the central infiltrates bilaterally/pulmonary edema. There is been decrease in the pulmonary vascular congestion. Stable cardiomegaly. Stable left basilar opacification. IMPRESSION: Improvement from prior. Electronically signed by Joseph Jonas 09/29/2019 6:46 AM
[2019-09-29 08:13] LABS: CALCIUM 9.5 mg/dL (8.8-10.2); CREATININE 3.9 mg/dL (0.7-1.2); POTASSIUM 3.4 mmol/L (3.5-5.1)
[2019-09-29] MEDS: SODIUM CHLORIDE 0.9% INJ SCH (09:10)
[2019-09-29] MEDS: KEPPRA 250 MG in NS 100 ML IV SCH ×2 (09:10→22:16)
[2019-09-29] MEDS: PROTONIX IV SCH (09:10)
[2019-09-29] MEDS: CORDARONE NG SCH ×3 (09:11→15:59)
[2019-09-29] MEDS: ALDACTONE PO SCH ×3 (09:11→22:16)
[2019-09-29] MEDS: ASPIRIN EC PO SCH (09:11)
[2019-09-29] MEDS: ZYLOPRIM PO SCH (09:11)
[2019-09-29] MEDS: LASIX 120 MG in NS 25 ML IV SCH ×2 (09:11→22:16)
[2019-09-29] MEDS: LOPRESSOR PO SCH ×3 (09:11→22:16)
--- NOTE | 2019-09-29 11:56 | CARDIOLOGY PROGRESS NOTE ---
DATE: 09/29/2019 SUBJECTIVE: The patient continues on the ventilator support. He is making some respiratory efforts, but is otherwise unresponsive. He will spontaneously open his eyes but has some vertical nystagmus. OBJECTIVE: Vital Signs: Blood pressure is 113/71, heart rate is 90 beats per minute. His oxygen saturation is 100% on a ventilator with the FiO2 of 30%. General: The patient is on ventilator support, unresponsive. HEENT: Normocephalic, atraumatic. He has an NG tube and an orotracheal tube in place. Neck: There is no obvious jugular vein distention, but it is difficult to assess. Chest: There are mechanical breath sounds which are symmetrical with a few coarse rhonchi anteriorly. No wheezing or rales noted. Cardiovascular: Heart sounds are regular and rhythmic at this time with questionable evidence of pericardial rub that still is present. Abdomen: Seems more distended today with few bowel sounds appreciated. Extremities: Show mild pedal edema with legs wrapped in compression boots. Neurologic: Unable to fully assess due to the patient intubated. IMAGING STUDIES: Chest x-ray showed there is a slight decrease in the density of the central infiltrates bilaterally, but still with some pulmonary edema. There is a little bit decrease in the pulmonary vascular congestion, stable cardiomegaly and stable left basilar opacities. LABORATORY DATA: Includes a sodium of 130, potassium of 3.4, BUN of 109 and a creatinine of 3.9. C-reactive protein of 56.43 on 09/27/2019. White blood cell count of 14.71, hemoglobin of 11.3 and hematocrit of 34.1, and platelet count of 207,000. IMPRESSIONS: 1. Recurrent ventricular fibrillation episodes, status post cardiac arrest, status post multiple defibrillator shocks. The patient's rhythm has been stable for the past 48 hours and remains so at this time. We will continue supportive therapy and have placed the patient on Amiodarone 400 mg 3 times daily down the nasogastric tube. 2. Acute on chronic systolic heart failure, dilated nonischemic cardiomyopathy with associated cardiorenal syndrome superimposed on chronic kidney disease. 3. Hypoxic respiratory failure with possible of right lower lobe pneumonia. The patient has been receiving multiple intravenous antibiotics and is currently on Kefzol intravenously. 4. Sleep apnea syndrome. 5. Encephalopathy. 6. Pericarditis. The patient has received methylprednisone at 125 mg intravenously x1 dose, followed by 60 mg intravenously every 6 hours x8 doses, and has completed this course of therapy. We may consider a followup limited echocardiogram to reassess for any effusions if deemed necessary during this hospitalization. 7. Methicillin-sensitive Staphylococcus aureus Bronchitis/pneumonia ? on antibiotic therapy with Kefzol. RECOMMENDATIONS: At this time, we will continue the supportive care as noted above. We will continue to attempt to suppress the ventricular arrhythmias with Amiodarone. We will hold off on initiating any Inotropic therapy that may provoke further arrhythmias at this time. We will also continue diuretic therapy with IV Lasix as needed and Spironolactone 50mg bid. Patient discussed with Dr. Jeff. Recommendations as above and forthcoming. Dictated by BRIANA Rojas for Barry Jeff MD cc: BRIANA Rojas MD I Agree with above assessment and plan. [facility]
[2019-09-29] MEDS: LOVENOX SUBQ SCH (11:57)
--- NOTE | 2019-09-29 12:03 | NEPHROLOGY PROGRESS NOTE ---
DATE: 09/29/2019 SUBJECTIVE: He remains on the ventilator. Eyes are open. He moves his mouth but does not follow any commands. OBJECTIVE: Vital Signs: Blood pressure 113/71, heart rate 90, respirations 22, afebrile. Intake 2, output 2.7 L. General: No acute distress. Skin is warm and dry. HEENT: Conjunctivae are pink. Neck: Neck veins are not appreciated. Heart: Regular, with a murmur. Lungs: Equal. No crackles. Abdomen: Soft, nontender. Bowel sounds are present. Extremities: There is 2+ edema. No clubbing or cyanosis. IMPRESSION: Acute kidney injury overlying chronic kidney disease. Creatinine is stable over the last 24 hours. Excellent urine output, on intravenous furosemide. No acute indications for dialysis. Observe. cc: Camilo Chopra MD
--- NOTE | 2019-09-29 14:10 | NEUROLOGY PROGRESS NOTE ---
DATE: 09/29/2019 SUBJECTIVE: Since I last saw the patient, he continued to have several episodes of arrhythmia with multiple defibrillations. Those events have been stable over the last couple of days. Unfortunately, the patient's mental status declined pretty abruptly in the early hours of 09/24/2019 following these episodes. He has remained unresponsive since that time. Head CT performed 09/24 did not show acute findings. It does not appear that the patient has been on sedating medications. His levetiracetam dose was reduced due to concern for sedation in the setting up of worsening kidney injury. In fact, looking at his labs, his BUN has climbed from 63 when I saw him to now 109 today. His creatinine was 2.3, and now 3.9. Last levetiracetam dose was 28.4. I believe it looks like this was on the higher dose. OBJECTIVE: He has been afebrile. Blood pressure has been 81 to 116 systolic over 50s to 80s diastolic. Today, pulse was 90. He is on the ventilator, and is breathing over the vent. Mr. Vázquez is supine in bed on the ventilator. His eyes are closed. With noxious sternal rub, his eyes partly open. He does not regard. He does not respond. There are roving eye movements. Pupils are 4 mm and reactive to bright light down to 2.5 mm both eyes. There are brisk corneal responses bilaterally. There is some horizontal eye movement with passive head turning. No blink to threat. No grimace to noxious stimuli. I did not see a cough or gag today. There is no response in the limbs to noxious stimuli distally or proximally in each limb. Reflexes are absent. No clonus. Plantar response is silent bilaterally. LABORATORY: White count 14.7. Sodium down to 128 on 09/24 at 1:30 today. BUN continues to trend upwards currently at 109. Creatinine 3.9 yesterday and again today. Blood glucose 170s to 214 over the last few days. Calcium was normal. Levetiracetam 28.4 from 09/27/2019. This appears to be collected on the [address]d. dose. Head CT from 09/24 showing extensive chronic microvascular changes and an old left occipital infarct, but no acute findings. ASSESSMENT AND PLAN: Global encephalopathy with continued concern for hypoxic ischemic brain injury following recurrent cardiac arrest events. The abrupt and persistent change is concerning, but other etiologies are not excluded however including contribution from significant rise in BUN levels, potential for subclinical seizure, other brain injury. Will order repeat EEG. I would also consider repeating a noncontrast head CT, when able. Continue to hold all sedating medications. I have ordered another Keppra level. Continue supportive care and correction of his underlying metabolic abnormalities. cc: Cara Johnston MD MTDD
--- NOTE | 2019-09-29 14:49 | PROGRESS NOTE ---
DATE: 09/29/2019 SUBJECTIVE: I have seen and examined Mr. Vázquez today. Mr. Vázquez remains fairly the same. No changes. No family member at the bedside. He continues to be unresponsive. OBJECTIVE: Vital Signs: Blood pressure was 102/67, pulse of 90, respirations are 19, temperature is 97.0 degrees, the patient is saturating 99% on 30% of FiO2. General Examination: Mr. Vázquez is a 69-year-old, gentleman. He is in bed. He is currently intubated. Not on any sedation. HEENT: Mucosa is pink and moist. Anicteric. Acyanotic. Neck: Supple. Chest: Air entry was bilaterally reduced. There are transmitted sounds from the ventilator. Cardiovascular: Regular rate and rhythm. There is a generator pocket in the left anterior chest wall. GI: Abdomen is soft. Bowel sounds present. No hepatosplenomegaly. Neurologic: The patient will open the eyes to painful stimulation. He will barely withdraw from pain. His pupils are reactive to light. He still has a gag reflex and has a corneal reflex but he does not communicate and he does not follow any commands. Is and Os: Urine output was 2685. He is currently positive balance of 2179. Laboratory Data: WBC is 14.71, hemoglobin is 11.3, platelet count of 207,000. Chemistry shows sodium of 130, potassium of 3.4, chloride of 89, creatinine is 3.9 which is the same as yesterday. Imaging Studies: In 24 hours, a chest x-ray shows improved infiltrates in both lungs. Stable cardiomegaly. Stable left basilar opacification. Impression is improved from prior. CURRENT MEDICATIONS: Include: 1. Allopurinol 100 mg daily. 2. Amiodarone 400 mg through the NG tube 3 times per day. 3. Aspirin 81 mg daily. 4. Keflex 1 g q.12. 5. Lovenox 30 mg subcutaneously. 6. Furosemide 120 mg every 12 hours. 7. Keppra 250 mg every 12 hours. 8. Metoprolol 25 mg p.o. q.12. 9. Norepinephrine if needed. 10. Spironolactone 50 mg b.i.d. ASSESSMENT: 1. Recurrent ventricular fibrillation/electrical storm leading to cardiopulmonary arrest. Today is day 6 on mechanical ventilation. The patient has an automatic implantable cardioverter defibrillator which was interrogated and it also fired multiple times. He was on amiodarone and esmolol drip for some time. He is currently only on oral amiodarone and beta ricardo. Cardiology and pulmonary medicine on board. 2. Severe dilated nonischemic cardiomyopathy, ejection fraction of 10% to 20%. We will continue with his heart medicines. Cardiology is on board. 3. Acute on chronic renal failure. Creatinine is fairly stable from yesterday. The patient has adequate urine output on intravenous diuretics. Nephrology is on board. 4. Fluid overload, presumably from congestive heart failure with severe systolic dysfunction. We will continue with diuretic therapy. 5. Left lower lobe methicillin-sensitive Staphylococcus aureus pneumonia. Patient's antibiotics have been switched to intravenous cefazolin. We are going to continue this for a total of 14 days. Today is day 1 on cefazolin. However, Mr. Vázquez was on cefepime for 4 days, so he has been on a total effective antibiotic regimen for 5 days. 6. Shock, presumably a combination of cardiogenic and sepsis. We will continue addressing each one of these etiologies. 7. Suspected pericarditis. As per cardiology notes, Mr. Vázquez was started at some point on steroids by cardiology but I think this has been discontinued. 8. Unresponsiveness after cardiopulmonary arrest, concerning for hypoxemic- anoxic brain injury. The patient continues to be nonverbal and not obeying any commands. He does have brainstem activity. I am concerned if he is going to develop a permanent vegetative state. Neurology is on board and will follow up with further recommendations from them. PLAN: In general, Mr. Vázquez was admitted 09/21/2019, mainly because his AICD was firing. He was evaluated and was admitted initially to the ICU. About 2 days being admitted, he became hemodynamically unstable. He continues to have multiple shocks from his pacemaker. He continued to be in ventricular fibrillation. He was intubated and multiple subspecialties where consulted. Mr. Vázquez was initially started on an amiodarone drip, a lidocaine drip which later on got changed to esmolol. His AICD was also interrogated at some point and some changes were made to the rate. Mr. Vázquez has been very sick and extremely critical, and has not shown any significant improvement during the hospital course. It looks like hemodynamically, he has been stabilized. Unfortunately, his mentation has not recovered. He does not seem to follow any commands. He does not seem to show any signs of being aware which, in the setting of cardiopulmonary arrest, is to be concerning for hypoxemic-anoxic brain injury and possibly leading to a permanent vegetative state. We will wait for neurology to evaluate him today on that and then give us some more insight. I have had multiple discussions with the family in the past and they still want Mr. Vázquez to be a Full Code. Palliative medicine is also on board. I have updated his on the phone. cc: Kei Stanley MD MTDD
--- NOTE | 2019-09-29 22:41 | PULMONOLOGY PROGRESS NOTE ---
DATE: 09/29/2019 SUBJECTIVE: The patient remains poorly responsive. He does not respond to pain. OBJECTIVE: Vital Signs: The patient has been afebrile for the last 24 hours. Blood pressure 111/73, heart rate 90, respiratory rate 16, oxygen saturation 97% on 30% FiO2. HEENT: Pupils equal, oropharynx appears clear. Neck: Is supple. Chest: Reveals rhonchi bilaterally. Cardiac Exam: S1, S2. Abdomen: Soft and obese. Extremities: Reveal 1+ edema. LABORATORIES: Chest x-ray reveals cardiomegaly with some possible retrocardiac consolidation. There is decrease in vascular congestion. Arterial blood gas reveals a pH 7.46, pCO2 of 37, PO2 of 111. White blood count 14.7, hemoglobin 11.3, platelet count 207,000. IMPRESSION: A 69-year-old with 1. Acute hypoxemic respiratory failure. 2. Cardiopulmonary arrest with cardiopulmonary resuscitation. 3. Hypoxia cephalopathy. 4. Dilated cardiomyopathy. 5. Recurrent ventricular fibrillation. 6. Acute renal failure. PLAN: 1. Continue ventilatory support. 2. Continue linezolid for left lower lobe pneumonia related to Staph aureus. 3. Consider breathing trials if he remains stable. 4. Overall prognosis is poor. Time spent in critical care management: 42 minutes cc: Ruddy Robbins MD [facility]
[2019-09-30] MEDS: KEFZOL 1 GM/D5W 1 GM/50 ML IVPB IV SCH ×2 (04:01→16:01)
[2019-09-30 05:01] LABS: ALLEN TEST YES; BE 3.3 mmoll (-3.0-3.0); BLOOD TYPE ARTERIAL; HCO3-(ACT) 27.4 mmoll (20.0-26.0); O2(CT) 20.2 mL/dL (15.0-23.0); O2HB 95.4 % (95.0-99.0); PCO2(98.6) 37 mmHg (35-45); PO2(98.6) 88 mmHg (60-100); SAMPLE BLOOD; SAO2 97.6 % (95.0-100.0); SRATE 10 BPM; TVOL 500 mL; pH(98.6) 7.47 (7.35-7.45)
[2019-09-30 05:02] LABS: MODALITY VENTILATOR
[2019-09-30 06:19] LABS: BASO# 0.01 X1000 (0.0-0.2); BASO% 0.1 % (0.0-0.8); EOS# 0.02 X1000 (0.0-0.7); EOS% 0.1 % (0.0-10.0); HEMATOCRIT 37.3 % (42.0-52.0); HEMOGLOBIN 12.6 g/dL (14.0-18.0); IMM GRAN# 0.06 X1000 (0.0-0.04); IMM GRAN% 0.4 % (0.0-0.5); LYMPH# 1.43 X1000 (1.2-3.4); LYMPH% 9.6 % (20.5-51.1); MCH 24.1 PG (27-31); MCHC 33.8 g/dL (33-37); MCV 71.3 FL (81-99); MONO# 0.79 X1000 (0.11-0.59); MONO% 5.3 % (1.7-9.3); MPV 12.6 FL (7.4-10.4); NEUT# 12.59 X1000 (1.4-6.5); NEUT% 84.5 % (42.2-75.2); PLT 243 X1000 (130-400); RBC 5.23 XMIL (4.7-6.1); RDW 16.9 % (11.5-14.5)
[2019-09-30 06:42] LABS: CALCIUM 10.7 mg/dL (8.8-10.2); CREATININE 3.7 mg/dL (0.7-1.2); POTASSIUM 3.3 mmol/L (3.5-5.1)
--- NOTE | 2019-09-30 06:53 | Diag Imaging Result Doc PS360 ---
CHEST-1 VIEW - 09/30/2019 INDICATION: SOB COMPARISON: 09/29/2019 FINDINGS: Support tubes are stable and in good position. Stable severe cardiomegaly and pulmonary vascular congestion. Stable hazy interstitial pulmonary edema. Stable left basilar opacification. IMPRESSION: No change from prior. Electronically signed by Joseph Jonas 09/30/2019 6:51 AM
[2019-09-30 06:57] LABS: LYMPHS 14 % (21-51); SEGS 80 % (42-75)
--- NOTE | 2019-09-30 08:42 | CARDIOLOGY PROGRESS NOTE ---
DATE: 09/30/2019 CHIEF COMPLAINT: Shortness of breath, recurrent ventricular fibrillation. SUBJECTIVE: Mr. Vázquez remains intubated. He is still unresponsive on no sedation. The only activity that he is visible is that he moves the eyes in a vertical pattern random. He really does not follow any commands or really reacts to painful stimuli. OBJECTIVE: Vital signs: Blood pressure is 139/90, pulse rate 90, respirations 20, temperature 97.6 degrees. General: Patient intubated. Neck: Neck veins difficult to assess. Chest: Diminished breath sounds diffusely. Heart: Sounds regular and rhythmic. Chest x-ray today shows somewhat less congestion but the radiologist feels that there has been no real change. Abdomen: A little prominent, slightly distended, decreased bowel sounds. Extremities: Showed decreased pulses, trace edema. Neurologic exam: As I said, he is really unresponsive. BLOOD WORK: White cell count 14,900, hemoglobin 12.6, hematocrit 37.3. Sodium 134, potassium 3.3, BUN 117, creatinine 3.7. IMPRESSION: 1. Patient who presented with recurrent ventricular fibrillation. He was in a real electrical storm. This appears to have come down with amiodarone and rapid pacing. 2. Clinical evidence or suggestion of neurological dysfunction/Encephalopathy. The patient is unresponsive and he may have suffered hypoxic brain damage. 3. Long-term history of dilated nonischemic cardiomyopathy with chronic systolic heart failure. 4. Acute renal dysfunction probably cardiorenal syndrome. 5. Pericarditis etiology unclear. 6. Methicillin-susceptible Staphylococcus aureus in the sputum probably causing bronchitis or pneumonia. 7. History of sleep apnea syndrome. RECOMMENDATIONS: At this time, Mr. Vázquez remains grossly unchanged with suggestion of metabolic/global encephalopathy. At this time, I would continue supportive therapy and would try to wean him off of the ventilator whenever his neurological condition improves. Prognosis appears to be poor at this time. cc: Barry Jeff MD [facility]
[2019-09-30] MEDS: KEPPRA 250 MG in NS 100 ML IV SCH ×2 (08:59→20:38)
[2019-09-30] MEDS: ALDACTONE PO SCH ×2 (09:00→20:38)
[2019-09-30] MEDS: LOPRESSOR PO SCH ×2 (09:00→20:38)
[2019-09-30] MEDS: CORDARONE NG SCH ×3 (09:00→16:02)
[2019-09-30] MEDS: LASIX 120 MG in NS 25 ML IV SCH ×2 (09:00→20:38)
[2019-09-30] MEDS: ASPIRIN EC PO SCH (09:00)
[2019-09-30] MEDS: ZYLOPRIM PO SCH (09:00)
[2019-09-30] MEDS: SODIUM CHLORIDE 0.9% INJ SCH (09:29)
[2019-09-30] MEDS: PROTONIX IV SCH (09:29)
--- NOTE | 2019-09-30 10:53 | NEUROLOGY PROGRESS NOTE ---
DATE: 09/30/2019 Mr. Vázquez continues unresponsive. He has been afebrile. Systolic blood pressures were recorded 70s-90s through the afternoon yesterday but 100s-130s this morning. Heart rate has been very stable around 90, consistent with his paced rhythm. Creatinine has stabilized 3.7-3.9 and BUN has climbed into 110s. On exam, he is supine, intubated, mechanically ventilated, motionless. With moderate noxious stimulation over the limbs, there was withdrawal of each limb. There was slight facial grimace. There is good lateral eye movement with passive head turning. Corneal reflexes are present bilaterally. Limb tone is diminished throughout and symmetric. Plantar response is silent bilaterally. IMPRESSION: Persistent coma, concern for anoxic/ischemic brain injury. The electroencephalogram done yesterday shows low amplitude slowing with full report pending. There was concern for seizure earlier this admission and he has been continued on levetiracetam with dose now 250 mg every 12 hours and repeat level pending. There has not been recent seizure apparent. Uremia may be contributing to encephalopathy, but seems unlikely to be the sole cause of his current level of coma. I do not have any new suggestion from a neurology standpoint. The number of days since last event, persistent unconsciousness without clinical change, EEG findings all suggest poor prognosis. Eventually, if levetiracetam level is not toxic and coma persists, we might consider repeating noncontrast CT of the head to compare with scan done last week to check for evidence of brain edema. Thanks for asking neurology to see Mr. Vázquez. cc: Morris Curran III, MD [facility]
[2019-09-30] MEDS: LOVENOX SUBQ SCH (12:53)
--- NOTE | 2019-09-30 12:58 | PROGRESS NOTE ---
DATE: 09/30/2019 SUBJECTIVE: Mr. Vázquez is a 69-year-old who was admitted on 09/21/2019. He came in after his AICD fired. He has a history of dilated nonischemic cardiomyopathy, coronary artery disease, COPD, hypertension, chronic kidney disease. He had presented to the emergency department with a several- day history of having his AICD firing off. He states that he has been not feeling well. He had some chest discomfort, so he came into the emergency department. He was evaluated. He has a [facility], and interrogator report showed that he was in and out of atrial fibrillation, and went into ventricular fibrillation, and fired off about 4 times since the day before admission. He was admitted. Cardiology was on the case. He is on the ventilator at the present time, unresponsive, and apparently not responding much even off sedation. OBJECTIVE: Vital Signs: He is afebrile, temperature 97.1 degrees, pulse 90, respirations 17, blood pressure 87/64. HEENT: Pupils are equal and round. Lungs: Clear in all lung alonso. Cardiovascular: Regular rhythm and rate without murmur or S3. Abdomen: Soft. Skin: Warm and dry. Urine output is 5000 mL. IMAGING: Chest x-ray from today: No change. Support tubes are stable, in good position. Stable severe cardiomegaly and pulmonary vascular congestion, stable hazy interstitial pulmonary edema, stable left basilar opacification. ASSESSMENT AND PLAN: 1. Acute hypoxemic respiratory failure. 2. Cardiopulmonary arrest and cardiopulmonary resuscitation. 3. Hypoxemic encephalopathy. 4. Dilated cardiomyopathy. 5. Recurrent ventricular fibrillation. 6. Acute renal failure. Continue ventilator support. He is on linezolid for his left lower lobe opacity/infiltrate related to Staphylococcus aureus. There is concern that he is not responding even off sedation. May be significant hypoxemic injury. Dr. Curran has evaluated for a concern of anoxic ischemic brain injury. Electroencephalogram shows low-amplitude slowing, with full report pending. There was concern for seizure earlier in the admission. He is on levetiracetam 250 mg intravenously every 12 hours. No recent seizure apparent, and uremia may be contributing to encephalopathy, but seems unlikely to cause the current level of coma. Continue present measures. cc: Rick Price MD
--- NOTE | 2019-09-30 14:14 | NEPHROLOGY PROGRESS NOTE ---
DATE: 09/30/2019 SUBJECTIVE: Eyes roving but no response. OBJECTIVE: Vital Signs: Blood pressure 112/81, heart rate 91, respirations 20, afebrile. Intake 1.3 L. Output 3.3 L. General: No acute distress. Skin: Warm and dry. Neck: Neck veins are not appreciated. Heart: Regular. Lungs: Equal, clear. Abdomen: Benign. Extremities: 2+ edema. IMPRESSION: Acute kidney injury. Creatinine seems to have stabilized over the last 2 days and he is now polyuric. Electrolytes and acid-base are acceptable. No changes. cc: Camilo Chopra MD
--- NOTE | 2019-09-30 22:44 | PULMONOLOGY PROGRESS NOTE ---
DATE: 09/30/2019 SUBJECTIVE: The patient remains unresponsive. He does move his eyes left to right. OBJECTIVE: Vital signs: The patient is afebrile. Blood pressure 113/86, heart rate 91, respiratory rate 18, oxygen saturation 96% on 30% FIO2. HEENT: Pupils are midpoint and marginally reactive. Neck: Supple. Chest: Reveals occasional rhonchi with decreased breath sounds left base. Cardiac Exam: S1-S2. Abdomen: Soft. Extremities: Reveal 1+ peripheral edema. LABORATORIES: White blood count 14.9, hemoglobin 12.6, platelet 243,000. Arterial blood gas reveals a pH 7.47, pCO2 of 37, PO2 of 88. Sodium 134, potassium 3.3, chloride 89, BUN 117, creatinine 3.7. IMPRESSION: A 69-year-old with 1. Acute hypoxemic respiratory failure. 2. Cardiopulmonary arrest with prolonged cardiopulmonary resuscitation. 3. Hypoxemic respiratory failure. 4. Acute renal failure. 5. Dilated cardiomyopathy. 6. Recurrent ventricular fibrillation. PLAN: 1. Continue ventilatory support. 2. Continue current antibiotics. 3. Overall prognosis is poor. Palliative care nursing is on this case. Critical care time: Greater than 30 minutes cc: Ruddy Robbins MD [facility]TDD
[2019-10-01 04:40] LABS: ALLEN TEST YES; BE 8.5 mmoll (-3.0-3.0); BLOOD TYPE ARTERIAL; HCO3-(ACT) 31.5 mmoll (20.0-26.0); METHB 1.1 % (0.0-1.5); O2(CT) 16.4 mL/dL (15.0-23.0); PCO2(98.6) 38 mmHg (35-45); PO2(98.6) 92 mmHg (60-100); SAMPLE BLOOD; SAO2 98.7 % (95.0-100.0); SRATE 10 BPM; THB 12.1 g/dL (11.5-17.4); TVOL 500 mL; pH(98.6) 7.53 (7.35-7.45)
[2019-10-01 04:41] LABS: MODALITY VENTILATOR
[2019-10-01] MEDS: KEFZOL 1 GM/D5W 1 GM/50 ML IVPB IV SCH ×2 (04:50→17:11)
[2019-10-01 06:28] LABS: BASO# 0.01 X1000 (0.0-0.2); BASO% 0.1 % (0.0-0.8); EOS# 0.08 X1000 (0.0-0.7); EOS% 0.5 % (0.0-10.0); HEMATOCRIT 37.2 % (42.0-52.0); HEMOGLOBIN 12.4 g/dL (14.0-18.0); IMM GRAN# 0.09 X1000 (0.0-0.04); IMM GRAN% 0.5 % (0.0-0.5); LYMPH# 1.57 X1000 (1.2-3.4); LYMPH% 9.1 % (20.5-51.1); MCHC 33.3 g/dL (33-37); MONO# 1.32 X1000 (0.11-0.59); MONO% 7.7 % (1.7-9.3); MPV 12.3 FL (7.4-10.4); NEUT# 14.14 X1000 (1.4-6.5); NEUT% 82.1 % (42.2-75.2); PLT 226 X1000 (130-400); RBC 5.17 XMIL (4.7-6.1); RDW 17.3 % (11.5-14.5); WBC 17.21 X1000 (4.8-10.8)
[2019-10-01 06:53] LABS: CALCIUM 10.7 mg/dL (8.8-10.2); POTASSIUM 3.3 mmol/L (3.5-5.1)
[2019-10-01] MEDS: KEPPRA 250 MG in NS 100 ML IV SCH ×2 (07:55→19:52)
[2019-10-01] MEDS: ASPIRIN EC PO SCH (08:01)
[2019-10-01] MEDS: LASIX 120 MG in NS 25 ML IV SCH (08:01)
[2019-10-01] MEDS: LOPRESSOR PO SCH ×2 (08:01→20:04)
[2019-10-01] MEDS: PROTONIX IV SCH (08:01)
[2019-10-01] MEDS: CORDARONE NG SCH ×3 (08:01→17:11)
[2019-10-01] MEDS: ZYLOPRIM PO SCH (08:01)
[2019-10-01] MEDS: ALDACTONE PO SCH ×2 (08:01→20:04)
--- NOTE | 2019-10-01 08:26 | CARDIOLOGY PROGRESS NOTE ---
DATE: 10/01/2019 CHIEF COMPLAINT: Dyspnea, Recurrent ventricular fibrillation, currently the main problem is unresponsiveness. SUBJECTIVE: Mr. Vázquez remains intubated. There is no reaction to painful stimuli at this time. He has not had any further episodes of the ventricular fibrillation. OBJECTIVE: VITAL SIGNS: Blood pressure is 131/90 with a pulse of 90, temperature is 97.5 degrees, respirations are 21. GENERAL: The patient is unresponsive, intubated. CHEST: Symmetrical breath sounds, diminished. HEART: Sounds regular rhythmic with some extrasystoles and question of third heart sound. The previously noted rub has decreased significantly. ABDOMEN: Shows hypoactive bowel sounds. The abdomen is soft. There is no discharge. Some trace brawny edema with decreased pulses. NEUROLOGICAL: He is unresponsive. BLOOD WORK: White cell count 17,210, hemoglobin 12.4, platelet count 226,000. He is on 30% FIO2. PO2 is 92, PCO2 is 38, pH 7.5. Sodium 134, potassium 3.3, BUN is 127, creatinine is 12.0. IMPRESSION: 1. Patient who has persistent coma/encephalopathy. This is probably hypoxic. 2. Recurrent ventricular fibrillation. No more episodes of fibrillation have happened over the past 4-5 days. 3. Chronic systolic heart failure, dilated cardiomyopathy. 4. Progressive renal dysfunction, probably cardiorenal syndrome. 5. History of sleep apnea. 6. Pericarditis. 7. Methicillin susceptible staph aureus pneumonia. His most recent chest x-ray from yesterday showed stable tracings of interstitial pulmonary edema, stable left basilar opacification. RECOMMENDATIONS: At this time, we will continue supportive therapy. End of life measures may have to be discussed and implemented with the family since the patient appears to have suffered hypoxic brain damage. Prognosis at this time is clearly very grim. cc: Barry Jeff MD [facility]
--- NOTE | 2019-10-01 08:35 | Diag Imaging Result Doc PS360 ---
EXAM: CHEST-1 VIEW 10/01/2019 HISTORY: SOB TECHNIQUE: AP portable at 0517 COMMENT: There is cardiomegaly and increased pulmonary vascularity. The interstitial pulmonary edema present on 09/30/2019 has improved. The endotracheal and NG tube remain in place. IMPRESSION: Cardiomegaly. Electronically signed by Doyle Miner 10/01/2019 8:33 AM
[2019-10-01] MEDS: LOVENOX SUBQ SCH (12:07)
--- NOTE | 2019-10-01 12:19 | NEUROLOGY PROGRESS NOTE ---
DATE: 10/01/2019 SUBJECTIVE: Mr. Vázquez continues very poorly responsive, ventilator dependent. There is no new medical history. He has not had recent protracted ventricular fibrillation. BUN is 127 today and creatinine 4. Sodium is 134, blood sugar 158. Levetiracetam level from 2 days ago is pending. OBJECTIVE: On my exam, he is supine, intubated, mechanically ventilated. His eyes were partially open as I approached the bedside. When I called his name, eyes seemed to open slightly wider. He did not fix his gaze on me, appear to regard me or communicate. He did not follow commands. With passive head turning, the conjugate extraocular movement is less consistent than yesterday indicating possible consciousness. Corneal reflexes remain symmetric. Limb tone is symmetric and reduced throughout. Plantar response is silent bilaterally. There was less limb withdrawal from noxious stimulation today than yesterday. Neck is supple. IMPRESSION AND PLAN: Persistent poor responsiveness, continued concern for irreversible anoxic/ischemic brain injury. He has not had recent seizure recognized. I do not have any new thoughts or new suggestions. I would continue support and follow clinically. Depending on results of levetiracetam level when reported, we might consider repeat EEG, repeat noncontrast CT of the head, withdrawal of support. Thanks for asking Neurology to see Mr. Vázquez. cc: MD GREG Alvarez III
--- NOTE | 2019-10-01 12:27 | PROGRESS NOTE ---
DATE: 10/01/2019 1. Mr. Vázquez is still ventilator-dependent, still basically unresponsive. He has persistent coma, concern for anoxic or ischemic brain injury. Electroencephalogram done on the showed low amplitude slowing, concern for seizure report earlier in admission. He is on levetiracetam 250 mg IV q.12. Not seeing any other signs of tonic-clonic seizure activity. His persistent unconsciousness, even with loss of sedation, suggests poor prognosis. 2. Patient with ventricular fibrillation. No more episodes of fibrillation. This happened about 6 days ago. 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 3. Chronic systolic heart failure, dilated cardiomyopathy. 4. Progressive renal dysfunction, probably cardiorenal syndrome. 5. History of sleep apnea. 6. History of pericarditis. 7. He grew out a methicillin-susceptible Staphylococcus aureus with an underlying pneumonia. His chest x-ray from today shows cardiomegaly. There is some interstitial pulmonary edema which is improved from the x-ray yesterday. 8. Respiratory failure, on the ventilator. He is getting Lopressor 25 mg p.o. q.12 hours, Zyloprim 100 mg p.o. daily, amiodarone 400 mg per NG tube t.i.d., aspirin 81 mg a day, he is on furosemide 120 mg IV q.12 hours, he is on cefazolin 1 g IV q.12, Protonix 40 mg IV q.24 hours, Aldactone 50 mg p.o. b.i.d. LABORATORY DATA: From today, white count is still elevated at 17,210, hematocrit is 37, platelet count is 226,000. Sodium 134, potassium 3.3, chloride 88, BUN 127, creatinine 4.0, so renal function seems to be deteriorating. cc: Rick Price MD
--- NOTE | 2019-10-01 12:51 | NEPHROLOGY PROGRESS NOTE ---
DATE: 10/01/2019 SUBJECTIVE: He is unchanged neurologically. OBJECTIVE: Vital Signs: Blood pressure 116/54, heart rate 90, respiration 18, afebrile. General: Unresponsive. Skin: Warm and dry. Neck: Neck veins are not appreciated. Heart: Regular with a murmur. Lungs: Equal. No crackles. Abdomen: Soft, nontender. Bowel sounds present. Extremities: Minimal edema. No clubbing or cyanosis. IMPRESSION AND PLAN: Acute kidney injury overlying chronic kidney disease. Ischemic acute tubular necrosis following cardiac arrest. He is polyuric. I believe he is euvolemic at this point, so I will stop his furosemide and observe his renal function. cc: Camilo Chopra MD
--- NOTE | 2019-10-01 16:28 | Diag Imaging Result Doc PS360 ---
CT HEAD W/O CONTRAST - 10/01/2019 INDICATION: persistent coma after arrest COMPARISON: 09/25/2019 FINDINGS: The ventricles and sulci are normal in size and contour. There is stable extensive periventricular white matter chronic microvascular ischemia. Stable old cortical infarction at the medial left occipital lobe. No intracranial mass or hemorrhage. The skull is intact. The sinuses are clear. IMPRESSION: No acute disease or change from prior. This exam was performed using automated exposure control, adjustment of mA or kV according to patient size, and/or use of iterative reconstruction technique Electronically signed by Joseph Jonas 10/01/2019 4:26 PM
--- NOTE | 2019-10-01 19:47 | PULMONOLOGY PROGRESS NOTE ---
DATE: 10/01/2019 SUBJECTIVE: The patient is completely unresponsive. He has been afebrile for the last 24 hours. Blood pressure 153/83 heart rate 90, respiratory rate 11, oxygen saturation 97%. OBJECTIVE: HEENT: Pupils are minimally responsive. He does not blink to threat. Oropharynx appears dry. Neck: Is supple. Chest: Reveals decreased breath sounds in the lung bases. Cardiac: S1, S2. Abdomen: Soft. Extremities: Reveal decreased edema. LABORATORIES: Chest x-ray reveals cardiomegaly with decreasing effusions. Arterial blood gas reveals a pH of 7.53, pCO2 of 38, PO2 of 92. Sodium 134, potassium 3.3, chloride 88, bicarbonate 127, BUN 4.0, glucose 158. IMPRESSION: A 69-year-old with 1. Acute hypoxemic respiratory failure. 2. Prolonged cardiopulmonary resuscitation following cardiopulmonary arrest. 3. Anoxic encephalopathy. 4. Dilated cardiomyopathy. 5. Acute renal failure. 6. Recurrent ventricular fibrillation. PLAN: 1. Continue current treatment regimen. 2. Continue current antibiotics. 3. Fluid management per Dr. Chopra. 4. Prognosis is poor. Withdrawal of care with comfort measures is recommend. cc: Ruddy Robbins MD
[2019-10-02] MEDS: KEFZOL 1 GM/D5W 1 GM/50 ML IVPB IV SCH ×2 (03:59→17:35)
[2019-10-02 04:29] LABS: ALLEN TEST YES; BLOOD TYPE ARTERIAL; HCO3-(ACT) 33.4 mmoll (20.0-26.0); O2(CT) 18.1 mL/dL (15.0-23.0); O2HB 94.9 % (95.0-99.0); PCO2(98.6) 43 mmHg (35-45); PO2(98.6) 79 mmHg (60-100); SAMPLE BLOOD; SAO2 97.5 % (95.0-100.0); SRATE 10 BPM; THB 13.5 g/dL (11.5-17.4); TVOL 500 mL; pH(98.6) 7.52 (7.35-7.45)
[2019-10-02 04:30] LABS: MODALITY VENTILATOR
[2019-10-02 06:01] LABS: BASO# 0.01 X1000 (0.0-0.2); BASO% 0.1 % (0.0-0.8); EOS# 0.05 X1000 (0.0-0.7); EOS% 0.3 % (0.0-10.0); HEMATOCRIT 38.9 % (42.0-52.0); HEMOGLOBIN 12.8 g/dL (14.0-18.0); IMM GRAN# 0.11 X1000 (0.0-0.04); IMM GRAN% 0.6 % (0.0-0.5); LYMPH# 1.71 X1000 (1.2-3.4); LYMPH% 9.6 % (20.5-51.1); MCH 24.1 PG (27-31); MCHC 32.9 g/dL (33-37); MCV 73.1 FL (81-99); MONO% 8.4 % (1.7-9.3); NEUT# 14.43 X1000 (1.4-6.5); PLT 231 X1000 (130-400); RBC 5.32 XMIL (4.7-6.1); RDW 17.8 % (11.5-14.5); WBC 17.81 X1000 (4.8-10.8)
[2019-10-02 06:39] LABS: CALCIUM 10.9 mg/dL (8.8-10.2); CREATININE 3.4 mg/dL (0.7-1.2); POTASSIUM 3.7 mmol/L (3.5-5.1)
[2019-10-02 06:42] LABS: LYMPHS 2 % (21-51); MONO 4 % (1-9); NRBC 2 % (0-0); SEGS 90 % (42-75)
--- NOTE | 2019-10-02 07:12 | Diag Imaging Result Doc PS360 ---
EXAM: CHEST-1 VIEW 10/02/2019 HISTORY: SOB TECHNIQUE: AP portable at 0516 COMMENT: There is an endotracheal tube with its tip at thoracic inlet and an NG tube with tip below the diaphragm. There is cardiomegaly. There is interstitial pulmonary edema which is worse than on 10/01/2019. IMPRESSION: Cardiomegaly and pulmonary edema. Electronically signed by Doyle Miner 10/02/2019 7:10 AM
[2019-10-02] MEDS: ZYLOPRIM PO SCH (08:00)
[2019-10-02] MEDS: PROTONIX IV SCH (08:00)
[2019-10-02] MEDS: LOPRESSOR PO SCH ×2 (08:00→20:21)
[2019-10-02] MEDS: KEPPRA 250 MG in NS 100 ML IV SCH ×2 (08:00→20:21)
[2019-10-02] MEDS: ALDACTONE PO SCH ×2 (08:00→20:21)
[2019-10-02] MEDS: SODIUM CHLORIDE 0.9% INJ SCH (08:00)
[2019-10-02] MEDS: CORDARONE NG SCH ×3 (08:00→17:35)
[2019-10-02] MEDS: ASPIRIN EC PO SCH (08:00)
--- NOTE | 2019-10-02 10:15 | NEUROLOGY PROGRESS NOTE ---
DATE: 10/02/2019 Mr. Vázquez is unchanged clinically. There continues to be less eye movement with passive head turning. Corneal reflexes are diminished but present bilaterally. There was minimal limb withdrawal in response to noxious stimulation. Limb tone remains diminished throughout. Neck is supple. CT scan without contrast yesterday showed old left occipital encephalomalacia and diffuse white matter changes with no significant change since the initial scan 09/25/2019. Lab shows BUN 121, creatinine 3.4, calcium 10.9, nothing else remarkable on chemistry profile. Anemia is stable. On 09/29/2019, levetiracetam level was 15.2, dropping from 28.4 on 09/27/2019. IMPRESSION: Global encephalopathy, persistent coma, no evidence of increased intracranial pressure, central nervous system infection, new cerebral infarction, or brainstem injury. He has not had clinically recognized seizure in many days. We will repeat EEG and further plans will depend on that report. Thanks for asking neurology to see Mr. Vázquez. cc: Morris Curran III, MD
--- NOTE | 2019-10-02 11:26 | CARDIOLOGY PROGRESS NOTE ---
DATE: 10/02/2019 CHIEF COMPLAINT: Dyspnea, recurrent ventricular fibrillation, unresponsiveness. SUBJECTIVE: Mr. Vázquez remains intubated at this time with no significant change in his neurologic status. He does not respond to pain stimuli at this time. His corneal reflexes are diminished but present bilaterally. There is some continued passive eye movement that is present that has remained unchanged. OBJECTIVE: Vital Signs: Blood pressure is currently 150/89, with pulse 90, temperature 98.0 degrees Fahrenheit, respirations 22. General: This patient is unresponsive and intubated. Chest: Diminished breath sounds bilaterally with some coarse mechanical breath sounds. No acute wheezing. Heart: Regular rate and rhythm at this time with the presence of a pericardial rub still present yet less prominent. Abdomen: Soft. There are a few bowel sounds noted. Extremities: There is some trace edema with some brawny changes in his bilateral lower extremities and mild decrease in his pulses bilaterally. Neurologic: The patient remains intubated and unresponsive at this time. Blood Work: Sodium 137, potassium 3.7, BUN is 121, creatinine is 3.4. White blood cell count is 17.81, hemoglobin is 12.8, hematocrit of 38.9, platelets of 231,000. Blood gases show pH of 7.52, with a pCO2 of 43, and a PO2 of 79. He is on a ventilator support with FiO2 of 30%. Imaging Data: Chest x-ray today revealed cardiomegaly with interstitial pulmonary edema, which is worse than compared to the study done on 10/01/2019. IMPRESSION: 1. Acute hypoxemic respiratory failure with persistent coma/encephalopathy, anoxic encephalopathy. 2. Recurrent ventricular fibrillation requiring multiple shocks by implantable cardioverter defibrillator. There have been no additional episodes for the past 5 days with current medical therapy. 3. Chronic systolic heart failure, known dilated cardiomyopathy. 4. Progressive renal dysfunction, likely cardiorenal syndrome. 5. Pericarditis which was treated with medical therapy and pericardial rub is improving. 6. Methicillin-susceptible Staphylococcus aureus pneumonia. Continued on antibiotic therapy. RECOMMENDATIONS: At this time, we will continue supportive care for this patient and have discussions with family as needed. At this time, it does appear necessary for these end-of-life measures to continue to be discussed with the family and we appreciate input from all other specialties. It does appear that Dr. Curran of the neurology team will plan to repeat an EEG and make further recommendations pending those results. Dictated by BRIANA Rojas for Barry Jeff MD Agree with above assessment/plan. Poor prognosis. cc: BRIANA Rojas MD MTDD
[2019-10-02] MEDS: LOVENOX SUBQ SCH (11:49)
--- NOTE | 2019-10-02 13:06 | EEG REPORT ---
DATE: 09/29/2019 REFERRING PHYSICIAN: Dr. Cara Johnston. SHIPPING AND RECEIVING SUPERVISOR: Shante Moy. BACKGROUND INFORMATION/TECHNIQUE: This is a digitally recorded portable routine EEG with video. HISTORY: A 69-year-old patient status post cardiac arrest. EEG is ordered to detect evidence of subclinical seizure. MEDICATIONS: Include Keppra. EEG FINDINGS: A posterior dominant alpha rhythm is not seen. The background consisted of relatively low voltage theta, delta slowing with some intermixed faster frequencies at times. No definite persistent focal slowing. No epileptiform discharges. No seizures. Hyperventilation is not performed. Photic stimulation does not alter the record. No definite drowsiness patterns. Stage II sleep is not seen. EKG is regular. IMPRESSION AND CLINICAL CORRELATION: Abnormal routine EEG due to moderate to severe generalized slowing indicative of a moderate to severe nonspecific encephalopathy. No epileptiform discharges or seizures seen on the current study. This does not rule out an underlying seizure disorder. Clinical correlation is recommended. cc: Cara Johnston MD
--- NOTE | 2019-10-02 13:34 | EEG REPORT ---
DATE: 10/02/2019 REFERRING PHYSICIAN: Dr. Morris Curran BUTADIENE CONVERTER HELPER: Shante Moy. BACKGROUND INFORMATION/TECHNIQUE: This is a digitally recorded portable routine EEG with video. HISTORY: A 69-year-old male, status post cardiac arrest. EEG is ordered to evaluate for seizures and to compare with the previous study. EEG FINDINGS: A posterior dominant alpha rhythm is not seen. The background consists of low- voltage theta/delta slowing with some intermixed faster frequencies. No definite persistent focal slowing. Spontaneous variability is poor. Reactivity is poor. No definite epileptiform discharges. No seizures. Hyperventilation was not performed. Photic stimulation does not alter the record. No definite drowsiness patterns. Stage II sleep is not seen. EKG demonstrates regular intervals. IMPRESSION AND CLINICAL CORRELATION: Abnormal routine electroencephalogram due to moderate-to- severe generalized slowing indicative of a [id number] nonspecific encephalopathy. No epileptiform discharges or seizures seen on the current study. This does not rule out an underlying seizure disorder. Compared to the previous study, there has been no major change. Clinical correlation is recommended. cc: MD Morris Peralta III, MD
--- NOTE | 2019-10-02 14:06 | PROGRESS NOTE ---
DATE: 10/02/2019 SUBJECTIVE: Mr. Vázquez is unchanged clinically. He continues to have less eye movement and positive passive head turning. Corneal reflexes diminished. Present bilateral. There is minimal limb withdrawal to response to noxious stimulation and limb tone is diminished throughout. CT of the head showed left occipital encephalomalacia, diffuse white matter changes. No significant change since scan on 09/25/2019 exam. OBJECTIVE: Vital Signs: Still on the ventilator. He is afebrile. Temperature 99.6, pulse 90, respirations 17, blood pressure 121/71. Lungs: Clear anterolateral. Cardiovascular: Regular rate without murmur or S3. Abdomen: Soft. Skin: Warm and dry. URINE OUTPUT: 4500 mL. ASSESSMENT AND PLAN: 1. Acute hypoxemic respiratory failure. 2. Prolonged cardiopulmonary resuscitation following cardiopulmonary arrest, ventricular fibrillation. 3. Anoxic encephalopathy. 4. Dilated cardiomyopathy. 5. Acute renal failure. 6. Recurrent ventricular fibrillation. Prognosis, I think is poor. REVIEW OF HIS ORDERS: He is on Lopressor 25 mg p.o. q.12h, allopurinol 100 mg daily, Cordarone 300 mg IV p.r.n., getting 400 mg of amiodarone per NG tube t.i.d., aspirin 81 mg a day, Keppra 250 mg IV q.12, Protonix 40 mg IV q.24 hours, Aldactone 50 mg p.o. b.i.d. LABORATORY DATA: From today, white count 17, 810. Hematocrit 38, platelet count 231,000. Sodium 137, potassium 3.7, chloride 92. BUN 121, creatinine 3.4. cc: Rick Price MD
--- NOTE | 2019-10-02 14:25 | NEPHROLOGY PROGRESS NOTE ---
DATE: 10/02/2019 SUBJECTIVE: Unchanged. OBJECTIVE: Vital Signs: Blood pressure 136/85, heart rate 90, respirations 20, temperature 99.6 degrees. Intake 1.2 L; output 3 L. General: No acute distress. Skin: Warm and dry. Neck: Neck veins are not distended. Heart: Regular. Lungs: Equal. Abdomen: Soft. Extremities: No edema. IMPRESSION: Acute kidney injury secondary to cardiac arrest. Polyuric. Remains in negative fluid balance despite stopping his Lasix. BUN and creatinine are improving. No changes. cc: Camilo Chopra MD
--- NOTE | 2019-10-02 19:35 | PULMONOLOGY PROGRESS NOTE ---
DATE: 10/02/2019 SUBJECTIVE: The patient remains unresponsive. Repeat EEG is in progress. OBJECTIVE: Vital Signs: The patient has been afebrile for the last 24 hours. Blood pressure 132/68, heart rate 90, respiratory rate 18, oxygen saturation 96%. HEENT: Pupils are equal but are minimally reactive. Oropharynx appears dry. Neck: Supple. Chest: Reveals crackles bilaterally. Cardiac exam: S1, S2. Abdomen: Soft and obese. Extremities: Reveal 1+ peripheral. IMAGING: Chest x-ray reveals cardiomegaly with pulmonary vascular congestion, which is slightly worse. LABORATORY DATA: Sodium 137, potassium 3.7, chloride 92, bicarbonate 29, BUN 21, creatinine 3.4. Arterial blood gas: pH 7.52, pCO2 of 43, pO2 of 79 on assist control of 10, 30%, tidal volume of 500. IMPRESSION: A 69-year-old with: 1. Acute hypoxemic respiratory failure. 2. Prolonged cardiopulmonary resuscitation following cardiopulmonary arrest. 3. Anoxic encephalopathy. 4. Dilated cardiomyopathy. 5. Acute renal failure. 6. Recurrent ventricular fibrillation. PLAN: 1. Complete repeat EEG. 2. Continue current fluid management per Dr. Chopra. 3. Current antibiotics. 4. Prognosis is dismal. Withdrawal of care is strongly recommended. TIME SPENT IN CRITICAL CARE MANAGEMENT: 35 minutes. cc: Ruddy Robbins MD
[2019-10-03 04:25] LABS: ALLEN TEST YES; BE 9.5 mmoll (-3.0-3.0); BLOOD TYPE ARTERIAL; HCO3-(ACT) 32.3 mmoll (20.0-26.0); METHB 1.2 % (0.0-1.5); O2(CT) 21.5 mL/dL (15.0-23.0); O2HB 95.9 % (95.0-99.0); PCO2(98.6) 36 mmHg (35-45); PO2(98.6) 100 mmHg (60-100); SAMPLE BLOOD; SAO2 98.7 % (95.0-100.0); SRATE 10 BPM; THB 15.9 g/dL (11.5-17.4); TVOL 500 mL
[2019-10-03 04:44] LABS: MODALITY VENTILATOR; pH(98.6) 7.56 (7.35-7.45)
[2019-10-03] MEDS: KEFZOL 1 GM/D5W 1 GM/50 ML IVPB IV SCH ×2 (05:21→16:16)
[2019-10-03 06:12] LABS: BASO# 0.01 X1000 (0.0-0.2); BASO% 0.1 % (0.0-0.8); EOS# 0.09 X1000 (0.0-0.7); EOS% 0.5 % (0.0-10.0); LYMPH# 2.06 X1000 (1.2-3.4); LYMPH% 10.9 % (20.5-51.1); MCH 24.2 PG (27-31); MCHC 32.5 g/dL (33-37); MCV 74.3 FL (81-99); MONO# 2.46 X1000 (0.11-0.59); MPV 11.3 FL (7.4-10.4); NEUT# 14.28 X1000 (1.4-6.5); NEUT% 75.5 % (42.2-75.2); PLT 210 X1000 (130-400); RBC 5.38 XMIL (4.7-6.1); RDW 18.8 % (11.5-14.5)
[2019-10-03 06:30] LABS: CALCIUM 11.5 mg/dL (8.8-10.2); CREATININE 3.1 mg/dL (0.7-1.2); POTASSIUM 4.1 mmol/L (3.5-5.1)
--- NOTE | 2019-10-03 06:34 | Diag Imaging Result Doc PS360 ---
EXAM: CHEST-1 VIEW HISTORY: SOB TECHNIQUE: Single view COMPARISON: 10/02/2019 FINDINGS: No change in endotracheal or nasogastric tubes. The heart remains enlarged. Pulmonary edema is less pronounced. Infiltrates or atelectasis remain in the left base. Small left effusion. IMPRESSION: Mild interval improvement Electronically signed by Tal Smith 10/03/2019 6:32 AM
[2019-10-03] MEDS: LOPRESSOR PO SCH ×2 (08:05→21:03)
[2019-10-03] MEDS: PROTONIX IV SCH (08:05)
[2019-10-03] MEDS: ASPIRIN EC PO SCH (08:05)
[2019-10-03] MEDS: ZYLOPRIM PO SCH (08:05)
[2019-10-03] MEDS: KEPPRA 250 MG in NS 100 ML IV SCH ×2 (08:05→21:00)
[2019-10-03] MEDS: ALDACTONE PO SCH ×2 (08:06→21:03)
[2019-10-03] MEDS: CORDARONE NG SCH ×3 (09:22→16:15)
[2019-10-03] MEDS: LOVENOX SUBQ SCH (12:05)
--- NOTE | 2019-10-03 12:30 | NEUROLOGY PROGRESS NOTE ---
DATE: 10/03/2019 There is no clinical change on limited bedside exam. EEG showed moderate to severe generalized slowing with some voltage suppression. There was no epileptiform discharge or evidence of seizure. In light of the protracted clinical course, documented event leading to coma, CT and EEG findings, I think this is an irreversible coma and I am in favor of considering withdrawing support. I would continue levetiracetam at current dose. I do not have any other suggestions from Neurology standpoint. cc: MD GREG Alvarez III
--- NOTE | 2019-10-03 13:50 | PULMONOLOGY PROGRESS NOTE ---
DATE: 10/03/2019 SUBJECTIVE: The patient remains unresponsive with repeat EEG indicative of irreversible coma per Dr. Curran. OBJECTIVE: Vital Signs: Blood pressure is 128/80 with a heart rate of 90, respirations are 24, temperature is 99.3 degrees temporal with O2 saturations 96%. HEENT: Head is normocephalic, atraumatic. Mucous membranes are moist. Pupils are equal, very slow to react. Mucous membranes are dry. Neck: Supple with trachea midline. Cardiovascular: Regular rate and rhythm. S1 and S2 appreciated. Pulmonary: He has crackles scattered throughout. Chest rises and falls symmetric with respiration. Gastrointestinal: Abdomen is soft, nondistended, with bowel sounds in all 4 quadrants. Extremities: Lower extremities have 1+ pretibial edema. LABORATORY DATA: WBC is 18.9 with hemoglobin 13, hematocrit 40, and platelets of 210,000. Sodium 143, potassium 4.1, BUN 113, creatinine 3.1 with a glucose of 150. ABGs: pH is 7.56 with pCO2 of 36, PO2 100 and bicarb of 32.3. This is on a ventilator assist control rate of 10 with FiO2 of 30%, tidal volume 500 and 5 of PEEP. Chest x-ray reveals less pulmonary edema with infiltrates in the left base. IMPRESSION: This is a 69-year-old gentleman with 1. Acute hypoxemic respiratory failure. 2. Prolonged cardiopulmonary resuscitation following cardiopulmonary arrest. 3. Anoxic encephalopathy. 4. Dilated cardiomyopathy. 5. Acute renal failure. 6. Recurrent ventricular fibrillation. PLAN: 1. We will continue with fluid management per Dr. Chopra. 2. Continue with current antibiotics. 3. Acid suppression of Protonix. 4. Prognosis is dismal. 5. Withdrawal of care recommended per Pulmonology as well as Neurology. Dictated by ANAMIKA Figueroa for Ruddy Robbins MD cc: ANAMIKA Figueroa MD
--- NOTE | 2019-10-03 14:47 | NEPHROLOGY PROGRESS NOTE ---
DATE: 10/03/2019 SUBJECTIVE: Unchanged. OBJECTIVE: Vital Signs: Blood pressure 134/76, heart rate 89, respirations 25. Temperature 100.2 degrees. General: No acute distress. Skin is warm and dry. Neck veins are not distended. Cardiovascular: Heart is regular. Lungs: Equal. No crackles. Abdomen: Soft, nontender. Bowel sounds present. Extremities: No edema, clubbing or cyanosis. IMPRESSION: Acute kidney injury. Good urine output. Euvolemic. Electrolytes acid base in target. BUN and creatinine are improving. cc: Camilo Chopra MD
--- NOTE | 2019-10-03 15:37 | PROGRESS NOTE ---
DATE: 10/03/2019 SUBJECTIVE: Mr. Vázquez is about the same. Neurologically, still vent dependent. OBJECTIVE: Vital Signs: He did have a temperature of 100.2 degrees, pulse 90, respirations 20, blood pressure 130/62. HEENT: Pupils are equal and round. There were very sluggish. He has no real purposeful movement. DIAGNOSTIC DATA: EEG showed moderate to severe generalized slowing, some voltage suppression. No epileptiform discharges. In light of protracted clinical course, documented event leading to coma, CT and EEG findings, I suspect this is irreversible coma and would favor considering withdrawal support. I think his is considering that now. He is getting tube feeding. We will continue present treatment. DISCHARGE MEDICATIONS: He is on Lopressor 25 mg p.o. 2 q.12h, allopurinol 100 mg daily, amiodarone 300 mg IV p.r.n. and 400 mg per NG tube t.i.d., aspirin 81 mg a day, cefazolin 1 g IV q.12, levetiracetam 250 mg IV q.12, and Protonix 40 mg IV q.24 hours. cc: Rick Price MD
--- NOTE | 2019-10-03 16:31 | CARDIOLOGY PROGRESS NOTE ---
DATE: 10/03/2019 CHIEF COMPLAINT: Shortness of breath, unresponsiveness, and defibrillator jolt. SUBJECTIVE: Mr. Vázquez's condition basically remains unchanged. He is still unresponsive. Some ocular movements are noted. He remains intubated. Tube feedings are in progress. OBJECTIVE: Vital Signs: Blood pressure is 130/62, temperature 100.2, respirations 25, and pulse 91. General: The patient is unresponsive. He remains intubated. HEENT: Unremarkable. Chest: Symmetrical breath sounds, diminished. His chest x-ray today shows "mild interval improvement". Cardiac: Heart sounds are regular and rhythmic. Abdomen: The abdomen is slightly distended. Bowel sounds are diminished. Neurological: Unresponsive. Extremities: The extremities show no significant edema. Pulses are diminished. LABORATORY DATA: Sputum is growing Staph aureus which is methicillin sensitive. White cell count is 18,900, hemoglobin 13 grams, and hematocrit 40%. Fio2 30%, pH 7.56, pO2 100, and pCO2 36. Sodium is 143, potassium 4.1, BUN 113, and creatinine 2.1. IMPRESSION: 1. Patient who has acute hypoxemic respiratory failure. 2. Persistent encephalopathy, probably secondary to anoxic encephalopathy. 3. Recurrent ventricular fibrillation. 4. Dilated nonischemic cardiomyopathy with chronic systolic heart failure. 5. Acute on chronic renal insufficiency, cardiorenal syndrome. 6. Methicillin susceptible Staphylococcus aureus pneumonia. 7. Pericarditis, resolving. RECOMMENDATIONS: At this time we are continuing with supportive therapy although his prognosis is really very grim. I agree with Dr. Robbins, I do not think he is going to survive this admission. We will be probably discussing with the family and the other members of the team recommending a compassionate withdrawal of care. cc: Barry Jeff MD
[2019-10-03] MEDS: TYLENOL PO PRN (21:03)
[2019-10-04] MEDS: TYLENOL PO PRN ×2 (04:21→09:22)
[2019-10-04] MEDS: KEFZOL 1 GM/D5W 1 GM/50 ML IVPB IV SCH ×2 (04:22→16:05)
[2019-10-04 05:26] LABS: ALLEN TEST YES; BE 6.6 mmoll (-3.0-3.0); BLOOD TYPE ARTERIAL; HCO3-(ACT) 29.9 mmoll (20.0-26.0); METHB 0.5 % (0.0-1.5); O2(CT) 23.7 mL/dL (15.0-23.0); O2HB 94.2 % (95.0-99.0); PCO2(98.6) 43 mmHg (35-45); PO2(98.6) 72 mmHg (60-100); SAMPLE BLOOD; SAO2 96.1 % (95.0-100.0); SRATE 10 BPM; THB 17.9 g/dL (11.5-17.4); TVOL 500 mL; pH(98.6) 7.47 (7.35-7.45)
[2019-10-04 05:27] LABS: MODALITY VENTILATOR
[2019-10-04] MEDS: KEPPRA 250 MG in NS 100 ML IV SCH ×2 (06:59→20:49)
[2019-10-04 07:01] LABS: BASO# 0.03 X1000 (0.0-0.2); BASO% 0.1 % (0.0-0.8); EOS# 0.07 X1000 (0.0-0.7); EOS% 0.3 % (0.0-10.0); HEMATOCRIT 41.5 % (42.0-52.0); HEMOGLOBIN 12.9 g/dL (14.0-18.0); IMM GRAN# 0.18 X1000 (0.0-0.04); IMM GRAN% 0.7 % (0.0-0.5); LYMPH# 2.37 X1000 (1.2-3.4); LYMPH% 9.4 % (20.5-51.1); MCH 23.9 PG (27-31); MCHC 31.1 g/dL (33-37); MCV 76.9 FL (81-99); MONO# 3.34 X1000 (0.11-0.59); MONO% 13.2 % (1.7-9.3); MPV 11.7 FL (7.4-10.4); NEUT# 19.34 X1000 (1.4-6.5); NEUT% 76.3 % (42.2-75.2); PLT 209 X1000 (130-400); RDW 18.9 % (11.5-14.5); WBC 25.33 X1000 (4.8-10.8)
[2019-10-04 07:34] LABS: BANDS 4 % (0-1); LYMPHS 6 % (21-51); MONO 6 % (1-9); NRBC 2 % (0-0); SEGS 84 % (42-75)
[2019-10-04 07:35] LABS: HYPOCHROM 1+; LARGE PLATELETS 1+
[2019-10-04 07:39] LABS: CALCIUM 11.4 mg/dL (8.8-10.2); CREATININE 3.2 mg/dL (0.7-1.2); POTASSIUM 4.2 mmol/L (3.5-5.1)
[2019-10-04] MEDS: PROTONIX IV SCH (09:16)
[2019-10-04] MEDS: ALDACTONE PO SCH ×2 (09:16→20:49)
[2019-10-04] MEDS: ZYLOPRIM PO SCH (09:16)
[2019-10-04] MEDS: CORDARONE NG SCH ×3 (09:17→16:04)
[2019-10-04] MEDS: LOPRESSOR PO SCH ×2 (09:17→20:49)
[2019-10-04] MEDS: ASPIRIN EC PO SCH (09:17)
--- NOTE | 2019-10-04 11:41 | NEPHROLOGY PROGRESS NOTE ---
DATE: 10/04/2019 SUBJECTIVE: He is now under isolation for possible exposure to COVID-19. He has developed a fever in the last 24 hours. He remains unresponsive. OBJECTIVE: Vital signs: Blood pressure 123/83, heart rate 90, respiration 20, T-max 101.5 degrees. General: Remains unresponsive on the ventilator. IMPRESSION: Acute kidney injury. Blood urea nitrogen and creatinine have been progressively improving. Today, BUN and creatinine are roughly unchanged from yesterday. Urine output has remained acceptable. We will check urine electrolytes and he may require gentle IV fluids. Certainly, he is at risk for another wave of acute tubular necrosis if his clinical status worsens. cc: Camilo Chopra MD
--- NOTE | 2019-10-04 12:32 | PROGRESS NOTE ---
DATE: 10/04/2019 SUBJECTIVE: Mr. Gurpreet Jr., has no change neurologically. Still on the ventilator, vent dependent. Family is deciding about withdrawal of care. OBJECTIVE: He did spike a fever greater than 101 degrees. He pulse is 90, respirations 20, blood pressure 123/83. Lungs are clear anterolateral. Cardiovascular exam, regular rate without murmur or S3. Abdomen is soft. Skin is warm and dry. LABORATORY DATA: His white count is 25,330, hematocrit 41, platelet count 209,000. Chemistry sodium 146, potassium 4.2, chloride 101, BUN 119, creatinine 3.2. ASSESSMENT AND PLAN: 1. Acute kidney injury, respiratory failure, status post cardiovascular arrest, severe anoxic injury. The family is deciding on withdrawal of care measures. cc: Rick Price MD
--- NOTE | 2019-10-04 13:26 | PULMONOLOGY PROGRESS NOTE ---
DATE: 10/04/2019 SUBJECTIVE: The patient continues unresponsive. He is now under isolation for possible exposure to COVID-19 as he developed a fever in the last 24 hours. OBJECTIVE: Vital Signs: Blood pressure is 144/87 with a heart rate of 90, respirations are 22, temperature is 99.9 degrees with O2 saturations 96 to 98 percent on 30% FiO2 per mechanical ventilation. HEENT: Head is normocephalic, atraumatic. Mucous membranes are moist. Pupils are 3 mm and sluggish to react. Neck: Supple with trachea midline. Cardiovascular: Regular rate and rhythm. S1, S2 appreciated. No murmur. Pulmonary: Breath sounds are coarse throughout. Chest rises and falls symmetric with respiration. Chest wall is nontender. Gastrointestinal: Abdomen is soft with bowel sounds in all 4 quadrants. Neurologic: He remains unresponsive on the ventilator. LABORATORY DATA: WBC is 25.33 with hemoglobin 12.9, hematocrit 41.5 and platelets 209. Sodium 146, potassium 4.2. BUN 119, creatinine 3.2 with a glucose of 159. ABGs: A pH is 7.47, with a pCO2 of 43, PO2 of 72, and bicarbonate of 29.9. This is on assist-control, a rate of 10 with 30% FiO2, 500 tidal volume and 5 of PEEP. IMPRESSION: This is a 69-year-old gentleman with: 1. Acute hypoxemic respiratory failure. 2. Prolonged cardiopulmonary resuscitation following cardiopulmonary arrest. 3. Anoxic encephalopathy. 4. Dilated cardiomyopathy. 5. Acute renal failure. 6. Recurrent ventricular fibrillation. PLAN: 1. We will continue with fluid management per Dr. Chopra. 2. Continue current antibiotic management. 3. Continue acid suppression, Protonix. PROGNOSIS: Dismal. The family are having a meeting today to discuss withdrawing care according to the nursing staff. Dictated by ANAMIKA Figueroa for Ruddy Robbins MD cc: ANAMIKA Figueroa MD
[2019-10-04] MEDS: LOVENOX SUBQ SCH (13:39)
[2019-10-05 04:47] LABS: ALLEN TEST YES; BLOOD TYPE ARTERIAL; HCO3-(ACT) 31.1 mmoll (20.0-26.0); METHB 1.1 % (0.0-1.5); O2(CT) 18.4 mL/dL (15.0-23.0); O2HB 95.4 % (95.0-99.0); PCO2(98.6) 41 mmHg (35-45); PO2(98.6) 85 mmHg (60-100); SAMPLE BLOOD; SAO2 98.7 % (95.0-100.0); SRATE 10 BPM; THB 13.7 g/dL (11.5-17.4); TVOL 500 mL
[2019-10-05 04:48] LABS: MODALITY VENTILATOR
[2019-10-05] MEDS: KEFZOL 1 GM/D5W 1 GM/50 ML IVPB IV SCH ×2 (05:00→16:51)
[2019-10-05] MEDS: TYLENOL PO PRN (05:15)
[2019-10-05 06:25] LABS: BASO# 0.03 X1000 (0.0-0.2); BASO% 0.1 % (0.0-0.8); EOS# 0.16 X1000 (0.0-0.7); EOS% 0.7 % (0.0-10.0); HEMATOCRIT 40.2 % (42.0-52.0); HEMOGLOBIN 12.4 g/dL (14.0-18.0); IMM GRAN% 0.4 % (0.0-0.5); LYMPH# 1.96 X1000 (1.2-3.4); LYMPH% 8.7 % (20.5-51.1); MCH 23.8 PG (27-31); MCHC 30.8 g/dL (33-37); MCV 77.2 FL (81-99); MONO# 2.17 X1000 (0.11-0.59); MONO% 9.7 % (1.7-9.3); MPV 11.7 FL (7.4-10.4); NEUT# 17.99 X1000 (1.4-6.5); NEUT% 80.4 % (42.2-75.2); PLT 191 X1000 (130-400); RBC 5.21 XMIL (4.7-6.1); RDW 18.8 % (11.5-14.5); WBC 22.41 X1000 (4.8-10.8)
[2019-10-05 06:47] LABS: CALCIUM 11.8 mg/dL (8.8-10.2); CREATININE 3.3 mg/dL (0.7-1.2); POTASSIUM 4.3 mmol/L (3.5-5.1)
[2019-10-05 07:22] LABS: ANISOCYTOSIS 1+; EOS 3 % (1-10); LYMPHS 16 % (21-51); MONO 6 % (1-9); SEGS 75 % (42-75)
[2019-10-05] MEDS: ZYLOPRIM PO SCH (08:11)
[2019-10-05] MEDS: KEPPRA 250 MG in NS 100 ML IV SCH ×2 (08:11→19:43)
[2019-10-05] MEDS: ALDACTONE PO SCH ×2 (08:11→20:23)
[2019-10-05] MEDS: LOPRESSOR PO SCH ×2 (08:11→20:24)
[2019-10-05] MEDS: CORDARONE NG SCH ×3 (08:12→16:50)
[2019-10-05] MEDS: PROTONIX IV SCH (08:12)
[2019-10-05] MEDS: D5W 1,000 ML IV SCH ×2 (09:54→22:14)
[2019-10-05] MEDS: ASPIRIN PO SCH (09:54)
[2019-10-05] MEDS: LOVENOX SUBQ SCH (12:26)
--- NOTE | 2019-10-05 13:58 | PROGRESS NOTE ---
DATE: 10/05/2019 SUBJECTIVE: He is really unchanged. He is on the ventilator. He remains afebrile. OBJECTIVE: Temperature 98.1 degrees, pulse 90, respirations 10, blood pressure 83/63. Pupils are equal but really not reactive, but very sluggish. Not moving any extremities purposefully. Lungs are clear anterolaterally. Cardiovascular Examination: Regular rhythm and rate without murmur or S3. Abdomen is soft. Skin is warm and dry. ASSESSMENT AND PLAN: 1. Acute hypoxemic respiratory failure. 2. Prolonged cardiopulmonary resuscitation following cardiopulmonary arrest. 3. Anoxic encephalopathy. 4. Dilated cardiomyopathy. 5. Acute renal failure. 6. Recurrent ventricular fibrillation. 7. Family is discussing withdrawing measures. He is on Lopressor 25 mg every 12 hours, allopurinol 100 mg by mouth daily, amiodarone at 300 mg intravenous as needed and getting amiodarone 400 mg per nasogastric tube three times a day, aspirin 81 mg a day, D5 water at 75 mL an hour, Lovenox 30 mg subcutaneous every 24 hours, cefazolin 1 g intravenously every 12 hours, levetiracetam 250 mg intravenously every 12 hours, and getting phenylephrine as-needed, norepinephrine as-needed for blood pressure, Protonix 40 mg intravenously every 24 hours, and spironolactone 50 mg by mouth twice a day. cc: Rick Price MD
--- NOTE | 2019-10-05 18:33 | PULMONOLOGY PROGRESS NOTE ---
DATE: 10/05/2019 SUBJECTIVE: Mr. Vázquez remains unresponsive, on mechanical ventilation. OBJECTIVE: Vital Signs: Blood pressure is 119/82, with a heart rate of 91, respirations are 20, temperature is 98.8 degrees, with O2 saturations 97 to 98 percent on 30% FiO2 mechanical ventilation. Cardiovascular: Regular rate and rhythm. S1 and S2 are appreciated. Pulmonary: Breath sounds are coarse throughout. Chest rises and falls symmetrically with respirations. Gastrointestinal: Abdomen is soft, nondistended, with bowel sounds in all 4 quadrants. Labs: WBC is 22.4, with hemoglobin 12.4, hematocrit 40.2, and platelets of 191,000. Sodium 150, potassium 4.3, BUN 128, creatinine 3.3, with glucose of 166. ABGs, pH of 7.50, with a PO2 of 41, pO2 of 85, and bicarb of 31. IMPRESSION: This is a 69-year-old gentleman with: 1. Acute hypoxemic respiratory failure. 2. Prolonged cardiopulmonary resuscitation following cardiopulmonary arrest. 3. Anoxic encephalopathy. 4. Dilated cardiomyopathy. 5. Acute renal failure, followed by Dr. Chopra. 6. Recurrent ventricular fibrillation. PLAN: 1. We will continue with fluid management per Dr. Chopra. 2. Continue current antibiotic management. 3. Continue acid suppression with Protonix. 4. Family is discussing withdrawing measures. Dictated by ANAMIKA Figueroa for Ruddy Robbins MD cc: ANAMIKA Figueroa MD
[2019-10-06 04:51] LABS: BASO# 0.04 X1000 (0.0-0.2); BASO% 0.2 % (0.0-0.8); EOS# 0.18 X1000 (0.0-0.7); EOS% 0.9 % (0.0-10.0); HEMATOCRIT 37.7 % (42.0-52.0); HEMOGLOBIN 11.7 g/dL (14.0-18.0); IMM GRAN# 0.07 X1000 (0.0-0.04); IMM GRAN% 0.4 % (0.0-0.5); LYMPH# 1.12 X1000 (1.2-3.4); LYMPH% 5.8 % (20.5-51.1); MCV 77.3 FL (81-99); MONO# 1.26 X1000 (0.11-0.59); MONO% 6.5 % (1.7-9.3); MPV 11.2 FL (7.4-10.4); NEUT# 16.78 X1000 (1.4-6.5); NEUT% 86.2 % (42.2-75.2); PLT 158 X1000 (130-400); RBC 4.88 XMIL (4.7-6.1); RDW 18.9 % (11.5-14.5); WBC 19.45 X1000 (4.8-10.8)
[2019-10-06] MEDS: KEFZOL 1 GM/D5W 1 GM/50 ML IVPB IV SCH ×2 (04:57→16:03)
[2019-10-06 05:27] LABS: ALLEN TEST YES; BLOOD TYPE ARTERIAL; HCO3-(ACT) 31.2 mmoll (20.0-26.0); METHB 0.5 % (0.0-1.5); O2(CT) 20.1 mL/dL (15.0-23.0); O2HB 97.2 % (95.0-99.0); PCO2(98.6) 35 mmHg (35-45); PO2(98.6) 125 mmHg (60-100); SAMPLE BLOOD; SAO2 100.6 % (95.0-100.0); SRATE 10 BPM; THB 14.6 g/dL (11.5-17.4); TVOL 500 mL; pH(98.6) 7.55 (7.35-7.45)
[2019-10-06 05:29] LABS: MODALITY VENTILATOR
[2019-10-06 06:28] LABS: CALCIUM 11.2 mg/dL (8.8-10.2); POTASSIUM 4.2 mmol/L (3.5-5.1)
--- NOTE | 2019-10-06 07:37 | Diag Imaging Result Doc PS360 ---
EXAM: CHEST-PORTABLE INDICATION: Ventilator TECHNIQUE: One view COMPARISON: 10/03/2019 FINDINGS: Support tubes and lines are in stable positions. Pulmonary venous congestion and mild edema are approximately stable. There is increased opacity at the left lung base likely representing a small effusion with adjacent atelectasis. No new consolidation is identified, otherwise. There is stable cardiomegaly. IMPRESSION: Increased opacification at the left lung base likely representing an increasing small effusion. Electronically signed by Chinmay Lott 10/06/2019 7:35 AM
[2019-10-06 07:55] LABS: BANDS 1 % (0-1); LYMPHS 9 % (21-51); MONO 3 % (1-9); SEGS 87 % (42-75)
[2019-10-06 07:56] LABS: ANISOCYTOSIS 1+; MICROCYTOSIS 1+
[2019-10-06] MEDS: KEPPRA 250 MG in NS 100 ML IV SCH ×2 (09:02→19:45)
[2019-10-06] MEDS: PROTONIX IV SCH (09:04)
[2019-10-06] MEDS: ALDACTONE PO SCH ×2 (09:05→20:00)
[2019-10-06] MEDS: CORDARONE NG SCH ×3 (09:06→16:03)
[2019-10-06] MEDS: ASPIRIN PO SCH (09:06)
[2019-10-06] MEDS: ZYLOPRIM PO SCH (09:06)
[2019-10-06] MEDS: LOPRESSOR PO SCH ×2 (09:08→20:00)
--- NOTE | 2019-10-06 09:36 | NEUROLOGY PROGRESS NOTE ---
DATE: 10/06/2019 SUBJECTIVE: Mr. Vázquez is in the ICU bed 3. No major clinical changes over the weekend. OBJECTIVE: Mr. Vázquez looks about the same clinically. There is a little bit of eyelid flutter and minimal corneal reflex. There is some spontaneous pupil change, but I could not see consistent pupil response to bright light. Lateral eye movement is minimal with passive head turning. Limb tone is symmetric. Plantar response is extensor bilaterally. There is still slight leg withdrawal to noxious stimulation over the sole of the foot. IMPRESSION AND PLAN: Persistent coma, continued concern for irreversible anoxic/ischemic event, no clinical change, no new suggestion from Neurology standpoint. cc: Morris Curran III, MD MTDGee
--- NOTE | 2019-10-06 11:20 | NEPHROLOGY PROGRESS NOTE ---
DATE: 10/06/2019 SUBJECTIVE: Unchanged neurologically. OBJECTIVE: Vital Signs: Blood pressure 104/81, heart rate 90, respirations 24, afebrile. Intake 2.2 L, output 1.7 L. General: No acute distress. Skin: Warm and dry. Neck: Neck veins are not appreciated. Heart: Regular with a gallop. Lungs: Equal. No crackles. Abdomen: Benign. Extremities: There is 2+ edema. IMPRESSION: Ischemic acute tubular necrosis overlying chronic kidney disease. BUN and creatinine have been roughly stable over the last 4 days. Good urine output. No indications for hemodialysis. I understand the family is discussing withdrawal of care as soon as today. Will follow. cc: Camilo Chopra MD
[2019-10-06] MEDS: LOVENOX SUBQ SCH (12:44)
[2019-10-06] MEDS: D5W 1,000 ML IV SCH (12:45)
--- NOTE | 2019-10-06 13:05 | CONSULTATION ---
DATE OF CONSULTATION: 10/06/2019 SUBJECTIVE: The patient is intubated on the ventilator. He is not responsive. He has anasarca and edema. OBJECTIVE: Vital signs have been reviewed, and labs were seen. PHYSICAL EXAMINATION: Vital Signs: Temperature 97.9, pulse rate 91, respiratory rate between 18 and 24, blood pressure 104/81, pulse oximetry 96%, respiratory rate 88, he has been afebrile since 10/04/2019. Inputs and outputs were reviewed, and over 24 hours is positive 520 mL. Head and Neck. ET tube is in place. Chest: Slightly reduced entry at the bases. Cardiac: S1, S2. There is a defibrillator/pacemaker felt. Abdomen: Nontender, nondistended. Extremities: Lower extremities show +1 to +2 pedal edema. Neurologic: Nonresponsive. MEDICATIONS: Medications were reviewed, and antibiotics currently include Kefzol. Levophed is on standby. IMAGING AND LABORATORY DATA: Labs for today and chest x-ray were reviewed. WBC is 19.45, hemoglobin 11.7. Creatinine 3.0. PH 7.55, pCO2 of 35, PO2 of 125, this was on 30% with PEEP of 5. Chest x-ray from today was seen, and there is increased opacification of the left lung representing increasing small effusion. ASSESSMENT: This is a case of: 1. Acute hypoxemic respiratory failure. 2. Cardiac arrest, post multiple cardiopulmonary resuscitations. 3. Anoxic encephalopathy, likely secondary to prolonged cardiopulmonary resuscitation. 4. Acute renal failure. 5. Congestive heart failure and cardiomyopathy, ejection fraction 10% to 20% reported. 6. The prognosis is very poor given anoxic cephalopathy and end-stage congestive heart failure and cardiac disease with recurrent arrhythmias and ventricular fibrillation. Family is discussing withdrawal of care and code status. I have had a discussion with them earlier, and they have taken their time coming to decisions. 7. The patient has shock, and Levophed now is on standby. PLAN: 1. Continue assisted-control ventilation for mainly airway protection and gentle support of the cardiac status. We did titrate the ventilator to the patient's needs per clinical protocols, and will closely monitor his responses. 2. Levophed is standby, and if needed, will be titrated to keep blood pressure as needed. 3. Anoxic encephalopathy with very poor prognosis. Will monitor that, and waiting for family decisions, simply day-by-day, [id number]. 4. The patient remains critically ill, and will continue the current management with antibiotics. I did discuss the case with the patient's registered nurse also. TIME SPENT: Critical care examination and assessment took 35 minutes. cc: Juan Duncan MD
--- NOTE | 2019-10-06 13:44 | PROGRESS NOTE ---
DATE: 10/06/2019 SUBJECTIVE: Mr. Vázquez is still on the ventilator. No change in neurologic status. OBJECTIVE: Vital Signs: Remains afebrile, temperature 98.2 degrees, pulse 90, respirations 19, blood pressure 88/69. HEENT: Pupils are equal and round. Lungs: Clear anterolateral. Cardiovascular: Regular rate without murmur or S3. Abdomen: Soft. Skin: Warm and dry. URINE OUTPUT: 2900 mL. ASSESSMENT AND PLAN: 1. Acute hypoxemic respiratory failure. 2. Status post cardiac arrest, status post multiple cardiopulmonary resuscitations. 3. Anoxic encephalopathy secondary to prolonged cardiopulmonary resuscitation. 4. Acute renal failure. 5. Congestive heart failure and cardiomegaly, ejection fraction 10 to 20 percent. 6. Prognosis very poor given his underlying anoxic encephalopathy, end-stage congestive heart failure and cardiac disease, recurrent arrhythmias with ventricular fibrillation. Family is discussing withdrawal of care. 7. Trying to maintain his blood pressure using Levophed. Continue present orders and I do not see any change at this point. He is getting amiodarone 400 mg per NG tube t.i.d., Protonix 40 mg IV q.24 hours, cefazolin 1 g q.12, aspirin 81 mg a day, Lopressor 25 mg twice a day. LABORATORY DATA: From this morning, white count 12904, hematocrit 37, hemoglobin 11, platelet count 158,000. Sodium 147, potassium 4.2, chloride 105, BUN 128, creatinine 3.0. Hopefully, the family can communicate and make a decision. cc: Rick Price MD
[2019-10-07] MEDS: D5W 1,000 ML IV SCH ×3 (01:33→16:09)
[2019-10-07 04:35] LABS: ALLEN TEST YES; BE 5.7 mmoll (-3.0-3.0); BLOOD TYPE ARTERIAL; HCO3-(ACT) 29.3 mmoll (20.0-26.0); METHB 0.9 % (0.0-1.5); O2HB 95.4 % (95.0-99.0); PCO2(98.6) 35 mmHg (35-45); PO2(98.6) 87 mmHg (60-100); SAMPLE BLOOD; SAO2 98.2 % (95.0-100.0); SRATE 10 BPM; THB 14.1 g/dL (11.5-17.4); TVOL 500 mL; pH(98.6) 7.52 (7.35-7.45)
[2019-10-07 04:36] LABS: MODALITY VENTILATOR
[2019-10-07] MEDS: KEFZOL 1 GM/D5W 1 GM/50 ML IVPB IV SCH ×2 (04:57→16:09)
[2019-10-07 06:26] LABS: BASO# 0.02 X1000 (0.0-0.2); BASO% 0.1 % (0.0-0.8); EOS% 1.2 % (0.0-10.0); HEMATOCRIT 37.8 % (42.0-52.0); HEMOGLOBIN 11.7 g/dL (14.0-18.0); IMM GRAN# 0.06 X1000 (0.0-0.04); IMM GRAN% 0.4 % (0.0-0.5); LYMPH# 0.95 X1000 (1.2-3.4); LYMPH% 5.7 % (20.5-51.1); MCV 77.5 FL (81-99); MONO# 0.81 X1000 (0.11-0.59); MONO% 4.8 % (1.7-9.3); NEUT# 14.68 X1000 (1.4-6.5); NEUT% 87.8 % (42.2-75.2); PLT 169 X1000 (130-400); RBC 4.88 XMIL (4.7-6.1); RDW 19.2 % (11.5-14.5); WBC 16.72 X1000 (4.8-10.8)
[2019-10-07 06:48] LABS: CALCIUM 11.3 mg/dL (8.8-10.2); CREATININE 2.6 mg/dL (0.7-1.2); POTASSIUM 4.3 mmol/L (3.5-5.1)
--- NOTE | 2019-10-07 07:43 | Diag Imaging Result Doc PS360 ---
EXAM: CHEST-PORTABLE INDICATION: Ventilator TECHNIQUE: One view COMPARISON: 10/06/2019 FINDINGS: Support tubes and lines are in stable positions. Left pleural effusion with adjacent atelectasis plus or minus infiltrate is unchanged. No new consolidation is identified. Cardiac silhouette is stable. IMPRESSION: Stable chest. Electronically signed by Chinmay Lott 10/07/2019 7:41 AM
[2019-10-07] MEDS: KEPPRA 250 MG in NS 100 ML IV SCH ×2 (07:57→19:48)
[2019-10-07] MEDS: PROTONIX IV SCH (07:59)
[2019-10-07] MEDS: CORDARONE NG SCH ×3 (08:00→16:10)
[2019-10-07] MEDS: ASPIRIN PO SCH (08:00)
[2019-10-07] MEDS: ALDACTONE PO SCH ×2 (08:01→20:08)
[2019-10-07] MEDS: LOPRESSOR PO SCH ×2 (08:01→20:08)
[2019-10-07] MEDS: ZYLOPRIM PO SCH (08:01)
[2019-10-07] MEDS: DULCOLAX PR SCH ×2 (10:25→20:08)
--- NOTE | 2019-10-07 12:19 | PROGRESS NOTE ---
DATE: 10/07/2019 SUBJECTIVE: This patient is basically unresponsive even though he is not on sedation, basically he is in coma, and this is concerning for an irreversible condition, he continues to be unresponsive even with pain stimulation. He does have some reflexes including gag reflex and pupillary reflex as well. OBJECTIVE: Vital Signs: Temperature 97.9 degrees, pulse 90, respiratory rate 20, blood pressure 107/71, oxygen saturation 96 on mechanical ventilation. HEENT: Head normocephalic, no trauma. PERRLA. Neck: Supple. No JVD. No masses. Central trachea. Chest: Clear to auscultation, some crepitus at the bases. Abdomen: Soft, protuberant, positive bowel sounds. Extremities: No edema, no clubbing, no cyanosis. Neurological: The patient is unresponsive, he does have some reflexes like gag reflex and pupillary reflex. Chest x-ray stable. LABORATORY: WBC 16.7, hemoglobin 11.7, hematocrit 37.8, platelets 169,000, sodium 145, potassium 4.3, chloride 102, bicarbonate 28, BUN 20, creatinine 2.6, glucose 284, calcium 11.3. ASSESSMENT AND PLAN: 1. Encephalopathy, likely this is secondary to a prolonged cardiopulmonary resuscitation, concerning for an irreversible anoxic brain injury, neurology department on board. 2. Status post cardiac arrest, status post multiple cardiopulmonary resuscitations, I believe secondary to recurrent ventricular fibrillation. 3. Acute kidney injury on chronic kidney disease, he seems to be making good urine, Nephrology Department on board. 4. Severe CHF with a low ejection fraction and dilated cardiomyopathy, cardiology on board. We will continue with the same management. 5. MSSA pneumonia. He is still on antibiotics. 6. Pericarditis, resolving. 7. Hypoxemic respiratory failure. Continue with mechanical ventilation per Cardiology Department. I had a large conversation with Mr. Vázquez's , I explained to her in detail that this patient is basically unresponsive without any kind of sedation, concerning for an irreversible condition, probably this is related to anoxic/ischemic event, all this has been explained to the , she will meet with the family to decide the next step, I talked to her about her resuscitation status and for now she still wants to keep the full code, I will talk to her tomorrow again. Time discussing his advanced directive at least 30 minutes. CRITICAL CARE TIME: 30 minutes with 30 more minutes advanced directive. cc: Srinivas Magana MD MTDD
--- NOTE | 2019-10-07 12:26 | NEUROLOGY PROGRESS NOTE ---
DATE: 10/07/2019 LOCATION: ICU, Bed 3. SUBJECTIVE: There has not been a major clinical change. OBJECTIVE: Lateral extraocular movements are a little bit more brisk with passive head turning today than yesterday. Pupil reaction is present bilaterally and is more brisk than yesterday. Corneal reflexes are present bilaterally and are more brisk today than yesterday. Limb tone remains symmetric. I did not see withdrawal with noxious stimulation over the limbs. Neck: Supple. IMPRESSION AND PLAN: Continued coma, intact brainstem reflexes with more brisk and easier to elicit reflexes today than in the last few days, nothing really new neurologically. I continue to favor consideration for withdrawal of support. We need to be prepared that vegetative state may persist for an extended period of time. Thanks for asking Neurology to see Mr. Vázquez. cc: Morris Curran III, MD MTDD
[2019-10-07] MEDS: LOVENOX SUBQ SCH (13:18)
--- NOTE | 2019-10-07 14:02 | PROGRESS NOTE ---
DATE: 10/07/2019 SUBJECTIVE: The patient is on the ventilator today, not responsive. There is a concern about minimal brainstem reflexes, but he does not have a cough or gag reflex to my examination. PHYSICAL EXAMINATION: vital signs: He is afebrile. Temperature 97.8, blood pressure 113/81, pulse rate 91, pulse oximetry 90% on assist-control ventilation. Is and Os were also noted. He is in a positive balance of 1365. Head/Neck: Trachea midline. ET tube is into is in place. Chest: Reduced entry to the bases. Cardiac exam: S1 and S2. Abdomen: Nontender on examination. Extremities: +2 pedal edema. Neurologic exam: Not responsive to my examination. LABS/INVESTIGATIONS: Creatinine 2.6. CMP noted. WBCs 16.72. CBC noted. The pH 7.52, pCO2 35, PO2 is 87. Assist control rate of 10, FiO2 of 30%, tidal volume 500, PEEP of 5. Chest x-ray was also reviewed and no significant changes. ASSESSMENT: 1. Post cardiac pulmonary resuscitation and ventricular fibrillation, defibrillator over functioning. 2. Acute hypoxemic respiratory failure. 3. Acute renal failure. 4. Congestive heart failure and cardiomyopathy. 5. Poor prognosis with likely anoxic encephalopathy and lack of responsiveness. PLAN: 1. The family is considering the option of terminal weaning and they are scheduled for a conference call today. It was explained to them on multiple occasions that the prognosis is very poor. 2. Continue assist-control ventilation per the patient's needs and will monitor responses per care protocols and will closely monitor his oxygen saturation, ABGs and labs. 3. Anoxic encephalopathy with poor responses. No gag reflex. No cough to my examination and I expect that he would not be able to protect his airway if family withdrew care. 4. The patient remains critically ill and he is a candidate for another cardiac arrest at any minute. I will continue current management. I discussed the case with the patient's caring registered nurse. TIME SPENT: Critical care examination and assessment time of 30 minutes. cc: Juan Duncan MD
[2019-10-08] MEDS: D5W 1,000 ML IV SCH ×2 (04:16→22:49)
[2019-10-08] MEDS: KEFZOL 1 GM/D5W 1 GM/50 ML IVPB IV SCH ×2 (04:16→16:48)
[2019-10-08 04:19] LABS: BASO# 0.04 X1000 (0.0-0.2); BASO% 0.2 % (0.0-0.8); EOS# 0.11 X1000 (0.0-0.7); EOS% 0.6 % (0.0-10.0); HEMATOCRIT 37.1 % (42.0-52.0); HEMOGLOBIN 11.7 g/dL (14.0-18.0); IMM GRAN# 0.06 X1000 (0.0-0.04); IMM GRAN% 0.3 % (0.0-0.5); LYMPH# 0.85 X1000 (1.2-3.4); LYMPH% 4.4 % (20.5-51.1); MCH 24.2 PG (27-31); MCHC 31.5 g/dL (33-37); MCV 76.7 FL (81-99); MONO# 0.84 X1000 (0.11-0.59); MONO% 4.4 % (1.7-9.3); MPV 12.1 FL (7.4-10.4); NEUT# 17.29 X1000 (1.4-6.5); NEUT% 90.1 % (42.2-75.2); PLT 180 X1000 (130-400); RBC 4.84 XMIL (4.7-6.1); RDW 19.1 % (11.5-14.5); WBC 19.19 X1000 (4.8-10.8)
[2019-10-08 04:50] LABS: ALLEN TEST YES; BE 4.1 mmoll (-3.0-3.0); BLOOD TYPE ARTERIAL; HCO3-(ACT) 28.1 mmoll (20.0-26.0); METHB 0.8 % (0.0-1.5); O2(CT) 17.3 mL/dL (15.0-23.0); O2HB 94.9 % (95.0-99.0); PCO2(98.6) 36 mmHg (35-45); PO2(98.6) 79 mmHg (60-100); SAMPLE BLOOD; SRATE 10 BPM; THB 12.9 g/dL (11.5-17.4); TVOL 500 mL; pH(98.6) 7.49 (7.35-7.45)
[2019-10-08 04:51] LABS: MODALITY VENTILATOR
[2019-10-08 05:00] LABS: LYMPHS 6 % (21-51); MONO 5 % (1-9); SEGS 89 % (42-75)
[2019-10-08 05:04] LABS: OVALOCYTES OCCASIONAL; TARGET CELLS OCCASIONAL
[2019-10-08 05:14] LABS: CALCIUM 11.1 mg/dL (8.8-10.2); CREATININE 2.2 mg/dL (0.7-1.2); POTASSIUM 4.6 mmol/L (3.5-5.1)
--- NOTE | 2019-10-08 07:03 | Diag Imaging Result Doc PS360 ---
CHEST-PORTABLE - 10/08/2019 INDICATION: Ventilator COMPARISON: 10/07/2019 FINDINGS: Support lines and tubes are stable and in good position. Stable dense opacification of the left lung base likely with a pleural effusion. There is been improvement in the faint hazy infiltrate or edema in the right lung base. No new infiltrates. There is probably cardiomegaly. IMPRESSION: Slight improvement in aeration of the right lung base. Electronically signed by Joseph Jonas 10/08/2019 7:00 AM
[2019-10-08] MEDS: CORDARONE NG SCH ×3 (08:22→16:48)
[2019-10-08] MEDS: DULCOLAX PR SCH ×2 (08:22→20:17)
[2019-10-08] MEDS: PROTONIX IV SCH (08:22)
[2019-10-08] MEDS: SODIUM CHLORIDE 0.9% INJ SCH (08:22)
[2019-10-08] MEDS: KEPPRA 250 MG in NS 100 ML IV SCH ×2 (08:22→20:16)
[2019-10-08] MEDS: LOPRESSOR PO SCH ×2 (08:22→20:16)
[2019-10-08] MEDS: ALDACTONE PO SCH ×2 (08:23→20:17)
[2019-10-08] MEDS: ZYLOPRIM PO SCH (08:23)
[2019-10-08] MEDS: ASPIRIN PO SCH (08:24)
--- NOTE | 2019-10-08 10:49 | PROGRESS NOTE ---
DATE: 10/08/2019 SUBJECTIVE: The patient continues to be not responsive on the ventilator. Minimal brainstem reflexes. Again, no cough or gag reflex to my examination today too. Dr. Galloway did have a discussion with the family about the nature of terminal illness and poor prognosis. OBJECTIVE: Vital Signs: On physical examination, vital signs were noted. Head and Neck Exam: Trachea midline. Endotracheal tube in place. Chest Exam: Reduced air entry into the base. Cardiac exam: S1, S2. Exam nontender. Abdominal exam: Normal. Extremity exam: Madeline. Neurologic exam: Not responsive. LABS/INVESTIGATIONS: Chest x-ray, CBC, CMP, ABGs were reviewed. Creatinine is 2.2. WBCs 19.19 and they are trending up. Chest x-ray shows slight improvement of the right base. A pH is 7.49, pCO2 of 36, PO2 79, assist control 10, FiO2 30%, tidal volume 500, PEEP of 5. ASSESSMENT: 1. Post cardiac and pulmonary resuscitation multiple times. Left ventricular fibrillation and defibrillator working. The patient remains at high risk for more cardiac events given the end- stage cardiomyopathy. 2. Anoxic encephalopathy with poor prognosis. Neurology is involved. 3. Acute respiratory failure, multifactorial. 4. Acute renal failure. PLAN: 1. We titrated the ventilator settings per clinical protocols and monitored patient responses closely. 2. Anoxic encephalopathy with poor prognosis, and there is a discussion with the family about the nature of the terminal illness yesterday, and we are awaiting decisions from there end, and Palliative Care is involved. 3. The patient remains critically ill and a candidate for a cardiac arrest. CRITICAL CARE TIME INVOLVED: 33 minutes. cc: Juan Duncan MD
--- NOTE | 2019-10-08 11:02 | PROGRESS NOTE ---
DATE: 10/08/2019 SUBJECTIVE: No big changes compared with yesterday. He still has some brain stem reflexes. OBJECTIVE: Vital Signs: Temperature 97.6 degrees, pulse 90, respiratory rate 19, blood pressure 99/74, oxygen saturation 99 on mechanical ventilation. HEENT: Head normocephalic, no trauma. PERRLA. Neck: Neck is supple. No JVD. No masses. Central trachea. Chest: Clear to auscultation. Some crepitus at the bases. Abdomen: Soft, protuberant. Positive bowel sounds. Extremities: No edema, no clubbing, no cyanosis. Neurological examination: The patient is unresponsive. He is basically in coma with some brainstem reflexes. LABORATORY: WBC 19.1, hemoglobin 11.7, hematocrit 37.1, platelets 180. Sodium 140, potassium 4.6, chloride 101, bicarbonate 26. BUN 109, creatinine 2.2 glucose 368, calcium 11.1. ASSESSMENT AND PLAN: 1. Encephalopathy, likely secondary to prolonged cardiopulmonary resuscitation, concerning for irreversible anoxic brain injury. Neurology Department on board. 2. Status post cardiac arrest, status post multiple cardiopulmonary resuscitations, probably due to recurrent ventricular fibrillation. 3. Acute kidney injury on chronic kidney disease. He seems to be improving. Nephrology on board. 4. Severe congestive heart failure with a low ejection fraction and dilated cardiomyopathy. Cardiology on board. 5. Methicillin-sensitive Staphylococcus aureus pneumonia. He is still on antibiotics. 6. Pericarditis, resolving. 7. Hypoxemic respiratory failure. Continue with mechanical ventilation per Pulmonary Department. Overall, his prognosis is extremely poor. He is not on any sedation and he is still in coma, he is not waking up. He has some brainstem reflexes. I had a conversation with his today, and we discussed this for about 18 minutes or so. We also discussed about PEG and trach placement. She is still talking to the family about further plan. We need to be prepared for vegetative state on this patient. I told her that probably he will not wake up at all. For now we will continue with the same treatment. I will not be surprised if he has a recurrent cardiac arrest. cc: Srinivas Magana MD
[2019-10-08] MEDS: LOVENOX SUBQ SCH (12:29)
--- NOTE | 2019-10-08 13:07 | NEUROLOGY PROGRESS NOTE ---
DATE: 10/08/2019 SUBJECTIVE: No significant change. OBJECTIVE: Mr. Vázquez appears about the same clinically. There is very slight lateral eye movement with passive head turning. Corneal reflexes are present, but sluggish bilaterally. I did not see pupil reaction to brief bright light. There was no spontaneous limb movement. Limb tone remains reduced and symmetric. Plantar response is silent bilaterally. I did not see limb withdrawal with noxious stimulation. Neck is supple. IMPRESSION: Persistent vegetative state, no evidence of recovery of cognitive function. I do not have any new thoughts or new suggestions from Neurology standpoint today. Thanks for asking us to see Mr. Vázquez. cc: Morris Curran III, MD [facility]
[2019-10-09 04:57] LABS: ALLEN TEST YES; BE 2.2 mmoll (-3.0-3.0); BLOOD TYPE ARTERIAL; HCO3-(ACT) 26.6 mmoll (20.0-26.0); METHB 1.1 % (0.0-1.5); O2(CT) 19.3 mL/dL (15.0-23.0); O2HB 95.5 % (95.0-99.0); PCO2(98.6) 34 mmHg (35-45); PO2(98.6) 95 mmHg (60-100); SAMPLE BLOOD; SAO2 98.9 % (95.0-100.0); SRATE 10 BPM; THB 14.3 g/dL (11.5-17.4); TVOL 500 mL; pH(98.6) 7.48 (7.35-7.45)
[2019-10-09 04:58] LABS: MODALITY VENTILATOR
[2019-10-09] MEDS: KEFZOL 1 GM/D5W 1 GM/50 ML IVPB IV SCH ×2 (05:23→16:09)
[2019-10-09 05:43] LABS: BASO# 0.04 X1000 (0.0-0.2); BASO% 0.2 % (0.0-0.8); EOS# 0.09 X1000 (0.0-0.7); EOS% 0.5 % (0.0-10.0); HEMATOCRIT 34.9 % (42.0-52.0); HEMOGLOBIN 11.1 g/dL (14.0-18.0); LYMPH# 0.87 X1000 (1.2-3.4); LYMPH% 4.8 % (20.5-51.1); MCH 24.6 PG (27-31); MCHC 31.8 g/dL (33-37); MCV 77.2 FL (81-99); NEUT# 16.18 X1000 (1.4-6.5); NEUT% 88.5 % (42.2-75.2); PLT 152 X1000 (130-400); RBC 4.52 XMIL (4.7-6.1); RDW 19.9 % (11.5-14.5); WBC 18.28 X1000 (4.8-10.8)
[2019-10-09 06:39] LABS: CALCIUM 10.3 mg/dL (8.8-10.2); CREATININE 2.2 mg/dL (0.7-1.2); MAGNESIUM 2.8 mg/dL (1.5-2.7); PHOSPHORUS 3.6 mg/dL (2.7-4.5); PREALBUMIN 22.4 mg/dL (20-40)
--- NOTE | 2019-10-09 06:53 | Diag Imaging Result Doc PS360 ---
CHEST-PORTABLE - 10/09/2019 INDICATION: Ventilator COMPARISON: 10/08/2019 FINDINGS: Support tubes are stable and in good position. Stable opacification of the left lung base. Stable cardiomegaly. No new infiltrates. The right lung remains fairly clear. IMPRESSION: No change from prior. Electronically signed by Joseph Jonas 10/09/2019 6:51 AM
[2019-10-09] MEDS: KEPPRA 250 MG in NS 100 ML IV SCH ×2 (08:07→20:04)
[2019-10-09] MEDS: LANTUS INSULIN SUBQ SCH (08:07)
[2019-10-09] MEDS: CORDARONE NG SCH ×3 (08:07→16:10)
[2019-10-09] MEDS: LOPRESSOR PO SCH ×2 (08:07→20:03)
[2019-10-09] MEDS: ALDACTONE PO SCH ×2 (08:08→20:03)
[2019-10-09] MEDS: ZYLOPRIM PO SCH (08:08)
[2019-10-09] MEDS: DULCOLAX PR SCH ×2 (08:08→20:03)
[2019-10-09] MEDS: PROTONIX IV SCH (08:08)
[2019-10-09] MEDS: ASPIRIN PO SCH (08:08)
[2019-10-09 09:17] LABS: ALLEN TEST YES; BE -7.3 mmoll (-3.0-3.0); BLOOD TYPE ARTERIAL; HCO3-(ACT) 19.2 mmoll (20.0-26.0); METHB 0.6 % (0.0-1.5); O2(CT) 16.4 mL/dL (15.0-23.0); O2HB 97.4 % (95.0-99.0); PCO2(98.6) 39 mmHg (35-45); PO2(98.6) 252 mmHg (60-100); SAMPLE BLOOD; SAO2 99.7 % (95.0-100.0); SRATE 20 BPM; THB 11.5 g/dL (11.5-17.4); TVOL 500 mL; pH(98.6) 7.29 (7.35-7.45)
[2019-10-09 09:20] LABS: MODALITY VENTILATOR
--- NOTE | 2019-10-09 09:36 | PROGRESS NOTE ---
DATE: 10/09/2019 SUBJECTIVE: This patient had a new cardiac arrest a few minutes ago. We started compressions at 8:49 a.m. and we regained pulse at 8:58 a.m. He received 3 rounds of epinephrine, 1 amp of calcium and 1 amp of bicarbonate. We are going to recheck his CMP, CBC, ABGs, and we are going to go ahead and get a new x-ray. We changed the endotracheal tube because it was not working right. I called the of Mr. Vázquez, and she asked me to try to bring him back, but if that fails just to let him go. She will talk to the family and make a decision hopefully today. Yesterday, I talked to his primary doctor. I let him know my opinion and all the subspecialties opinion. This patient is remarkably sick, and I do believe this is likely irreversible. For now we will continue with same management. OBJECTIVE: Vital signs: Heart rate 90, 100% oxygen saturation, 27 respiratory rate, and blood pressure 151/100. He is on mechanical ventilation. HEENT: Head normocephalic, no trauma. Sluggish response to the pupils. Neck: Neck is supple. No JVD. Chest: Decreased breath sounds at the bases with some crepitus. Abdomen: Soft, protuberant, nondistended. Extremities: Trace edema. No clubbing, no cyanosis. Neurological examination: The patient is unresponsive. He is basically in coma with some brainstem reflexes. LABORATORY: WBC 18.2, hemoglobin 11.1, hematocrit 34.9, platelets 152. Sodium 138, potassium 5, chloride 99, bicarbonate 23. BUN 100, creatinine 2.2, glucose 473, calcium 10.3, magnesium 2.8. ASSESSMENT AND PLAN: 1. Encephalopathy, likely secondary to multiple cardiopulmonary resuscitation, concerning for irreversible anoxic brain injury. Neurology Department on board. 2. Status post cardiac arrest, status post multiple cardiopulmonary resuscitations. The last one was done recently today; we started at 8:49 a.m. and we stopped at 8:59 a.m. Case has been discussed with the during the procedure. 3. Acute kidney injury on chronic kidney disease. Nephrology on board. He seems to be having a good urine output, but I need to check again because he just had a cardiac arrest, so probably the urine output will go down. 4. Severe congestive heart failure with low ejection fraction and dilated cardiomyopathy, aware. 5. methicillin-sensitive Staphylococcus aureus pneumonia. He is still on antibiotics. 6. Pericarditis, improving. 7. Hypoxemic respiratory failure. Continue with mechanical ventilation per Pulmonary Department. Overall, his prognosis is extremely poor. I believe this is an irreversible condition at this point. He is still in coma. He is not waking up, even though he is not on sedation. He has some brainstem reflexes. He had a new cardiac arrest today that lasted about 9 minutes. He received 3 doses of epinephrine, 1 dose of bicarbonate and 1 dose of calcium. Palliative Care on board. CRITICAL CARE TIME: 40 minutes. cc: Srinivas Magana MD
[2019-10-09 09:47] LABS: BASO# 0.03 X1000 (0.0-0.2); BASO% 0.2 % (0.0-0.8); EOS# 0.09 X1000 (0.0-0.7); EOS% 0.5 % (0.0-10.0); HEMATOCRIT 36.4 % (42.0-52.0); HEMOGLOBIN 11.1 g/dL (14.0-18.0); IMM GRAN# 0.17 X1000 (0.0-0.04); IMM GRAN% 0.9 % (0.0-0.5); LYMPH# 3.22 X1000 (1.2-3.4); LYMPH% 16.9 % (20.5-51.1); MCH 23.9 PG (27-31); MCHC 30.5 g/dL (33-37); MCV 78.4 FL (81-99); MONO# 0.78 X1000 (0.11-0.59); MONO% 4.1 % (1.7-9.3); NEUT# 14.79 X1000 (1.4-6.5); NEUT% 77.4 % (42.2-75.2); PLT 169 X1000 (130-400); RBC 4.64 XMIL (4.7-6.1); RDW 19.4 % (11.5-14.5); WBC 19.08 X1000 (4.8-10.8)
--- NOTE | 2019-10-09 09:48 | Diag Imaging Result Doc PS360 ---
EXAM: CHEST-PORTABLE INDICATION: tube placement TECHNIQUE: 2 views COMPARISON: 10/09/2019 FINDINGS: The ET tube tip projects over the trachea and above the chito at about the T5 level. There is an NG tube that projects below the diaphragm and is assumed to be in the lumen of the stomach in expected position. There is stable pulmonary venous congestion and edema and stable opacification of the left lung base. No new consolidation is identified. Cardiac silhouette is stable. IMPRESSION: ET tube and NG tube in the expected positions as described. Essentially stable chest, otherwise. Electronically signed by Chinmay Lott 10/09/2019 9:46 AM
[2019-10-09 10:05] LABS: BANDS 2 % (0-1); EOS 1 % (1-10); LYMPHS 28 % (21-51); MONO 3 % (1-9); NRBC 2 % (0-0); SEGS 66 % (42-75)
[2019-10-09 10:08] LABS: ANISOCYTOSIS 1+; HYPOCHROM 2+; POIKILOCYTOSIS 1+; POLYCHROM 1+
[2019-10-09 10:09] LABS: MICROCYTOSIS 1+
[2019-10-09 10:10] LABS: LARGE PLATELETS OCCASIONAL; OVALOCYTES 1+; TARGET CELLS OCCASIONAL
[2019-10-09 10:18] LABS: ALB/GLOB RATIO 0.9; CALCIUM 10.7 mg/dL (8.8-10.2); CREATININE 2.3 mg/dL (0.7-1.2); POTASSIUM 5.1 mmol/L (3.5-5.1); TOTAL BILIRUBIN 0.72 mg/dL (0.20-1.00); TOTAL PROTEIN 6.4 g/dL (6.3-8.3)
[2019-10-09] MEDS: HUMULIN R SUBQ SCH ×3 (10:58→21:06)
[2019-10-09] MEDS ORDERED: EPINEPHRINE SYRINGE ONE (11:00)
[2019-10-09] MEDS: D5W 1,000 ML IV SCH (11:00)
[2019-10-09] MEDS ORDERED: CALCIUM CHLORIDE SYRINGE ONE (11:00)
[2019-10-09] MEDS: LOVENOX SUBQ SCH ×2 (11:00→15:29)
--- NOTE | 2019-10-09 13:41 | NEUROLOGY PROGRESS NOTE ---
DATE: 10/09/2019 SUBJECTIVE: Overnight arrest noted. OBJECTIVE: Today, he has spontaneous eye blinking. There is slight lateral eye movement with passive head turning. Pupils react slowly to bright light. Corneal reflex is present and sluggish bilaterally. Limb tone is symmetric. Neck is supple. There continues global encephalopathy, persistent coma, clinical course consistent with anoxic/ischemic brain injury and clinical findings and course suggest this is irreversible. I do not have any new thoughts or new suggestions from Neurology standpoint today. cc: Morris Curran III, MD MTDD
--- NOTE | 2019-10-09 14:49 | PROGRESS NOTE ---
DATE: 10/09/2019 SUBJECTIVE: The patient is on the ventilator. His family, his and his [id number], are at the bedside. Minimal brainstem reflexes remain. Not awake, not responsive. No cough reflex, no gag reflex to my examination. OBJECTIVE: Vital Signs: Noted. Head and Neck: Examined. Trachea midline. ET tube in place. Chest Examination: Reduced air entry at the bases. Cardiac Examination: S1, S2. Abdominal Examination: Nontender. Extremity Examination: There is +1 pedal edema. Neurologic Examination: Not responsive. Brainstem reflexes remain but they are not meaningful. Laboratories and Investigations: Chest x-ray from today was reviewed and showed no significant changes. Creatinine is 2.3, CO2 is 22, potassium 5.1. CMP was noted. WBCs 19.08, hemoglobin 11.1, platelets 169,000, PH 7.29, pCO2 of 39, PO2 of 252. This is on 100% oxygen with assist- control, ventilator rate of 20, PEEP of 5. Input and output were noted. ASSESSMENT AND PLAN: 1. Prolonged respiratory failure secondary to cardiac arrest multiple times, end-stage congestive heart failure, and cardiomyopathy with left ventricular fibrillation and defibrillator overworking due to demand. 2. I had a discussion today with his about his anoxic encephalopathy, end- stage congestive heart failure, and poor prognosis. She is aware of the poor long-term prognosis. She continues to want to think more about it. I had a discussion also with the palliative care nurse at the bedside. She was present during that conversation. 3. Cardiac arrest multiple times. He is a candidate for another cardiac arrest at any minute. 4. Poor prognosis for anoxic encephalopathy. Neurology is involved. 5. Acute renal failure. PLAN: 1. Discussions as above. 2. We titrated the ventilator settings per clinical protocols and monitored patient's responses closely. Critical care time evaluation, 37 minutes including discussion with the . cc: Juan Duncan MD [facility]
[2019-10-09] MEDS: 1/2 NS 1,000 ML IV SCH (17:29)
[2019-10-10] MEDS ORDERED: HUMULIN R SUBQ ONE (01:58)
[2019-10-10] MEDS: KEFZOL 1 GM/D5W 1 GM/50 ML IVPB IV SCH ×2 (04:00→17:02)
[2019-10-10 05:03] LABS: ALLEN TEST YES; BLOOD TYPE ARTERIAL; HCO3-(ACT) 24.9 mmoll (20.0-26.0); METHB 1.7 % (0.0-1.5); O2HB 96.3 % (95.0-99.0); PCO2(98.6) 34 mmHg (35-45); PO2(98.6) 256 mmHg (60-100); SAMPLE BLOOD; SAO2 98.9 % (95.0-100.0); SRATE 20 BPM; THB 12.1 g/dL (11.5-17.4); TVOL 500 mL; pH(98.6) 7.45 (7.35-7.45)
[2019-10-10 05:11] LABS: MODALITY VENTILATOR
[2019-10-10 06:02] LABS: BASO# 0.02 X1000 (0.0-0.2); BASO% 0.1 % (0.0-0.8); EOS# 0.04 X1000 (0.0-0.7); EOS% 0.3 % (0.0-10.0); HEMATOCRIT 33.9 % (42.0-52.0); HEMOGLOBIN 10.6 g/dL (14.0-18.0); IMM GRAN# 0.05 X1000 (0.0-0.04); IMM GRAN% 0.3 % (0.0-0.5); LYMPH# 0.83 X1000 (1.2-3.4); LYMPH% 5.2 % (20.5-51.1); MCH 24.1 PG (27-31); MCHC 31.3 g/dL (33-37); MONO# 0.69 X1000 (0.11-0.59); MONO% 4.4 % (1.7-9.3); NEUT# 14.23 X1000 (1.4-6.5); NEUT% 89.7 % (42.2-75.2); PLT 165 X1000 (130-400); RDW 18.9 % (11.5-14.5); WBC 15.86 X1000 (4.8-10.8)
[2019-10-10] MEDS: 1/2 NS 1,000 ML IV SCH ×2 (06:24→20:10)
[2019-10-10] MEDS: HUMULIN R SUBQ SCH ×4 (06:31→20:19)
--- NOTE | 2019-10-10 06:40 | Diag Imaging Result Doc PS360 ---
EXAM: CHEST-PORTABLE INDICATION: Ventilator TECHNIQUE: One view COMPARISON: 10/09/2019 FINDINGS: Support tubes and lines are in stable positions. Pulmonary venous congestion and mild interstitial edema is unchanged. The opacification at the left lung base probably representing an effusion is unchanged. No new consolidation is identified. Cardiac silhouette is stable. IMPRESSION: Stable chest. Electronically signed by Chinmay Lott 10/10/2019 6:37 AM
[2019-10-10 06:54] LABS: CALCIUM 10.7 mg/dL (8.8-10.2); CREATININE 2.6 mg/dL (0.7-1.2); POTASSIUM 4.8 mmol/L (3.5-5.1)
[2019-10-10] MEDS: LOPRESSOR PO SCH ×2 (08:15→21:37)
[2019-10-10] MEDS: KEPPRA 250 MG in NS 100 ML IV SCH ×2 (08:15→20:10)
[2019-10-10] MEDS: ALDACTONE PO SCH ×2 (08:15→20:16)
[2019-10-10] MEDS: ZYLOPRIM PO SCH (08:15)
[2019-10-10] MEDS: DULCOLAX PR SCH ×2 (08:15→20:15)
[2019-10-10] MEDS: ASPIRIN PO SCH (08:15)
[2019-10-10] MEDS: CORDARONE NG SCH ×3 (08:15→17:02)
[2019-10-10] MEDS: PROTONIX IV SCH (08:15)
[2019-10-10] MEDS: LANTUS INSULIN SUBQ SCH ×2 (08:35→20:19)
[2019-10-10] MEDS: LOVENOX SUBQ SCH (12:21)
--- NOTE | 2019-10-10 12:21 | PROGRESS NOTE ---
DATE: 10/10/2019 SUBJECTIVE: No big changes compared with yesterday. Patient is still on mechanical ventilation. Continue with same management. His is deciding on talking to the family about the next step. I will try to contact her today. OBJECTIVE: Vital Signs: Temperature 98.8 degrees, pulse 90, respiratory rate 20, blood pressure 91/71, and oxygen saturation 100% on mechanical ventilation. HEENT: Head normocephalic. No trauma. Sluggish response to the pupils. Neck: Supple. No JVD. Chest: Decreased breath sounds mostly at the bases with some crepitus. Abdomen: Soft, protuberant, and nondistended. Extremities: Trace edema. No clubbing. No cyanosis. Neurological: The patient is unresponsive. Basically, he is in coma with some brain stem reflexes. LABORATORY: WBC 15.8, hemoglobin 10.6, hematocrit 33.9, and platelets 165,000. Sodium 138, potassium 4.8, chloride 101, bicarbonate 23 BUN 119, creatinine 2.6, glucose 380, and calcium 10.7. ASSESSMENT AND PLAN: 1. Encephalopathy likely secondary to multiple cardiopulmonary resuscitation and likely this patient has an irreversible anoxic brain injury. Neurology Department on board. 2. Status post multiple cardiac arrest. The last cardiac arrest was yesterday that started at 8:49 in the morning, and finished at 8:59 in the morning. Case has been discussed with the during the resuscitation yesterday, and she wanted to continue. 3. Acute kidney injury on chronic kidney disease. Nephrology on board, seems to be having a decent urine output. I will monitor for now. He is not a candidate for any kind of dialysis at this moment. 4. Severe CHF with low ejection fraction and dilated cardiomyopathy. Aware. 5. MSSA pneumonia. He is still on antibiotics. 6. Pericarditis, improving. 7. Hypoxemic respiratory failure. Continue with mechanical ventilation per Pulmonary Department. 8. Overall, prognosis is extremely poor. I do not believe he will survive this hospitalization. I do not think he is going to go back to baseline. For me, it looks like this is an irreversible condition. cc: Srinivas Magana MD
--- NOTE | 2019-10-10 12:48 | NEUROLOGY PROGRESS NOTE ---
DATE: 10/10/2019 SUBJECTIVE: There has not been significant change apparent clinically. OBJECTIVE: Corneal reflexes are present bilaterally and may be more sluggish than yesterday. There is slight lateral eye movement with passive head turning. I did not examine him for pupillary light response today. Limb tone remains reduced symmetrically. Neck is supple. IMPRESSION: Persistent coma, likely irreversible anoxic/ischemic brain injury. I agree prognosis is dismal and withdrawal of support should be considered. Vegetative state may persist. I do not have any new suggestions today. Thanks for asking Neurology to see Mr. Vázquez. cc: MD GREG Alvarez III
[2019-10-10] MEDS ORDERED: BLISTEX MEDICATED BERRY LIP BALM TOP PRN (12:58)
--- NOTE | 2019-10-10 14:57 | PROGRESS NOTE ---
DATE: 10/10/2019 SUBJECTIVE: The patient is on the ventilator and afebrile. He has minimal brainstem reflexes and he is not responsive. OBJECTIVE: Vital signs: Noted. Neck: Trachea midline. ET tube in place. Chest: Exam reduced air entry bilaterally. Cardiac: Exam is S1, S2. Abdomen: Exam nontender and bowel sounds present. Lower extremities: +1 pedal edema. Neurologic: Unresponsive. LABORATORIES AND INVESTIGATIONS: Chest x-ray was reviewed. CBC, CMP reviewed. Creatinine 2.6, potassium 4.8. WBCs 15.86. PH 7.45, pCO2 34, PO2 256, AC 100% FiO2 and PEEP of 5, tidal volume 500, ASSESSMENT AND PLAN: 69-year-old man with the following 1. Multiple cardiac arrests and shock. He is critically ill and at risk for more cardiac arrests. He has a defibrillator. That is overworking because of high demand and the patient has poor prognosis. 2. Respiratory failure. We did titrate his vent settings and monitor the response as per clinical protocol to keep his sats satisfactory and follow up ABGs. 3. Shock with liver failure Pressors are standby. 4. He remains critically sick and a candidate for a cardiac arrest at any time. 5. Poor prognosis and family is aware. Awaiting for further discussion and further decisions from their end. 6. Acute renal failure and will monitor creatinine levels. Critical care evaluation 32 minutes. cc: Juan Duncan MD MTDD
[2019-10-11] MEDS: TYLENOL PO PRN (00:45)
[2019-10-11] MEDS: KEFZOL 1 GM/D5W 1 GM/50 ML IVPB IV SCH ×2 (04:44→17:23)
[2019-10-11 04:50] LABS: ALLEN TEST YES; BLOOD TYPE ARTERIAL; HCO3-(ACT) 24.9 mmoll (20.0-26.0); MODALITY VENTILATOR; O2(CT) 15.2 mL/dL (15.0-23.0); O2HB 97.1 % (95.0-99.0); PCO2(98.6) 28 mmHg (35-45); PO2(98.6) 188 mmHg (60-100); SAMPLE BLOOD; SAO2 99.4 % (95.0-100.0); SRATE 20 BPM; THB 10.8 g/dL (11.5-17.4); TVOL 500 mL; pH(98.6) 7.51 (7.35-7.45)
[2019-10-11 06:18] LABS: BASO# 0.02 X1000 (0.0-0.2); BASO% 0.1 % (0.0-0.8); EOS# 0.06 X1000 (0.0-0.7); EOS% 0.4 % (0.0-10.0); HEMATOCRIT 32.5 % (42.0-52.0); HEMOGLOBIN 10.1 g/dL (14.0-18.0); IMM GRAN# 0.05 X1000 (0.0-0.04); IMM GRAN% 0.3 % (0.0-0.5); LYMPH# 1.24 X1000 (1.2-3.4); LYMPH% 8.5 % (20.5-51.1); MCH 23.9 PG (27-31); MCHC 31.1 g/dL (33-37); MONO# 0.68 X1000 (0.11-0.59); MONO% 4.7 % (1.7-9.3); NEUT# 12.53 X1000 (1.4-6.5); PLT 186 X1000 (130-400); RBC 4.22 XMIL (4.7-6.1); RDW 18.9 % (11.5-14.5); WBC 14.58 X1000 (4.8-10.8)
[2019-10-11] MEDS: HUMULIN R SUBQ SCH ×4 (06:30→21:06)
[2019-10-11 06:35] LABS: CALCIUM 10.5 mg/dL (8.8-10.2); CREATININE 2.7 mg/dL (0.7-1.2); POTASSIUM 4.6 mmol/L (3.5-5.1)
[2019-10-11 07:13] LABS: LYMPHS 6 % (21-51); SEGS 90 % (42-75)
--- NOTE | 2019-10-11 08:07 | Diag Imaging Result Doc PS360 ---
CHEST-PORTABLE - 10/11/2019 INDICATION: Ventilator COMPARISON: 10/10/2019 FINDINGS: Support tubes are stable and in good position. Stable cardiomegaly and pulmonary vascular congestion. Stable left basilar opacification. Stable faint infiltrate in the right lung base. IMPRESSION: No change from prior. Electronically signed by Joseph Jonas 10/11/2019 8:05 AM
[2019-10-11] MEDS ORDERED: LANTUS INSULIN SUBQ SCH (09:00)
[2019-10-11] MEDS: SODIUM CHLORIDE 0.9% INJ SCH (09:23)
[2019-10-11] MEDS: KEPPRA 250 MG in NS 100 ML IV SCH ×2 (09:23→19:41)
[2019-10-11] MEDS: PROTONIX IV SCH (09:23)
[2019-10-11] MEDS: DULCOLAX PR SCH ×2 (09:25→21:03)
[2019-10-11] MEDS: LOPRESSOR PO SCH ×2 (09:25→21:03)
[2019-10-11] MEDS: 1/2 NS 1,000 ML IV SCH ×2 (09:25→23:05)
[2019-10-11] MEDS: ALDACTONE PO SCH ×2 (09:25→21:03)
[2019-10-11] MEDS: CORDARONE NG SCH ×3 (09:25→17:22)
[2019-10-11] MEDS: ZYLOPRIM PO SCH (09:26)
[2019-10-11] MEDS: LANTUS INSULIN SUBQ SCH ×2 (09:26→21:06)
[2019-10-11] MEDS: ASPIRIN PO SCH (09:26)
--- NOTE | 2019-10-11 11:45 | PROGRESS NOTE ---
DATE: 10/11/2019 SUBJECTIVE: No big changes compared with yesterday. He is still on mechanical ventilation. He is not waking up. OBJECTIVE: Vital Signs: Temperature 100 degrees, pulse 90, respiratory rate 20, blood pressure 103/76, oxygen saturation 100% on mechanical ventilation. HEENT: Head normocephalic, no trauma. PERRLA. Neck: Supple, no JVD. No masses. Central trachea. Chest: Decreased breath sounds globally with some rhonchi and crepitus at the bases. Abdomen: Soft, protuberant, nondistended. Extremities: Trace to 1+ edema. No clubbing. No cyanosis. Neurological: The patient is unresponsive, basically he is in coma with some brain stem reflexes. He is not on sedation. LABORATORY: WBC 14.5, hemoglobin 10.1, hematocrit 32.5, platelets 186,000, sodium 138, potassium 4.6, chloride 102, bicarbonate 21, BUN 131, creatinine 2.7, glucose 290, calcium 10.5. ASSESSMENT AND PLAN: 1. Encephalopathy, likely secondary to multiple cardiopulmonary resuscitations, likely this patient has an irreversible anoxic brain injury. Neurology Department on board. 2. Status post multiple cardiac arrests, his last cardiac arrest was 2 days ago. Case has been discussed multiple times with his and she is still saying that she will discuss this with the family, but we do not have any answers. 3. Acute kidney injury on chronic kidney disease. Nephrology on board. He seems to have be having a good urine output. 4. Severe congestive heart failure with low ejection fraction and dilated cardiomyopathy, aware. 5. Methicillin-sensitive Staphylococcus aureus pneumonia. This patient is still on antibiotics with cefazolin. I do believe I will continue with treating this patient to complete 2 weeks of treatment and then stop. Chest x-ray did not show any new infiltrates. 6. Pericarditis, improving. 7. Hypoxemic respiratory failure. Continue with mechanical ventilation per Pulmonary Department. 8. Nutritional status. Continue feeding tube. Overall, his prognosis is extremely poor. I do not believe he will survive this hospitalization, especially because he is in a coma, I do not think he is going to recover from this, for me this is an irreversible condition. This has been explained multiple times to his and she is trying to make a decision with the family, but I do not think she has communicated. She has been communicating with the family, though. cc: Srinivas Magana MD
[2019-10-11] MEDS: LOVENOX SUBQ SCH (12:47)
--- NOTE | 2019-10-11 14:17 | PROGRESS NOTE ---
DATE: 10/11/2019 SUBJECTIVE: The patient is on assist-control ventilation and on the monitors and vital signs were noted. He is afebrile. T-max is 99.2, T-max earlier was 100. OBJECTIVE: Vital signs: Noted. Head and neck: Examined. Trachea midline. ET tube in place. Chest: Exam shows S1, S2 and defibrillator is in place. Abdomen: Exam nontender. Extremities: Examination with +2 pedal edema. Neurologic exam: Not responsive brainstem responses. LABS AND INVESTIGATIONS: CBC, CMP, ABGs, and chest x-ray were seen. Creatinine is 2.7, WBCs 14.58. MEDICATIONS: Medications were reviewed with amiodarone and included Kefzol also. ASSESSMENT AND PLAN: A 69-year-old man with multiple cardiac arrests. 1. Multiple cardiac arrests and shock. He is now off pressors. 2. Poor prognosis given his end-stage cardiac disease. Awaiting for to make decisions, and she is taking her time doing that. 3. Respiratory failure on assist-control ventilation. 4. Shock and pressors are standby. 5. Acute on chronic renal failure that is stable. 6. Encephalopathy and anoxic brain injury and less likely reversible. Prognosis is poor. cc: Juan Duncan MD
[2019-10-12] MEDS: KEFZOL 1 GM/D5W 1 GM/50 ML IVPB IV SCH ×2 (04:53→16:08)
[2019-10-12 05:32] LABS: ALLEN TEST YES; BE -1.8 mmoll (-3.0-3.0); BLOOD TYPE ARTERIAL; HCO3-(ACT) 23.5 mmoll (20.0-26.0); METHB 1.1 % (0.0-1.5); MODALITY VENTILATOR; O2(CT) 15.8 mL/dL (15.0-23.0); O2HB 96.4 % (95.0-99.0); PCO2(98.6) 33 mmHg (35-45); PO2(98.6) 121 mmHg (60-100); SAMPLE BLOOD; SRATE 20 BPM; THB 11.5 g/dL (11.5-17.4); TVOL 500 mL; pH(98.6) 7.43 (7.35-7.45)
[2019-10-12] MEDS: HUMULIN R SUBQ SCH ×4 (06:14→21:03)
[2019-10-12 06:46] LABS: BASO# 0.01 X1000 (0.0-0.2); BASO% 0.1 % (0.0-0.8); EOS# 0.11 X1000 (0.0-0.7); HEMATOCRIT 32.9 % (42.0-52.0); HEMOGLOBIN 10.3 g/dL (14.0-18.0); IMM GRAN# 0.03 X1000 (0.0-0.04); IMM GRAN% 0.3 % (0.0-0.5); LYMPH# 0.97 X1000 (1.2-3.4); LYMPH% 9.3 % (20.5-51.1); MCH 24.1 PG (27-31); MCHC 31.3 g/dL (33-37); MONO# 0.59 X1000 (0.11-0.59); MONO% 5.6 % (1.7-9.3); NEUT# 8.77 X1000 (1.4-6.5); NEUT% 83.7 % (42.2-75.2); PLT 190 X1000 (130-400); RBC 4.27 XMIL (4.7-6.1); RDW 19.4 % (11.5-14.5); WBC 10.48 X1000 (4.8-10.8)
[2019-10-12 07:02] LABS: CALCIUM 10.7 mg/dL (8.8-10.2); CREATININE 2.3 mg/dL (0.7-1.2); POTASSIUM 4.7 mmol/L (3.5-5.1)
[2019-10-12] MEDS: PROTONIX IV SCH (08:15)
[2019-10-12] MEDS: KEPPRA 250 MG in NS 100 ML IV SCH ×2 (08:15→19:40)
[2019-10-12] MEDS: ZYLOPRIM PO SCH (08:15)
[2019-10-12] MEDS: DULCOLAX PR SCH ×2 (08:15→21:03)
[2019-10-12] MEDS: ASPIRIN PO SCH (08:15)
[2019-10-12] MEDS: ALDACTONE PO SCH ×2 (08:15→21:03)
[2019-10-12] MEDS: LOPRESSOR PO SCH ×2 (08:15→21:03)
[2019-10-12] MEDS: SODIUM CHLORIDE 0.9% INJ SCH (08:15)
[2019-10-12] MEDS: CORDARONE NG SCH ×3 (08:16→16:08)
--- NOTE | 2019-10-12 08:16 | Diag Imaging Result Doc PS360 ---
CHEST-PORTABLE - 10/12/2019 INDICATION: Ventilator COMPARISON: 10/11/2019 FINDINGS: Support lines and tubes are stable and in good position. Stable severe cardiomegaly and pulmonary vascular congestion. Stable significant opacification of the left lung base. No new abnormalities. IMPRESSION: No change from prior. Electronically signed by Joseph Jonas 10/12/2019 8:14 AM
[2019-10-12] MEDS: LANTUS INSULIN SUBQ SCH ×2 (10:06→21:04)
--- NOTE | 2019-10-12 11:15 | PROGRESS NOTE ---
DATE: 10/12/2019 SUBJECTIVE: No big changes compared with yesterday. This patient is still on mechanical ventilation. He is not sedated. He is not waking up. PHYSICAL EXAMINATION: Temperature 97.5 degrees, pulse 99, respiratory rate 23, blood pressure 117/81, oxygen saturation 96% on mechanical ventilation.HEENT: Head normocephalic. No trauma. PERRLA. Neck: Supple. No JVD. No masses. Central trachea. Chest: Decreased breath sounds globally with some rhonchi and crepitus at the bases. Abdomen: Soft, protuberant, nondistended. Extremities: 1+ edema. No clubbing. No cyanosis. Neurological: The patient is unresponsive. Basically, he is in a coma with some brain stem reflexes. He is not on sedation. LABORATORY: WBC 10.4, hemoglobin 10.3, hematocrit 32.9, platelets 190,000. Sodium 138, potassium 4.7, chloride 102, bicarbonate 22, BUN 114, creatinine 2.3, glucose 242, calcium 10.7. ASSESSMENT AND PLAN: 1. Encephalopathy, likely secondary to multiple cardiopulmonary resuscitations. This patient likely has an irreversible anoxic brain injury. Neurology Department on board. 2. Status post multiple cardiac arrest, his last cardiac arrest was 3 days ago. 3. Acute kidney injury on chronic kidney disease, stable. 4. Severe congestive heart failure with low ejection fraction and dilated cardiomyopathy aware. 5. Methicillin sensitive Staphylococcus aureus (MSSA) pneumonia. He is still on antibiotics with cefazolin. Will complete 2 weeks of treatment. Chest x-ray did not show any new infiltrates. 6. Pericarditis, improved. 7. Hypoxemic respiratory failure. Continue with mechanical ventilation per Pulmonary Department. 8. Nutritional status. Continue with feeding tube. DISPOSITION: Overall, his prognosis is extremely poor, I do believe he has an irreversible condition, likely anoxic brain injury due to his multiple cardiopulmonary resuscitations and decreased blood flow to the brain. This has been explained multiple times to his . Today, I called his and talked to her about the case again, I told her that we need an answer as soon as possible and we need to find out, based on he this patient's condition, what she wants us to do. She states that she talked to Dr. Jose F Johnson last week, and he apparently told her to wait to see what happened during the weekend and give us an answer on Sunday. So, she asked me to wait 1 more day so she can talk to the family. I am not quite sure if she has been talking to the family before. Last week I also had a conversation with Dr. Jose F Johnson about this patient's condition, and I explained to him in detail everything, including what the Cardiology Department thinks about this case, Neurology Department, Pulmonary Department and myself. TIME SPENT: Today, I discussed the case with the for at least 20 more minutes. cc: Srinivas Magana MD
[2019-10-12] MEDS: 1/2 NS 1,000 ML IV SCH (11:42)
[2019-10-12] MEDS: LOVENOX SUBQ SCH (11:44)
--- NOTE | 2019-10-12 14:41 | PROGRESS NOTE ---
DATE: 10/12/2019 SUBJECTIVE: The patient is on assist-control ventilation and no change in his poor level of responsiveness. OBJECTIVE: Vital signs: As noted. Neck: Trachea midline. ET tube is in place. Chest: Reduced entry. Cardiac exam: S1, S2. Defibrillator in place. Abdomen: Nontender. Extremities: Plus 1 pedal edema. Neurological exam: Nonresponsive. LABS: CBC, CMP, chest x-ray, ABG were seen ,with creatinine is 2.3, hemoglobin 10.3. The pH is 7.43, pCO2 33, PO2 121 on assist control, rate of 20, FiO2 40%, tidal volume 500, PEEP of 5. Chest x-ray was seen and no change from prior. ASSESSMENT AND PLAN: 1. Multiple cardiac arrests and end-stage cardiomyopathy. 2. Acute respiratory failure, compensated on the ventilator and we are monitoring his response to up titrating his vent settings closely. 3. Acute renal failure, Renal involved. 4. Patient has anoxic encephalopathy and has poor prognosis. is aware of multiple discussions and we are waiting for her decisions. cc: Juan Duncan MD
[2019-10-12] MEDS: TYLENOL PO PRN (23:14)
[2019-10-13] MEDS: 1/2 NS 1,000 ML IV SCH ×2 (01:42→15:22)
[2019-10-13] MEDS: KEFZOL 1 GM/D5W 1 GM/50 ML IVPB IV SCH ×2 (04:28→16:39)
[2019-10-13 04:37] LABS: ALLEN TEST YES; BE -1.8 mmoll (-3.0-3.0); BLOOD TYPE ARTERIAL; HCO3-(ACT) 23.5 mmoll (20.0-26.0); METHB 1.3 % (0.0-1.5); O2HB 96.4 % (95.0-99.0); PCO2(98.6) 32 mmHg (35-45); PO2(98.6) 132 mmHg (60-100); SAMPLE BLOOD; SAO2 98.8 % (95.0-100.0); SRATE 20 BPM; THB 11.6 g/dL (11.5-17.4); TVOL 500 mL; pH(98.6) 7.44 (7.35-7.45)
[2019-10-13 04:38] LABS: MODALITY VENTILATOR
[2019-10-13 04:57] LABS: BASO# 0.05 X1000 (0.0-0.2); BASO% 0.5 % (0.0-0.8); EOS# 0.14 X1000 (0.0-0.7); EOS% 1.3 % (0.0-10.0); HEMATOCRIT 32.4 % (42.0-52.0); HEMOGLOBIN 10.1 g/dL (14.0-18.0); IMM GRAN# 0.05 X1000 (0.0-0.04); IMM GRAN% 0.5 % (0.0-0.5); LYMPH# 1.16 X1000 (1.2-3.4); LYMPH% 11.1 % (20.5-51.1); MCH 24.2 PG (27-31); MCHC 31.2 g/dL (33-37); MCV 77.5 FL (81-99); MONO% 4.8 % (1.7-9.3); MPV 12.5 FL (7.4-10.4); NEUT# 8.57 X1000 (1.4-6.5); NEUT% 81.8 % (42.2-75.2); PLT 181 X1000 (130-400); RBC 4.18 XMIL (4.7-6.1); RDW 19.5 % (11.5-14.5); WBC 10.47 X1000 (4.8-10.8)
[2019-10-13] MEDS: HUMULIN R SUBQ SCH ×4 (06:01→20:27)
[2019-10-13 06:07] LABS: CALCIUM 10.1 mg/dL (8.8-10.2); CREATININE 2.2 mg/dL (0.7-1.2); POTASSIUM 4.8 mmol/L (3.5-5.1)
--- NOTE | 2019-10-13 06:14 | Diag Imaging Result Doc PS360 ---
EXAM: CHEST-PORTABLE HISTORY: Ventilator TECHNIQUE: Single view COMPARISON: 10/12/2019 FINDINGS: No change in the endotracheal tube, nasogastric tube, or left pacemaker. There is a small to moderate left pleural effusion with basilar atelectasis. May be underlying infiltrates as well. The heart is not enlarged. The central vascular prominence. IMPRESSION: Stable chest Electronically signed by Tal Smith 10/13/2019 6:12 AM
[2019-10-13] MEDS: SODIUM CHLORIDE 0.9% INJ SCH (09:15)
[2019-10-13] MEDS: PROTONIX IV SCH (09:15)
[2019-10-13] MEDS: ZYLOPRIM PO SCH (09:15)
[2019-10-13] MEDS: CORDARONE NG SCH ×3 (09:15→16:38)
[2019-10-13] MEDS: ALDACTONE PO SCH ×2 (09:15→20:00)
[2019-10-13] MEDS: ASPIRIN PO SCH (09:15)
[2019-10-13] MEDS: KEPPRA 250 MG in NS 100 ML IV SCH ×2 (09:15→19:54)
[2019-10-13] MEDS: LOPRESSOR PO SCH ×2 (09:15→20:00)
[2019-10-13] MEDS: DULCOLAX PR SCH ×2 (09:16→20:28)
[2019-10-13] MEDS: LANTUS INSULIN SUBQ SCH ×2 (09:16→20:27)
--- NOTE | 2019-10-13 11:15 | PROGRESS NOTE ---
DATE: 10/13/2019 SUBJECTIVE: No big changes compared with yesterday. He is still on mechanical ventilation. He is not sedated. OBJECTIVE: Vital Signs: Temperature 99.1 degrees, pulse 90 respiratory rate 20, blood pressure 128/74, oxygen saturation 100% on mechanical ventilation. HEENT: Head normocephalic, no trauma. PERRLA. Neck: Supple. No JVD. No masses. Central trachea. Chest: Decreased breath sounds globally with some rhonchi and crepitus at the bases. Abdomen: Soft, protuberant, does not look distended. Extremities: 1+ extremity edema. No clubbing. No cyanosis. Neurological: The patient is unresponsive. Basically, he is in coma with some brainstem reflexes. He is not on sedation. LABORATORY: WBC 10.4, hemoglobin 10.1, hematocrit 32.4, platelets 181,000. Sodium 142, potassium 4.8, chloride 107, bicarbonate 20, BUN 104, creatinine 2.2, glucose 218, calcium 10.1. ASSESSMENT AND PLAN: 1. Encephalopathy, likely secondary to multiple cardiopulmonary resuscitations. This patient likely has an irreversible anoxic brain injury. Neurology department on board. 2. Status post multiple cardiac arrest, his last cardiac arrest was 4 days ago. 3. Acute kidney injury on chronic kidney disease, stable. 4. Severe congestive heart failure with low ejection fraction and dilated cardiomyopathy, aware. 5. Methicillin sensitive staphylococcus aureus pneumonia. He is still on antibiotics and my plan is to stop the treatment with antibiotics tomorrow. Chest x-ray did not show any abnormality. 6. Pericarditis, improved. 7. Hypoxemic respiratory failure continue with mechanical ventilation per pulmonary department. 8. Nutritional status continue feeding tube. DISPOSITION: Overall this patient has an extremely poor prognosis. I do not believe this patient will survive this hospitalization. It looks like he has an irreversible anoxic brain injury. I contacted Mrs. Vázquez today again and she states that she has made a decision and she will come by to the hospital to talk to us. cc: Srinivas Magana MD
[2019-10-13] MEDS: LOVENOX SUBQ SCH (12:39)
--- NOTE | 2019-10-13 14:44 | PROVIDER PROGRESS NOTE ---
Progress Note Dr. Duncan Progress Note/Pulmonary and or critical care Subjective: The patient stays intubated. He stays unresponsive. He is on NG tube feeding with 1/2 NS fluid on. RN at the bedside reports that is still pending on her decision about patient's code statue. No family at the bedside. Input was appreciated from Dr. Galloway and other teams on the case. Objective: Vital Signs: T 99.1 (T-max at 100.1 in last 24 hours), AR 90, RR 20, BP 128/74 and SaO2 100% on AC 20, 40%, 500, 5. I/O: +1430 ml. Physical Examination: General: Intubated. Lying in bed. HEENT: Normocephalic. Atraumatic. Trachea midline. ET tube in place. Chest: Mechanically ventilated. Symmetrical excursion. Diminished breathing sounds bilaterally. CVS: Paced rhythm. S1 and S2 appreciated. Abdomen: Soft. Distended. Bowel sounds present in all 4 quadrants. Extremities: BLE pitting edema 1+ with boots on. BUE pitting edema 2-3+. No cyanosis. No clubbing. Neuro: Unresponsive to pain stimuli without sedation. Labs and Radiology: Laboratory Results 10/12/19 10/12/19 10/13/19 15:36 21:03 04:20 WBC 10.47 RBC 4.18 L Hgb 10.1 L Hct 32.4 L MCV 77.5 L MCH 24.2 L MCHC 31.2 L RDW Std Deviation 19.5 H Plt Count 181 MPV 12.5 H Immature Gran % (Auto) 0.5 Neut % (Auto) 81.8 H Lymph % (Auto) 11.1 L [place] % (Auto) 4.8 Eos % (Auto) 1.3 Baso % (Auto) 0.5 Immature Gran # (Auto) 0.05 H Neut # (Auto) 8.57 H Lymph # (Auto) 1.16 L [place] # (Auto) 0.50 Eos # (Auto) 0.14 Baso # (Auto) 0.05 Specimen Type Sample Site pH pCO2 pO2 HCO3 Base Excess Oxyhemoglobin ABG O2 Sat (Calculated) ABG O2 Saturation ABG Carboxyhemoglobin ABG Methemoglobin Rick Test A-a O2 Difference Total Hemoglobin Lactate Blood Gas Modality Spontaneous Rate FiO2 % Tidal Volume PEEP Sodium Potassium Chloride Carbon Dioxide Anion Gap BUN Creatinine Estimated GFR/1.73 m2 BUN/Creatinine Ratio Glucose POC Glucose 273 H 210 H Calculated Osmolality Calcium 10/13/19 10/13/19 10/13/19 04:20 04:27 05:56 WBC RBC Hgb Hct MCV MCH MCHC RDW Std Deviation Plt Count MPV Immature Gran % (Auto) Neut % (Auto) Lymph % (Auto) [place] % (Auto) Eos % (Auto) Baso % (Auto) Immature Gran # (Auto) Neut # (Auto) Lymph # (Auto) [place] # (Auto) Eos # (Auto) Baso # (Auto) Specimen Type ARTERIAL Sample Site R RADIAL pH 7.44 pCO2 32 L pO2 132 H HCO3 23.5 Base Excess -1.8 Oxyhemoglobin 96.4 ABG O2 Sat (Calculated) 16.0 ABG O2 Saturation 98.8 ABG Carboxyhemoglobin 1.10 ABG Methemoglobin 1.3 Rick Test YES A-a O2 Difference 113.0 Total Hemoglobin 11.6 Lactate 1.20 Blood Gas Modality VENTILATOR Spontaneous Rate 20 FiO2 % 40.0 Tidal Volume 500 PEEP 5.0 Sodium 142 Potassium 4.8 Chloride 107 Carbon Dioxide 20 L Anion Gap 15 BUN 104 H Creatinine 2.2 H Estimated GFR/1.73 m2 36 BUN/Creatinine Ratio 47 Glucose 218 H POC Glucose 225 H Calculated Osmolality 322 Calcium 10.1 10/13/19 10:16 WBC RBC Hgb Hct MCV MCH MCHC RDW Std Deviation Plt Count MPV Immature Gran % (Auto) Neut % (Auto) Lymph % (Auto) [place] % (Auto) Eos % (Auto) Baso % (Auto) Immature Gran # (Auto) Neut # (Auto) Lymph # (Auto) [place] # (Auto) Eos # (Auto) Baso # (Auto) Specimen Type Sample Site pH pCO2 pO2 HCO3 Base Excess Oxyhemoglobin ABG O2 Sat (Calculated) ABG O2 Saturation ABG Carboxyhemoglobin ABG Methemoglobin Rick Test A-a O2 Difference Total Hemoglobin Lactate Blood Gas Modality Spontaneous Rate FiO2 % Tidal Volume PEEP Sodium Potassium Chloride Carbon Dioxide Anion Gap BUN Creatinine Estimated GFR/1.73 m2 BUN/Creatinine Ratio Glucose POC Glucose 227 H Calculated Osmolality Calcium Assessment: Acute respiratory failure secondary to end-stage cardiomyopathy, compensated on the ventilator. Intubated since 09/23/19. Possible pneumonia. CXR today shows stable chest with a small to moderate left pleural effusion, basilar atelectasis, possible underlying infiltrates and central vascular prominence. Multiple cardiac arrests with end-stage cardiomyopathy. Last cardiac arrest on 10/09/19. Ischemic acute tubular necrosis overlying chronic kidney disease. Stable. Nephrology on board. Shock with liver failure. Pressors are standby. Anoxic encephalopathy. Prognosis poor. Patient stays on full code. Patients is aware of multiple discussions and we are waiting for her decision. Plan: Continue full ventilatory support. We checked ventilation and titrated to patients needs per clinical protocols. We will monitor patients response closely. We follow up ABG and CXR daily. Patient stays full code. He remains critically sick and a candidate for recurrent cardiac arrest at any time. There is no family at the bedside at this time. We are waiting for further discussion and further decisions from patients family. Palliative care on board. Continue antibiotic Cefazolin. Continue GI and DVT prophylaxis. Total evaluation time in minutes: 31.
[2019-10-13] MEDS: TYLENOL PO PRN (19:59)
[2019-10-14] MEDS: 1/2 NS 1,000 ML IV SCH (03:52)
[2019-10-14] MEDS: KEFZOL 1 GM/D5W 1 GM/50 ML IVPB IV SCH (04:00)
[2019-10-14 04:59] LABS: ALLEN TEST YES; BE -4.5 mmoll (-3.0-3.0); BLOOD TYPE ARTERIAL; HCO3-(ACT) 21.4 mmoll (20.0-26.0); METHB 1.2 % (0.0-1.5); O2(CT) 17.7 mL/dL (15.0-23.0); O2HB 96.4 % (95.0-99.0); PCO2(98.6) 30 mmHg (35-45); PO2(98.6) 143 mmHg (60-100); SAMPLE BLOOD; SAO2 99.2 % (95.0-100.0); SRATE 20 BPM; THB 12.9 g/dL (11.5-17.4); TVOL 500 mL; pH(98.6) 7.41 (7.35-7.45)
[2019-10-14 05:01] LABS: MODALITY VENTILATOR
[2019-10-14 05:27] LABS: BASO# 0.02 X1000 (0.0-0.2); BASO% 0.2 % (0.0-0.8); EOS# 0.05 X1000 (0.0-0.7); EOS% 0.5 % (0.0-10.0); HEMATOCRIT 32.1 % (42.0-52.0); IMM GRAN# 0.04 X1000 (0.0-0.04); IMM GRAN% 0.4 % (0.0-0.5); LYMPH# 1.08 X1000 (1.2-3.4); LYMPH% 10.8 % (20.5-51.1); MCH 24.1 PG (27-31); MCHC 31.2 g/dL (33-37); MCV 77.3 FL (81-99); MONO# 0.56 X1000 (0.11-0.59); MONO% 5.6 % (1.7-9.3); MPV 13.3 FL (7.4-10.4); NEUT# 8.29 X1000 (1.4-6.5); NEUT% 82.5 % (42.2-75.2); PLT 185 X1000 (130-400); RBC 4.15 XMIL (4.7-6.1); RDW 19.6 % (11.5-14.5); WBC 10.04 X1000 (4.8-10.8)
[2019-10-14 05:55] LABS: POTASSIUM 5.1 mmol/L (3.5-5.1)
[2019-10-14 06:01] LABS: LYMPHS 8 % (21-51); MONO 2 % (1-9); SEGS 90 % (42-75)
[2019-10-14] MEDS: HUMULIN R SUBQ SCH ×2 (06:40→10:32)
--- NOTE | 2019-10-14 07:20 | Diag Imaging Result Doc PS360 ---
CHEST-PORTABLE - 10/14/2019 INDICATION: Ventilator COMPARISON: 10/13/2019 FINDINGS: Support tubes are stable and in good position. Stable cardiomegaly and pulmonary vascular congestion. Stable retrocardiac opacification. No new infiltrates. IMPRESSION: No change from prior. Electronically signed by Joseph Jonas 10/14/2019 7:18 AM
[2019-10-14] MEDS: KEPPRA 250 MG in NS 100 ML IV SCH (07:28)
[2019-10-14] MEDS: ALDACTONE PO SCH (08:23)
[2019-10-14] MEDS: PROTONIX IV SCH (08:23)
[2019-10-14] MEDS: DULCOLAX PR SCH (08:23)
[2019-10-14] MEDS: CORDARONE NG SCH (08:23)
[2019-10-14] MEDS: LANTUS INSULIN SUBQ SCH (08:23)
[2019-10-14] MEDS: ASPIRIN PO SCH (08:23)
[2019-10-14] MEDS: ZYLOPRIM PO SCH (08:23)
[2019-10-14] MEDS: LOPRESSOR PO SCH (08:23)
--- NOTE | 2019-10-14 09:21 | PROGRESS NOTE ---
DATE: 10/14/2019 SUBJECTIVE: The patient continues to be on mechanical ventilation. Patient appears to be unresponsive. He is not sedated. OBJECTIVE: Vital Signs: Temperature 97.0 degrees, heart rate 90, respiratory rate 21, blood pressure 107/70, O2 saturation 100% on mechanical ventilator, FiO2 of 40%. General Examination: This is a chronically ill-looking, 69-year-old, -[place] male, completely unresponsive, connected to the ventilator. HEENT: Head is normocephalic and atraumatic. Neck: No JVD noted. No carotid bruit. Cardiovascular Examination: S1 and S2 heard. No murmurs, gallops, or rubs. Regular rate and rhythm. Respiratory Examination: Decreased breath sounds globally with rhonchi and crackles noted in both bases. Patient is not using any accessory muscles or having work of breathing. Abdomen: Soft, obese, nondistended. Bowel sounds present. No organomegaly. Extremities: There is 1 to 2+ pitting edema in both lower extremities. No clubbing or cyanosis. Neurological Examination: The patient continues to be unresponsive. He is not on any sedation. Laboratory Data: Reviewed. ASSESSMENT AND PLAN: 1. 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 The patient has had multiple cardiopulmonary resuscitations. I think at this point, his prognosis is extremely poor. Neurology department has been following this patient. 2. Status post multiple cardiac arrests. His last cardiac arrest was 5 days ago. He continues to be basically the same since then. 3. Acute on chronic kidney disease. That condition is stable. 4. Severe congestive heart failure with low ejection fraction and dilated cardiomyopathy. We are aware of that condition. 5. Methicillin-sensitive Staphylococcus aureus pneumonia. The patient has been started on cefazolin. We are going to stop that medication today. 6. Pericarditis, improved. 7. Acute hypoxemic respiratory failure requiring still mechanical ventilator. Aware. The patient is not able to maintain patent airways because of anoxic encephalopathy. 8. Nutritional status. Patient continues to be on tube feeling. 9. Disposition. Palliative care has been consulted. Apparently, as per nurse, this patient was supposed to be extubated terminally but we were trying to get the to make the decision. We were not successful yet. We will talk to Tish from Palliative Care, to see if we can try to extubate him terminally today. As we mentioned before, prognosis is extremely poor. Addendum: I have spoken with and informed her about current clinical condition and prognosis of this patient. She agree to terminally extubate this patient. Will honor her wishes. cc: Max Chacon MD MTDD
[2019-10-14] MEDS: ATIVAN IV PRN ×3 (13:56→16:57)
[2019-10-14] MEDS: MORPHINE IV PRN ×3 (13:57→16:56)
--- NOTE | 2019-10-14 16:35 | PROVIDER PROGRESS NOTE ---
Progress Note Dr. Duncan Progress Note/Pulmonary and or critical care Subjective: The patient stays intubated. He stays unresponsive. He is on NG tube feeding with 1/2 NS fluid on. His eyes randomly blink during my encounter, but no obvious corneal reflex noted. No family at the bedside. Input was appreciated from Dr. Amado and other teams on the case. Objective: Vital Signs: T 97.0 (T-max at 100.1 in last 24 hours), RI 90, RR 21, BP 107/78 and SaO2 100% on AC 20, 40%, 500, 5. I/O: +1742 ml. Physical Examination: General: Intubated. Lying in bed with eyes randomly blinking. HEENT: Normocephalic. Atraumatic. Trachea midline. ET tube in place. Chest: Mechanically ventilated. Symmetrical excursion. Diminished breathing sounds bilaterally. CVS: Paced rhythm. S1 and S2 appreciated. Abdomen: Soft. Distended. Bowel sounds present in all 4 quadrants. Extremities: BLE and BUE pitting edema 1-2+ with boots on BLE. No cyanosis. No clubbing. Neuro: Unresponsive to pain stimuli without sedation. No obvious corneal reflex noted. Labs and Radiology: Laboratory Results 10/13/19 10/14/19 10/14/19 20:17 04:48 05:15 WBC 10.04 RBC 4.15 L Hgb 10.0 L Hct 32.1 L MCV 77.3 L MCH 24.1 L MCHC 31.2 L RDW Std Deviation 19.6 H Plt Count 185 MPV 13.3 H Immature Gran % (Auto) 0.4 Neut % (Auto) 82.5 H Lymph % (Auto) 10.8 L [place] % (Auto) 5.6 Eos % (Auto) 0.5 Baso % (Auto) 0.2 Immature Gran # (Auto) 0.04 Neut # (Auto) 8.29 H Lymph # (Auto) 1.08 L [place] # (Auto) 0.56 Eos # (Auto) 0.05 Baso # (Auto) 0.02 Segmented Neutrophils 90 H Lymphocytes 8 L Monocytes 2 Specimen Type ARTERIAL Sample Site R RADIAL pH 7.41 pCO2 30 L pO2 143 H HCO3 21.4 Base Excess -4.5 L Oxyhemoglobin 96.4 ABG O2 Sat (Calculated) 17.7 ABG O2 Saturation 99.2 ABG Carboxyhemoglobin 1.50 ABG Methemoglobin 1.2 Rick Test YES A-a O2 Difference 105.0 Total Hemoglobin 12.9 Lactate 1.40 Blood Gas Modality VENTILATOR Vent Mode A/C Spontaneous Rate 20 FiO2 % 40.0 Tidal Volume 500 PEEP 5.0 Sodium Potassium Chloride Carbon Dioxide Anion Gap BUN Creatinine Estimated GFR/1.73 m2 BUN/Creatinine Ratio Glucose POC Glucose 267 H Calculated Osmolality Calcium 10/14/19 10/14/19 05:15 10:21 WBC RBC Hgb Hct MCV MCH MCHC RDW Std Deviation Plt Count MPV Immature Gran % (Auto) Neut % (Auto) Lymph % (Auto) [place] % (Auto) Eos % (Auto) Baso % (Auto) Immature Gran # (Auto) Neut # (Auto) Lymph # (Auto) [place] # (Auto) Eos # (Auto) Baso # (Auto) Segmented Neutrophils Lymphocytes Monocytes Specimen Type Sample Site pH pCO2 pO2 HCO3 Base Excess Oxyhemoglobin ABG O2 Sat (Calculated) ABG O2 Saturation ABG Carboxyhemoglobin ABG Methemoglobin Rick Test A-a O2 Difference Total Hemoglobin Lactate Blood Gas Modality Vent Mode Spontaneous Rate FiO2 % Tidal Volume PEEP Sodium 139 Potassium 5.1 Chloride 106 Carbon Dioxide 20 L Anion Gap 13 BUN 104 H Creatinine 2.0 H Estimated GFR/1.73 m2 40 BUN/Creatinine Ratio 52 Glucose 268 H POC Glucose 213 H Calculated Osmolality 320 Calcium 10.0 Assessment: Acute respiratory failure secondary to end-stage cardiomyopathy, compensated on the ventilator. Intubated since 09/23/19. Possible pneumonia. Multiple cardiac arrests with end-stage cardiomyopathy. Last cardiac arrest on 10/09/19. Ischemic acute tubular necrosis overlying chronic kidney disease. Stable. Nephrology on board. Shock with liver failure. Pressors are standby. Anoxic encephalopathy. Prognosis poor. Patient stays on full code. Patients is aware of multiple discussions and we are waiting for her final decision. Plan: Continue full ventilatory support. We checked ventilation and titrated to patients needs per clinical protocols. We will monitor patients response closely. We follow up ABG and CXR daily. Patient stays full code. He has been intubated over 3 weeks. He remains critically sick at high risk of recurrent cardiac arrest at any time. There is no family at the bedside at this time. We are waiting for further discussion and/or final decisions from patients family. Palliative care on board. Continue antibiotic Cefazolin. We follow up CBC and BMP daily. Continue GI and DVT prophylaxis. Total evaluation time in minutes: 31.
[2019-10-14 19:29] VITALS: BP 64/28
--- NOTE | 2019-10-15 14:11 | DISCHARGE SUMMARY ---
ADMISSION DATE: 09/21/2019 DISCHARGE DATE: 10/14/2019 SUBJECTIVE: The patient unfortunately from the following diagnoses: 1. Several cardiac arrests. 2. Ventricular fibrillation. 3. Chronic obstructive pulmonary disease. 4. Severe dilated nonischemic cardiomyopathy. 5. Coronary artery disease. 6. Hypertension. 7. Hyperlipidemia. 8. Chronic kidney disease. 9. Morbid obesity. CONSULTATIONS: 1. Barry Jeff MD from Cardiology. 2. Camilo Chopra MD from Nephrology. 3. Cara Johnston MD from Neurology. 4. Juan Duncan MD from Pulmonary. HOSPITAL COURSE: This is a 69-year-old male with history of dilated nonischemic cardiomyopathy, coronary artery disease, COPD, who presented to the emergency department complaining of chest discomfort. He had AICD. He was found in the ER to have atrial fibrillation and ventricular fibrillation and infarcted about 4 times since yesterday, so he was admitted for further evaluation and treatment. Unfortunately, on the same day of admission, he developed cardiac arrest. He was provided chest compressions and he was intubated. Unfortunately, this patient was not improving. He was persistently unresponsive. Apparently, he had a seizure so Neurology was consulted. EEG did not show any evidence of seizure. He was placed on Keppra. The patient remained intubated because his mental status never recovered. Per the neurology team, at some point, this patient had severe anoxic encephalopathy. He has been here 23 days in the hospital. Because of his poor prognosis and because he was not improving, we consulted palliative care. Also family agreed after 3 days to extubate him and the patient unfortunately on 10/14/2019 at approximately 1:42. cc: Max Chacon MD
== END 2019-10-14 21:40 | disposition expired | DRG 308 ==
LOC: SUPCPDRO → ED 23:59 → 2N 09-21 05:14 → SUATTDRO 09-21 05:14 → ICU 09-22 20:22 → 3N 10-14 17:49
PROVIDERS: ATTEND Internal Medicine